=== PATIENT | female | born 1955 | race Hispanic/Latino ===

== ENCOUNTER 2017-01-17 16:58 | Inpatient (IN) | payer MEDICAID ==
[2017-01-17 16:58] VITALS: BMI 19.8
--- NOTE | 2017-01-17 17:52 | ED PDOC ---
Arrival/HPI - General Chief Complaint: Trauma Time Seen by Provider: 01/17/17 17:22 Historian: Patient - History of Present Illness Narrative History of Present Illness (Text): 01/17/17 17:49 61 yo female with h/o Afib (coumadin), CAD, HTN, Hypothyroidism, Leukemia, presents to the ED s/p fall in the bathtub of the [facility]. She says she slipped and fell and hit her left forehead. She only has mild pain. No LOC. Denies any neck pain. No numbness or weakness. Patient denies any other injury. No hip pain. PMD: Dr. Knight Past Medical History - Provider Review Nursing Documentation Reviewed: Yes - Infectious Disease Hx of Infectious Diseases: None - Tetanus Immunization Tetanus Immunization: Unknown - Cardiac Hx Cardiac Disorders: Yes Hx Hypertension: Yes - Pulmonary Hx Respiratory Disorders: No Hx Asthma: No - Neurological Hx Neurological Disorder: No - HEENT Hx HEENT Disorder: No - Renal Hx Renal Disorder: No - Endocrine/Metabolic Hx Endocrine Disorders: Yes Hx Hypothyroidism: Yes - Hematological/Oncological Hx Blood Disorders: Yes (leukemia) Hx Anemia: Yes Hx Leukemia: Yes - Integumentary Hx Dermatological Disorder: No - Musculoskeletal/Rheumatological Hx Musculoskeletal Disorders: Yes Hx Arthritis: Yes - Gastrointestinal Hx Gastrointestinal Disorders: Yes Hx Gastroesophageal Reflux: Yes - Genitourinary/Gynecological Hx Genitourinary Disorders: No - Psychiatric Hx Psychophysiologic Disorder: Yes Hx Depression: Yes Hx Emotional Abuse: No Hx Physical Abuse: No Hx Substance Use: No - Past Surgical History Past Surgical History: Unable to Obtain - Anesthesia Hx Anesthesia Reactions: No Hx Malignant Hyperthermia: No - Suicidal Assessment Feels Threatened In Home Enviroment: No Family/Social History - Physician Review Nursing Documentation Reviewed: Yes Family/Social History: No Known Family HX Smoking Status: Never Smoked Hx Alcohol Use: No Hx Substance Use: No Hx Substance Use Treatment: No Allergies/Home Meds Allergies/Adverse Reactions: Allergies No Known Allergies Allergy (Verified 01/17/17 17:22) Home Medications: Home Meds Medication Instructions Recorded Confirmed Carvedilol 6.25 mg PO BID 08/24/13 01/17/17 Pantoprazole Sodium [Protonix] 20 mg PO DAILY 08/24/13 01/17/17 Cholecalciferol (Vitamin D3) 1 tab PO DAILY 01/17/17 01/17/17 [Vitamin D3] Digoxin [Lanoxin] 0.125 mg PO DAILY 01/17/17 01/17/17 Enoxaparin [Lovenox] 60 mg SC DAILY 01/17/17 01/17/17 Fenofibrate [Triglide] 160 mg PO DAILY 01/17/17 01/17/17 Fluoxetine HCl [Prozac] 40 mg PO DAILY 01/17/17 01/17/17 Furosemide [Lasix] 20 mg PO DAILY 01/17/17 01/17/17 Gabapentin [Neurontin] 100 mg PO Q8 PRN 01/17/17 01/17/17 Methimazole [Methimazole] 10 mg PO TID 01/17/17 01/17/17 Mometasone Furoate [Nasonex] 2 spr IN DAILY 01/17/17 01/17/17 Montelukast [Singulair] 10 mg PO DAILY 01/17/17 01/17/17 Multivitamin [Multivitamins] 1 tab PO DAILY 01/17/17 01/17/17 Czleq-8-Iuli Ethyl Esters [OMEGA 3] 1,000 mg PO BID 01/17/17 01/17/17 Risperidone [Risperdal] 0.5 mg PO DAILY 01/17/17 01/17/17 Warfarin [Coumadin] 1 mg PO .EFREN 01/17/17 01/17/17 Warfarin [Coumadin] 2 mg PO DAILY 01/17/17 01/17/17 Review of Systems - Physician Review All systems were reviewed & negative as marked: Yes - Review of Systems Constitutional: Normal Eyes: Normal ENT: Normal Respiratory: Normal Cardiovascular: Normal Gastrointestinal: Normal Genitourinary Female: Normal Musculoskeletal: Normal Skin: Normal Neurological: Normal Endocrine: Normal Hemo/Lymphatic: Normal Psychiatric: Normal Physical Exam Vital Signs Reviewed: Yes Vital Signs Temp Pulse Resp BP Pulse Ox 01/17/17 17:15 98.8 F 110 H 24 116/64 98 Temperature: Afebrile Blood Pressure: Normal Pulse: Tachycardic Respiratory Rate: Normal Appearance: Positive for: Well-Appearing, Non-Toxic, Comfortable Pain Distress: None Mental Status: Positive for: Alert and Oriented X 3 - Systems Exam Head: Present: Atraumatic, Normocephalic, Tenderness (to left forehead; no ecchymosis; no step off). No: Contusion, Ecchymosis, Laceration Pupils: Present: PERRL Extroacular Muscles: Present: EOMI. No: Gaze Palsy Conjunctiva: Present: Normal Ears: Present: Normal Mouth: Present: Moist Mucous Membranes Pharnyx: Present: Normal. No: ERYTHEMA, EXUDATE Nose (External): Present: Atraumatic Nose (Internal): Present: Normal Inspection Neck: Present: Normal Range of Motion Respiratory/Chest: Present: Clear to Auscultation, Good Air Exchange. No: Respiratory Distress, Accessory Muscle Use Cardiovascular: Present: Regular Rate and Rhythm, Normal S1, S2. No: Murmurs Abdomen: Present: Normal Bowel Sounds. No: Tenderness, Distention, Peritoneal Signs Back: Present: Normal Inspection Upper Extremity: Present: Normal Inspection. No: Cyanosis, Edema Lower Extremity: Present: Normal Inspection. No: Edema Neurological: Present: GCS=15, CN II-XII Intact, Speech Normal, Motor Func Grossly Intact, Normal Sensory Function Skin: Present: Warm, Dry, Normal Color. No: Rashes Psychiatric: Present: Alert, Oriented x 3, Normal Insight, Normal Concentration Medical Decision Making ED Course and Treatment: 01/17/17 17:52 61 yo female s/p mechanical fall with head injury on coumadin -- Labs -- CT head/Max/facial -- Pain control -- Reevaluate and disposition 01/17/17 18:36 Patients labs show elevated WBC at 19. Added UA, CXR and Venous blood gamaliel shock panel. CT Head pending. Will sign out to Dr. Herzog to f/u labs, UA, CXR , CT, reevaluate and disposition 01/17/17 18:48 EKG: Sinus Tachy at 114 bpm with TWI in anteriolateral leads, no ST elevations. Change from 09/12/13. Cardiac enzymes, BNP ordered. Patient denies chest pain. She denies shortness of breathe. No urinary complaints. - Lab Interpretations Lab Results: 01/17/17 17:45 01/17/17 17:45 Lab Results 01/17/17 18:15: PT > 120.0 H*, INR > 11.00 H*, APTT > 180.0 H* 01/17/17 17:45: Digoxin 1.7 01/17/17 17:45: Sodium 140, Potassium 4.3, Chloride 104, Carbon Dioxide 23, Anion Gap 17, BUN 110 H, Creatinine 1.4, Est GFR ( Amer) 46, Est GFR (Non -Af Amer) 38, Random Glucose 168 H, Calcium 10.5 01/17/17 17:45: WBC 19.8 H D, RBC 4.13, Hgb 10.5 L, Hct 32.6 L, MCV 78.9 L, MCH 25.4, MCHC 32.2, RDW 13.6, Plt Count 232, MPV 10.9, Gran % 89.1 H, Lymph % (Auto ) 5.6 L, [place] % (Auto) 4.9, Eos % (Auto) 0.3 L, Baso % (Auto) 0.1, Gran # 17.66 H, Lymph # 1.1 L, [place] # 1.0 H, Eos # 0.1, Baso # 0.01 - RAD Interpretation Radiology Orders: 01/17/17 17:37 HEAD W/O CONTRAST [CT] Stat MAXILLOFACIAL W/O CONTRAST [CT] Stat 01/17/17 18:34 CXR [CHEST TWO VIEWS (PA/LAT)] [RAD] Stat - Medication Orders Current Medication Orders: Sodium Chloride (Sodium Chloride 0.9%) 1,000 mls @ 100 mls/hr IV .Q10H [facility] Discontinued Medications Acetaminophen (Tylenol 325mg Tab) 650 mg PO STAT STA Stop: 01/17/17 17:54 Last Admin: 01/17/17 18:59 Dose: 650 mg Disposition/Present on Arrival - Present on Arrival Any Indicators Present on Arrival: No History of DVT/PE: No History of Uncontrolled Diabetes: No Urinary Catheter: No History of Decub. Ulcer: No History Surgical Site Infection Following: None - Disposition Have Diagnosis and Disposition been Completed?: No Diagnosis: Head injury, Fall Disposition Time: 18:51 Patient Problems: Current Active Problems Problem Status Onset Head injury Acute Fall Acute Condition: CRITICAL Referrals: Sharonda Knight MD [Primary Care Provider] - Follow up with primary
[2017-01-17 17:56] LABS: BASO # 0.01 K/mm3 (0.0-2.0); BASO % 0.1 % (0.0-3.0); EOS # 0.1 (0.0-0.7); EOS % 0.3 % (1.5-5.0); GRAN # 17.66 (1.4-6.5); GRAN % 89.1 % (50.0-68.0); HEMOGLOBIN 10.5 gm/dL (12.0-16.0); LYMPH # 1.1 (1.2-3.4); LYMPH % 5.6 % (22.0-35.0); MEAN CELL VOLUME 78.9 fL (80.0-105.0); MEAN CORPUSCULAR HEMOGLOBIN 25.4 pg (25.0-35.0); MEAN CORPUSCULAR HGB CONC 32.2 g/dl (31.0-37.0); MEAN PLATELET VOLUME 10.9 fl (7.0-11.0); MONO % 4.9 % (1.0-6.0); PLATELET COUNT 232 10^3/uL (120.0-450.0); RBC 4.13 10^6/uL (3.5-6.1); RED CELL DISTRIBUTION WIDTH 13.6 % (11.5-14.5); WHITE BLOOD COUNT 19.8 10^3/ul (4.5-11.0)
[2017-01-17 18:10] LABS: CALCIUM 10.5 mg/dL (8.4-10.5)
--- NOTE | 2017-01-17 18:35 | CT ---
PROCEDURE: CT HEAD WITHOUT CONTRAST. HISTORY: head injury r/o ich COMPARISON: Noncontrast head CT performed 09/04/13 TECHNIQUE: Axial computed tomography images were obtained through the head/brain without intravenous contrast. Radiation dose: Total exam DLP = 1706.19 MGy-cm. This CT exam was performed using one or more of the following dose reduction techniques: Automated exposure control, adjustment of the mA and/or kV according to patient size, and/or use of iterative reconstruction technique. FINDINGS: Images degraded by motion artifact. HEMORRHAGE: No intracranial hemorrhage. BRAIN: Diffuse atrophy with prominence of the ventricles and sulci noted. No mass effect or edema. Intracranial atherosclerotic calcifications. Scattered periventricular and subcortical white matter hypodensities, which are nonspecific, but often seen with chronic microvascular ischemic disease. Bilateral chronic appearing lacunar infarcts including basal ganglia and bilateral thalami . Please note that MRI with diffusion imaging is more sensitive in the detection of acute ischemic event. VENTRICLES: No hydrocephalus. CALVARIUM: Unremarkable. PARANASAL SINUSES: Mucosal thickening of bilateral maxillary sinuses. Opacification of the ethmoid air cells and right frontal sinus.Suspect polyps within the posterior bilateral nasal fossa. MASTOID AIR CELLS: Unremarkable as visualized. No inflammatory changes. OTHER FINDINGS: Opacification bilateral external auditory canals, likely cerumen. IMPRESSION: Images degraded by motion artifact. Nonspecific white matter changes. Bilateral chronic appearing lacunar infarcts. Please note that MRI with diffusion imaging is more sensitive in the detection of acute ischemic event. Diffuse atrophy with prominence of the ventricles and sulci noted. Mucosal thickening of bilateral maxillary sinuses. Opacification of the ethmoid air cells and right frontal sinus. Correlate clinically for sinusitis. Suspect polyps within the posterior bilateral nasal fossa. Recommend further outpatient evaluation with direct visualization/endoscopy if indicated.
[2017-01-17 19:00] LABS: PROTHROMBIN TIME > 120.0 Seconds (9.9-11.8)
[2017-01-17 19:02] LABS: INR > 11.00 (0.93-1.08); PARTIAL THROMBOPLASTIN TIME > 180.0 Seconds (23.7-30.8)
--- NOTE | 2017-01-17 19:04 | CT ---
PROCEDURE: CT scan maxillofacial skeleton 01/17/2017 HISTORY: Facial injury r/o fracture COMPARISON: Correlation made with concurrent CT scan brain TECHNIQUE: Total exam DLP = 724.11 mGy-cm. Findings: The current study reveals no evidence of acute maxillofacial skeletal fractures. The bony orbits are and contents unremarkable. Globes intact and lenses appropriately optic nerves located. There are no retrobulbar hemorrhages or collections. The optic nerves and extraocular musculature unremarkable. The Procrit paranasal sinuses are intact however note made of mild mucosal thickening within maxillary antra. Moderate mucosal thickening ethmoid air complex extending superiorly into the right chamber of the frontal sinus. Mild mucosal thickening also seen in the sphenoid sinus. There is polypoid like appearance of the mucosa within the posterior nasal cavity extending into the posterior nasopharynx. Findings suggest nasal polyposis however clinical correlation recommended. ENT consultation and direct visualization recommended. GB and specifically Visualized mastoid air complexes are clear. Impression: No evidence of acute maxillofacial skeletal fracture seen. Mucoperiosteal inflammatory changes within the paranasal sinuses. Suspect nasal polyps. Recommend direct visualization for further evaluation. ENT consultation also suggested.
[2017-01-17 19:08] LABS: VENOUS BLOOD GAS BASE EXCESS 1.2 mmol/L (0.0-2.0); VENOUS BLOOD GAS PO2 55 mm/Hg (30-55); VENOUS BLOOD PH 7.35 (7.32-7.43)
[2017-01-17] MEDS ORDERED: Phytonadione 10 MG in Sodium Chloride 0.9% 50 ML IV ONE (19:14)
[2017-01-17] MEDS: Sodium Chloride 0.9% 1,000 ML IV SCH (19:15)
[2017-01-17 19:36] LABS: PROTHROMBIN TIME > 120.0 Seconds (9.9-11.8)
[2017-01-17 19:37] LABS: INR > 11.00 (0.93-1.08)
[2017-01-17 19:38] LABS: PARTIAL THROMBOPLASTIN TIME > 180.0 Seconds (23.7-30.8)
[2017-01-17 19:48] LABS: TROPONIN I 0.02 ng/mL
[2017-01-17] MEDS ORDERED: Piperacillin/Tazobact 3.375 gm 100 ML IVPB STA (20:39)
[2017-01-17 20:49] LABS: URINE BILIRUBIN NEGATIVE (NEGATIVE); URINE BLOOD NEGATIVE (NEGATIVE); URINE GLUCOSE (UA) NEGATIVE (NEGATIVE); URINE LEUKOCYTE ESTERASE NEGATIVE Leu/uL (NEGATIVE); URINE NITRATE NEGATIVE (NEGATIVE); URINE PROTEIN NEGATIVE mg/dL (<30 mg/dL); URINE UROBILINOGEN 0.2 E.U./dL (<1 E.U./dL)
[2017-01-17 20:51] LABS: URINE APPEARANCE CLEAR (CLEAR); URINE COLOR YELLOW (YELLOW)
--- NOTE | 2017-01-17 20:51 | ED PDOC ---
Physical Exam Vital Signs Reviewed: Yes Vital Signs Temp Pulse Resp BP Pulse Ox 01/17/17 20:45 97 H 18 101/55 L 94 L 01/17/17 17:15 98.8 F 110 H 24 116/64 98 Temperature: Afebrile Blood Pressure: Hypotensive Pulse: Regular Respiratory Rate: Normal Appearance: Positive for: Well-Appearing, Non-Toxic, Comfortable Pain Distress: None Mental Status: Positive for: Alert and Oriented X 3 Medical Decision Making ED Course and Treatment: 01/17/17 19:00 Case signed out to me from the day shift by Dr. Reed, pending labs, imaging, reevaluation and disposition. The patient is a 61 year old female who presented to the emergency department earlier today for evaluation after a mechanical fall. On reevaluation, the patient is resting comfortably awaiting results. 01/17/17 22:[address] Knight, who recommends that patient be admitted for hypercoagulated state secondary to coumadin. 01/17/17 22:41 CT HEAD WITHOUT CONTRAST: Dictator : Vianey Berrios MD FINDINGS: Images degraded by motion artifact. HEMORRHAGE:No intracranial hemorrhage. BRAIN: Diffuse atrophy with prominence of the ventricles and sulci noted. No mass effect or edema. Intracranial atherosclerotic calcifications. Scattered periventricular and subcortical white matter hypodensities, which are nonspecific, but often seen with chronic microvascular ischemic disease. Bilateral chronic appearing lacunar infarcts including basal ganglia and bilateral thalami . Please note that MRI with diffusion imaging is more sensitive in the detection of acute ischemic event. VENTRICLES:No hydrocephalus. CALVARIUM:Unremarkable. PARANASAL SINUSES: Mucosal thickening of bilateral maxillary sinuses. Opacification of the ethmoid air cells and right frontal sinus.Suspect polyps within the posterior bilateral nasal fossa. MASTOID AIR CELLS:Unremarkable as visualized. No inflammatory changes. OTHER FINDINGS:Opacification bilateral external auditory canals, likely cerumen. IMPRESSION: Images degraded by motion artifact. Nonspecific white matter changes. Bilateral chronic appearing lacunar infarcts. Please note that MRI with diffusion imaging is more sensitive in the detection of acute ischemic event. Diffuse atrophy with prominence of the ventricles and sulci noted. Mucosal thickening of bilateral maxillary sinuses. Opacification of the ethmoid air cells and right frontal sinus. Correlate clinically for sinusitis. Suspect polyps within the posterior bilateral nasal fossa. Recommend further outpatient evaluation with direct visualization/endoscopy if indicated. 01/17/17 22:[address]: Dictator : Kenny Bruce MD Findings: The current study reveals no evidence of acute maxillofacial skeletal fractures. The bony orbits are and contents unremarkable. Globes intact and lenses appropriately optic nerves located. There are no retrobulbar hemorrhages or collections. The optic nerves and extraocular musculature unremarkable. The Procrit paranasal sinuses are intact however note made of mild mucosal thickening within maxillary antra. Moderate mucosal thickening ethmoid air complex extending superiorly into the right chamber of the frontal sinus. Mild mucosal thickening also seen in the sphenoid sinus. There is polypoid like appearance of the mucosa within the posterior nasal cavity extending into the posterior nasopharynx. Findings suggest nasal polyposis however clinical correlation recommended. ENT consultation and direct visualization recommended. GB and specifically Visualized mastoid air complexes are clear. Impression: No evidence of acute maxillofacial skeletal fracture seen. Mucoperiosteal inflammatory changes within the paranasal sinuses. Suspect nasal polyps. Recommend direct visualization for further evaluation. ENT consultation also suggested. 01/18/17 06:18 - Lab Interpretations Lab Results: 01/17/17 17:45 01/17/17 17:45 Lab Results 01/17/17 20:35: Urine Color Yellow, Urine Appearance Clear, Urine pH 6.0, Ur Specific [place] 1.015, Urine Protein Negative, Urine Glucose (UA) Negative, Urine Ketones Negative, Urine Blood Negative, Urine Nitrate Negative, Urine Bilirubin Negative, Urine Urobilinogen 0.2, Ur Leukocyte Esterase Negative 01/17/17 19:55: Blood Type A POSITIVE, Antibody Screen Negative, BBK History Checked Patient has bt 01/17/17 18:45: pO2 55, VBG pH 7.35, VBG pCO2 50.0, VBG HCO3 27.6, VBG Total CO2 29.1 H, VBG O2 Sat (Calc) 92.8 H, VBG Base Excess 1.2, VBG Potassium 4.6, Glucose 180 H, Lactate 1.1, FiO2 21.0, Sodium 140.0, Chloride 106.0, Venous Blood Potassium 4.6 01/17/17 18:45: PT > 120.0 H*, INR > 11.00 H*, APTT > 180.0 H* 01/17/17 18:41: Lactate Dehydrogenase 430, Total Creatine Kinase 30 L, Troponin I 0.02, NT-Pro-B Natriuret Pep 522 H 01/17/17 18:15: PT > 120.0 H*, INR > 11.00 H*, APTT > 180.0 H* 01/17/17 17:45: Digoxin 1.7 01/17/17 17:45: Sodium 140, Potassium 4.3, Chloride 104, Carbon Dioxide 23, Anion Gap 17, BUN 110 H, Creatinine 1.4, Est GFR ( Amer) 46, Est GFR (Non -Af Amer) 38, Random Glucose 168 H, Calcium 10.5 01/17/17 17:45: WBC 19.8 H D, RBC 4.13, Hgb 10.5 L, Hct 32.6 L, MCV 78.9 L, MCH 25.4, MCHC 32.2, RDW 13.6, Plt Count 232, MPV 10.9, Gran % 89.1 H, Lymph % (Auto ) 5.6 L, [place] % (Auto) 4.9, Eos % (Auto) 0.3 L, Baso % (Auto) 0.1, Gran # 17.66 H, Lymph # 1.1 L, [place] # 1.0 H, Eos # 0.1, Baso # 0.01 I have reviewed the lab results: Yes - RAD Interpretation Radiology Orders: 01/17/17 17:37 HEAD W/O CONTRAST [CT] Stat MAXILLOFACIAL W/O CONTRAST [CT] Stat 01/17/17 20:31 CHEST PORTABLE [RAD] Stat - Medication Orders Current Medication Orders: Sodium Chloride (Sodium Chloride 0.9%) 1,000 mls @ 100 mls/hr IV .Q10H [facility] Last Admin: 01/17/17 19:15 Dose: 100 mls/hr Discontinued Medications Acetaminophen (Tylenol 325mg Tab) 650 mg PO STAT STA Stop: 01/17/17 17:54 Last Admin: 01/17/17 18:59 Dose: 650 mg Phytonadione 10 mg/ Sodium (Chloride) 51 mls @ 100 mls/hr IV ONCE ONE Stop: 01/17/17 19:44 Last Admin: 01/17/17 20:06 Dose: 100 mls/hr Piperacillin Sod/Tazobactam Sod (Zosyn 3.375 In Ns 100ml) 100 mls @ 200 mls/hr IVPB STAT STA PRN Reason: Protocol Stop: 01/17/17 21:08 Last Admin: 01/17/17 20:59 Dose: 200 mls/hr - Scribe Statement The provider has reviewed the documentation as recorded by the Scribe Rafa Villatoro Provider Scribe Attestation: All medical record entries made by the Scribe were at my direction and personally dictated by me. I have reviewed the chart and agree that the record accurately reflects my personal performance of the history, physical exam, medical decision making, and the department course for this patient. I have also personally directed, reviewed, and agree with the discharge instructions and disposition. Disposition/Present on Arrival - Present on Arrival Any Indicators Present on Arrival: No History of DVT/PE: No History of Uncontrolled Diabetes: No Urinary Catheter: No History of Decub. Ulcer: No History Surgical Site Infection Following: None - Disposition Have Diagnosis and Disposition been Completed?: Yes Diagnosis: Head injury, Fall Disposition: HOSPITALIZED Disposition Time: 22:00 Patient Problems: Current Active Problems Problem Status Onset Fall Acute Head injury Acute Condition: FAIR
[2017-01-17] MEDS: Sodium Chloride 0.9% 1,000 ML IV STA ×2 (23:39→23:59)
--- NOTE | 2017-01-18 07:57 | RAD ---
HISTORY: cp COMPARISON: 07/02/2014 FINDINGS: LUNGS: No active pulmonary disease. PLEURA: No significant pleural effusion identified, no pneumothorax apparent. CARDIOVASCULAR: Normal. OSSEOUS STRUCTURES: No significant abnormalities. VISUALIZED UPPER ABDOMEN: Normal. OTHER FINDINGS: None. IMPRESSION: No active disease.
--- NOTE | 2017-01-18 09:55 | CARD ---
APPROVED REPORT EKG Measurement Heart [id number] <Conclusion> Electronic ventricular pacemaker
[2017-01-19 08:48] LABS: EOS # 0.1 (0.0-0.7); EOS % 0.7 % (1.5-5.0); GRAN # 6.14 (1.4-6.5); GRAN % 72.4 % (50.0-68.0); LYMPH # 1.4 (1.2-3.4); LYMPH % 16.4 % (22.0-35.0); MEAN CELL VOLUME 80.5 fL (80.0-105.0); MEAN CORPUSCULAR HEMOGLOBIN 25.6 pg (25.0-35.0); MEAN CORPUSCULAR HGB CONC 31.8 g/dl (31.0-37.0); MEAN PLATELET VOLUME 9.8 fl (7.0-11.0); MONO # 0.9 (0.1-0.6); MONO % 10.5 % (1.0-6.0); PLATELET COUNT 167 10^3/uL (120.0-450.0); RBC 2.93 10^6/uL (3.5-6.1); RED CELL DISTRIBUTION WIDTH 13.5 % (11.5-14.5); WHITE BLOOD COUNT 8.5 10^3/ul (4.5-11.0)
[2017-01-19 08:56] LABS: INR 1.17 (0.93-1.08); PARTIAL THROMBOPLASTIN TIME 27.4 Seconds (23.7-30.8); PROTHROMBIN TIME 12.6 Seconds (9.9-11.8)
[2017-01-19 08:58] LABS: ALBUMIN 3.5 g/dL (3.0-4.8); ALT/SGPT 61 U/L (7-56); AST/SGOT 51 U/L (15-39); BLOOD UREA NITROGEN 55 mg/dL (7-21); CALCIUM 9.9 mg/dL (8.4-10.5); GFR AFRICAN-AMERICAN > 60; GFR NON-AFRICAN AMERICAN > 60
[2017-01-19 09:09] LABS: HEMOGLOBIN 7.5 gm/dL (12.0-16.0)
[2017-01-19] MEDS: Digoxin 125 mcg (0.125 mg) Tab PO SCH (09:33)
[2017-01-19] MEDS: Pantoprazole 20 mg EC Tab PO SCH (09:34)
[2017-01-19] MEDS: Multivitamin Therapeutic Tab PO SCH (09:34)
[2017-01-19] MEDS: cefTRIAXone 1 gm 1 GM/100 ML BAG IVPB SCH (09:43)
[2017-01-19 10:00] LABS: HDL CHOLESTEROL 24 mg/dL (29-60)
[2017-01-19 10:06] LABS: % IRON SATURATION 6 % (20-55); IRON 23 ug/dL (45-180); TOTAL IRON BINDING CAPACITY 366 ug/dL (265-497)
[2017-01-19 10:18] LABS: LDL CHOLESTEROL < 30 mg/dL (0-129)
[2017-01-19 10:39] LABS: HEMOGLOBIN 7.3 gm/dL (12.0-16.0)
--- NOTE | 2017-01-19 13:18 | RAD ---
PROCEDURE: HISTORY: pain COMPARISON: None TECHNIQUE: Four views FINDINGS: Bone mineralization normal. No fracture or dislocation. Unremarkable soft tissues IMPRESSION: Negative
[2017-01-19] MEDS: MOMETASONE FUROATE IN SCH (15:24)
[2017-01-19 19:00] LABS: FOLATE 14.6 ng/mL
--- NOTE | 2017-01-19 23:30 | CP.PCM.PN ---
Subjective - Date & Time of Evaluation Date of Evaluation: 01/19/17 Time of Evaluation: 23:30 - Subjective Subjective: S:Patient was seen because of elevated blood pressure. Has no complaints. Denies chest pain, sob, head ache, heaviness in the head. Medical record was reviewed. O:VSS. BP 160/90. LUNGS:Normal breathing pattern. A:Elevated blood pressure. P:Repeat blood pressure in a hour. Objective - Vital Signs/Intake and Output Vital Signs (last 24 hours): Temp Pulse Resp BP Pulse Ox 97.9 F 101 H 20 160/90 H 98 01/19/17 21:36 01/19/17 21:36 01/19/17 21:36 01/19/17 23:21 01/19/17 16:00 Intake and Output: 01/19/17 01/20/17 18:59 06:59 Intake Total 835 1000 Balance 835 1000 - Medications Medications: Current Medications Acetaminophen (Tylenol 325mg Tab) 650 mg PO Q4H PRN PRN Reason: Fever >100.5 F Carvedilol (Coreg) 6.25 mg PO BID [facility] Last Admin: 01/19/17 18:22 Dose: 6.25 mg Cholecalciferol (Vitamin D) 1,000 iu PO DAILY [facility] Last Admin: 01/19/17 09:33 Dose: 1,000 iu Digoxin (Lanoxin) 0.125 mg PO DAILY [facility] Last Admin: 01/19/17 09:33 Dose: 0.125 mg Fluoxetine HCl (Prozac) 40 mg PO DAILY [facility] Last Admin: 01/19/17 09:34 Dose: 40 mg Furosemide (Lasix) 20 mg PO DAILY [facility] Last Admin: 01/19/17 09:33 Dose: 20 mg Sodium Chloride (Sodium Chloride 0.9%) 1,000 mls @ 100 mls/hr IV .Q10H [facility] Last Admin: 01/17/17 19:15 Dose: 100 mls/hr Ceftriaxone Sodium (Rocephin 1 Gram Ivpb) 1 gm in 100 mls @ 100 mls/hr IVPB DAILY [facility] PRN Reason: Protocol Last Admin: 01/19/17 09:43 Dose: 100 mls/hr Methimazole (Tapazole) 10 mg PO TID [facility] Last Admin: 01/19/17 18:23 Dose: Not Given Montelukast Sodium (Singulair) 10 mg PO DAILY [facility] Last Admin: 01/19/17 09:35 Dose: 10 mg Multivitamins (Thera Tab) 1 tab PO DAILY [facility] Last Admin: 01/19/17 09:34 Dose: 1 tab Mometasone Furoate [ (Nasonex] (Home Med)) 2 spr IN DAILY [facility] Last Admin: 01/19/17 15:24 Dose: Not Given Pantoprazole Sodium (Protonix Ec Tab) 20 mg PO DAILY [facility] Last Admin: 01/19/17 09:34 Dose: 20 mg Risperidone (Risperdal Tab) 0.5 mg PO DAILY [facility] PRN Reason: Protocol Last Admin: 01/19/17 09:34 Dose: 0.5 mg - Labs Labs: PT 12.6 Seconds (9.9-11.8) H 01/19/17 08:30 INR 1.17 (0.93-1.08) H 01/19/17 08:30 APTT 27.4 Seconds (23.7-30.8) 01/19/17 08:30
[2017-01-20] MEDS ORDERED: Barium Sulfate Susp 2.1% w/v, 2.0% w/w 450 mL Bottle PO ONE (06:55)
[2017-01-20 07:11] LABS: MEAN CELL VOLUME 81.5 fL (80.0-105.0); MEAN CORPUSCULAR HEMOGLOBIN 27.1 pg (25.0-35.0); MEAN CORPUSCULAR HGB CONC 33.2 g/dl (31.0-37.0); MEAN PLATELET VOLUME 10.6 fl (7.0-11.0); RBC 4.06 10^6/uL (3.5-6.1); RED CELL DISTRIBUTION WIDTH 13.4 % (11.5-14.5); WHITE BLOOD COUNT 12.3 10^3/ul (4.5-11.0)
[2017-01-20 07:20] LABS: BLOOD UREA NITROGEN 47 mg/dL (7-21); CALCIUM 9.9 mg/dL (8.4-10.5); GFR AFRICAN-AMERICAN > 60; GFR NON-AFRICAN AMERICAN > 60
[2017-01-20] MEDS: Multivitamin Therapeutic Tab PO SCH (10:18)
[2017-01-20] MEDS: Digoxin 125 mcg (0.125 mg) Tab PO SCH (10:19)
--- NOTE | 2017-01-20 10:47 | CP.PCM.PN ---
Subjective - Date & Time of Evaluation Date of Evaluation: 01/20/17 Time of Evaluation: 08:00 - Subjective Subjective: No chest pain, no palpitation, No SOB, S/p Multiple P RBCs trnasfusion. Objective - Vital Signs/Intake and Output Vital Signs (last 24 hours): Temp Pulse Resp BP Pulse Ox 98.6 F 97 H 22 157/99 H 95 01/20/17 07:30 01/20/17 10:20 01/20/17 07:30 01/20/17 10:20 01/20/17 07:30 Intake and Output: 01/20/17 01/20/17 06:59 18:59 Intake Total 3630 Balance 3630 - Medications Medications: Current Medications Acetaminophen (Tylenol 325mg Tab) 650 mg PO Q4H PRN PRN Reason: Fever >100.5 F Carvedilol (Coreg) 6.25 mg PO BID [facility] Last Admin: 01/20/17 10:20 Dose: 6.25 mg Cholecalciferol (Vitamin D) 1,000 iu PO DAILY [facility] Last Admin: 01/20/17 10:20 Dose: 1,000 iu Digoxin (Lanoxin) 0.125 mg PO DAILY [facility] Last Admin: 01/20/17 10:19 Dose: 0.125 mg Fluoxetine HCl (Prozac) 40 mg PO DAILY [facility] Last Admin: 01/20/17 10:20 Dose: 40 mg Furosemide (Lasix) 20 mg PO DAILY [facility] Last Admin: 01/20/17 10:19 Dose: 20 mg Sodium Chloride (Sodium Chloride 0.9%) 1,000 mls @ 100 mls/hr IV .Q10H [facility] Last Admin: 01/17/17 19:15 Dose: 100 mls/hr Ceftriaxone Sodium (Rocephin 1 Gram Ivpb) 1 gm in 100 mls @ 100 mls/hr IVPB DAILY [facility] PRN Reason: Protocol Last Admin: 01/19/17 09:43 Dose: 100 mls/hr Methimazole (Tapazole) 10 mg PO TID [facility] Last Admin: 01/19/17 18:23 Dose: Not Given Montelukast Sodium (Singulair) 10 mg PO DAILY [facility] Last Admin: 01/20/17 10:18 Dose: 10 mg Multivitamins (Thera Tab) 1 tab PO DAILY [facility] Last Admin: 06/29/17 10:18 Dose: 1 tab Mometasone Furoate [ (Nasonex] (Home Med)) 2 spr IN DAILY [facility] Last Admin: 01/19/17 15:24 Dose: Not Given Pantoprazole Sodium (Protonix Ec Tab) 20 mg PO DAILY [facility] Last Admin: 01/19/17 09:34 Dose: 20 mg Risperidone (Risperdal Tab) 0.5 mg PO DAILY [facility] PRN Reason: Protocol Last Admin: 01/19/17 09:34 Dose: 0.5 mg - Labs Labs: 01/20/17 06:20 01/20/17 06:20 PT 12.6 Seconds (9.9-11.8) H 01/19/17 08:30 INR 1.17 (0.93-1.08) H 01/19/17 08:30 APTT 27.4 Seconds (23.7-30.8) 01/19/17 08:30 Assessment and Plan - Assessment and Plan (Free Text) Assessment: 61 darius old F with Hx of ch. A fib was on Coumadin admitted with Mech Fall, supra therapeutic INR, Anemia S/p Viot K S/p PRbcs transfusuion Hx of HTN Plan: Gi W/u before restarting anti coag Monitor H & H monitor Lytes PRN lasix, will start anti HTN Meds.
[2017-01-20] MEDS ORDERED: Potassium Chloride 20 mEq ER Tab PO ONE ×2 (10:50→14:00)
[2017-01-20] MEDS: MOMETASONE FUROATE IN SCH (11:10)
[2017-01-20] MEDS: cefTRIAXone 1 gm 1 GM/100 ML BAG IVPB SCH (11:37)
[2017-01-20] MEDS: Pantoprazole 20 mg EC Tab PO SCH (11:37)
--- NOTE | 2017-01-20 13:23 | CT ---
PROCEDURE: CT Abdomen and Pelvis without intravenous contrast HISTORY: blood coagulation disorder COMPARISON: 07/02/2014 TECHNIQUE: Without contrast.. Contrast Dose: Radiation dose: Total exam DLP = 209 mGy-cm. This CT exam was performed using one or more of the following dose reduction techniques: Automated exposure control, adjustment of the mA and/or kV according to patient size, and/or use of iterative reconstruction technique. FINDINGS: LOWER THORAX: Unremarkable. LIVER: Unremarkable. No gross lesion or ductal dilatation. GALLBLADDER AND BILE DUCTS: Unremarkable. PANCREAS: Unremarkable. No gross lesion or ductal dilatation. SPLEEN: Unremarkable. ADRENALS: Unremarkable. No mass. KIDNEYS AND URETERS: Unremarkable. No hydronephrosis. No solid mass. VASCULATURE: Unremarkable. No aortic aneurysm. BOWEL: Unremarkable. No obstruction. No gross mural thickening. APPENDIX: Unremarkable. Normal appendix. PERITONEUM: Unremarkable. No free fluid. No free air. LYMPH NODES: Unremarkable. No enlarged lymph nodes. BLADDER: Unremarkable. REPRODUCTIVE: Unremarkable. BONES: No acute fracture. OTHER FINDINGS: None. IMPRESSION: No acute findings
[2017-01-21 07:43] LABS: BASO # 0.01 K/mm3 (0.0-2.0); BASO % 0.1 % (0.0-3.0); EOS # 0.3 (0.0-0.7); EOS % 3.6 % (1.5-5.0); GRAN % 68.5 % (50.0-68.0); HEMOGLOBIN 9.7 gm/dL (12.0-16.0); LYMPH # 1.6 (1.2-3.4); LYMPH % 16.7 % (22.0-35.0); MEAN CELL VOLUME 83.2 fL (80.0-105.0); MEAN CORPUSCULAR HEMOGLOBIN 26.6 pg (25.0-35.0); MEAN PLATELET VOLUME 10.4 fl (7.0-11.0); MONO % 11.1 % (1.0-6.0); PLATELET COUNT 167 10^3/uL (120.0-450.0); RBC 3.64 10^6/uL (3.5-6.1); RED CELL DISTRIBUTION WIDTH 13.7 % (11.5-14.5); WHITE BLOOD COUNT 9.4 10^3/ul (4.5-11.0)
[2017-01-21 07:53] LABS: ALB/GLOB RATIO 0.9 (1.1-1.8); ALBUMIN 2.9 g/dL (3.0-4.8); ALT/SGPT 56 U/L (7-56); AST/SGOT 49 U/L (15-39); BLOOD UREA NITROGEN 35 mg/dL (7-21); CALCIUM 8.7 mg/dL (8.4-10.5); GFR AFRICAN-AMERICAN > 60; GFR NON-AFRICAN AMERICAN > 60; MAGNESIUM 1.4 mg/dL (1.7-2.2)
--- NOTE | 2017-01-21 09:50 | CP.PCM.PN ---
Subjective - Date & Time of Evaluation Date of Evaluation: 01/21/17 Time of Evaluation: 09:30 - Subjective Subjective: feels beter , no weakness Objective - Vital Signs/Intake and Output Vital Signs (last 24 hours): Temp Pulse Resp BP Pulse Ox 98.4 F 102 H 20 143/94 H 97 01/21/17 07:30 01/21/17 07:30 01/21/17 07:30 01/21/17 07:30 01/21/17 07:30 Intake and Output: 01/21/17 01/21/17 06:59 18:59 Intake Total 660 Balance 660 - Medications Medications: Current Medications Acetaminophen (Tylenol 325mg Tab) 650 mg PO Q4H PRN PRN Reason: Fever >100.5 F Carvedilol (Coreg) 12.5 mg PO BID [facility] Last Admin: 01/20/17 17:51 Dose: 12.5 mg Cholecalciferol (Vitamin D) 1,000 iu PO DAILY [facility] Last Admin: 01/20/17 10:20 Dose: 1,000 iu Digoxin (Lanoxin) 0.125 mg PO DAILY [facility] Last Admin: 01/20/17 10:19 Dose: 0.125 mg Fluoxetine HCl (Prozac) 40 mg PO DAILY [facility] Last Admin: 01/20/17 10:20 Dose: 40 mg Furosemide (Lasix) 20 mg PO DAILY [facility] Last Admin: 01/20/17 10:19 Dose: 20 mg Sodium Chloride (Sodium Chloride 0.9%) 1,000 mls @ 100 mls/hr IV .Q10H [facility] Last Admin: 01/17/17 19:15 Dose: 100 mls/hr Ceftriaxone Sodium (Rocephin 1 Gram Ivpb) 1 gm in 100 mls @ 100 mls/hr IVPB DAILY [facility] PRN Reason: Protocol Last Admin: 01/20/17 11:37 Dose: 100 mls/hr Methimazole (Tapazole) 10 mg PO TID [facility] Last Admin: 01/20/17 17:51 Dose: 10 mg Montelukast Sodium (Singulair) 10 mg PO DAILY [facility] Last Admin: 01/20/17 10:18 Dose: 10 mg Multivitamins (Thera Tab) 1 tab PO DAILY [facility] Last Admin: 01/20/17 10:18 Dose: 1 tab Mometasone Furoate [ (Nasonex] (Home Med)) 2 spr IN DAILY [facility] Last Admin: 01/20/17 11:10 Dose: Not Given Pantoprazole Sodium (Protonix Ec Tab) 20 mg PO DAILY [facility] Last Admin: 01/20/17 11:37 Dose: 20 mg Risperidone (Risperdal Tab) 0.5 mg PO DAILY [facility] PRN Reason: Protocol Last Admin: 01/20/17 11:36 Dose: 0.5 mg - Labs Labs: 01/21/17 06:55 01/21/17 06:55 PT 12.6 Seconds (9.9-11.8) H 01/19/17 08:30 INR 1.17 (0.93-1.08) H 01/19/17 08:30 APTT 27.4 Seconds (23.7-30.8) 01/19/17 08:30 - Head Exam Head Exam: ATRAUMATIC - Eye Exam Eye Exam: Conjunctival injection - ENT Exam ENT Exam: Mucous Membranes Dry Assessment and Plan - Assessment and Plan (Free Text) Assessment: 61 year olf female admitted with supra therapeutic INR, anemia s/p Multiple pRBC tranfusion, weakness Denies chest pain, Sob. A fib hyperthyroidism Plan: continue Dig, Beta esther F/U Echo Gi W/u before restartin coumadin will f/u thx
[2017-01-21] MEDS: cefTRIAXone 1 gm 1 GM/100 ML BAG IVPB SCH (11:05)
[2017-01-21] MEDS: Multivitamin Therapeutic Tab PO SCH (11:07)
[2017-01-21] MEDS: Pantoprazole 20 mg EC Tab PO SCH (11:08)
[2017-01-21] MEDS: Digoxin 125 mcg (0.125 mg) Tab PO SCH (11:09)
[2017-01-21] MEDS: MOMETASONE FUROATE IN SCH (11:10)
[2017-01-21] MEDS: Sodium Chloride 0.9% 1,000 ML IV SCH (16:33)
--- NOTE | 2017-01-21 19:26 | CARD ---
APPROVED REPORT EXAM: Two-dimensional and M-mode echocardiogram with Doppler and color Doppler. INDICATION Dyspnea 2D DIMENSIONS Left Atrium (2D)3.8 (1.6-4.0cm)IVSd0.9 (0.7-1.1cm) LVDd3.5 (3.9-5.9cm)PWd0.9 (0.7-1.1cm) LVDs2.8 (2.5-4.0cm)FS (%) 20.3 % LVEF (%)42.4 (>50%) M-Mode DIMENSIONS Aortic Root2.60 (2.2-3.7cm)Aortic Cusp Exc.1.70 (1.5-2.0cm) Aortic Valve AoV Peak Yxojzfyw789.0cm/Martínez Peak GR.14mmHg Mitral Valve E/A ratio0.0 TDI E/Lateral E'0.0E/Medial E'0.0 Tricuspid Valve TR Peak [id number]/sRAP [id number] Peak Gr.29mmHg [id number] LEFT VENTRICLE The left ventricle is normal size. There is normal left ventricular wall thickness. The systolic function is mildly impaired.EF-40-45% There is mild to moderate hypokinesis in the apical anterior wall. The left ventricular diastolic function is normal. No left ventricle thrombus noted on this study. There is no ventricular septal defect visualized. There is no left ventricular aneurysm. There is no mass noted in the left ventricle. RIGHT VENTRICLE The right ventricle is normal size. There is normal right ventricular wall thickness. The right ventricular systolic function is normal. ATRIA The left atrium size is normal. The right atrium size is normal. The interatrial septum is intact with no evidence for an atrial septal defect. AORTIC VALVE The aortic valve is thickened but opens well. There is mild aortic regurgitation. There is no aortic valvular stenosis. There is no aortic valvular vegetation. MITRAL VALVE The mitral valve is calcified but opens well. Mitral annular calcification is mild to moderate. Mitral regurgitation is mild to moderate. There is no mitral valve stenosis. There is no evidence of mitral valve prolapse. TRICUSPID VALVE The tricuspid valve leaflets are thickened , but open well. There is mild tricuspid regurgitation.RVSP-39 mmof hg. There is no tricuspid valve stenosis. There is no tricuspid valve prolapse or vegetation. PULMONIC VALVE The pulmonic valve is borderline thickened. There is mild pulmonic valvular regurgitation. There is no pulmonic valvular stenosis. GREAT VESSELS The aortic root is normal in size. The ascending aorta is normal in size. The pulmonary artery is normal. The IVC is normal in size and collapses >50% with inspiration. PERICARDIAL EFFUSION There is no pleural effusion. There is no pericardial effusion. <Conclusion> Normal Chamber Size. EF-45% Mild AR Mild TR, RVSP-39 Mild PI Moderate MR. No vegetation Noted.
[2017-01-22] MEDS ORDERED: Magnesium Oxide 400 mg Tab UD PO ONE (01:38)
[2017-01-22] MEDS: Digoxin 125 mcg (0.125 mg) Tab PO SCH (09:14)
[2017-01-22] MEDS: MOMETASONE FUROATE IN SCH (09:15)
[2017-01-22] MEDS: Magnesium Oxide 400 mg Tab UD PO SCH ×2 (09:15→14:02)
[2017-01-22] MEDS: Pantoprazole 20 mg EC Tab PO SCH (09:16)
[2017-01-22] MEDS: cefTRIAXone 1 gm 1 GM/100 ML BAG IVPB SCH (09:16)
[2017-01-22] MEDS: Multivitamin Therapeutic Tab PO SCH (09:17)
[2017-01-22] MEDS: Silver Sulfadiazine 1% Cream (20 gm) TOP SCH ×2 (09:19→18:43)
[2017-01-22] MEDS: Nystatin 100,000 Units/gm Topical Pow(15 gm) TOP SCH ×2 (14:02→18:44)
--- NOTE | 2017-01-22 22:48 | CP.PCM.PN ---
Subjective - Date & Time of Evaluation Date of Evaluation: 01/21/17 Time of Evaluation: 11:30 - Subjective Subjective: 61 years old lady with h/o htn , hyperthyradism . ch diarrhea , at fib had anemia , got vit k , fresh frofen plasma , getting better . cardiology is on the case , bp is detting heigh so dc i/v fluid Objective - Vital Signs/Intake and Output Vital Signs (last 24 hours): Temp Pulse Resp BP Pulse Ox 97 F L 113 H 20 142/79 97 01/21/17 16:32 01/21/17 17:26 01/21/17 16:32 01/21/17 17:26 01/21/17 16:32 Intake and Output: 01/21/17 01/21/17 06:59 18:59 Intake Total 660 480 Balance 660 480 - Medications Medications: Current Medications Acetaminophen (Tylenol 325mg Tab) 650 mg PO Q4H PRN PRN Reason: Fever >100.5 F Carvedilol (Coreg) 12.5 mg PO BID [facility] Last Admin: 01/21/17 17:26 Dose: 12.5 mg Cholecalciferol (Vitamin D) 1,000 iu PO DAILY [facility] Last Admin: 01/21/17 11:08 Dose: 1,000 iu Digoxin (Lanoxin) 0.125 mg PO DAILY [facility] Last Admin: 01/21/17 11:09 Dose: 0.125 mg Fluoxetine HCl (Prozac) 40 mg PO DAILY [facility] Last Admin: 01/21/17 11:07 Dose: 40 mg Furosemide (Lasix) 20 mg PO DAILY [facility] Last Admin: 01/21/17 11:10 Dose: 20 mg Sodium Chloride (Sodium Chloride 0.9%) 1,000 mls @ 100 mls/hr IV .Q10H [facility] Last Admin: 01/21/17 16:33 Dose: 100 mls/hr Ceftriaxone Sodium (Rocephin 1 Gram Ivpb) 1 gm in 100 mls @ 100 mls/hr IVPB DAILY [facility] PRN Reason: Protocol Last Admin: 01/21/17 11:05 Dose: 100 mls/hr Methimazole (Tapazole) 10 mg PO TID [facility] Last Admin: 01/21/17 17:26 Dose: 10 mg Montelukast Sodium (Singulair) 10 mg PO DAILY [facility] Last Admin: 01/21/17 11:08 Dose: 10 mg Multivitamins (Thera Tab) 1 tab PO DAILY [facility] Last Admin: 01/21/17 11:07 Dose: 1 tab Mometasone Furoate [ (Nasonex] (Home Med)) 2 spr IN DAILY [facility] Last Admin: 01/21/17 11:10 Dose: Not Given Pantoprazole Sodium (Protonix Ec Tab) 20 mg PO DAILY [facility] Last Admin: 01/21/17 11:08 Dose: 20 mg Risperidone (Risperdal Tab) 0.5 mg PO DAILY [facility] PRN Reason: Protocol Last Admin: 01/21/17 11:07 Dose: 0.5 mg Silver Sulfadiazine (Silvadene 1% 20 Gm) 1 ea TOP BID [facility] - Labs Labs: 01/21/17 06:55 01/21/17 06:55 PT 12.6 Seconds (9.9-11.8) H 01/19/17 08:30 INR 1.17 (0.93-1.08) H 01/19/17 08:30 APTT 27.4 Seconds (23.7-30.8) 01/19/17 08:30 - Constitutional Appears: Well, Non-toxic - Head Exam Head Exam: ATRAUMATIC, NORMAL INSPECTION, NORMOCEPHALIC - Eye Exam Eye Exam: EOMI, Normal appearance, PERRL Pupil Exam: NORMAL ACCOMODATION, PERRL - ENT Exam ENT Exam: Mucous Membranes Moist, Normal Exam - Neck Exam Neck Exam: Full ROM, Normal Inspection. absent: Lymphadenopathy - Respiratory Exam Respiratory Exam: Clear to Ausculation Bilateral, NORMAL BREATHING PATTERN - Cardiovascular Exam Cardiovascular Exam: REGULAR RHYTHM, +S1, +S2. absent: Murmur - GI/Abdominal Exam GI & Abdominal Exam: Soft, Normal Bowel Sounds. absent: Tenderness - Back Exam Back Exam: NORMAL INSPECTION - Neurological Exam Neurological Exam: Alert, Awake, CN II-XII Intact, Normal Gait, Oriented x3 - Psychiatric Exam Psychiatric exam: Normal Affect, Normal Mood - Skin Skin Exam: Dry, Intact, Normal Color, Warm Assessment and Plan - Assessment and Plan (Free Text) Assessment: 61 years old lady with multiple medical problems , had htn , so dc i/v fluids , hyperthyradism , at . fib . was on comedine , have coagulopathy , hold comedine vit k and prbc given . , gi is on the case , cont. present treatment
--- NOTE | 2017-01-22 22:51 | CP.PCM.PN ---
Subjective - Date & Time of Evaluation Date of Evaluation: 01/20/17 Time of Evaluation: 10:20 - Subjective Subjective: pt is seen and examined on the bed side , c/o leg pain . awake allert but getting confuse , not good hystorian , no change in the status . got multiple blood trans fusion . cardiology notes noted . no n.v.d Objective - Vital Signs/Intake and Output Vital Signs (last 24 hours): Temp Pulse Resp BP Pulse Ox 98.6 F 97 H 22 152/90 H 95 01/20/17 07:30 01/20/17 17:51 01/20/17 07:30 01/20/17 17:51 01/20/17 07:30 Intake and Output: 01/20/17 01/21/17 18:59 06:59 Intake Total 480 Balance 480 - Medications Medications: Current Medications Acetaminophen (Tylenol 325mg Tab) 650 mg PO Q4H PRN PRN Reason: Fever >100.5 F Carvedilol (Coreg) 12.5 mg PO BID [facility] Last Admin: 01/20/17 17:51 Dose: 12.5 mg Cholecalciferol (Vitamin D) 1,000 iu PO DAILY [facility] Last Admin: 01/20/17 10:20 Dose: 1,000 iu Digoxin (Lanoxin) 0.125 mg PO DAILY [facility] Last Admin: 01/20/17 10:19 Dose: 0.125 mg Fluoxetine HCl (Prozac) 40 mg PO DAILY [facility] Last Admin: 01/20/17 10:20 Dose: 40 mg Furosemide (Lasix) 20 mg PO DAILY [facility] Last Admin: 01/20/17 10:19 Dose: 20 mg Sodium Chloride (Sodium Chloride 0.9%) 1,000 mls @ 100 mls/hr IV .Q10H [facility] Last Admin: 01/17/17 19:15 Dose: 100 mls/hr Ceftriaxone Sodium (Rocephin 1 Gram Ivpb) 1 gm in 100 mls @ 100 mls/hr IVPB DAILY [facility] PRN Reason: Protocol Last Admin: 01/20/17 11:37 Dose: 100 mls/hr Methimazole (Tapazole) 10 mg PO TID [facility] Last Admin: 01/20/17 17:51 Dose: 10 mg Montelukast Sodium (Singulair) 10 mg PO DAILY [facility] Last Admin: 01/20/17 10:18 Dose: 10 mg Multivitamins (Thera Tab) 1 tab PO DAILY [facility] Last Admin: 01/20/17 10:18 Dose: 1 tab Mometasone Furoate [ (Nasonex] (Home Med)) 2 spr IN DAILY [facility] Last Admin: 01/20/17 11:10 Dose: Not Given Pantoprazole Sodium (Protonix Ec Tab) 20 mg PO DAILY [facility] Last Admin: 01/20/17 11:37 Dose: 20 mg Risperidone (Risperdal Tab) 0.5 mg PO DAILY [facility] PRN Reason: Protocol Last Admin: 01/20/17 11:36 Dose: 0.5 mg - Labs Labs: 01/20/17 06:20 01/20/17 06:20 PT 12.6 Seconds (9.9-11.8) H 01/19/17 08:30 INR 1.17 (0.93-1.08) H 01/19/17 08:30 APTT 27.4 Seconds (23.7-30.8) 01/19/17 08:30 - Constitutional Appears: Well - Head Exam Head Exam: ATRAUMATIC, NORMAL INSPECTION, NORMOCEPHALIC - Eye Exam Eye Exam: EOMI, Normal appearance, PERRL Pupil Exam: NORMAL ACCOMODATION, PERRL - ENT Exam ENT Exam: Mucous Membranes Moist, Normal Exam - Neck Exam Neck Exam: Full ROM, Normal Inspection. absent: Lymphadenopathy - Respiratory Exam Respiratory Exam: Clear to Ausculation Bilateral, NORMAL BREATHING PATTERN - Cardiovascular Exam Cardiovascular Exam: REGULAR RHYTHM, +S1, +S2. absent: Murmur - GI/Abdominal Exam GI & Abdominal Exam: Soft, Normal Bowel Sounds. absent: Tenderness - Rectal Exam Rectal Exam: Deferred - Extremities Exam Extremities Exam: Full ROM, Normal Capillary Refill, Normal Inspection, Tenderness. absent: Joint Swelling, Pedal Edema - Back Exam Back Exam: NORMAL INSPECTION - Neurological Exam Neurological Exam: Alert, Awake, CN II-XII Intact, Normal Gait, Oriented x3 - Psychiatric Exam Psychiatric exam: Normal Affect, Normal Mood - Skin Skin Exam: Dry, Intact, Normal Color, Warm Assessment and Plan - Assessment and Plan (Free Text) Assessment: 61 years old lady with h/o hyperthyradism , htn , anemia , ch diarrhea , had mechanicle fall , coagulopathy , got vit k , frshfrozen plasma ,and prbc , getting eval. by gi . , fall prection . monitering h/h . at . fib , need cardiology openion for usage of comrdine ,
--- NOTE | 2017-01-22 22:53 | CP.PCM.PN ---
Subjective - Date & Time of Evaluation Date of Evaluation: 01/19/17 Time of Evaluation: 10:20 - Subjective Subjective: pt is seen and examined in her room . looking comfortable . somewhat anxious , non.v. d . pt is very poor hystorian . no obvious distress Objective - Vital Signs/Intake and Output Vital Signs (last 24 hours): Temp Pulse Resp BP Pulse Ox 97.9 F 101 H 20 160/90 H 98 01/19/17 21:36 01/19/17 21:36 01/19/17 21:36 01/19/17 23:21 01/19/17 16:00 Intake and Output: 01/19/17 01/20/17 18:59 06:59 Intake Total 835 1000 Balance 835 1000 - Medications Medications: Current Medications Acetaminophen (Tylenol 325mg Tab) 650 mg PO Q4H PRN PRN Reason: Fever >100.5 F Carvedilol (Coreg) 6.25 mg PO BID [facility] Last Admin: 01/19/17 18:22 Dose: 6.25 mg Cholecalciferol (Vitamin D) 1,000 iu PO DAILY [facility] Last Admin: 01/19/17 09:33 Dose: 1,000 iu Digoxin (Lanoxin) 0.125 mg PO DAILY [facility] Last Admin: 01/19/17 09:33 Dose: 0.125 mg Fluoxetine HCl (Prozac) 40 mg PO DAILY [facility] Last Admin: 01/19/17 09:34 Dose: 40 mg Furosemide (Lasix) 20 mg PO DAILY [facility] Last Admin: 01/19/17 09:33 Dose: 20 mg Sodium Chloride (Sodium Chloride 0.9%) 1,000 mls @ 100 mls/hr IV .Q10H [facility] Last Admin: 01/17/17 19:15 Dose: 100 mls/hr Ceftriaxone Sodium (Rocephin 1 Gram Ivpb) 1 gm in 100 mls @ 100 mls/hr IVPB DAILY [facility] PRN Reason: Protocol Last Admin: 01/19/17 09:43 Dose: 100 mls/hr Methimazole (Tapazole) 10 mg PO TID [facility] Last Admin: 01/19/17 18:23 Dose: Not Given Montelukast Sodium (Singulair) 10 mg PO DAILY [facility] Last Admin: 01/19/17 09:35 Dose: 10 mg Multivitamins (Thera Tab) 1 tab PO DAILY [facility] Last Admin: 01/19/17 09:34 Dose: 1 tab Mometasone Furoate [ (Nasonex] (Home Med)) 2 spr IN DAILY [facility] Last Admin: 01/19/17 15:24 Dose: Not Given Pantoprazole Sodium (Protonix Ec Tab) 20 mg PO DAILY [facility] Last Admin: 01/19/17 09:34 Dose: 20 mg Risperidone (Risperdal Tab) 0.5 mg PO DAILY [facility] PRN Reason: Protocol Last Admin: 01/19/17 09:34 Dose: 0.5 mg - Labs Labs: PT 12.6 Seconds (9.9-11.8) H 01/19/17 08:30 INR 1.17 (0.93-1.08) H 01/19/17 08:30 APTT 27.4 Seconds (23.7-30.8) 01/19/17 08:30 - Constitutional Appears: Well - Head Exam Head Exam: ATRAUMATIC, NORMAL INSPECTION, NORMOCEPHALIC - Eye Exam Eye Exam: EOMI, Normal appearance, PERRL Pupil Exam: NORMAL ACCOMODATION, PERRL - ENT Exam ENT Exam: Mucous Membranes Moist, Normal Exam - Neck Exam Neck Exam: Full ROM, Normal Inspection. absent: Lymphadenopathy - Respiratory Exam Respiratory Exam: Clear to Ausculation Bilateral, NORMAL BREATHING PATTERN - Cardiovascular Exam Cardiovascular Exam: REGULAR RHYTHM, +S1, +S2. absent: Murmur - GI/Abdominal Exam GI & Abdominal Exam: Soft, Normal Bowel Sounds. absent: Tenderness - Back Exam Back Exam: NORMAL INSPECTION - Neurological Exam Neurological Exam: Alert, Awake, CN II-XII Intact, Normal Gait, Oriented x3 - Psychiatric Exam Psychiatric exam: Normal Affect, Normal Mood - Skin Skin Exam: Dry, Intact, Normal Color, Warm Assessment and Plan - Assessment and Plan (Free Text) Assessment: coagulopathy . dementia . anemia . s/p blood transfusion , hyperthyroidism. djd . , ch diarrhea . cad , at, fib . . will rpeat pt ,inr . oob . fall precaution
--- NOTE | 2017-01-22 23:12 | CP.PCM.PN ---
Subjective - Date & Time of Evaluation Date of Evaluation: 01/22/17 Time of Evaluation: 11:30 - Subjective Subjective: pt is seen and examined at the bed side , having diarrhea , not big complainer , hard to get ros . no n.v.d , s/p fall in the bath room . h/o htn non complaint , Objective - Vital Signs/Intake and Output Vital Signs (last 24 hours): Temp Pulse Resp BP Pulse Ox 98.9 F 95 H 20 129/85 96 01/22/17 07:40 01/22/17 09:13 01/22/17 07:40 01/22/17 09:15 01/22/17 07:40 - Medications Medications: Current Medications Acetaminophen (Tylenol 325mg Tab) 650 mg PO Q4H PRN PRN Reason: Fever >100.5 F Carvedilol (Coreg) 12.5 mg PO BID [facility] Last Admin: 01/22/17 09:13 Dose: 12.5 mg Cholecalciferol (Vitamin D) 1,000 iu PO DAILY [facility] Last Admin: 01/22/17 09:17 Dose: 1,000 iu Digoxin (Lanoxin) 0.125 mg PO DAILY [facility] Last Admin: 01/22/17 09:14 Dose: 0.125 mg Fluoxetine HCl (Prozac) 40 mg PO DAILY [facility] Last Admin: 01/22/17 09:16 Dose: 40 mg Furosemide (Lasix) 20 mg PO DAILY [facility] Last Admin: 01/22/17 09:15 Dose: 20 mg Ceftriaxone Sodium (Rocephin 1 Gram Ivpb) 1 gm in 100 mls @ 100 mls/hr IVPB DAILY [facility] PRN Reason: Protocol Last Admin: 01/22/17 09:16 Dose: 100 mls/hr Magnesium Oxide (Mag-Ox) 400 mg PO TID [facility] Last Admin: 01/22/17 14:02 Dose: 400 mg Methimazole (Tapazole) 10 mg PO TID [facility] Last Admin: 01/22/17 14:02 Dose: 10 mg Montelukast Sodium (Singulair) 10 mg PO DAILY [facility] Last Admin: 01/22/17 09:17 Dose: 10 mg Multivitamins (Thera Tab) 1 tab PO DAILY [facility] Last Admin: 01/22/17 09:17 Dose: 1 tab Mometasone Furoate [ (Nasonex] (Home Med)) 2 spr IN DAILY [facility] Last Admin: 01/22/17 09:15 Dose: Not Given Nystatin (Nystop Topical Powder) 0 gm TOP TID [facility] Last Admin: 01/22/17 14:02 Dose: 1 appl Pantoprazole Sodium (Protonix Ec Tab) 20 mg PO DAILY [facility] Last Admin: 01/22/17 09:16 Dose: 20 mg Risperidone (Risperdal Tab) 0.5 mg PO DAILY [facility] PRN Reason: Protocol Last Admin: 01/22/17 09:16 Dose: 0.5 mg Silver Sulfadiazine (Silvadene 1% 20 Gm) 1 ea TOP BID [facility] Last Admin: 01/22/17 09:19 Dose: 1 applic - Labs Labs: 01/21/17 06:55 01/21/17 06:55 PT 12.6 Seconds (9.9-11.8) H 01/19/17 08:30 INR 1.17 (0.93-1.08) H 01/19/17 08:30 APTT 27.4 Seconds (23.7-30.8) 01/19/17 08:30 - Constitutional Appears: Well, Non-toxic, No Acute Distress - Head Exam Head Exam: ATRAUMATIC, NORMAL INSPECTION, NORMOCEPHALIC - Eye Exam Eye Exam: EOMI, Normal appearance, PERRL Pupil Exam: NORMAL ACCOMODATION, PERRL - ENT Exam ENT Exam: Mucous Membranes Moist, Normal Exam - Neck Exam Neck Exam: Full ROM, Normal Inspection. absent: Lymphadenopathy - Respiratory Exam Respiratory Exam: Clear to Ausculation Bilateral, NORMAL BREATHING PATTERN - Cardiovascular Exam Cardiovascular Exam: Tachycardia. absent: Murmur - GI/Abdominal Exam GI & Abdominal Exam: Soft, Normal Bowel Sounds - Back Exam Back Exam: NORMAL INSPECTION - Neurological Exam Neurological Exam: Alert, Awake, CN II-XII Intact, Normal Gait, Oriented x3 - Psychiatric Exam Psychiatric exam: Normal Affect, Normal Mood - Skin Skin Exam: Dry, Intact, Normal Color, Warm Assessment and Plan - Assessment and Plan (Free Text) Assessment: 61 years old lady with h/o at. fib. hyperthyroidism ch diarrhea , cad, leukemia , s/p fall at NH . non compliant . dementia . had coagulopthy . anemia . s/p prbc infusion , gi consult called to work for anemia and ch. diarrhea . stool send for exame
[2017-01-23 07:50] LABS: ALB/GLOB RATIO 0.9 (1.1-1.8); ALBUMIN 2.8 g/dL (3.0-4.8); ALT/SGPT 59 U/L (7-56); AST/SGOT 41 U/L (15-39); BLOOD UREA NITROGEN 28 mg/dL (7-21); CALCIUM 9.2 mg/dL (8.4-10.5); GFR AFRICAN-AMERICAN > 60; GFR NON-AFRICAN AMERICAN > 60
[2017-01-23] MEDS: Magnesium Oxide 400 mg Tab UD PO SCH ×3 (10:41→18:31)
[2017-01-23] MEDS: Digoxin 125 mcg (0.125 mg) Tab PO SCH (10:42)
[2017-01-23] MEDS: Multivitamin Therapeutic Tab PO SCH (10:42)
[2017-01-23] MEDS: Pantoprazole 20 mg EC Tab PO SCH (10:42)
[2017-01-23] MEDS: Silver Sulfadiazine 1% Cream (20 gm) TOP SCH ×3 (10:43→18:32)
[2017-01-23] MEDS: Nystatin 100,000 Units/gm Topical Pow(15 gm) TOP SCH ×3 (10:44→18:40)
[2017-01-23] MEDS: cefTRIAXone 1 gm 1 GM/100 ML BAG IVPB SCH (10:45)
[2017-01-23] MEDS ORDERED: Potassium Chloride 20 mEq ER Tab PO ONE (14:05)
[2017-01-23 15:27] LABS: T4 18.1 ug/dL (5.5-11.0)
[2017-01-23] MEDS: MOMETASONE FUROATE IN SCH (18:32)
--- NOTE | 2017-01-23 20:50 | CP.PCM.PN ---
Subjective - Date & Time of Evaluation Date of Evaluation: 01/23/17 Time of Evaluation: 09:30 - Subjective Subjective: pt is seen and examined at the bed side , looking comfortable . no jang , dizzyness , sob , chest pain . pt is poor hystorian Objective - Vital Signs/Intake and Output Vital Signs (last 24 hours): Temp Pulse Resp BP Pulse Ox 98.6 F 70 20 140/80 98 01/23/17 16:17 01/23/17 18:31 01/23/17 16:17 01/23/17 18:31 01/23/17 16:17 Intake and Output: 01/23/17 01/24/17 18:59 06:59 Intake Total 760 Balance 760 - Medications Medications: Current Medications Acetaminophen (Tylenol 325mg Tab) 650 mg PO Q4H PRN PRN Reason: Fever >100.5 F Carvedilol (Coreg) 12.5 mg PO BID [facility] Last Admin: 01/23/17 18:31 Dose: 12.5 mg Cholecalciferol (Vitamin D) 1,000 iu PO DAILY [facility] Last Admin: 01/23/17 10:42 Dose: 1,000 iu Digoxin (Lanoxin) 0.125 mg PO DAILY [facility] Last Admin: 01/23/17 10:42 Dose: 0.125 mg Fluoxetine HCl (Prozac) 40 mg PO DAILY [facility] Last Admin: 01/23/17 10:41 Dose: 40 mg Furosemide (Lasix) 20 mg PO DAILY [facility] Last Admin: 01/23/17 10:41 Dose: 20 mg Ceftriaxone Sodium (Rocephin 1 Gram Ivpb) 1 gm in 100 mls @ 100 mls/hr IVPB DAILY [facility] PRN Reason: Protocol Last Admin: 01/23/17 10:45 Dose: 100 mls/hr Magnesium Oxide (Mag-Ox) 400 mg PO TID [facility] Last Admin: 01/23/17 18:31 Dose: 400 mg Methimazole (Tapazole) 10 mg PO TID [facility] Last Admin: 01/23/17 18:31 Dose: 10 mg Metronidazole (Flagyl) 250 mg PO Q8H [facility] PRN Reason: Protocol Last Admin: 01/23/17 14:45 Dose: 250 mg Montelukast Sodium (Singulair) 10 mg PO DAILY [facility] Last Admin: 01/23/17 10:43 Dose: 10 mg Multivitamins (Thera Tab) 1 tab PO DAILY [facility] Last Admin: 01/23/17 10:42 Dose: 1 tab Mometasone Furoate [ (Nasonex] (Home Med)) 2 spr IN DAILY [facility] Last Admin: 01/23/17 18:32 Dose: Not Given Nystatin (Nystop Topical Powder) 0 gm TOP TID [facility] Last Admin: 01/23/17 18:40 Dose: 1 appl Pantoprazole Sodium (Protonix Ec Tab) 20 mg PO DAILY [facility] Last Admin: 01/23/17 10:42 Dose: 20 mg Risperidone (Risperdal Tab) 0.5 mg PO DAILY [facility] PRN Reason: Protocol Last Admin: 01/23/17 10:42 Dose: 0.5 mg Silver Sulfadiazine (Silvadene 1% 20 Gm) 1 ea TOP BID [facility] Last Admin: 01/23/17 18:32 Dose: 1 applic - Labs Labs: 01/21/17 06:55 01/23/17 07:00 PT 12.6 Seconds (9.9-11.8) H 01/19/17 08:30 INR 1.17 (0.93-1.08) H 01/19/17 08:30 APTT 27.4 Seconds (23.7-30.8) 01/19/17 08:30 - Constitutional Appears: Well - Head Exam Head Exam: ATRAUMATIC, NORMAL INSPECTION, NORMOCEPHALIC - Eye Exam Eye Exam: EOMI, Normal appearance, PERRL Pupil Exam: NORMAL ACCOMODATION, PERRL - ENT Exam ENT Exam: Mucous Membranes Moist, Normal Exam - Neck Exam Neck Exam: Full ROM, Normal Inspection. absent: Lymphadenopathy - Respiratory Exam Respiratory Exam: Clear to Ausculation Bilateral, NORMAL BREATHING PATTERN - Cardiovascular Exam Cardiovascular Exam: REGULAR RHYTHM, +S1, +S2. absent: Murmur - GI/Abdominal Exam GI & Abdominal Exam: Soft, Normal Bowel Sounds. absent: Tenderness - Back Exam Back Exam: NORMAL INSPECTION - Neurological Exam Neurological Exam: Alert, Awake, CN II-XII Intact, Normal Gait, Oriented x3 - Skin Skin Exam: Dry, Intact, Normal Color, Warm Assessment and Plan (1) Fall Status: Acute (2) Head injury Status: Acute (3) Anemia Status: Active (4) Atrial fibrillation Status: Active (5) Cardiomyopathy Status: Active (6) Clostridium difficile infection Status: Active (7) Hyperthyroidism Status: Active (8) Urinary incontinence Status: Active - Assessment and Plan (Free Text) Assessment: got vit. k and packed rbc , end , gi is on the case , gi prophylaxes
[2017-01-24] MEDS: Magnesium Oxide 400 mg Tab UD PO SCH ×3 (10:56→17:46)
--- NOTE | 2017-01-24 10:56 | CP.PCM.PN ---
Subjective - Date & Time of Evaluation Date of Evaluation: 01/24/17 Time of Evaluation: 08:00 - Subjective Subjective: Feels ok no Chest pain, weakness , nor SOB. Objective - Vital Signs/Intake and Output Vital Signs (last 24 hours): Temp Pulse Resp BP Pulse Ox 98.5 F 82 18 144/76 96 01/24/17 07:30 01/24/17 07:30 01/24/17 07:30 01/24/17 07:30 01/24/17 07:30 Intake and Output: 01/24/17 01/24/17 06:59 18:59 Intake Total 1080 Balance 1080 - Medications Medications: Current Medications Acetaminophen (Tylenol 325mg Tab) 650 mg PO Q4H PRN PRN Reason: Fever >100.5 F Last Admin: 01/24/17 09:04 Dose: 650 mg Carvedilol (Coreg) 12.5 mg PO BID [facility] Last Admin: 01/23/17 18:31 Dose: 12.5 mg Cholecalciferol (Vitamin D) 1,000 iu PO DAILY [facility] Last Admin: 01/23/17 10:42 Dose: 1,000 iu Digoxin (Lanoxin) 0.125 mg PO DAILY [facility] Last Admin: 01/23/17 10:42 Dose: 0.125 mg Fluoxetine HCl (Prozac) 40 mg PO DAILY [facility] Last Admin: 01/23/17 10:41 Dose: 40 mg Furosemide (Lasix) 20 mg PO DAILY [facility] Last Admin: 01/23/17 10:41 Dose: 20 mg Ceftriaxone Sodium (Rocephin 1 Gram Ivpb) 1 gm in 100 mls @ 100 mls/hr IVPB DAILY [facility] PRN Reason: Protocol Last Admin: 01/23/17 10:45 Dose: 100 mls/hr Magnesium Oxide (Mag-Ox) 400 mg PO TID [facility] Last Admin: 01/23/17 18:31 Dose: 400 mg Methimazole (Tapazole) 20 mg PO TID [facility] Metronidazole (Flagyl) 250 mg PO Q8H [facility] PRN Reason: Protocol Last Admin: 01/24/17 06:33 Dose: 250 mg Montelukast Sodium (Singulair) 10 mg PO DAILY [facility] Last Admin: 01/23/17 10:43 Dose: 10 mg Multivitamins (Thera Tab) 1 tab PO DAILY [facility] Last Admin: 01/23/17 10:42 Dose: 1 tab Mometasone Furoate [ (Nasonex] (Home Med)) 2 spr IN DAILY [facility] Last Admin: 01/23/17 18:32 Dose: Not Given Nystatin (Nystop Topical Powder) 0 gm TOP TID [facility] Last Admin: 01/23/17 18:40 Dose: 1 appl Pantoprazole Sodium (Protonix Ec Tab) 20 mg PO DAILY [facility] Last Admin: 01/23/17 10:42 Dose: 20 mg Risperidone (Risperdal Tab) 0.5 mg PO DAILY [facility] PRN Reason: Protocol Last Admin: 01/23/17 10:42 Dose: 0.5 mg Silver Sulfadiazine (Silvadene 1% 20 Gm) 1 ea TOP BID [facility] Last Admin: 01/23/17 18:32 Dose: 1 applic - Labs Labs: 01/21/17 06:55 01/23/17 07:00 PT 12.6 Seconds (9.9-11.8) H 01/19/17 08:30 INR 1.17 (0.93-1.08) H 01/19/17 08:30 APTT 27.4 Seconds (23.7-30.8) 01/19/17 08:30 Assessment and Plan - Assessment and Plan (Free Text) Assessment: 61 year old Female with pMhx of Ch,. A Fib was on anti coag admitted with svere anemia and Supratheputic INR S/p Multiple PRBCs S/p Vit K H & H stable now. Off anticoag Plan: Continue Dig, gentle diuretics Monitor Lytes and H & H Needs GI W/u before restarting Anti coag will follow THx
[2017-01-24] MEDS: Pantoprazole 20 mg EC Tab PO SCH (10:57)
[2017-01-24] MEDS: Digoxin 125 mcg (0.125 mg) Tab PO SCH (10:58)
[2017-01-24] MEDS: Nystatin 100,000 Units/gm Topical Pow(15 gm) TOP SCH ×3 (11:00→21:09)
[2017-01-24] MEDS: cefTRIAXone 1 gm 1 GM/100 ML BAG IVPB SCH (11:08)
[2017-01-24] MEDS: Silver Sulfadiazine 1% Cream (20 gm) TOP SCH ×2 (11:30→21:09)
--- NOTE | 2017-01-24 11:42 | CP.PCM.PN ---
<Rajendra,Raymondvil V - Last Filed: 01/24/17 23:44> Objective - Vital Signs/Intake and Output Vital Signs (last 24 hours): Temp Pulse Resp BP Pulse Ox 99 F 94 H 20 149/89 97 01/24/17 16:00 01/24/17 17:46 01/24/17 16:00 01/24/17 17:46 01/24/17 16:00 Intake and Output: 01/24/17 01/25/17 18:59 06:59 Intake Total 960 360 Balance 960 360 - Medications Medications: Current Medications Acetaminophen (Tylenol 325mg Tab) 650 mg PO Q4H PRN PRN Reason: Fever >100.5 F Last Admin: 01/24/17 09:04 Dose: 650 mg Carvedilol (Coreg) 12.5 mg PO BID [facility] Last Admin: 01/24/17 17:46 Dose: 12.5 mg Cholecalciferol (Vitamin D) 1,000 iu PO DAILY [facility] Last Admin: 01/24/17 11:01 Dose: 1,000 iu Digoxin (Lanoxin) 0.125 mg PO DAILY [facility] Last Admin: 01/24/17 10:58 Dose: 0.125 mg Fluoxetine HCl (Prozac) 40 mg PO DAILY [facility] Last Admin: 01/24/17 10:56 Dose: 40 mg Furosemide (Lasix) 20 mg PO DAILY [facility] Last Admin: 01/24/17 11:01 Dose: 20 mg Ceftriaxone Sodium (Rocephin 1 Gram Ivpb) 1 gm in 100 mls @ 100 mls/hr IVPB DAILY [facility] PRN Reason: Protocol Last Admin: 01/24/17 11:08 Dose: 100 mls/hr Magnesium Oxide (Mag-Ox) 400 mg PO TID [facility] Last Admin: 01/24/17 17:46 Dose: 400 mg Methimazole (Tapazole) 20 mg PO TID [facility] Last Admin: 01/24/17 17:45 Dose: 20 mg Metronidazole (Flagyl) 250 mg PO Q8H [facility] PRN Reason: Protocol Last Admin: 01/24/17 21:22 Dose: 250 mg Montelukast Sodium (Singulair) 10 mg PO DAILY [facility] Last Admin: 01/24/17 10:56 Dose: 10 mg Multivitamins (Thera Tab) 1 tab PO DAILY [facility] Last Admin: 01/24/17 14:04 Dose: 1 tab Mometasone Furoate [ (Nasonex] (Home Med)) 2 spr IN DAILY [facility] Last Admin: 01/24/17 12:53 Dose: Not Given Nystatin (Nystop Topical Powder) 0 gm TOP TID [facility] Last Admin: 01/24/17 21:09 Dose: Not Given Pantoprazole Sodium (Protonix Ec Tab) 20 mg PO DAILY [facility] Last Admin: 01/24/17 10:57 Dose: 20 mg Risperidone (Risperdal Tab) 0.5 mg PO DAILY [facility] PRN Reason: Protocol Last Admin: 01/24/17 11:02 Dose: 0.5 mg Silver Sulfadiazine (Silvadene 1% 20 Gm) 1 ea TOP BID [facility] Last Admin: 01/24/17 21:09 Dose: Not Given - Labs Labs: 01/24/17 19:20 01/24/17 19:20 PT 12.6 Seconds (9.9-11.8) H 01/19/17 08:30 INR 1.17 (0.93-1.08) H 01/19/17 08:30 APTT 27.4 Seconds (23.7-30.8) 01/19/17 08:30 Attending/Attestation - Attestation I have personally seen and examined this patient.: Yes I have fully participated in the care of the patient.: Yes I have reviewed all pertinent clinical information, including history, physical exam and plan: Yes Notes (Text): this <Antonette Roberts - Last Filed: 01/26/17 10:48> Subjective - Date & Time of Evaluation Date of Evaluation: 01/24/17 Time of Evaluation: 09:35 - Subjective Subjective: Seen and examined at the bedside earlier today. The chart was reviewed. Patient still reported to have loose bowel movement but improving,, less frequent. No reports of any nausea or vomiting tolerating the clear liquid. No reports of acute overnight events for GI bleed. Objective - Vital Signs/Intake and Output Vital Signs (last 24 hours): Temp Pulse Resp BP Pulse Ox 98.5 F 92 H 18 142/72 96 01/24/17 07:30 01/24/17 11:01 01/24/17 07:30 01/24/17 11:01 01/24/17 07:30 Intake and Output: 01/24/17 01/24/17 06:59 18:59 Intake Total 1080 Balance 1080 - Medications Medications: Current Medications Acetaminophen (Tylenol 325mg Tab) 650 mg PO Q4H PRN PRN Reason: Fever >100.5 F Last Admin: 01/24/17 09:04 Dose: 650 mg Carvedilol (Coreg) 12.5 mg PO BID [facility] Last Admin: 01/24/17 11:01 Dose: 12.5 mg Cholecalciferol (Vitamin D) 1,000 iu PO DAILY [facility] Last Admin: 01/24/17 11:01 Dose: 1,000 iu Digoxin (Lanoxin) 0.125 mg PO DAILY [facility] Last Admin: 01/24/17 10:58 Dose: 0.125 mg Fluoxetine HCl (Prozac) 40 mg PO DAILY [facility] Last Admin: 01/24/17 10:56 Dose: 40 mg Furosemide (Lasix) 20 mg PO DAILY [facility] Last Admin: 01/24/17 11:01 Dose: 20 mg Ceftriaxone Sodium (Rocephin 1 Gram Ivpb) 1 gm in 100 mls @ 100 mls/hr IVPB DAILY [facility] PRN Reason: Protocol Last Admin: 01/24/17 11:08 Dose: 100 mls/hr Magnesium Oxide (Mag-Ox) 400 mg PO TID [facility] Last Admin: 01/24/17 10:56 Dose: 400 mg Methimazole (Tapazole) 20 mg PO TID [facility] Last Admin: 01/24/17 10:57 Dose: 20 mg Metronidazole (Flagyl) 250 mg PO Q8H [facility] PRN Reason: Protocol Last Admin: 01/24/17 06:33 Dose: 250 mg Montelukast Sodium (Singulair) 10 mg PO DAILY [facility] Last Admin: 01/24/17 10:56 Dose: 10 mg Multivitamins (Thera Tab) 1 tab PO DAILY [facility] Last Admin: 01/23/17 10:42 Dose: 1 tab Mometasone Furoate [ (Nasonex] (Home Med)) 2 spr IN DAILY [facility] Last Admin: 01/23/17 18:32 Dose: Not Given Nystatin (Nystop Topical Powder) 0 gm TOP TID [facility] Last Admin: 01/23/17 18:40 Dose: 1 appl Pantoprazole Sodium (Protonix Ec Tab) 20 mg PO DAILY [facility] Last Admin: 07/03/17 10:57 Dose: 20 mg Risperidone (Risperdal Tab) 0.5 mg PO DAILY [facility] PRN Reason: Protocol Last Admin: 01/24/17 11:02 Dose: 0.5 mg Silver Sulfadiazine (Silvadene 1% 20 Gm) 1 ea TOP BID [facility] Last Admin: 01/23/17 18:32 Dose: 1 applic - Labs Labs: 01/21/17 06:55 01/23/17 07:00 PT 12.6 Seconds (9.9-11.8) H 01/19/17 08:30 INR 1.17 (0.93-1.08) H 01/19/17 08:30 APTT 27.4 Seconds (23.7-30.8) 01/19/17 08:30 - Constitutional Appears: No Acute Distress - Head Exam Head Exam: NORMOCEPHALIC - Eye Exam Eye Exam: Normal appearance. absent: Scleral icterus - ENT Exam ENT Exam: Mucous Membranes Moist - Neck Exam Neck Exam: Normal Inspection - Respiratory Exam Respiratory Exam: NORMAL BREATHING PATTERN. absent: Respiratory Distress - Cardiovascular Exam Cardiovascular Exam: +S1, +S2 - GI/Abdominal Exam GI & Abdominal Exam: Soft, Normal Bowel Sounds. absent: Guarding, Tenderness, Rebound - Extremities Exam Extremities Exam: absent: Calf Tenderness, Pedal Edema - Neurological Exam Neurological Exam: Alert, Awake, Oriented x3 - Skin Skin Exam: Dry, Warm Assessment and Plan - Assessment and Plan (Free Text) Assessment: assessment: Chronic diarrhea Anemia History of C. difficile Atrial fibrillation Hyperthyroidism Plan: Advance diet Continue empiric Flagyl Continue PPI On Tapazole On digoxin Seen and discussed with Dr. Drew.
[2017-01-24] MEDS: MOMETASONE FUROATE IN SCH (12:53)
[2017-01-24] MEDS: Multivitamin Therapeutic Tab PO SCH (14:04)
[2017-01-24 19:34] LABS: HEMOGLOBIN 9.8 gm/dL (12.0-16.0); MEAN CELL VOLUME 82.7 fL (80.0-105.0); MEAN CORPUSCULAR HEMOGLOBIN 26.5 pg (25.0-35.0); MEAN PLATELET VOLUME 10.3 fl (7.0-11.0); RBC 3.7 10^6/uL (3.5-6.1); RED CELL DISTRIBUTION WIDTH 13.5 % (11.5-14.5); WHITE BLOOD COUNT 8.2 10^3/ul (4.5-11.0)
[2017-01-24 19:48] LABS: ALB/GLOB RATIO 0.8 (1.1-1.8); ALBUMIN 2.8 g/dL (3.0-4.8); ALT/SGPT 89 U/L (7-56); AST/SGOT 58 U/L (15-39); BLOOD UREA NITROGEN 28 mg/dL (7-21); CALCIUM 9.1 mg/dL (8.4-10.5); GFR AFRICAN-AMERICAN > 60; GFR NON-AFRICAN AMERICAN > 60; MAGNESIUM 1.4 mg/dL (1.7-2.2)
--- NOTE | 2017-01-24 21:49 | CP.PCM.PN ---
Subjective - Date & Time of Evaluation Date of Evaluation: 01/24/17 Time of Evaluation: 05:00 - Subjective Subjective: pt is seen and examined at bed side . no change in the status . still had same diarrhea , no improving . no n.v. no abdominal pain . no acute event noted over night . gi notes noted . pt is poor hystorian Objective - Vital Signs/Intake and Output Vital Signs (last 24 hours): Temp Pulse Resp BP Pulse Ox 99 F 94 H 20 149/89 97 01/24/17 16:00 01/24/17 17:46 01/24/17 16:00 01/24/17 17:46 01/24/17 16:00 Intake and Output: 01/24/17 01/25/17 18:59 06:59 Intake Total 960 Balance 960 - Medications Medications: Current Medications Acetaminophen (Tylenol 325mg Tab) 650 mg PO Q4H PRN PRN Reason: Fever >100.5 F Last Admin: 01/24/17 09:04 Dose: 650 mg Carvedilol (Coreg) 12.5 mg PO BID [facility] Last Admin: 01/24/17 17:46 Dose: 12.5 mg Cholecalciferol (Vitamin D) 1,000 iu PO DAILY [facility] Last Admin: 01/24/17 11:01 Dose: 1,000 iu Digoxin (Lanoxin) 0.125 mg PO DAILY [facility] Last Admin: 01/24/17 10:58 Dose: 0.125 mg Fluoxetine HCl (Prozac) 40 mg PO DAILY [facility] Last Admin: 01/24/17 10:56 Dose: 40 mg Furosemide (Lasix) 20 mg PO DAILY [facility] Last Admin: 01/24/17 11:01 Dose: 20 mg Ceftriaxone Sodium (Rocephin 1 Gram Ivpb) 1 gm in 100 mls @ 100 mls/hr IVPB DAILY [facility] PRN Reason: Protocol Last Admin: 01/24/17 11:08 Dose: 100 mls/hr Magnesium Oxide (Mag-Ox) 400 mg PO TID [facility] Last Admin: 01/24/17 17:46 Dose: 400 mg Methimazole (Tapazole) 20 mg PO TID [facility] Last Admin: 01/24/17 17:45 Dose: 20 mg Metronidazole (Flagyl) 250 mg PO Q8H [facility] PRN Reason: Protocol Last Admin: 01/24/17 21:22 Dose: 250 mg Montelukast Sodium (Singulair) 10 mg PO DAILY [facility] Last Admin: 01/24/17 10:56 Dose: 10 mg Multivitamins (Thera Tab) 1 tab PO DAILY [facility] Last Admin: 01/24/17 14:04 Dose: 1 tab Mometasone Furoate [ (Nasonex] (Home Med)) 2 spr IN DAILY [facility] Last Admin: 01/24/17 12:53 Dose: Not Given Nystatin (Nystop Topical Powder) 0 gm TOP TID [facility] Last Admin: 01/24/17 21:09 Dose: Not Given Pantoprazole Sodium (Protonix Ec Tab) 20 mg PO DAILY [facility] Last Admin: 01/24/17 10:57 Dose: 20 mg Risperidone (Risperdal Tab) 0.5 mg PO DAILY [facility] PRN Reason: Protocol Last Admin: 01/24/17 11:02 Dose: 0.5 mg Silver Sulfadiazine (Silvadene 1% 20 Gm) 1 ea TOP BID [facility] Last Admin: 01/24/17 21:09 Dose: Not Given - Labs Labs: 01/24/17 19:20 01/24/17 19:20 PT 12.6 Seconds (9.9-11.8) H 01/19/17 08:30 INR 1.17 (0.93-1.08) H 01/19/17 08:30 APTT 27.4 Seconds (23.7-30.8) 01/19/17 08:30 - Constitutional Appears: Well - Head Exam Head Exam: ATRAUMATIC, NORMAL INSPECTION, NORMOCEPHALIC - Eye Exam Eye Exam: EOMI, Normal appearance, PERRL Pupil Exam: NORMAL ACCOMODATION, PERRL - ENT Exam ENT Exam: Mucous Membranes Moist, Normal Exam - Neck Exam Neck Exam: Full ROM, Normal Inspection. absent: Lymphadenopathy - Respiratory Exam Respiratory Exam: Clear to Ausculation Bilateral, NORMAL BREATHING PATTERN - Cardiovascular Exam Cardiovascular Exam: REGULAR RHYTHM, +S1, +S2. absent: Murmur - GI/Abdominal Exam GI & Abdominal Exam: Soft, Normal Bowel Sounds. absent: Tenderness - Rectal Exam Rectal Exam: NORMAL INSPECTION - Extremities Exam Extremities Exam: Full ROM, Normal Capillary Refill, Normal Inspection. absent : Joint Swelling, Pedal Edema - Back Exam Back Exam: NORMAL INSPECTION - Neurological Exam Neurological Exam: Alert, Awake, CN II-XII Intact, Normal Gait, Oriented x3 - Psychiatric Exam Psychiatric exam: Normal Affect, Normal Mood - Skin Skin Exam: Dry, Intact, Normal Color, Warm Assessment and Plan (1) Fall Status: Acute (2) Head injury Status: Acute (3) Anemia Status: Active (4) Atrial fibrillation Status: Active (5) Cardiomyopathy Status: Active (6) Clostridium difficile infection Status: Active (7) Hyperthyroidism Status: Active (8) Urinary incontinence Status: Active - Assessment and Plan (Free Text) Assessment: 61 years old lady with acute on ch. diarrhea had still dierrhea . gi is on the case , hyperthyradism , endo is on the case . at. fif . h/o coagulopathy .gi prophylaxis . waiting from cardiology about blood thinner decesion .
[2017-01-25 08:11] LABS: BASO # 0.02 K/mm3 (0.0-2.0); BASO % 0.3 % (0.0-3.0); EOS # 0.4 (0.0-0.7); EOS % 5.1 % (1.5-5.0); GRAN # 4.88 (1.4-6.5); GRAN % 62.3 % (50.0-68.0); HEMOGLOBIN 10.5 gm/dL (12.0-16.0); LYMPH # 1.6 (1.2-3.4); LYMPH % 20.8 % (22.0-35.0); MEAN CELL VOLUME 82.4 fL (80.0-105.0); MEAN CORPUSCULAR HEMOGLOBIN 26.9 pg (25.0-35.0); MEAN CORPUSCULAR HGB CONC 32.6 g/dl (31.0-37.0); MEAN PLATELET VOLUME 10.7 fl (7.0-11.0); MONO # 0.9 (0.1-0.6); MONO % 11.5 % (1.0-6.0); PLATELET COUNT 175 10^3/uL (120.0-450.0); RBC 3.91 10^6/uL (3.5-6.1); RED CELL DISTRIBUTION WIDTH 13.6 % (11.5-14.5); WHITE BLOOD COUNT 7.8 10^3/ul (4.5-11.0)
[2017-01-25 08:29] LABS: ALB/GLOB RATIO 0.9 (1.1-1.8); ALBUMIN 2.9 g/dL (3.0-4.8); ALT/SGPT 113 U/L (7-56); AST/SGOT 80 U/L (15-39); BLOOD UREA NITROGEN 26 mg/dL (7-21); CALCIUM 9.4 mg/dL (8.4-10.5); GFR AFRICAN-AMERICAN > 60; GFR NON-AFRICAN AMERICAN > 60
[2017-01-25 08:43] LABS: FREE T4 6.27 ng/dL (0.78-2.19); T4 20.3 ug/dL (5.5-11.0)
[2017-01-25] MEDS: Magnesium Oxide 400 mg Tab UD PO SCH ×3 (10:05→21:43)
[2017-01-25] MEDS: Digoxin 125 mcg (0.125 mg) Tab PO SCH (10:06)
[2017-01-25] MEDS: Multivitamin Therapeutic Tab PO SCH (10:07)
[2017-01-25] MEDS: Nystatin 100,000 Units/gm Topical Pow(15 gm) TOP SCH ×3 (10:08→17:01)
[2017-01-25] MEDS: cefTRIAXone 1 gm 1 GM/100 ML BAG IVPB SCH (10:08)
[2017-01-25] MEDS: MOMETASONE FUROATE IN SCH (10:08)
[2017-01-25] MEDS: Pantoprazole 20 mg EC Tab PO SCH (12:07)
[2017-01-25] MEDS: Silver Sulfadiazine 1% Cream (20 gm) TOP SCH ×2 (12:12→17:01)
--- NOTE | 2017-01-25 13:07 | CP.PCM.PN ---
Subjective - Date & Time of Evaluation Date of Evaluation: 01/25/17 Time of Evaluation: 10:15 - Subjective Subjective: feels ok, No chest pain, no palpitaion Objective - Vital Signs/Intake and Output Vital Signs (last 24 hours): Temp Pulse Resp BP Pulse Ox 98.9 F 97 H 22 150/90 97 01/25/17 08:11 01/25/17 08:11 01/25/17 08:11 01/25/17 10:07 01/25/17 08:11 Intake and Output: 01/25/17 01/25/17 06:59 18:59 Intake Total 540 Output Total 1 Balance 539 - Medications Medications: Current Medications Acetaminophen (Tylenol 325mg Tab) 650 mg PO Q4H PRN PRN Reason: Fever >100.5 F Last Admin: 01/24/17 09:04 Dose: 650 mg Carvedilol (Coreg) 12.5 mg PO BID [facility] Last Admin: 01/25/17 10:07 Dose: 12.5 mg Cholecalciferol (Vitamin D) 1,000 iu PO DAILY [facility] Last Admin: 01/25/17 10:05 Dose: 1,000 iu Digoxin (Lanoxin) 0.125 mg PO DAILY [facility] Last Admin: 01/25/17 10:06 Dose: 0.125 mg Fluoxetine HCl (Prozac) 40 mg PO DAILY [facility] Last Admin: 01/25/17 10:07 Dose: 40 mg Furosemide (Lasix) 20 mg PO DAILY [facility] Last Admin: 01/25/17 10:07 Dose: 20 mg Ceftriaxone Sodium (Rocephin 1 Gram Ivpb) 1 gm in 100 mls @ 100 mls/hr IVPB DAILY [facility] PRN Reason: Protocol Last Admin: 01/25/17 10:08 Dose: 100 mls/hr Magnesium Oxide (Mag-Ox) 400 mg PO TID [facility] Last Admin: 01/25/17 10:05 Dose: 400 mg Methimazole (Tapazole) 20 mg PO TID [facility] Last Admin: 01/25/17 11:00 Dose: 20 mg Metronidazole (Flagyl) 250 mg PO Q8H [facility] PRN Reason: Protocol Last Admin: 01/25/17 06:17 Dose: 250 mg Montelukast Sodium (Singulair) 10 mg PO DAILY [facility] Last Admin: 01/25/17 10:05 Dose: 10 mg Multivitamins (Thera Tab) 1 tab PO DAILY [facility] Last Admin: 01/25/17 10:07 Dose: 1 tab Mometasone Furoate [ (Nasonex] (Home Med)) 2 spr IN DAILY [facility] Last Admin: 01/25/17 10:08 Dose: Not Given Nystatin (Nystop Topical Powder) 0 gm TOP TID [facility] Last Admin: 01/25/17 10:08 Dose: 1 appl Pantoprazole Sodium (Protonix Ec Tab) 20 mg PO DAILY [facility] Last Admin: 01/25/17 12:07 Dose: 20 mg Risperidone (Risperdal Tab) 0.5 mg PO DAILY [facility] PRN Reason: Protocol Last Admin: 01/25/17 10:05 Dose: 0.5 mg Silver Sulfadiazine (Silvadene 1% 20 Gm) 1 ea TOP BID [facility] Last Admin: 01/25/17 12:12 Dose: 1 applic - Labs Labs: 01/25/17 08:05 01/25/17 08:05 PT 12.6 Seconds (9.9-11.8) H 01/19/17 08:30 INR 1.17 (0.93-1.08) H 01/19/17 08:30 APTT 27.4 Seconds (23.7-30.8) 01/19/17 08:30 Assessment and Plan - Assessment and Plan (Free Text) Assessment: 61 year olf F with Ch . A Fib Admitte with severe anemia. Supra therapeutic INR Off anti coag ...on Hold S/p vit k to revers anti coag s/p Multiple Prbcs still c/po diarrhea Plan: cotinue to hold coumadin till cleared by Gi continue Dig Monitor Lyes. Monitor H &H will foloow. Thx.
--- NOTE | 2017-01-25 14:40 | CP.PCM.PN ---
Subjective - Date & Time of Evaluation Date of Evaluation: 01/25/17 Time of Evaluation: 10:00 - Subjective Subjective: pt is seen and examined on the bed side , nurse Clau is on the bed side , as per nurse pt had atleast 7 bm . pt is poor hystorian . non,v . no change in the status .no abdominal pain . as per pt sleep was ok Objective - Vital Signs/Intake and Output Vital Signs (last 24 hours): Temp Pulse Resp BP Pulse Ox 98.9 F 97 H 22 150/90 97 01/25/17 08:11 01/25/17 08:11 01/25/17 08:11 01/25/17 10:07 01/25/17 08:11 Intake and Output: 01/25/17 01/25/17 06:59 18:59 Intake Total 540 Output Total 1 Balance 539 - Medications Medications: Current Medications Acetaminophen (Tylenol 325mg Tab) 650 mg PO Q4H PRN PRN Reason: Fever >100.5 F Last Admin: 01/24/17 09:04 Dose: 650 mg Carvedilol (Coreg) 12.5 mg PO BID [facility] Last Admin: 01/25/17 10:07 Dose: 12.5 mg Cholecalciferol (Vitamin D) 1,000 iu PO DAILY [facility] Last Admin: 01/25/17 10:05 Dose: 1,000 iu Digoxin (Lanoxin) 0.125 mg PO DAILY [facility] Last Admin: 01/25/17 10:06 Dose: 0.125 mg Fluoxetine HCl (Prozac) 40 mg PO DAILY [facility] Last Admin: 01/25/17 10:07 Dose: 40 mg Furosemide (Lasix) 20 mg PO DAILY [facility] Last Admin: 01/25/17 10:07 Dose: 20 mg Ceftriaxone Sodium (Rocephin 1 Gram Ivpb) 1 gm in 100 mls @ 100 mls/hr IVPB DAILY [facility] PRN Reason: Protocol Last Admin: 01/25/17 10:08 Dose: 100 mls/hr Magnesium Oxide (Mag-Ox) 400 mg PO TID [facility] Last Admin: 01/25/17 14:08 Dose: 400 mg Methimazole (Tapazole) 20 mg PO TID [facility] Last Admin: 01/25/17 14:08 Dose: 20 mg Metronidazole (Flagyl) 250 mg PO Q8H [facility] PRN Reason: Protocol Last Admin: 01/25/17 14:07 Dose: 250 mg Montelukast Sodium (Singulair) 10 mg PO DAILY [facility] Last Admin: 01/25/17 10:05 Dose: 10 mg Multivitamins (Thera Tab) 1 tab PO DAILY [facility] Last Admin: 01/25/17 10:07 Dose: 1 tab Mometasone Furoate [ (Nasonex] (Home Med)) 2 spr IN DAILY [facility] Last Admin: 01/25/17 10:08 Dose: Not Given Nystatin (Nystop Topical Powder) 0 gm TOP TID [facility] Last Admin: 01/25/17 10:08 Dose: 1 appl Pantoprazole Sodium (Protonix Ec Tab) 20 mg PO DAILY [facility] Last Admin: 01/25/17 12:07 Dose: 20 mg Risperidone (Risperdal Tab) 0.5 mg PO DAILY [facility] PRN Reason: Protocol Last Admin: 01/25/17 10:05 Dose: 0.5 mg Silver Sulfadiazine (Silvadene 1% 20 Gm) 1 ea TOP BID [facility] Last Admin: 01/25/17 12:12 Dose: 1 applic - Labs Labs: 01/25/17 08:05 01/25/17 08:05 PT 12.6 Seconds (9.9-11.8) H 01/19/17 08:30 INR 1.17 (0.93-1.08) H 01/19/17 08:30 APTT 27.4 Seconds (23.7-30.8) 01/19/17 08:30 - Constitutional Appears: Well - Head Exam Head Exam: ATRAUMATIC, NORMAL INSPECTION, NORMOCEPHALIC - Eye Exam Eye Exam: EOMI, Normal appearance, PERRL Pupil Exam: NORMAL ACCOMODATION, PERRL - ENT Exam ENT Exam: Mucous Membranes Moist, Normal Exam - Neck Exam Neck Exam: Full ROM, Normal Inspection. absent: Lymphadenopathy - Respiratory Exam Respiratory Exam: Clear to Ausculation Bilateral, NORMAL BREATHING PATTERN - Cardiovascular Exam Cardiovascular Exam: REGULAR RHYTHM, +S1, +S2. absent: Murmur - GI/Abdominal Exam GI & Abdominal Exam: Soft, Normal Bowel Sounds. absent: Tenderness - Back Exam Back Exam: NORMAL INSPECTION - Neurological Exam Neurological Exam: Alert, Awake, CN II-XII Intact, Normal Gait, Oriented x3 - Psychiatric Exam Psychiatric exam: Normal Affect, Normal Mood - Skin Skin Exam: Dry, Intact, Normal Color, Warm Assessment and Plan (1) Fall Status: Acute (2) Head injury Status: Acute (3) Anemia Status: Active (4) Atrial fibrillation Status: Active (5) Cardiomyopathy Status: Active (6) Clostridium difficile infection Status: Active (7) Hyperthyroidism Status: Active (8) Urinary incontinence Status: Active - Assessment and Plan (Free Text) Assessment: 61 years old lady resident of [facility] . had many problems as above . still had dierrhea . gi cardiology and endo is on the case . waiting for GI openion for starting blood thener , cont. same treatment , will f/un
[2017-01-26] MEDS: Digoxin 125 mcg (0.125 mg) Tab PO SCH (10:48)
[2017-01-26] MEDS: Magnesium Oxide 400 mg Tab UD PO SCH ×4 (10:49→18:23)
[2017-01-26] MEDS: MOMETASONE FUROATE IN SCH (10:49)
[2017-01-26] MEDS: Pantoprazole 20 mg EC Tab PO SCH (10:50)
[2017-01-26] MEDS: Multivitamin Therapeutic Tab PO SCH (10:50)
[2017-01-26] MEDS: cefTRIAXone 1 gm 1 GM/100 ML BAG IVPB SCH (10:51)
[2017-01-26] MEDS: Silver Sulfadiazine 1% Cream (20 gm) TOP SCH ×2 (10:51→17:48)
[2017-01-26] MEDS: Nystatin 100,000 Units/gm Topical Pow(15 gm) TOP SCH ×3 (10:52→17:48)
--- NOTE | 2017-01-26 10:53 | CP.PCM.PN ---
Subjective - Date & Time of Evaluation Date of Evaluation: 01/26/17 Time of Evaluation: 08:50 - Subjective Subjective: S&E at bedside, chart reviewed. Had 4 BM last night , non this am per patients. Reports that it is still a bit loose. No bleeding, N/V, or abdominal pain. Tolerating oral intake. Objective - Vital Signs/Intake and Output Vital Signs (last 24 hours): Temp Pulse Resp BP Pulse Ox 98.4 F 91 H 20 137/79 98 01/26/17 07:30 01/26/17 07:30 01/26/17 07:30 01/26/17 07:30 01/26/17 07:30 Intake and Output: 01/26/17 01/26/17 06:59 18:59 Intake Total 660 Balance 660 - Medications Medications: Current Medications Acetaminophen (Tylenol 325mg Tab) 650 mg PO Q4H PRN PRN Reason: Fever >100.5 F Last Admin: 01/24/17 09:04 Dose: 650 mg Carvedilol (Coreg) 12.5 mg PO BID [facility] Last Admin: 01/25/17 18:12 Dose: 12.5 mg Cholecalciferol (Vitamin D) 1,000 iu PO DAILY [facility] Last Admin: 01/25/17 10:05 Dose: 1,000 iu Digoxin (Lanoxin) 0.125 mg PO DAILY [facility] Last Admin: 01/25/17 10:06 Dose: 0.125 mg Fluoxetine HCl (Prozac) 40 mg PO DAILY [facility] Last Admin: 01/25/17 10:07 Dose: 40 mg Furosemide (Lasix) 20 mg PO DAILY [facility] Last Admin: 01/25/17 10:07 Dose: 20 mg Ceftriaxone Sodium (Rocephin 1 Gram Ivpb) 1 gm in 100 mls @ 100 mls/hr IVPB DAILY [facility] PRN Reason: Protocol Last Admin: 01/25/17 10:08 Dose: 100 mls/hr Magnesium Oxide (Mag-Ox) 400 mg PO TID [facility] Last Admin: 01/25/17 21:43 Dose: 400 mg Methimazole (Tapazole) 20 mg PO TID [facility] Last Admin: 01/25/17 18:12 Dose: 20 mg Metronidazole (Flagyl) 250 mg PO Q8H [facility] PRN Reason: Protocol Last Admin: 01/26/17 05:33 Dose: 250 mg Montelukast Sodium (Singulair) 10 mg PO DAILY [facility] Last Admin: 01/25/17 10:05 Dose: 10 mg Multivitamins (Thera Tab) 1 tab PO DAILY [facility] Last Admin: 01/25/17 10:07 Dose: 1 tab Mometasone Furoate [ (Nasonex] (Home Med)) 2 spr IN DAILY [facility] Last Admin: 01/25/17 10:08 Dose: Not Given Nystatin (Nystop Topical Powder) 0 gm TOP TID [facility] Last Admin: 01/25/17 17:01 Dose: 1 appl Pantoprazole Sodium (Protonix Ec Tab) 20 mg PO DAILY [facility] Last Admin: 01/25/17 12:07 Dose: 20 mg Risperidone (Risperdal Tab) 0.5 mg PO DAILY [facility] PRN Reason: Protocol Last Admin: 01/25/17 10:05 Dose: 0.5 mg Silver Sulfadiazine (Silvadene 1% 20 Gm) 1 ea TOP BID [facility] Last Admin: 01/25/17 17:01 Dose: Not Given - Labs Labs: 01/25/17 08:05 01/25/17 08:05 PT 12.6 Seconds (9.9-11.8) H 01/19/17 08:30 INR 1.17 (0.93-1.08) H 01/19/17 08:30 APTT 27.4 Seconds (23.7-30.8) 01/19/17 08:30 - Constitutional Appears: No Acute Distress - Head Exam Head Exam: NORMAL INSPECTION - Eye Exam Eye Exam: Normal appearance. absent: Scleral icterus - ENT Exam ENT Exam: Mucous Membranes Moist - Neck Exam Neck Exam: Normal Inspection - Respiratory Exam Respiratory Exam: NORMAL BREATHING PATTERN. absent: Respiratory Distress - GI/Abdominal Exam GI & Abdominal Exam: Soft, Normal Bowel Sounds. absent: Guarding, Tenderness, Organomegaly, Rebound - Extremities Exam Extremities Exam: absent: Calf Tenderness, Pedal Edema - Neurological Exam Neurological Exam: Alert, Awake, Oriented x3 - Skin Skin Exam: Dry, Warm Assessment and Plan - Assessment and Plan (Free Text) Assessment: Assessment: Elevated LFT, may be secondary to medications, other differential gallstones, infectious, last abdominal US 2013 and hepatitis panel 2013, both negative, will repeat. Chronic diarrhea Anemia History of C. difficile Atrial fibrillation Hyperthyroidism Plan: continue diet as tolerated Continue empiric Flagyl Continue PPI On Tapazole On digoxin abdominal us check hepatitis panel trend LFT Seen and discussed with Dr. Drew. ADDENDUM: Patient for EGD/colon 01/27/17, see orders
--- NOTE | 2017-01-26 12:53 | CP.PCM.PN ---
Subjective - Date & Time of Evaluation Date of Evaluation: 01/26/17 Time of Evaluation: 09:30 - Subjective Subjective: Lying Comfortably in Bed . Denies Chest Pain, SOB, Palpitations. Objective - Vital Signs/Intake and Output Vital Signs (last 24 hours): Temp Pulse Resp BP Pulse Ox 98.4 F 91 H 20 135/80 98 01/26/17 07:30 01/26/17 10:55 01/26/17 07:30 01/26/17 10:55 01/26/17 07:30 Intake and Output: 01/26/17 01/26/17 06:59 18:59 Intake Total 660 Balance 660 - Medications Medications: Current Medications Acetaminophen (Tylenol 325mg Tab) 650 mg PO Q4H PRN PRN Reason: Fever >100.5 F Last Admin: 01/24/17 09:04 Dose: 650 mg Carvedilol (Coreg) 12.5 mg PO BID [facility] Last Admin: 01/26/17 10:55 Dose: 12.5 mg Cholecalciferol (Vitamin D) 1,000 iu PO DAILY [facility] Last Admin: 01/26/17 10:55 Dose: 1,000 iu Digoxin (Lanoxin) 0.125 mg PO DAILY [facility] Last Admin: 01/26/17 10:48 Dose: 0.125 mg Fluoxetine HCl (Prozac) 40 mg PO DAILY [facility] Last Admin: 01/26/17 10:52 Dose: 40 mg Furosemide (Lasix) 20 mg PO DAILY [facility] Last Admin: 01/26/17 10:49 Dose: 20 mg Ceftriaxone Sodium (Rocephin 1 Gram Ivpb) 1 gm in 100 mls @ 100 mls/hr IVPB DAILY [facility] PRN Reason: Protocol Last Admin: 01/26/17 10:51 Dose: 100 mls/hr Magnesium Oxide (Mag-Ox) 400 mg PO TID [facility] Last Admin: 01/26/17 10:49 Dose: 400 mg Methimazole (Tapazole) 20 mg PO TID [facility] Last Admin: 01/26/17 10:50 Dose: 20 mg Metronidazole (Flagyl) 250 mg PO Q8H [facility] PRN Reason: Protocol Last Admin: 01/26/17 05:33 Dose: 250 mg Montelukast Sodium (Singulair) 10 mg PO DAILY [facility] Last Admin: 01/26/17 10:52 Dose: 10 mg Multivitamins (Thera Tab) 1 tab PO DAILY [facility] Last Admin: 01/26/17 10:50 Dose: 1 tab Mometasone Furoate [ (Nasonex] (Home Med)) 2 spr IN DAILY [facility] Last Admin: 01/26/17 10:49 Dose: Not Given Nystatin (Nystop Topical Powder) 0 gm TOP TID [facility] Last Admin: 01/26/17 10:52 Dose: 1 appl Pantoprazole Sodium (Protonix Ec Tab) 20 mg PO DAILY [facility] Last Admin: 01/26/17 10:50 Dose: 20 mg Risperidone (Risperdal Tab) 0.5 mg PO DAILY [facility] PRN Reason: Protocol Last Admin: 01/26/17 10:50 Dose: 0.5 mg Silver Sulfadiazine (Silvadene 1% 20 Gm) 1 ea TOP BID [facility] Last Admin: 01/26/17 10:51 Dose: 1 applic - Labs Labs: 01/25/17 08:05 01/25/17 08:05 PT 12.6 Seconds (9.9-11.8) H 01/19/17 08:30 INR 1.17 (0.93-1.08) H 01/19/17 08:30 APTT 27.4 Seconds (23.7-30.8) 01/19/17 08:30 - Constitutional Appears: Well - Head Exam Head Exam: NORMAL INSPECTION - Eye Exam Additional comments: Conjunctiva slightly Pale. - ENT Exam ENT Exam: Mucous Membranes Moist, Normal Exam - Neck Exam Neck Exam: Full ROM, Normal Inspection. absent: Lymphadenopathy - Respiratory Exam Respiratory Exam: Clear to Ausculation Bilateral, NORMAL BREATHING PATTERN - Cardiovascular Exam Cardiovascular Exam: Irregular Rhythm, +S1, +S2 - GI/Abdominal Exam GI & Abdominal Exam: Soft, Normal Bowel Sounds. absent: Tenderness - Exam Exam: Circumcision, NORMAL INSPECTION External exam: NORMAL EXTERNAL EXAM Speculum exam: NORMAL SPECULUM EXAM Bimanual exam: NORMAL BIMANUAL EXAM - Back Exam Back Exam: NORMAL INSPECTION Assessment and Plan (1) Fall Status: Acute (2) Head injury Status: Acute (3) Anemia Status: Active (4) Atrial fibrillation Status: Active (5) Cardiomyopathy Status: Active (6) Clostridium difficile infection Status: Active (7) Hyperthyroidism Status: Active (8) Urinary incontinence Status: Active - Assessment and Plan (Free Text) Assessment: Supra Therapeutic INR improved now. Severe Anaemia. Status Multiple Blood Transfusions. Atrial Fibrillation. Diarrhea. Plan: Continue Coreig, Tapazole, Antibiotics, Digoxine. Coumadine continue to be on hold till cleared by G>I>
--- NOTE | 2017-01-26 13:51 | CP.PCM.PN ---
Subjective - Date & Time of Evaluation Date of Evaluation: 01/26/17 Time of Evaluation: 11:00 - Subjective Subjective: S&E at bedside, chart reviewed. Had still BM last night , non this am per patients. Reports that it is still a bit loose. No bleeding, N/V, or abdominal pain. Tolerating oral intake.but pt is not good hystorian , d/d with ns . Objective - Vital Signs/Intake and Output Vital Signs (last 24 hours): Temp Pulse Resp BP Pulse Ox 98.4 F 91 H 20 135/80 98 01/26/17 07:30 01/26/17 10:55 01/26/17 07:30 01/26/17 10:55 01/26/17 07:30 Intake and Output: 01/26/17 01/26/17 06:59 18:59 Intake Total 660 Balance 660 - Medications Medications: Current Medications Acetaminophen (Tylenol 325mg Tab) 650 mg PO Q4H PRN PRN Reason: Fever >100.5 F Last Admin: 01/24/17 09:04 Dose: 650 mg Carvedilol (Coreg) 12.5 mg PO BID [facility] Last Admin: 01/26/17 10:55 Dose: 12.5 mg Cholecalciferol (Vitamin D) 1,000 iu PO DAILY [facility] Last Admin: 01/26/17 10:55 Dose: 1,000 iu Digoxin (Lanoxin) 0.125 mg PO DAILY [facility] Last Admin: 01/26/17 10:48 Dose: 0.125 mg Fluoxetine HCl (Prozac) 40 mg PO DAILY [facility] Last Admin: 01/26/17 10:52 Dose: 40 mg Furosemide (Lasix) 20 mg PO DAILY [facility] Last Admin: 01/26/17 10:49 Dose: 20 mg Ceftriaxone Sodium (Rocephin 1 Gram Ivpb) 1 gm in 100 mls @ 100 mls/hr IVPB DAILY [facility] PRN Reason: Protocol Last Admin: 01/26/17 10:51 Dose: 100 mls/hr Magnesium Oxide (Mag-Ox) 400 mg PO TID [facility] Last Admin: 01/26/17 10:49 Dose: 400 mg Methimazole (Tapazole) 20 mg PO TID [facility] Last Admin: 01/26/17 10:50 Dose: 20 mg Metronidazole (Flagyl) 250 mg PO Q8H [facility] PRN Reason: Protocol Last Admin: 01/26/17 05:33 Dose: 250 mg Montelukast Sodium (Singulair) 10 mg PO DAILY [facility] Last Admin: 01/26/17 10:52 Dose: 10 mg Multivitamins (Thera Tab) 1 tab PO DAILY [facility] Last Admin: 01/26/17 10:50 Dose: 1 tab Mometasone Furoate [ (Nasonex] (Home Med)) 2 spr IN DAILY [facility] Last Admin: 01/26/17 10:49 Dose: Not Given Nystatin (Nystop Topical Powder) 0 gm TOP TID [facility] Last Admin: 01/26/17 10:52 Dose: 1 appl Pantoprazole Sodium (Protonix Ec Tab) 20 mg PO DAILY [facility] Last Admin: 01/26/17 10:50 Dose: 20 mg Risperidone (Risperdal Tab) 0.5 mg PO DAILY [facility] PRN Reason: Protocol Last Admin: 01/26/17 10:50 Dose: 0.5 mg Silver Sulfadiazine (Silvadene 1% 20 Gm) 1 ea TOP BID [facility] Last Admin: 01/26/17 10:51 Dose: 1 applic - Labs Labs: 01/25/17 08:05 01/25/17 08:05 PT 12.6 Seconds (9.9-11.8) H 01/19/17 08:30 INR 1.17 (0.93-1.08) H 01/19/17 08:30 APTT 27.4 Seconds (23.7-30.8) 01/19/17 08:30 - Constitutional Appears: Well - Head Exam Head Exam: ATRAUMATIC, NORMAL INSPECTION, NORMOCEPHALIC - Eye Exam Eye Exam: EOMI, Normal appearance, PERRL Pupil Exam: NORMAL ACCOMODATION, PERRL - ENT Exam ENT Exam: Mucous Membranes Moist, Normal Exam - Neck Exam Neck Exam: Full ROM, Normal Inspection. absent: Lymphadenopathy - Respiratory Exam Respiratory Exam: Clear to Ausculation Bilateral, NORMAL BREATHING PATTERN - Cardiovascular Exam Cardiovascular Exam: Tachycardia, REGULAR RHYTHM, +S1, +S2. absent: Murmur - GI/Abdominal Exam GI & Abdominal Exam: Soft, Normal Bowel Sounds. absent: Tenderness - Back Exam Back Exam: NORMAL INSPECTION - Neurological Exam Neurological Exam: Alert, Awake, CN II-XII Intact, Normal Gait, Oriented x3 - Psychiatric Exam Psychiatric exam: Normal Affect, Normal Mood - Skin Skin Exam: Dry, Intact, Normal Color, Warm Assessment and Plan (1) Fall Status: Acute (2) Head injury Status: Acute (3) Anemia Status: Active (4) Atrial fibrillation Status: Active (5) Cardiomyopathy Status: Active (6) Clostridium difficile infection Status: Active (7) Hyperthyroidism Status: Active (8) Urinary incontinence Status: Active (9) Diarrhea Status: Acute
[2017-01-26] MEDS ORDERED: Magnesium Oxide 400 mg Tab UD PO STA (13:58)
[2017-01-26] MEDS ORDERED: Peg-Electrolyte Oral Soln 4L (Golytely) PO ONE (14:36)
[2017-01-26] MEDS ORDERED: Bisacodyl 5mg EC Tab PO ONE ×2 (14:36→19:59)
--- NOTE | 2017-01-26 14:56 | US ---
HISTORY: Elevated LFT COMPARISON: CT abdomen and pelvis 01/20/2017 TECHNIQUE: Sonographic evaluation of the abdomen. FINDINGS: LIVER: Measures 14.3 x 10.5 x 9.7 cm. Normal echogenicity of the liver parenchyma. No mass. No intrahepatic bile duct dilatation. GALLBLADDER: The gallbladder is only minimally distended. There is gallbladder wall thickening with are apparent gallbladder wall edema suggested measuring up to 5.3 mm. No shadowing gallstones noted. No pericholecystic fluid is seen. No sonographic Doyle sign was elicited from the patient according to the technologist's notes. There is a non shadowing tiny 2 mm echogenic focus within the gallbladder which may represent a small sludge ball or a non shadowing stone or tiny gallbladder polyp. No shadowing gallstones suggested COMMON BILE DUCT: Measures 5 mm. No stones. No dilatation. PANCREAS: Unremarkable as visualized. No mass. No ductal dilatation. RIGHT KIDNEY: Measures 9.9 x 5.3 x 5.1cm. Normal echogenicity. No calculus, solid suspicious-appearing mass, or hydronephrosis. There are numerous at least 5 benign-appearing renal cysts present most are small and less than 1 cm size- the largest upper are 1 cm in size. . The conspicuity on this exam is greater than that on the CT LEFT KIDNEY: Measures 10.4 x 5.4 x 4.9cm. Normal echogenicity. No calculus, solid suspicious mass, or hydronephrosis. Two left renal cysts are seen the largest measures 1.5 x 1.3 x 1.4 cm at the upper pole. Another cyst measures 8 x 8 x 10 mm SPLEEN: 12.0. Spleen is nearing the upper limits of normal AORTA: No aneurysmal dilatation. IVC: Unremarkable. OTHER FINDINGS: None. IMPRESSION: No liver pathology appreciated in this patient with elevated liver function tests. Bilateral benign-appearing renal cysts as above. Limited gallbladder distension with gallbladder wall thickening and gallbladder edema. No shadowing gallstones. No positive ultrasound Doyle's sign elicited . The chronicity of this appearance is unknown. Tiny 2 mm gallbladder sludge ball mode versus tiny gallbladder polyp versus non shadowing gallstone. Correlate clinically and follow-up recommended.
[2017-01-26 16:05] LABS: TSI 197 % baseline (<140)
[2017-01-26 16:47] LABS: HEPATITIS B SURFACE AG NEGATIVE (NEGATIVE)
[2017-01-26 16:52] LABS: HEPATITIS A IGM NEGATIVE (NEGATIVE)
[2017-01-26 16:53] LABS: HEPATITIS B CORE AB NEGATIVE (NEGATIVE)
[2017-01-26 17:05] LABS: HEPATITIS C ANTIBODY NEGATIVE (NEGATIVE)
[2017-01-26] MEDS ORDERED: Magnesium Citrate Oral SOL (300 ml) PO ONE (19:57)
[2017-01-27 08:05] LABS: ALB/GLOB RATIO 0.8 (1.1-1.8); ALBUMIN 3.1 g/dL (3.0-4.8); BILIRUBIN,DIRECT 0.6 mg/dL (0.0-0.4)
--- NOTE | 2017-01-27 10:15 | CP.PCM.PN ---
Subjective - Date & Time of Evaluation Date of Evaluation: 01/27/17 Time of Evaluation: 09:00 - Subjective Subjective: No acute distress, for endocopy this am Objective - Vital Signs/Intake and Output Vital Signs (last 24 hours): Temp Pulse Resp BP Pulse Ox 97.9 F 95 H 20 100/64 99 01/27/17 07:46 01/27/17 07:46 01/27/17 07:46 01/27/17 07:46 01/27/17 07:46 Intake and Output: 01/27/17 01/27/17 06:59 18:59 Intake Total 600 Balance 600 - Medications Medications: Current Medications Acetaminophen (Tylenol 325mg Tab) 650 mg PO Q4H PRN PRN Reason: Fever >100.5 F Last Admin: 01/24/17 09:04 Dose: 650 mg Carvedilol (Coreg) 12.5 mg PO BID [facility] Last Admin: 01/26/17 17:47 Dose: 12.5 mg Cholecalciferol (Vitamin D) 1,000 iu PO DAILY [facility] Last Admin: 01/26/17 10:55 Dose: 1,000 iu Digoxin (Lanoxin) 0.125 mg PO DAILY [facility] Last Admin: 01/26/17 10:48 Dose: 0.125 mg Fluoxetine HCl (Prozac) 40 mg PO DAILY [facility] Last Admin: 01/26/17 10:52 Dose: 40 mg Furosemide (Lasix) 20 mg PO DAILY [facility] Last Admin: 01/26/17 10:49 Dose: 20 mg Magnesium Oxide (Mag-Ox) 400 mg PO TID [facility] Last Admin: 01/26/17 18:23 Dose: 400 mg Methimazole (Tapazole) 20 mg PO TID [facility] Last Admin: 01/26/17 17:48 Dose: 20 mg Metronidazole (Flagyl) 250 mg PO Q8H [facility] PRN Reason: Protocol Last Admin: 01/27/17 06:02 Dose: 250 mg Montelukast Sodium (Singulair) 10 mg PO DAILY [facility] Last Admin: 01/26/17 10:52 Dose: 10 mg Multivitamins (Thera Tab) 1 tab PO DAILY [facility] Last Admin: 01/26/17 10:50 Dose: 1 tab Mometasone Furoate [ (Nasonex] (Home Med)) 2 spr IN DAILY [facility] Last Admin: 01/26/17 10:49 Dose: Not Given Nystatin (Nystop Topical Powder) 0 gm TOP TID [facility] Last Admin: 01/26/17 17:48 Dose: 1 appl Pantoprazole Sodium (Protonix Ec Tab) 20 mg PO DAILY [facility] Last Admin: 01/26/17 10:50 Dose: 20 mg Risperidone (Risperdal Tab) 0.5 mg PO DAILY [facility] PRN Reason: Protocol Last Admin: 01/26/17 10:50 Dose: 0.5 mg Silver Sulfadiazine (Silvadene 1% 20 Gm) 1 ea TOP BID [facility] Last Admin: 01/26/17 17:48 Dose: 1 applic - Labs Labs: 01/25/17 08:05 01/25/17 08:05 PT 12.6 Seconds (9.9-11.8) H 01/19/17 08:30 INR 1.17 (0.93-1.08) H 01/19/17 08:30 APTT 27.4 Seconds (23.7-30.8) 01/19/17 08:30 Assessment and Plan - Assessment and Plan (Free Text) Assessment: Coagulopathy/coumadin toxicity GI Bleed Afib Plan: monitor PT/INR, for endoscopy today, cardiology follow up dr goins/noris
--- NOTE | 2017-01-27 10:18 | CP.PCM.PN ---
Subjective - Date & Time of Evaluation Date of Evaluation: 01/27/17 Time of Evaluation: 09:00 - Subjective Subjective: feels ok lying flat on Bed Objective - Vital Signs/Intake and Output Vital Signs (last 24 hours): Temp Pulse Resp BP Pulse Ox 97.9 F 95 H 20 100/64 99 01/27/17 07:46 01/27/17 07:46 01/27/17 07:46 01/27/17 07:46 01/27/17 07:46 Intake and Output: 01/27/17 01/27/17 06:59 18:59 Intake Total 600 Balance 600 - Medications Medications: Current Medications Acetaminophen (Tylenol 325mg Tab) 650 mg PO Q4H PRN PRN Reason: Fever >100.5 F Last Admin: 01/24/17 09:04 Dose: 650 mg Carvedilol (Coreg) 12.5 mg PO BID [facility] Last Admin: 01/26/17 17:47 Dose: 12.5 mg Cholecalciferol (Vitamin D) 1,000 iu PO DAILY [facility] Last Admin: 01/26/17 10:55 Dose: 1,000 iu Digoxin (Lanoxin) 0.125 mg PO DAILY [facility] Last Admin: 01/26/17 10:48 Dose: 0.125 mg Fluoxetine HCl (Prozac) 40 mg PO DAILY [facility] Last Admin: 01/26/17 10:52 Dose: 40 mg Furosemide (Lasix) 20 mg PO DAILY [facility] Last Admin: 01/26/17 10:49 Dose: 20 mg Magnesium Oxide (Mag-Ox) 400 mg PO TID [facility] Last Admin: 01/26/17 18:23 Dose: 400 mg Methimazole (Tapazole) 20 mg PO TID [facility] Last Admin: 01/26/17 17:48 Dose: 20 mg Metronidazole (Flagyl) 250 mg PO Q8H [facility] PRN Reason: Protocol Last Admin: 01/27/17 06:02 Dose: 250 mg Montelukast Sodium (Singulair) 10 mg PO DAILY [facility] Last Admin: 01/26/17 10:52 Dose: 10 mg Multivitamins (Thera Tab) 1 tab PO DAILY [facility] Last Admin: 01/26/17 10:50 Dose: 1 tab Mometasone Furoate [ (Nasonex] (Home Med)) 2 spr IN DAILY [facility] Last Admin: 01/26/17 10:49 Dose: Not Given Nystatin (Nystop Topical Powder) 0 gm TOP TID [facility] Last Admin: 01/26/17 17:48 Dose: 1 appl Pantoprazole Sodium (Protonix Ec Tab) 20 mg PO DAILY [facility] Last Admin: 01/26/17 10:50 Dose: 20 mg Risperidone (Risperdal Tab) 0.5 mg PO DAILY [facility] PRN Reason: Protocol Last Admin: 01/26/17 10:50 Dose: 0.5 mg Silver Sulfadiazine (Silvadene 1% 20 Gm) 1 ea TOP BID [facility] Last Admin: 01/26/17 17:48 Dose: 1 applic - Labs Labs: 01/25/17 08:05 01/25/17 08:05 PT 12.6 Seconds (9.9-11.8) H 01/19/17 08:30 INR 1.17 (0.93-1.08) H 01/19/17 08:30 APTT 27.4 Seconds (23.7-30.8) 01/19/17 08:30 - Constitutional Appears: Non-toxic - Head Exam Head Exam: ATRAUMATIC - Eye Exam Eye Exam: Conjunctival injection - ENT Exam ENT Exam: Mucous Membranes Dry - Respiratory Exam Respiratory Exam: Clear to Ausculation Bilateral - Cardiovascular Exam Cardiovascular Exam: REGULAR RHYTHM - GI/Abdominal Exam GI & Abdominal Exam: Soft Assessment and Plan - Assessment and Plan (Free Text) Assessment: Ch afib on anti cag admitted with supra therapeutic INR severe Anemia, S/p Mul;tiple transfusion CMP ..EF-45% Mod MR Mild TR/AR/PI RVSP-39 mmof hg. ch diarrhea off anti coag now ... but needs [employer] anti coag Plan: consider restarting anti coag once cleardd by GI increase nutritional support. will follow. Thx.
[2017-01-27] MEDS ORDERED: Propofol 10 mg/ml Inj (20 ML) ONE (10:21)
[2017-01-27] MEDS ORDERED: Sodium Chloride 0.9% 1,000 ML IV SCH (11:00)
--- NOTE | 2017-01-27 12:18 | CP.PCM.PCO ---
Physician Communication Note - Physician Communication Note Physician Communication Note: In endoscopy- will see patient alesia., f/u stool studies, continue Flagyl
[2017-01-27] MEDS: Digoxin 125 mcg (0.125 mg) Tab PO SCH (12:19)
[2017-01-27] MEDS: MOMETASONE FUROATE IN SCH (12:21)
[2017-01-27] MEDS: Magnesium Oxide 400 mg Tab UD PO SCH ×3 (12:21→17:14)
[2017-01-27] MEDS: Nystatin 100,000 Units/gm Topical Pow(15 gm) TOP SCH ×3 (12:21→17:13)
[2017-01-27] MEDS: Pantoprazole 20 mg EC Tab PO SCH (12:27)
[2017-01-27] MEDS: Multivitamin Therapeutic Tab PO SCH (12:28)
[2017-01-27] MEDS: Silver Sulfadiazine 1% Cream (20 gm) TOP SCH ×2 (12:28→17:15)
[2017-01-27 17:53] VITALS: RESP 20
[2017-01-28 07:06] LABS: ALB/GLOB RATIO 0.8 (1.1-1.8); ALBUMIN 2.8 g/dL (3.0-4.8); BILIRUBIN,DIRECT 0.4 mg/dL (0.0-0.4)
[2017-01-28] MEDS: Silver Sulfadiazine 1% Cream (20 gm) TOP SCH (09:32)
[2017-01-28] MEDS: Digoxin 125 mcg (0.125 mg) Tab PO SCH (09:35)
[2017-01-28] MEDS: Magnesium Oxide 400 mg Tab UD PO SCH ×2 (09:36→14:58)
[2017-01-28] MEDS: MOMETASONE FUROATE IN SCH (09:36)
[2017-01-28] MEDS: Pantoprazole 20 mg EC Tab PO SCH (09:36)
[2017-01-28] MEDS: Multivitamin Therapeutic Tab PO SCH (09:37)
[2017-01-28] MEDS: Nystatin 100,000 Units/gm Topical Pow(15 gm) TOP SCH ×2 (09:40→15:00)
[2017-01-28 09:45] VITALS: PULSE 98
--- NOTE | 2017-01-28 09:47 | CP.PCM.PN ---
Subjective - Date & Time of Evaluation Date of Evaluation: 01/28/17 Time of Evaluation: 09:00 - Subjective Subjective: No chest opain, No SOB, No palpitation Objective - Vital Signs/Intake and Output Vital Signs (last 24 hours): Temp Pulse Resp BP Pulse Ox 98.4 F 98 H 20 126/67 99 01/28/17 07:56 01/28/17 07:56 01/28/17 07:56 01/28/17 07:56 01/28/17 07:56 Intake and Output: 01/28/17 01/28/17 06:59 18:59 Intake Total 1080 Balance 1080 - Medications Medications: Current Medications Acetaminophen (Tylenol 325mg Tab) 650 mg PO Q4H PRN PRN Reason: Fever >100.5 F Last Admin: 01/24/17 09:04 Dose: 650 mg Carvedilol (Coreg) 12.5 mg PO BID [facility] Last Admin: 01/27/17 17:14 Dose: 12.5 mg Cholecalciferol (Vitamin D) 1,000 iu PO DAILY [facility] Last Admin: 01/27/17 13:50 Dose: Not Given Cholestyramine Resin (Questran) 2 gm PO BID [facility] Cholestyramine Resin (Questran) 2 gm PO ONCE ONE Stop: 01/28/17 14:01 Digoxin (Lanoxin) 0.125 mg PO DAILY [facility] Last Admin: 01/27/17 12:19 Dose: 0.125 mg Fluoxetine HCl (Prozac) 40 mg PO DAILY [facility] Last Admin: 01/27/17 12:27 Dose: 40 mg Furosemide (Lasix) 20 mg PO DAILY [facility] Last Admin: 01/27/17 12:20 Dose: Not Given Magnesium Oxide (Mag-Ox) 400 mg PO TID [facility] Last Admin: 01/27/17 17:14 Dose: 400 mg Methimazole (Tapazole) 20 mg PO TID [facility] Last Admin: 01/27/17 17:15 Dose: 20 mg Metronidazole (Flagyl) 250 mg PO Q8H [facility] PRN Reason: Protocol Last Admin: 01/28/17 06:02 Dose: 250 mg Montelukast Sodium (Singulair) 10 mg PO DAILY [facility] Last Admin: 01/27/17 12:28 Dose: 10 mg Multivitamins (Thera Tab) 1 tab PO DAILY [facility] Last Admin: 01/27/17 12:28 Dose: 1 tab Mometasone Furoate [ (Nasonex] (Home Med)) 2 spr IN DAILY [facility] Last Admin: 01/27/17 12:21 Dose: Not Given Nystatin (Nystop Topical Powder) 0 gm TOP TID [facility] Last Admin: 01/27/17 17:13 Dose: 1 appl Pantoprazole Sodium (Protonix Ec Tab) 20 mg PO DAILY [facility] Last Admin: 01/27/17 12:27 Dose: 20 mg Risperidone (Risperdal Tab) 0.5 mg PO DAILY [facility] PRN Reason: Protocol Last Admin: 01/27/17 12:27 Dose: 0.5 mg Silver Sulfadiazine (Silvadene 1% 20 Gm) 1 ea TOP BID [facility] Last Admin: 01/27/17 17:15 Dose: 1 applic - Labs Labs: 01/25/17 08:05 01/25/17 08:05 PT 12.6 Seconds (9.9-11.8) H 01/19/17 08:30 INR 1.17 (0.93-1.08) H 01/19/17 08:30 APTT 27.4 Seconds (23.7-30.8) 01/19/17 08:30 - Constitutional Appears: Non-toxic - Head Exam Head Exam: NORMAL INSPECTION - Eye Exam Eye Exam: Normal appearance - ENT Exam ENT Exam: Mucous Membranes Dry - Neck Exam Neck Exam: Full ROM - Respiratory Exam Respiratory Exam: Clear to Ausculation Bilateral - Cardiovascular Exam Cardiovascular Exam: Irregular Rhythm, REGULAR RHYTHM Assessment and Plan - Assessment and Plan (Free Text) Assessment: [place]ana [place] was on Coumadin on admission.. supr therapeutic INR severe Anemia S/p Vit k on admission S/p P RBCs transfusion Mild C<P.. EF-45% Mod MR Mild TR S/p EDGch . diarrhea Plan: Continue to hold Coumadin till cleared by Gi Continue coreg will add low dose Dig/henry as Bp is tolerated restart coumadin once cleared by GI/and before goes home will discuss with you.
--- NOTE | 2017-01-28 10:23 | CP.PCM.PN ---
<Antonette Roberts - Last Filed: 01/28/17 10:52> Subjective - Date & Time of Evaluation Date of Evaluation: 01/28/17 Time of Evaluation: 09:00 - Subjective Subjective: S&E at bedside and chart reviewed. Per nsg patient upon return from [facility] [place] had semi-loose BM , total 7 , no bleeding. Patient denies N/V or abdominal pain, she tolerated her breakfast, plate is clean. No SOB or cehst pain. Objective - Vital Signs/Intake and Output Vital Signs (last 24 hours): Temp Pulse Resp BP Pulse Ox 98.4 F 98 H 20 126/67 99 01/28/17 07:56 01/28/17 09:34 01/28/17 07:56 01/28/17 09:35 01/28/17 07:56 Intake and Output: 01/28/17 01/28/17 06:59 18:59 Intake Total 1080 Balance 1080 - Medications Medications: Current Medications Acetaminophen (Tylenol 325mg Tab) 650 mg PO Q4H PRN PRN Reason: Fever >100.5 F Last Admin: 01/28/17 09:39 Dose: 650 mg Carvedilol (Coreg) 12.5 mg PO BID [facility] Last Admin: 01/28/17 09:34 Dose: 12.5 mg Cholecalciferol (Vitamin D) 1,000 iu PO DAILY [facility] Last Admin: 01/28/17 09:37 Dose: 1,000 iu Cholestyramine Resin (Questran) 2 gm PO BID [facility] Cholestyramine Resin (Questran) 2 gm PO ONCE ONE Stop: 01/28/17 14:01 Digoxin (Lanoxin) 0.125 mg PO DAILY [facility] Last Admin: 01/28/17 09:35 Dose: 0.125 mg Fluoxetine HCl (Prozac) 40 mg PO DAILY [facility] Last Admin: 01/28/17 09:36 Dose: 40 mg Furosemide (Lasix) 20 mg PO DAILY [facility] Last Admin: 01/28/17 09:35 Dose: 20 mg Lisinopril (Zestril) 2.5 mg PO DAILY [facility] Magnesium Oxide (Mag-Ox) 400 mg PO TID [facility] Last Admin: 01/28/17 09:36 Dose: 400 mg Methimazole (Tapazole) 20 mg PO TID [facility] Last Admin: 01/28/17 09:37 Dose: 20 mg Metronidazole (Flagyl) 250 mg PO Q8H [facility] PRN Reason: Protocol Last Admin: 01/28/17 06:02 Dose: 250 mg Montelukast Sodium (Singulair) 10 mg PO DAILY [facility] Last Admin: 01/28/17 09:37 Dose: 10 mg Multivitamins (Thera Tab) 1 tab PO DAILY [facility] Last Admin: 01/28/17 09:37 Dose: 1 tab Mometasone Furoate [ (Nasonex] (Home Med)) 2 spr IN DAILY [facility] Last Admin: 01/28/17 09:36 Dose: Not Given Nystatin (Nystop Topical Powder) 0 gm TOP TID [facility] Last Admin: 01/28/17 09:40 Dose: 1 appl Pantoprazole Sodium (Protonix Ec Tab) 20 mg PO DAILY [facility] Last Admin: 01/28/17 09:36 Dose: 20 mg Risperidone (Risperdal Tab) 0.5 mg PO DAILY [facility] PRN Reason: Protocol Last Admin: 01/28/17 09:37 Dose: 0.5 mg Silver Sulfadiazine (Silvadene 1% 20 Gm) 1 ea TOP BID [facility] Last Admin: 01/28/17 09:32 Dose: 1 applic - Labs Labs: 01/25/17 08:05 01/25/17 08:05 PT 12.6 Seconds (9.9-11.8) H 01/19/17 08:30 INR 1.17 (0.93-1.08) H 01/19/17 08:30 APTT 27.4 Seconds (23.7-30.8) 01/19/17 08:30 - Constitutional Appears: No Acute Distress - Head Exam Head Exam: NORMOCEPHALIC - Eye Exam Eye Exam: Normal appearance. absent: Scleral icterus - ENT Exam ENT Exam: Mucous Membranes Moist - Neck Exam Neck Exam: Normal Inspection - Respiratory Exam Respiratory Exam: Clear to Ausculation Bilateral, NORMAL BREATHING PATTERN - Cardiovascular Exam Cardiovascular Exam: +S1, +S2 - GI/Abdominal Exam GI & Abdominal Exam: Soft, Normal Bowel Sounds. absent: Distended, Guarding, Tenderness, Organomegaly, Rebound - Extremities Exam Extremities Exam: absent: Calf Tenderness, Pedal Edema - Neurological Exam Neurological Exam: Alert, Awake, Oriented x3 - Skin Skin Exam: Dry, Warm Assessment and Plan - Assessment and Plan (Free Text) Assessment: ssessment: Improving Elevated LFT, may be secondary to medications, off ceftriaxone, abdominal US and hepatitis panel, negative Chronic diarrhea, ct scan A&P w/oral contrast, no acute findings s/p EGD & colon: chronic gastritis, BX taken to R/O microscopic colitis Anemia History of C. difficile Atrial fibrillation Hyperthyroidism Plan: continue diet as tolerated Continue empiric Flagyl Continue PPI On Tapazole On digoxin trend LFT FU Biospy start Questran 2 gm BID, monitor stools, should be given 1 hour before or 4-6 hours giving Digoxin, Lasix, Vit D, can cause decrease absorption, will give dose at 2 pm today and then start 9 am tomorrow, see orders Imodium 2mg Q8H prn severe diarrhea Seen and discussed with Dr. Drew. <Brando Drew V - Last Filed: 01/29/17 00:00> Objective - Vital Signs/Intake and Output Vital Signs (last 24 hours): Temp Pulse Resp BP Pulse Ox 98.7 F 68 20 128/69 98 01/28/17 16:15 01/28/17 16:15 01/28/17 16:15 01/28/17 16:15 01/28/17 16:15 - Labs Labs: 01/25/17 08:05 01/25/17 08:05 PT 12.6 Seconds (9.9-11.8) H 01/19/17 08:30 INR 1.17 (0.93-1.08) H 01/19/17 08:30 APTT 27.4 Seconds (23.7-30.8) 01/19/17 08:30 Attending/Attestation - Attestation I have personally seen and examined this patient.: Yes I have fully participated in the care of the patient.: Yes I have reviewed all pertinent clinical information, including history, physical exam and plan: Yes Notes (Text): this
--- NOTE | 2017-01-28 11:01 | CP.PCM.CON ---
History of Present Illness - History of Present Illness History of Present Illness: 61 year old female with PMH of CAD, hypothyroidism, HTN, history of leukemia was brought in to [facility] because of a fall in the bathtub at the longterm. She was also found to have loose bowel movements for several months now with occasional abdominal discomfort. The patient denies vomiting or nausea, no travel outside of the longterm for several months now, no animal contacts. She also denies fever or chills, currently no headache or dizziness, no chest pain, no SOB, no cough or colds, no dysuria. The patient underwent EGD and colonoscopy yesterday. Infectious Diseases consult is requested to further evaluate and manage. Review of Systems - Review of Systems All systems: reviewed and no additional remarkable complaints except (as per HPI ) Past Patient History - Infectious Disease Hx of Infectious Diseases: None - Tetanus Immunizations Tetanus Immunization: Unknown - Past Social History Smoking Status: Never Smoked - CARDIAC Hx Pacemaker: No - PULMONARY Hx Respiratory Disorders: No Hx Asthma: No - NEUROLOGICAL Hx Neurological Disorder: No - HEENT Hx HEENT Problems: No - RENAL Hx Chronic Kidney Disease: No - ENDOCRINE/METABOLIC Hx Hypothyroidism: Yes - HEMATOLOGICAL/ONCOLOGICAL Hx Blood Transfusions: (UNSURE) - INTEGUMENTARY Hx Dermatological Problems: No - MUSCULOSKELETAL/RHEUMATOLOGICAL Hx Musculoskeletal Disorders: Yes - GASTROINTESTINAL Hx Gastroesophageal Reflux: Yes - GENITOURINARY/GYNECOLOGICAL Hx Incontinence: Yes - PSYCHIATRIC Hx Emotional Abuse: No Hx Physical Abuse: No Hx Substance Use: No - SURGICAL HISTORY Hx Surgeries: No (pt denies) - ANESTHESIA Hx Anesthesia Reactions: No Meds Allergies/Adverse Reactions: Allergies Allergy/AdvReac Type Severity Reaction Status Date / Time No Known Allergies Allergy Verified 01/17/17 17:22 - Medications Medications: Current Medications Acetaminophen (Tylenol 325mg Tab) 650 mg PO Q4H PRN PRN Reason: Fever >100.5 F Last Admin: 01/28/17 09:39 Dose: 650 mg Carvedilol (Coreg) 12.5 mg PO BID [facility] Last Admin: 01/28/17 09:34 Dose: 12.5 mg Cholecalciferol (Vitamin D) 1,000 iu PO DAILY [facility] Last Admin: 01/28/17 09:37 Dose: 1,000 iu Cholestyramine Resin (Questran) 2 gm PO BID [facility] Cholestyramine Resin (Questran) 2 gm PO ONCE ONE Stop: 01/28/17 14:01 Digoxin (Lanoxin) 0.125 mg PO DAILY [facility] Last Admin: 01/28/17 09:35 Dose: 0.125 mg Fluoxetine HCl (Prozac) 40 mg PO DAILY [facility] Last Admin: 01/28/17 09:36 Dose: 40 mg Furosemide (Lasix) 20 mg PO DAILY [facility] Last Admin: 01/28/17 09:35 Dose: 20 mg Lisinopril (Zestril) 2.5 mg PO DAILY [facility] Loperamide HCl (Imodium) 2 mg PO Q8H PRN PRN Reason: Diarrhea Magnesium Oxide (Mag-Ox) 400 mg PO TID [facility] Last Admin: 01/28/17 09:36 Dose: 400 mg Methimazole (Tapazole) 20 mg PO TID [facility] Last Admin: 01/28/17 09:37 Dose: 20 mg Metronidazole (Flagyl) 250 mg PO Q8H [facility] PRN Reason: Protocol Last Admin: 01/28/17 06:02 Dose: 250 mg Montelukast Sodium (Singulair) 10 mg PO DAILY [facility] Last Admin: 01/28/17 09:37 Dose: 10 mg Multivitamins (Thera Tab) 1 tab PO DAILY [facility] Last Admin: 01/28/17 09:37 Dose: 1 tab Mometasone Furoate [ (Nasonex] (Home Med)) 2 spr IN DAILY [facility] Last Admin: 01/28/17 09:36 Dose: Not Given Nystatin (Nystop Topical Powder) 0 gm TOP TID [facility] Last Admin: 01/28/17 09:40 Dose: 1 appl Pantoprazole Sodium (Protonix Ec Tab) 20 mg PO DAILY [facility] Last Admin: 01/28/17 09:36 Dose: 20 mg Risperidone (Risperdal Tab) 0.5 mg PO DAILY [facility] PRN Reason: Protocol Last Admin: 01/28/17 09:37 Dose: 0.5 mg Silver Sulfadiazine (Silvadene 1% 20 Gm) 1 ea TOP BID [facility] Last Admin: 01/28/17 09:32 Dose: 1 applic Physical Exam - Constitutional Appears: Non-toxic, Cachectic, Chronically Ill - Head Exam Head Exam: NORMAL INSPECTION - ENT Exam ENT Exam: Mucous Membranes Moist - Neck Exam Neck exam: Negative for: Meningismus - Respiratory Exam Respiratory Exam: Decreased Breath Sounds - Cardiovascular Exam Cardiovascular Exam: +S1, +S2 - GI/Abdominal Exam GI & Abdominal Exam: Soft. absent: Tenderness Results - Vital Signs Recent Vital Signs: Last Vital Signs Temp 98.4 F 01/28/17 07:56 Pulse 98 H 01/28/17 09:34 Resp 20 01/28/17 07:56 BP 126/67 01/28/17 09:35 Pulse Ox 99 01/28/17 07:56 - Labs Result Diagrams: 01/25/17 08:05 01/25/17 08:05 Labs: Laboratory Results - last 24 hr 01/28/17 06:10 Total Bilirubin 0.4 Direct Bilirubin 0.4 AST 98 H ALT 209 H Alkaline Phosphatase 70 Total Protein 6.4 Albumin 2.8 L Globulin 3.6 Albumin/Globulin Ratio 0.8 L Assessment & Plan - Assessment and Plan (Free Text) Plan: Assessment Chronic diarrhea, etiology to be determined S/P EGD and colonoscopy with duodenal and colonic biopsy CAD hypothyroidism HTN history of leukemia Plan Continue Flagyl; follow up stool studies, biopsy results of the duodenum and colon reviewed GI evaluation and recommendations will follow clinically
[2017-01-28] MEDS ORDERED: Cholestyramine 4 gm/Pkt UD PO ONE (14:00)
--- NOTE | 2017-01-28 16:01 | CP.PCM.DIS ---
Provider - Provider Date of Admission: 01/19/17 10:38 Attending physician: Silvestre Drake JD, MD Primary care physician: Sharonda Knight MD Time Spent in preparation of Discharge (in minutes): 30 Diagnosis - Discharge Diagnosis (1) Coumadin toxicity Status: Acute Priority: High Comment: Needs follow-up PT/INR at [facility] Hospital Course - Lab Results Lab Results: Micro Results 01/22/17 15:15 Stool C. difficile Antigen & Toxin A,B (M - Final Most Recent Lab Values WBC 7.8 10^3/ul (4.5-11.0) 01/25/17 08:05 RBC 3.91 10^6/uL (3.5-6.1) 01/25/17 08:05 Hgb 10.5 gm/dL (12.0-16.0) L 01/25/17 08:05 Hct 32.2 % (36.0-48.0) L 01/25/17 08:05 MCV 82.4 fL (80.0-105.0) 01/25/17 08:05 MCH 26.9 pg (25.0-35.0) 01/25/17 08:05 MCHC 32.6 g/dl (31.0-37.0) 01/25/17 08:05 RDW 13.6 % (11.5-14.5) 01/25/17 08:05 Plt Count 175 10^3/uL (120.0-450.0) 01/25/17 08:05 MPV 10.7 fl (7.0-11.0) 01/25/17 08:05 Gran % 62.3 % (50.0-68.0) 01/25/17 08:05 Lymph % (Auto) 20.8 % (22.0-35.0) L 01/25/17 08:05 [place] % (Auto) 11.5 % (1.0-6.0) H 01/25/17 08:05 Eos % (Auto) 5.1 % (1.5-5.0) H 01/25/17 08:05 Baso % (Auto) 0.3 % (0.0-3.0) 01/25/17 08:05 Gran # 4.88 (1.4-6.5) 01/25/17 08:05 Lymph # 1.6 (1.2-3.4) 01/25/17 08:05 [place] # 0.9 (0.1-0.6) H 01/25/17 08:05 Eos # 0.4 (0.0-0.7) 01/25/17 08:05 Baso # 0.02 K/mm3 (0.0-2.0) 01/25/17 08:05 PT 12.6 Seconds (9.9-11.8) H 01/19/17 08:30 INR 1.17 (0.93-1.08) H 01/19/17 08:30 APTT 27.4 Seconds (23.7-30.8) 01/19/17 08:30 pO2 55 mm/Hg (30-55) 01/17/17 18:45 VBG pH 7.35 (7.32-7.43) 01/17/17 18:45 VBG pCO2 50.0 (40-60) 01/17/17 18:45 VBG HCO3 27.6 mmol/l (21-28) 01/17/17 18:45 VBG Total CO2 29.1 mmol.L (22-28) H 01/17/17 18:45 VBG O2 Sat (Calc) 92.8 % (40-65) H 01/17/17 18:45 VBG Base Excess 1.2 mmol/L (0.0-2.0) 01/17/17 18:45 VBG Potassium 4.6 mmol/L (3.6-5.2) 01/17/17 18:45 Sodium 140.0 mmol/L (132-148) 01/17/17 18:45 Chloride 106.0 mmol/L (98-107) 01/17/17 18:45 Glucose 180 mg/dl (65-105) H 01/17/17 18:45 Lactate 1.1 mmol/L (0.7-2.1) 01/17/17 18:45 FiO2 21.0 % 01/17/17 18:45 Sodium 140 mmol/L (132-148) 01/25/17 08:05 Potassium 4.0 mmol/L (3.6-5.0) 01/25/17 08:05 Chloride 106 mmol/L (98-107) 01/25/17 08:05 Carbon Dioxide 26 mmol/L (21-33) 01/25/17 08:05 Anion Gap 12 (10-20) 01/25/17 08:05 BUN 26 mg/dL (7-21) H 01/25/17 08:05 Creatinine 0.7 mg/dL (0.5-1.4) 01/25/17 08:05 Est GFR ( Amer) > 60 01/25/17 08:05 Est GFR (Non-Af Amer) > 60 01/25/17 08:05 Random Glucose 83 mg/dL (70-110) 01/25/17 08:05 Hemoglobin A1c 6.3 % (4.2-6.5) 01/19/17 08:30 Calcium 9.4 mg/dL (8.4-10.5) 01/25/17 08:05 Phosphorus 4.3 mg/dL (2.5-4.5) 01/21/17 06:55 Magnesium 1.6 mg/dL (1.7-2.2) L 01/25/17 08:05 Iron 23 ug/dL (45-180) L 01/19/17 08:30 TIBC 366 ug/dL (265-497) 01/19/17 08:30 % Saturation 6 % (20-55) L 01/19/17 08:30 Total Bilirubin 0.4 mg/dL (0.2-1.3) 01/28/17 06:10 Direct Bilirubin 0.4 mg/dL (0.0-0.4) 01/28/17 06:10 AST 98 U/L (15-39) H 01/28/17 06:10 ALT 209 U/L (7-56) H 01/28/17 06:10 Alkaline Phosphatase 70 U/L (38-133) 01/28/17 06:10 Lactate Dehydrogenase 430 U/L (333-699) 01/17/17 18:41 Total Creatine Kinase 30 U/L (35-230) L 01/17/17 18:41 Troponin I 0.02 ng/mL 01/17/17 18:41 NT-Pro-B Natriuret Pep 522 pg/mL (0-450) H 01/17/17 18:41 Total Protein 6.4 g/dL (5.8-8.3) 01/28/17 06:10 Albumin 2.8 g/dL (3.0-4.8) L 01/28/17 06:10 Globulin 3.6 gm/dL 01/28/17 06:10 Albumin/Globulin Ratio 0.8 (1.1-1.8) L 01/28/17 06:10 Triglycerides 238 mg/dL (35-160) H 01/19/17 08:30 Cholesterol 103 mg/dL (130-200) L 01/19/17 08:30 LDL Cholesterol Direct < 30 mg/dL (0-129) 01/19/17 08:30 HDL Cholesterol 24 mg/dL (29-60) L 01/19/17 08:30 Vitamin B12 900 pg/mL (239-931) 01/19/17 08:30 Folate 14.6 ng/mL 01/19/17 08:30 Free T4 6.27 ng/dL (0.78-2.19) H 01/25/17 08:05 Thyroxine (T4) 20.3 ug/dL (5.5-11.0) H 01/25/17 08:05 TSH 3rd Generation < 0.02 mIU/mL (0.46-4.68) L 01/25/17 08:05 Thyroid Stim Immunoglob 197 % baseline (<140) H 01/23/17 07:00 Venous Blood Potassium 4.6 mmol/L (3.6-5.2) 01/17/17 18:45 Urine Color Yellow (YELLOW) 01/17/17 20:35 Urine Appearance Clear (CLEAR) 01/17/17 20:35 Urine pH 6.0 (4.7-8.0) 01/17/17 20:35 Ur Specific [place] 1.015 (1.005-1.035) 01/17/17 20:35 Urine Protein Negative mg/dL (<30 mg/dL) 01/17/17 20:35 Urine Glucose (UA) Negative mg/dL (NEGATIVE) 01/17/17 20:35 Urine Ketones Negative mg/dL (NEGATIVE) 01/17/17 20:35 Urine Blood Negative (NEGATIVE) 01/17/17 20:35 Urine Nitrate Negative (NEGATIVE) 01/17/17 20:35 Urine Bilirubin Negative (NEGATIVE) 01/17/17 20:35 Urine Urobilinogen 0.2 E.U./dL (<1 E.U./dL) 01/17/17 20:35 Ur Leukocyte Esterase Negative Marie/uL (NEGATIVE) 01/17/17 20:35 Digoxin 0.9 ng/mL (0.8-2.0) 01/24/17 19:20 Hepatitis A IgM Ab Negative (NEGATIVE) 01/26/17 07:00 Hep Bs Antigen Negative (NEGATIVE) 01/26/17 07:00 Hep B Core IgM Ab Negative (NEGATIVE) 01/26/17 07:00 Hepatitis C Antibody Negative (NEGATIVE) 01/26/17 07:00 Blood Type A POSITIVE 01/17/17 19:55 Antibody Screen Negative 01/17/17 19:55 Crossmatch See Detail 01/17/17 19:55 BBK History Checked Patient has bt 01/17/17 19:55 Discharge Exam - Head Exam Head Exam: NORMAL INSPECTION Discharge Plan - Follow Up Plan Condition: FAIR Disposition: HOME/ ROUTINE Instructions: Warfarin (By mouth), Heart Failure (DC), Head Injury (DC), Chronic Hypertension (DC), Fall Prevention (DC) Additional Instructions: Discharge patient back to [facility] today.
[2017-01-28 16:15] VITALS: BP 128/69; PULSE 68; TEMP 98.7; O2SAT 98
[2017-01-29] MEDS ORDERED: Cholestyramine 4 gm/Pkt UD PO SCH (09:00)
== END 2017-01-28 18:04 | DRG 174 ==
LOC: ED 16:58 → ERH 22:39 → 5RSO 01-18 00:25 → OBSVTOIN 01-19 10:38 → 5RSO 01-23 22:22
PROVIDERS: ADMIT Internal Medicine; ATTEND Internal Medicine
PROC: 30233K1 Transfusion of Nonautologous Frozen Plasma into Peripheral Vein, Percutaneous Approach (ICD-10-PCS; 2017-01-17)
PROC: 30233N1 Transfusion of Nonautologous Red Blood Cells into Peripheral Vein, Percutaneous Approach (ICD-10-PCS; 2017-01-19)
PROC: 0DB68ZX Excision of Stomach, Via Natural or Artificial Opening Endoscopic, Diagnostic (ICD-10-PCS; 2017-01-27)
PROC: 0DBB8ZX Excision of Ileum, Via Natural or Artificial Opening Endoscopic, Diagnostic (ICD-10-PCS; 2017-01-27)
PROC: 0DBE8ZX Excision of Large Intestine, Via Natural or Artificial Opening Endoscopic, Diagnostic (ICD-10-PCS; 2017-01-27)
PROC: 0DB98ZX Excision of Duodenum, Via Natural or Artificial Opening Endoscopic, Diagnostic (ICD-10-PCS; principal; 2017-01-27 09:30)
DX: K92.2 Gastrointestinal hemorrhage, unspecified (principal); I42.9 Cardiomyopathy, unspecified; F03.90 Unspecified dementia, unspecified severity, without behavioral disturbance, psychotic disturbance, mood disturbance, and anxiety; E05.90 Thyrotoxicosis, unspecified without thyrotoxic crisis or storm; R32 Unspecified urinary incontinence; T45.515A Adverse effect of anticoagulants, initial encounter; S09.90XA Unspecified injury of head, initial encounter; I48.2 Chronic atrial fibrillation; I10 Essential (primary) hypertension; K29.50 Unspecified chronic gastritis without bleeding; I25.10 Atherosclerotic heart disease of native coronary artery without angina pectoris; K64.8 Other hemorrhoids; K44.9 Diaphragmatic hernia without obstruction or gangrene; K57.30 Diverticulosis of large intestine without perforation or abscess without bleeding; R19.7 Diarrhea, unspecified; M19.90 Unspecified osteoarthritis, unspecified site; D64.9 Anemia, unspecified; R79.89 Other specified abnormal findings of blood chemistry; W18.2XXA Fall in (into) shower or empty bathtub, initial encounter; Z79.01 Long term (current) use of anticoagulants; Z85.6 Personal history of leukemia; Z86.19 Personal history of other infectious and parasitic diseases; Y92.121 Bathroom in nursing home as the place of occurrence of the external cause; Y93.E1 Activity, personal bathing and showering

== ENCOUNTER 2017-10-21 18:08 | Inpatient (IN) | payer MEDICAID ==
[2017-10-21 18:09] VITALS: PULSE 98
[2017-10-21 18:10] VITALS: BMI 21.4
[2017-10-21] MEDS ORDERED: TDAP Vaccine 0.5 mL Syr IM ONE (18:23)
--- NOTE | 2017-10-21 18:35 | ED PDOC ---
Arrival/HPI - General Chief Complaint: Trauma Time Seen by Provider: 10/21/17 18:22 Historian: Patient - History of Present Illness Narrative History of Present Illness (Text): 10/21/17 18:25 62 y/o female, pmh including chf/hyperthyroidism/a.fibb/c.diff/hyperthyroidism, nkda, last tetanus doesn't remember, on coumadin, biba for head injury s/p fall in the bathroom today about 2 hours ago. Pt. stated that she was at the bathroom urinating, got up and turn around, slipped and hit the rt. posterior head against the floor, been feeling fatigue and low energey for the past 2 days , no cough or URI symptoms, no LOC, [facility] staff call the ambulance, no numbness or tingling, no change in vision, no rash, no palpitation, no night sweat, no other medical or psychological complaints. Past Medical History - Provider Review Nursing Documentation Reviewed: Yes - Infectious Disease Hx of Infectious Diseases: None - Tetanus Immunization Tetanus Immunization: Unknown - Cardiac Hx Hypertension: Yes Hx Pacemaker: No - Pulmonary Hx Respiratory Disorders: No Hx Asthma: No - Neurological Hx Neurological Disorder: No - HEENT Hx HEENT Disorder: No - Renal Hx Renal Disorder: No - Endocrine/Metabolic Hx Hypothyroidism: Yes - Hematological/Oncological Hx Blood Transfusions: (UNSURE) Hx Leukemia: Yes - Integumentary Hx Dermatological Disorder: No - Musculoskeletal/Rheumatological Hx Musculoskeletal Disorders: Yes - Gastrointestinal Hx Gastroesophageal Reflux: Yes - Genitourinary/Gynecological Hx Incontinence: Yes - Psychiatric Hx Depression: Yes Hx Emotional Abuse: No Hx Physical Abuse: No Hx Substance Use: No - Past Surgical History Past Surgical History: Unable to Obtain - Anesthesia Hx Anesthesia Reactions: No - Suicidal Assessment Feels Threatened In Home Enviroment: No Family/Social History - Physician Review Nursing Documentation Reviewed: Yes Family/Social History: Unknown Family HX Smoking Status: Never Smoked Hx Alcohol Use: No Hx Substance Use: No Hx Substance Use Treatment: No Allergies/Home Meds Allergies/Adverse Reactions: Allergies No Known Allergies Allergy (Verified 01/17/17 17:22) Home Medications: Home Meds Medication Instructions Recorded Confirmed Pantoprazole Sodium [Protonix] 20 mg PO DAILY 08/24/13 10/21/17 Cholecalciferol (Vitamin D3) 1 tab PO DAILY 01/17/17 10/21/17 [Vitamin D3] Fluoxetine HCl [Prozac] 40 mg PO DAILY 01/17/17 10/21/17 Furosemide [Lasix] 20 mg PO DAILY 01/17/17 10/21/17 Montelukast [Singulair] 10 mg PO DAILY 01/17/17 10/21/17 Multivitamin [Multivitamins] 1 tab PO DAILY 01/17/17 10/21/17 Risperidone [Risperdal] 0.5 mg PO DAILY 01/17/17 10/21/17 L.acidoph,Paracasei, B.lactis 1 cap PO DAILY 10/21/17 10/21/17 [Probiotic] Lactobacillus Acidophilus 1 tab PO DAILY 10/21/17 10/21/17 [Acidophilus] Mometasone Furoate [Nasonex] 2 spray IH BID 10/21/17 10/21/17 Warfarin [Coumadin] 2 mg PO DAILY 10/21/17 10/21/17 methIMAzole [Tapazole] 40 mg PO BID 10/21/17 10/21/17 Review of Systems - Review of Systems Constitutional: Fatigue. absent: Fevers Eyes: absent: Vision Changes ENT: absent: Hearing Changes Respiratory: absent: SOB, Cough Cardiovascular: absent: Chest Pain Gastrointestinal: absent: Abdominal Pain, Nausea, Vomiting Skin: Other (+abrasion). absent: Rash, Pruritis Neurological: Headache. absent: Dizziness, Focal Weakness, Gait Changes, Speech Changes Psychiatric: absent: Anxiety, Depression Physical Exam Vital Signs Reviewed: Yes Vital Signs Temp Pulse Resp BP Pulse Ox 10/21/17 21:22 67 18 124/63 99 10/21/17 20:14 70 17 112/68 99 10/21/17 18:33 99.1 F 71 17 110/60 95 Temperature: Afebrile Blood Pressure: Normal Pulse: Regular Respiratory Rate: Normal Appearance: Positive for: Well-Appearing, Non-Toxic, Comfortable Pain Distress: Mild Mental Status: Positive for: Alert and Oriented X 3 - Systems Exam Head: Present: Other (+rt. posterior lateral occipital approx. 3cm diameter scalp hematoma with approx. 2cm diameter abrasion) Pupils: Present: PERRL Extroacular Muscles: Present: EOMI Conjunctiva: Present: Normal Mouth: Present: Dry Nose (External): Present: Atraumatic. No: Abrasion, Contusion, Laceration, Lesions Nose (Internal): Present: Normal Inspection, No Active Bleeding. No: Rhinorrhea , Septal Hematoma, Epistaxis Neck: Present: Normal Range of Motion. No: MIDLINE TENDERNESS, Paraspinal Tenderness Respiratory/Chest: Present: Clear to Auscultation, Good Air Exchange. No: Respiratory Distress, Accessory Muscle Use Cardiovascular: Present: Regular Rate and Rhythm, Normal S1, S2. No: Murmurs Abdomen: Present: Normal Bowel Sounds. No: Tenderness, Distention, Peritoneal Signs Back: Present: Normal Inspection. No: CVA Tenderness, Midline Tenderness, Paraspinal Tenderness Upper Extremity: Present: Normal Inspection, Normal ROM, Neurovascularly Intact , Capillary Refill < 2s. No: Cyanosis, Edema, Tenderness, Swelling, Deformity Lower Extremity: Present: Normal Inspection, Normal ROM, Neurovascularly Intact , Capillary Refill < 2 s. No: Edema, Deformity Neurological: Present: GCS=15, Speech Normal, Motor Func Grossly Intact, Gait Normal, Memory Normal Skin: Present: Warm, Dry, Normal Color. No: Rashes Psychiatric: Present: Alert, Oriented x 3, Normal Insight, Normal Concentration Medical Decision Making ED Course and Treatment: 10/21/17 18:36 -Labs/ua -CT head -Tdap/IVF -wound irrigate with saline, clean with betadine, ice compression -observe and reassess 10/21/17 19:40 -EKG: NSR @ 66 BPM, no ST elevation or depression, no T wave inversion. -CT head: Senescent changes noted. No acute intracranial abnormality. -CT cervical: No acute posttraumatic abnormality. -Labs are non-significant compared with previously except BUN 77 and creatine 1.6, BNP within normal limit. -UA show +leukocyte esterase, IV rocephine and urine culture ordered -Will admit the patient for dehydration and observation with UTI. 10/21/17 20:09 -I spoke to the medical record coder and Dr. Sousa, discussed about the labs/ radiology results, agreed to admit the patient for observation. -I discussed with Dr. Fernández, discussed about the labs/radiology result, agreed on the admission which he will put in. - Lab Interpretations Microbiology Results: Microbiology Results 10/21/17 19:30 Urine,Clean Catch Urine Culture - Final Lab Results: 10/21/17 19:00 10/21/17 19:00 Lab Results 10/21/17 19:41: Urine Color Light yellow, Urine Appearance Clear, Urine pH 6.0, Ur Specific [place] 1.010, Urine Protein 30 H, Urine Glucose (UA) Negative, Urine Ketones Negative, Urine Blood Negative, Urine Nitrate Negative, Urine Bilirubin Negative, Urine Urobilinogen 0.2, Ur Leukocyte Esterase Trace H, Urine RBC 0 - 2, Urine WBC 0 - 2, Ur Epithelial Cells 1 - 3, Urine Bacteria Few 10/21/17 19:00: Troponin I < 0.01 D 10/21/17 19:00: TSH 3rd Generation 22.10 H 10/21/17 19:00: NT-Pro-B Natriuret Pep 196 10/21/17 19:00: Sodium 139, Potassium 4.9, Chloride 103, Carbon Dioxide 25, Anion Gap 16, BUN 77 H, Creatinine 1.6 H, Est GFR ( Amer) 40, Est GFR ( Non-Af Amer) 33, Random Glucose 120 H, Calcium 9.4, Magnesium 2.2, Total Bilirubin 0.3, AST 26, ALT 32, Alkaline Phosphatase 62, Total Protein 7.2, Albumin 3.9, Globulin 3.3, Albumin/Globulin Ratio 1.2 10/21/17 19:00: PT 20.7 H, INR 1.79 H, APTT 31.2 10/21/17 19:00: WBC 9.7 D, RBC 3.34 L, Hgb 9.6 L, Hct 29.3 L, MCV 87.7, MCH 28.7, MCHC 32.8, RDW 14.6 H, Plt Count 221, MPV 9.6, Gran % 73.7 H, Lymph % ( Auto) 17.1 L, [place] % (Auto) 7.2 H, Eos % (Auto) 1.7, Baso % (Auto) 0.3, Gran # 7.12 H, Lymph # (Auto) 1.7, [place] # (Auto) 0.7 H, Eos # (Auto) 0.2, Baso # (Auto ) 0.03 - RAD Interpretation Radiology Orders: 10/21/17 18:23 HEAD W/O CONTRAST [CT] Stat 10/21/17 18:36 CERVICAL SPINE W/O CONTRAST [CT] Stat 10/21/17 19:49 CHEST PORTABLE [RAD] Stat CT HEAD: FINDINGS: Brain: Cerebral volume loss noted. Scattered areas of decreased attenuation in the deep periventricular white matter consistent with small vessel ischemic change. Lacunar change both basal ganglia and thalami, nonacute. No hemorrhage. Ventricles: Unremarkable. No ventriculomegaly. Bones/joints: Unremarkable. No acute fracture. Soft tissues: Right parietal scalp hematoma. Sinuses: There is mild mucoperiosteal thickening in the maxillary and ethmoid sinuses with more moderate right ethmoid and frontal sinus anterior opacification. Mastoid air cells: Unremarkable as visualized. No mastoid effusion. IMPRESSION: Senescent changes noted. No acute intracranial abnormality. Thank you for allowing us to participate in the care of your patient. Dictated and Authenticated by: Neeta Zamora MD 10/21/2017 7:25 PM Eastern Time ([email or web address]) CT Cervical: Limitations: Motion slightly limits the exam. Vertebrae: Unremarkable. No acute fracture. Discs/spinal canal/neural foramina: No acute findings. No spinal canal stenosis. Soft tissues: Unremarkable. Thyroid: There is marked bilateral thyroid lobe enlargement right worse than left. The right lobe measures up to 5 cm AP by 3.3 cm transverse. Lung apices: Unremarkable as visualized. IMPRESSION: No acute posttraumatic abnormality. Thank you for allowing us to participate in the care of your patient. Dictated and Authenticated by: Neeta Zamora MD 10/21/2017 7:28 PM Eastern Time ([email or web address]) Chest xray: no active disease [employer]: Radiologist - Medication Orders Current Medication Orders: Acetaminophen (Tylenol 325mg Tab) 650 mg PO Q4H PRN PRN Reason: Fever >100.5 F Carvedilol (Coreg) 12.5 mg PO BID [facility] Last Admin: 10/23/17 10:11 Dose: 12.5 mg MAR Pulse and Blood Pressure Document 10/23/17 10:11 Y (Rec: 10/23/17 10:12 [id number] Pulse Pulse Rate (60-90) 63 Blood Pressure Blood Pressure (100/60-150/90) 120/71 Cholecalciferol (Vitamin D) 1,000 intlu PO DAILY [facility] Last Admin: 10/23/17 10:11 Dose: 1,000 intlu Fluoxetine HCl (Prozac) 40 mg PO DAILY [facility] Last Admin: 10/23/17 10:11 Dose: 40 mg Furosemide (Lasix) 20 mg PO DAILY [facility] Last Admin: 10/23/17 10:11 Dose: 20 mg MAR Blood Pressure Document 10/23/17 10:11 Y (Rec: 10/23/17 10:11 [id number]) Blood Pressure Blood Pressure (100/60-150/90) 120/71 Sodium Chloride (Sodium Chloride 0.9%) 1,000 mls @ 100 mls/hr IV .Q10H [facility] Last Admin: 10/23/17 08:22 Dose: 100 mls/hr eMAR Start Stop Document 10/23/17 08:22 (Rec: 10/23/17 08:22 [id number]) Intravenous Solution Start Date 10/23/17 Start Time 08:22 Lactobacillus Acidophilus (Bacid Acidophilus) 1 cap PO DAILY [facility] Last Admin: 10/23/17 10:11 Dose: 1 cap Loperamide HCl (Imodium) 2 mg PO Q8H PRN PRN Reason: Diarrhea Magnesium Oxide (Mag-Ox) 400 mg PO TID [facility] Last Admin: 10/23/17 15:00 Dose: 400 mg Montelukast Sodium (Singulair) 10 mg PO DAILY [facility] Last Admin: 10/23/17 10:11 Dose: 10 mg Multivitamins (Thera Tab) 1 tab PO DAILY [facility] Last Admin: 10/23/17 10:11 Dose: 1 tab Mometasone Furoate [ Nasonex] 2 [place] ( Home Med) 2 spray IH BID [facility] Last Admin: 10/23/17 10:12 Dose: Pantoprazole Sodium (Protonix Ec Tab) 20 mg PO 0600 [facility] Last Admin: 10/23/17 05:49 Dose: Not Given Non-Admin Reason: Patient Asleep Risperidone (Risperdal Tab) 0.5 mg PO DAILY [facility] PRN Reason: Protocol Last Admin: 10/23/17 10:11 Dose: 0.5 mg Behavioural Document 10/23/17 10:11 YJ (Rec: 10/23/17 10:11 Y [id number]) Maintenance Maintenance Dose Yes Warfarin Sodium (Coumadin) 2 mg PO 1800 [facility] PRN Reason: Protocol Last Admin: 10/22/17 17:03 Dose: 2 mg Discontinued Medications Acetaminophen (Tylenol 325mg Tab) 650 mg PO STAT STA Stop: 10/21/17 19:52 Last Admin: 10/21/17 19:59 Dose: 650 mg Re-Assess: MAR Pain/Vitals Document 10/21/17 22:00 KP (Rec: 10/22/17 06:17 [id number] Pain Reassessment Is This A Pain ReAssessment? Yes Sleep Is patient sleeping during reassessment? No Presence of Pain Presence of Pain No Sodium Chloride (Sodium Chloride 0.9%) 1,000 mls @ 100 mls/hr IV .Q10H [facility] Last Admin: 10/21/17 19:36 Dose: 100 mls/hr eMAR Start Stop Document 10/21/17 19:36 CNR (Rec: 10/21/17 19:36 CNR [id number]) Intravenous Solution Start Date 10/21/17 Start Time 19:36 Sodium Chloride (Sodium Chloride 0.9%) 1,000 mls @ 77 mls/hr IV .Q13H [facility] Ceftriaxone Sodium (Rocephin 1 Gram Ivpb) 1 gm in 100 mls @ 200 mls/hr IVPB STAT STA PRN Reason: Protocol Stop: 10/21/17 20:19 Last Admin: 10/21/17 19:59 Dose: 200 mls/hr eMAR Start Stop Document 10/21/17 19:59 CNR (Rec: 10/21/17 19:59 CNR [id number]) Intravenous Solution Start Date 10/21/17 Start Time 19:59 End Date 10/21/17 End time 20:29 Total Infusion Time 30 Sodium Chloride (Sodium Chloride 0.9%) 1,000 mls @ 200 mls/hr IV .Q5H [facility] Last Admin: 10/21/17 20:14 Dose: 200 mls/hr eMAR Start Stop Document 10/21/17 20:14 CNR (Rec: 10/21/17 20:14 CNR [id number]) Intravenous Solution Start Date 10/21/17 Start Time 20:14 Tetanus/Reduced Diphtheria/Acell Pertussis (Boostrix Vaccine Inj) 0.5 ml IM .ONCE ONE Stop: 10/21/17 18:24 Last Admin: 10/21/17 19:34 Dose: 0.5 ml Immunization Registry Document 10/21/17 19:34 CNR (Rec: 10/21/17 19:34 CNR [id number]) Immunization Registry Consent Date 10/21/17 - PA / OUTCOMES MANAGER / Resident Statement MD/DO has reviewed & agrees with the documentation as recorded. Disposition/Present on Arrival - Present on Arrival Any Indicators Present on Arrival: No History of DVT/PE: No History of Uncontrolled Diabetes: No Urinary Catheter: No History of Decub. Ulcer: No History Surgical Site Infection Following: None - Disposition Have Diagnosis and Disposition been Completed?: Yes Diagnosis: Scalp hematoma, Accidental fall, Dehydration, UTI (urinary tract infection), Fatigue Disposition: HOSPITALIZED Disposition Time: 19:34 Patient Plan: Admission, Observation Patient Problems: Current Active Problems Problem Status Onset Accidental fall Acute Dehydration Acute Fatigue Acute Scalp hematoma Acute UTI (urinary tract infection) Acute Condition: STABLE
[2017-10-21] MEDS ORDERED: Sodium Chloride 0.9% 500 ML IV STA (18:38)
[2017-10-21] MEDS ORDERED: Sodium Chloride 0.9% 1,000 ML IV SCH ×3 (18:45→20:08)
[2017-10-21 19:17] LABS: BASO # 0.03 K/mm3 (0.0-2.0); BASO % 0.3 % (0.0-3.0); EOS # 0.2 (0.0-0.7); EOS % 1.7 % (1.5-5.0); GRAN # 7.12 (1.4-6.5); GRAN % 73.7 % (50.0-68.0); HEMOGLOBIN 9.6 g/dL (12.0-16.0); LYMPH # 1.7 (1.2-3.4); LYMPH % 17.1 % (22.0-35.0); MEAN CELL VOLUME 87.7 fl (80.0-105.0); MEAN CORPUSCULAR HEMOGLOBIN 28.7 pg (25.0-35.0); MEAN CORPUSCULAR HGB CONC 32.8 g/dl (31.0-37.0); MEAN PLATELET VOLUME 9.6 fl (7.0-11.0); MONO # 0.7 (0.1-0.6); MONO % 7.2 % (1.0-6.0); RBC 3.34 10^6/uL (3.5-6.1); RED CELL DISTRIBUTION WIDTH 14.6 % (11.5-14.5); WHITE BLOOD COUNT 9.7 10^3/ul (4.5-11.0)
[2017-10-21 19:24] LABS: INR 1.79 (0.93-1.08); PARTIAL THROMBOPLASTIN TIME 31.2 Seconds (25.1-36.5); PROTHROMBIN TIME 20.7 SECONDS (9.4-12.5)
[2017-10-21 19:28] LABS: ALB/GLOB RATIO 1.2 (1.1-1.8); ALBUMIN 3.9 g/dL (3.0-4.8); CALCIUM 9.4 mg/dL (8.4-10.5)
[2017-10-21 19:48] LABS: URINE BILIRUBIN NEGATIVE (NEGATIVE); URINE BLOOD NEGATIVE (NEGATIVE); URINE GLUCOSE (UA) NEGATIVE (NEGATIVE); URINE LEUKOCYTE ESTERASE TRACE Leu/uL (NEGATIVE); URINE PROTEIN 30 mg/dL (<30 mg/dL); URINE UROBILINOGEN 0.2 E.U./dL (<1 E.U./dL)
[2017-10-21 19:49] LABS: URINE APPEARANCE CLEAR (CLEAR); URINE COLOR LIGHT YELLOW (YELLOW)
[2017-10-21] MEDS ORDERED: cefTRIAXone 1 gm 1 GM/100 ML BAG IVPB STA (19:50)
[2017-10-21 19:59] LABS: URINE BACTERIA FEW (NEG); URINE RBC 0 - 2 /hpf (0-2); URINE WBC 0 - 2 /hpf (0-6)
[2017-10-21] MEDS: Sodium Chloride 0.9% 1,000 ML IV SCH (22:00)
--- NOTE | 2017-10-21 23:41 | CP.PCM.HP ---
<Jung Marroquin - Last Filed: 10/21/17 23:23> History of Present Illness - History of Present Illness History of Present Illness: CC: Near syncope Pt is a 62 yo F with PMH of CHF, CAD, atrial fibrillation on coumadin, HTN, depression, GERD, iron-deficiency anemia, and hyperthyroidism [place] [facility] [facility] due to unwitnessed fall. According to long-term documentation, patient was in the bathroom urinating and slipped while getting up and hit the right side of her head against the floor. It is unclear at this time whether the fall was purely mechanical as the patient appears to have dementia and cannot provide an accurate history. ROS limited due to patient's current mental status. PMD: [place] PMH: CHF, CAD, atrial fibrillation, HTN, depression, GERD, iron-deficiency anemia, and hyperthyroidism Surg: Denied All: NKDA SH: Denied tobacco, EtOH, and illicit drug use FHx: Non-contributory Medications as per MAR Present on Admission - Present on Admission Any Indicators Present on Admission: No Review of Systems - Review of Systems Review of Systems: Unable to obtain ROS due to patient's current mental status. Past Patient History - Infectious Disease Hx of Infectious Diseases: None - Tetanus Immunizations Tetanus Immunization: Unknown - Past Social History Smoking Status: Never Smoked - CARDIAC Hx Hypertension: Yes Hx Pacemaker: No - PULMONARY Hx Respiratory Disorders: No Hx Asthma: No - NEUROLOGICAL Hx Neurological Disorder: No - HEENT Hx HEENT Problems: No - RENAL Hx Chronic Kidney Disease: No - ENDOCRINE/METABOLIC Hx Hypothyroidism: Yes - HEMATOLOGICAL/ONCOLOGICAL Hx Blood Transfusions: (UNSURE) Hx Leukemia: Yes - INTEGUMENTARY Hx Dermatological Problems: No - MUSCULOSKELETAL/RHEUMATOLOGICAL Hx Musculoskeletal Disorders: Yes - GASTROINTESTINAL Hx Gastroesophageal Reflux: Yes - GENITOURINARY/GYNECOLOGICAL Hx Incontinence: Yes - PSYCHIATRIC Hx Depression: Yes Hx Emotional Abuse: No Hx Physical Abuse: No Hx Substance Use: No - SURGICAL HISTORY Hx Surgeries: No (pt denies) - ANESTHESIA Hx Anesthesia Reactions: No Meds Allergies/Adverse Reactions: Allergies Allergy/AdvReac Type Severity Reaction Status Date / Time No Known Allergies Allergy Verified 01/17/17 17:22 Physical Exam - Constitutional Appears: No Acute Distress - Head Exam Additional comments: Right posterior lateral occipital approx. 3cm diameter scalp hematoma with approx. 2cm diameter abrasion - Eye Exam Eye Exam: Normal appearance - ENT Exam ENT Exam: Mucous Membranes Moist - Neck Exam Neck exam: Positive for: Normal Inspection - Respiratory Exam Respiratory Exam: Clear to Auscultation Bilateral. absent: Rales, Rhonchi, Wheezes - Cardiovascular Exam Cardiovascular Exam: RRR, +S1, +S2. absent: Diastolic murmur, Gallop, Rubs, Systolic Murmur - GI/Abdominal Exam GI & Abdominal Exam: Soft. absent: Distended, Guarding, Rebound, Tenderness - Extremities Exam Extremities exam: Positive for: normal inspection - Back Exam Back exam: NORMAL INSPECTION - Neurological Exam Neurological exam: Alert, CN II-XII Intact, Reflexes Normal - Psychiatric Exam Psychiatric exam: Flat Affect - Skin Skin Exam: Dry, Intact, Normal Color, Warm Results - Vital Signs Recent Vital Signs: Last Vital Signs Temp 99.1 F 10/21/17 18:33 Pulse 67 10/21/17 21:22 Resp 18 10/21/17 21:22 BP 124/63 10/21/17 21:22 Pulse Ox 99 10/21/17 21:22 - Labs Result Diagrams: 10/21/17 19:00 10/21/17 19:00 Assessment & Plan - Assessment and Plan (Free Text) Assessment: 62 yo F with PMH of CHF, CAD, atrial fibrillation, HTN, depression, GERD, iron- deficiency anemia, and hyperthyroidism admitted for near syncope. Plan: 1. Near syncope - Head CT negative - Cervical CT negative - EKG showed NSR, LVH, cannot r/o septal infarct (age undetermined) - Echo (01/20/17) showed EF 45%, mild AR/TR/PI, mod MR - Echo ordered - Carotid US ordered - Orthostatics ordered - IVF - Fall precautions - Neuro consulted - Cardio consulted 2. Possible UTI - UA showed trace leukocyte esterase - Rocephin 1gm IVPB x1 given in ED - Repeat UA in AM 3. ADILSON - Cr 1.6 - IVF - Monitor renal function - Hold nephrotoxic medications 4. CHF - Coreg - Lasix - Holding lisinopril due to ADILSON - Echo (01/20/17) showed EF 45%, mild AR/TR/PI, mod MR - Echo ordered 5. H/o Atrial fibrillation - Cont coumadin 2 mg - INR 1.79 - Recheck INR in AM - Titrate coumadin until INR 2-3 6. HTN - Hold lisinopril due to ADILSON - Cont to monitor 7. Hyperthyroidism - Large goiter present on exam; no clinical signs of thyrotoxicosis - EKG showed NSR - TSH ordered - Methimazole - Endo consult 8. Iron deficiency anemia - Cont to monitor h/h 9. Depression - Prozac - Risperidone 10. GERD - Protonix GI/DVT PPx - Protonix - Heparin Pt seen and discussed in detail with Dr. Sousa. Luis Felipe Marroquin, PGY1 <Jess Sousa - Last Filed: 10/22/17 05:49> Results - Vital Signs Recent Vital Signs: Last Vital Signs Temp 99.1 F 10/21/17 18:33 Pulse 67 10/21/17 21:22 Resp 18 10/21/17 22:43 BP 124/63 10/21/17 21:22 Pulse Ox 99 10/21/17 21:22 - Labs Result Diagrams: 10/22/17 04:10 10/22/17 04:10 Labs: Laboratory Results - last 24 hr 10/22/17 10/22/17 10/22/17 04:10 04:10 04:10 WBC 7.7 D RBC 3.29 L Hgb 9.3 L Hct 28.8 L MCV 87.5 MCH 28.3 MCHC 32.3 RDW 14.4 Plt Count 187 MPV 9.7 PT 19.2 H INR 1.67 H Sodium 143 Potassium 4.7 Chloride 106 Carbon Dioxide 27 Anion Gap 14 BUN 65 H Creatinine 1.3 H Est GFR ( Amer) 50 Est GFR (Non-Af Amer) 42 Random Glucose 92 Calcium 9.7 Phosphorus 3.8 Magnesium 2.1 Total Bilirubin 0.3 AST 29 ALT 28 Alkaline Phosphatase 68 Troponin I < 0.01 Total Protein 6.8 Albumin 3.5 Globulin 3.2 Albumin/Globulin Ratio 1.1 Attending/Attestation - Attestation I have personally seen and examined this patient.: Yes I have fully participated in the care of the patient.: Yes I have reviewed all pertinent clinical information: Yes Notes (Text): 10/22/17 05:49 Patient was seen when she was in bed # 14 in the ER . Agree with history , physical examination, assessment and plan.
[2017-10-22 04:42] LABS: BLOOD UREA NITROGEN 65 mg/dL (7-21); GFR AFRICAN-AMERICAN 50; GFR NON-AFRICAN AMERICAN 42
[2017-10-22 04:43] LABS: ALB/GLOB RATIO 1.1 (1.1-1.8); ALBUMIN 3.5 g/dL (3.0-4.8); ALT/SGPT 28 U/L (7-56); AST/SGOT 29 U/L (14-36); CALCIUM 9.7 mg/dL (8.4-10.5)
[2017-10-22 04:47] LABS: HEMOGLOBIN 9.3 g/dL (12.0-16.0); MEAN CELL VOLUME 87.5 fl (80.0-105.0); MEAN CORPUSCULAR HEMOGLOBIN 28.3 pg (25.0-35.0); MEAN CORPUSCULAR HGB CONC 32.3 g/dl (31.0-37.0); MEAN PLATELET VOLUME 9.7 fl (7.0-11.0); RBC 3.29 10^6/uL (3.5-6.1); RED CELL DISTRIBUTION WIDTH 14.4 % (11.5-14.5); WHITE BLOOD COUNT 7.7 10^3/ul (4.5-11.0)
[2017-10-22 04:50] LABS: TROPONIN I < 0.01 ng/mL
[2017-10-22 04:51] LABS: INR 1.67 (0.93-1.08); PROTHROMBIN TIME 19.2 SECONDS (9.4-12.5)
[2017-10-22] MEDS: Pantoprazole 20 mg EC Tab PO SCH (05:54)
[2017-10-22] MEDS ORDERED: Insulin Lispro (humaLOG) LOW Coverage SC SCH (07:30)
--- NOTE | 2017-10-22 09:22 | CT ---
PROCEDURE: CT HEAD WITHOUT CONTRAST. HISTORY: rt. sided head injury COMPARISON: 01/17/2017 TECHNIQUE: Axial computed tomography images were obtained through the head/brain without intravenous contrast. Coronal and sagittal reconstructed images. Radiation dose: Total exam DLP = 875.88 mGy-cm. This CT exam was performed using one or more of the following dose reduction techniques: Automated exposure control, adjustment of the mA and/or kV according to patient size, and/or use of iterative reconstruction technique. FINDINGS: HEMORRHAGE: No intracranial hemorrhage. BRAIN: No mass effect or edema. Cortical and cerebellar atrophy, periventricular small vessel disease. Evidence of old left basal ganglia, the limit infarcts. VENTRICLES: Unremarkable. No hydrocephalus. CALVARIUM: Unremarkable. PARANASAL SINUSES: Unremarkable as visualized. No significant inflammatory changes. MASTOID AIR CELLS: Unremarkable as visualized. No inflammatory changes. OTHER FINDINGS: None. IMPRESSION: No acute intracranial abnormalities. No significant findings to account for the clinical presentation. No significant interval change compared to the prior examination(s). Concordant results (preliminary interpretation) provided by [employer]. Procedure Completed: 18:48 Preliminary ([facility]) Report: Dictated and Authenticated: 19:25 Final Interpretation: 09:20 October 22, 2017.
[2017-10-22] MEDS: Lactobacillus Acidophilus 500 MU Cap PO SCH (09:39)
[2017-10-22] MEDS: Multivitamin Therapeutic Tab PO SCH (09:39)
[2017-10-22] MEDS: Cholecalciferol 1,000 INTLU TAB PO SCH (09:39)
[2017-10-22] MEDS: Magnesium Oxide 400 mg Tab UD PO SCH ×3 (09:39→17:03)
[2017-10-22] MEDS: Sodium Chloride 0.9% 1,000 ML IV SCH ×2 (09:41→18:07)
[2017-10-22] MEDS: MOMETASONE FUROATE IH SCH ×2 (09:41→17:04)
--- NOTE | 2017-10-22 09:42 | CT ---
PROCEDURE: CT Cervical Spine without contrast HISTORY: Trauma COMPARISON: None available. TECHNIQUE: Axial computed tomography images were obtained of the cervical spine without the use of intravenous contrast. Coronal and sagittal reformatted images were created and reviewed. Radiation dose: Total exam DLP = 297.80 mGy-cm. This CT exam was performed using one or more of the following dose reduction techniques: Automated exposure control, adjustment of the mA and/or kV according to patient size, and/or use of iterative reconstruction technique. FINDINGS: VERTEBRAE: No fracture. Normal alignment. No destructive bony lesion. DISCS/SPINAL CANAL/NEURAL FORAMINA: No significant central canal or neural foraminal stenosis. Discs heights are grossly preserved. PARASPINAL SOFT TISSUES: Unremarkable. OTHER FINDINGS: Markedly enlarged thyroid gland. Similar findings identified on the prior thyroid ultrasound 04/24/2013. Follow-up elective thyroid ultrasound recommended. IMPRESSION: No acute findings related to/accounting for the clinical presentation. Incidental observation, incompletely visualized thyroid enlargement. Elective thyroid ultrasound comparison with the prior study April 24, 2013 advised. Concordant results (preliminary interpretation) provided by [employer]. Procedure Completed: 18:51 Preliminary ([facility]) Report: Dictated and Authenticated: 07:28 Final Interpretation: 09:41 October 22, 2017.
--- NOTE | 2017-10-22 10:13 | RAD ---
HISTORY: medical clearance COMPARISON: 07/02/2014 FINDINGS: LUNGS: No active pulmonary disease. PLEURA: No significant pleural effusion identified, no pneumothorax apparent. CARDIOVASCULAR: No radiographic findings to suggest acute or significant cardiovascular disease. OSSEOUS STRUCTURES: No significant abnormalities. VISUALIZED UPPER ABDOMEN: Normal. OTHER FINDINGS: None. IMPRESSION: No active disease. No significant interval change compared to the prior examination(s).
--- NOTE | 2017-10-22 14:11 | US ---
HISTORY: Large Multinodular Goiter/Hypothyroidism TECHNIQUE: Sonographic evaluation of the thyroid gland. COMPARISON: 04/24/2013 thyroid ultrasound. FINDINGS: RIGHT LOBE: Measures 3.8 x 3.4 x 7.2 cm. Heterogenous echotexture, increased vascularity Nodules: None LEFT LOBE: Measures 3.4 x 3.7 x 7.6 cm. Heterogeneous echo characteristics, increased vascularity left lobe Nodules: Cystic nodule midpole region 1.4 x 1.9 x 2.1 cm this represents a new finding compared to the prior study. ISTHMUS: Measures 1.44 cm. Increase flow to a at a thickened isthmus. Nodules: Solitary nodule midline 1 x 1.6 x 2 cm. This is increased modestly since the prior study at which time this measured 0.5 x 1.2 x 1.7 cm OTHER FINDINGS: None IMPRESSION: Markedly enlarged heterogeneous hypervascular thyroid gland. Slight increase in size of the nodule in the isthmus although this may be technical. New, suspicious cystic nodule left thyroid lobe which requires further evaluation. Recommendations for follow-up: 1. Radionuclide Scan to assess Thyroid function and to evaluate the thyroid for the presence of hot or cold nodules. 2. Fine needle aspiration (FNA) should also be considered as an invasive diagnostic tool in the assessment of findings described above.
--- NOTE | 2017-10-22 15:06 | CARD ---
APPROVED REPORT EXAM: Two-dimensional and M-mode echocardiogram with Doppler and color Doppler. INDICATION 2D DIMENSIONS IVSd0.6 (0.7-1.1cm)LVDd4.3 (3.9-5.9cm) PWd0.7 (0.7-1.1cm)LVDs3.0 (2.5-4.0cm) FS (%) 30.1 %LVEF (%)57.8 (>50%) M-Mode DIMENSIONS Left Atrium (MM)3.30 (2.5-4.0cm)Aortic Root2.80 (2.2-3.7cm) Aortic Cusp Exc.1.80 (1.5-2.0cm) Aortic Valve AoV Peak Qvmblano268.0cm/Martínez Peak GR.6mmHgAI P 1/2 [id number] Mitral Valve MV E Hlqyrcpb74.2cm/sMV A Orejpcgs22.2cm/sE/A ratio1.0 TDI Lateral E' Peak V9.94cm/sMedial E' Peak V5.56cm/sE/Lateral E'6.4 E/Medial E'11.4 Tricuspid Valve TR Peak [id number]/sRAP [id number] Peak Gr.23mmHg [id number] LEFT VENTRICLE The left ventricle is normal size. There is normal left ventricular wall thickness. The left ventricular ejection fraction is within the normal range. Mild inferior hypokinesis Transmitral Doppler flow pattern is Grade I-abnormal relaxation pattern. RIGHT VENTRICLE The right ventricle is normal size. There is normal right ventricular wall thickness. The right ventricular systolic function is normal. ATRIA The left atrium size is normal. The right atrium size is normal. AORTIC VALVE The aortic valve is normal in structure. There is mild aortic regurgitation. There is no aortic valvular stenosis. MITRAL VALVE The mitral valve is normal in structure. Mitral regurgitation is mild. There is no mitral valve stenosis. TRICUSPID VALVE The tricuspid valve is normal in structure. There is trace tricuspid regurgitation. PULMONIC VALVE There is trace pulmonic valvular regurgitation. GREAT VESSELS The aortic root is normal in size. The IVC is normal in size and collapses >50% with inspiration. PERICARDIAL EFFUSION There is a trace loculated anterior pericardial effusion. <Conclusion> The left ventricle is normal size. There is normal left ventricular wall thickness. The left ventricular ejection fraction is within the normal range. Mild inferior hypokinesis Transmitral Doppler flow pattern is Grade I-abnormal relaxation pattern. There is mild aortic regurgitation. Mitral regurgitation is mild.
--- NOTE | 2017-10-22 15:36 | CP.PCM.CON ---
History of Present Illness - History of Present Illness History of Present Illness: Mrs. Sabillon is a 62-year-old woman, who lives in a [facility] detention, and has a past medical history of CHF, CAD, atrial fibrillation on coumadin, HTN, depression, GERD, iron-deficiency anemia, and hyperthyroidism, who was transferred from her detention due to an unwitnessed fall without loss of consciousness. The patient has dementia and is a poor historian, so information is obtained from the chart. Based no the report, the patient was in the bathroom urinating and slipped while getting up and hit the right side of her head against the floor. CT scan of the head was done and did not show any acute findings. Echocardiogram was normal. The patient complained of a mild headache on the right side where she said she hit her head, but did not have any other complaints. There were no acute events overnight. She said that she would like to go home. Review of Systems - Review of Systems All systems: reviewed and no additional remarkable complaints except Past Patient History - Infectious Disease Hx of Infectious Diseases: None - Tetanus Immunizations Tetanus Immunization: Unknown - Past Social History Smoking Status: Never Smoked - CARDIAC Hx Hypertension: Yes Hx Pacemaker: No - PULMONARY Hx Respiratory Disorders: No Hx Asthma: No - NEUROLOGICAL Hx Neurological Disorder: No - HEENT Hx HEENT Problems: No - RENAL Hx Chronic Kidney Disease: No - ENDOCRINE/METABOLIC Hx Hypothyroidism: Yes - HEMATOLOGICAL/ONCOLOGICAL Hx Blood Transfusions: (UNSURE) Hx Leukemia: Yes - INTEGUMENTARY Hx Dermatological Problems: No - MUSCULOSKELETAL/RHEUMATOLOGICAL Hx Musculoskeletal Disorders: Yes - GASTROINTESTINAL Hx Gastroesophageal Reflux: Yes - GENITOURINARY/GYNECOLOGICAL Hx Incontinence: Yes - PSYCHIATRIC Hx Depression: Yes Hx Emotional Abuse: No Hx Physical Abuse: No Hx Substance Use: No - SURGICAL HISTORY Hx Surgeries: No (pt denies) - ANESTHESIA Hx Anesthesia Reactions: No Meds Allergies/Adverse Reactions: Allergies Allergy/AdvReac Type Severity Reaction Status Date / Time No Known Allergies Allergy Verified 01/17/17 17:22 - Medications Medications: Current Medications Acetaminophen (Tylenol 325mg Tab) 650 mg PO Q4H PRN PRN Reason: Fever >100.5 F Carvedilol (Coreg) 12.5 mg PO BID [facility] Last Admin: 10/22/17 09:40 Dose: 12.5 mg Cholecalciferol (Vitamin D) 1,000 intlu PO DAILY [facility] Last Admin: 10/22/17 09:39 Dose: 1,000 intlu Fluoxetine HCl (Prozac) 40 mg PO DAILY [facility] Last Admin: 10/22/17 09:39 Dose: 40 mg Furosemide (Lasix) 20 mg PO DAILY [facility] Last Admin: 10/22/17 09:39 Dose: 20 mg Sodium Chloride (Sodium Chloride 0.9%) 1,000 mls @ 100 mls/hr IV .Q10H [facility] Last Admin: 10/22/17 09:41 Dose: 100 mls/hr Lactobacillus Acidophilus (Bacid Acidophilus) 1 cap PO DAILY [facility] Last Admin: 10/22/17 09:39 Dose: 1 cap Loperamide HCl (Imodium) 2 mg PO Q8H PRN PRN Reason: Diarrhea Magnesium Oxide (Mag-Ox) 400 mg PO TID [facility] Last Admin: 10/22/17 14:19 Dose: 400 mg Montelukast Sodium (Singulair) 10 mg PO DAILY [facility] Last Admin: 10/22/17 09:39 Dose: 10 mg Multivitamins (Thera Tab) 1 tab PO DAILY [facility] Last Admin: 10/22/17 09:39 Dose: 1 tab Mometasone Furoate [ Nasonex] 2 [place] ( Home Med) 2 spray IH BID [facility] Last Admin: 10/22/17 09:41 Dose: Not Given Pantoprazole Sodium (Protonix Ec Tab) 20 mg PO 0600 [facility] Last Admin: 10/22/17 05:54 Dose: 20 mg Risperidone (Risperdal Tab) 0.5 mg PO DAILY [facility] PRN Reason: Protocol Last Admin: 10/22/17 09:39 Dose: 0.5 mg Warfarin Sodium (Coumadin) 2 mg PO 1800 [facility] PRN Reason: Protocol Physical Exam - Constitutional Appears: Well - Head Exam Head Exam: NORMOCEPHALIC - Eye Exam Eye Exam: EOMI, Normal appearance, PERRL - ENT Exam ENT Exam: Mucous Membranes Moist, Normal Exam - Neck Exam Neck exam: Positive for: Normal Inspection - Respiratory Exam Respiratory Exam: Clear to Auscultation Bilateral, NORMAL BREATHING PATTERN - Cardiovascular Exam Cardiovascular Exam: REGULAR RHYTHM - GI/Abdominal Exam GI & Abdominal Exam: Normal Bowel Sounds, Soft. absent: Tenderness - Neurological Exam Neurological exam: Alert, CN II-XII Intact, Oriented x3, Reflexes Normal Additional comments: No focal neurological deficits were noted. The patient did not want to comply with gait testing. Results - Vital Signs Recent Vital Signs: Last Vital Signs Temp 98.7 F 10/22/17 07:30 Pulse 74 10/22/17 09:40 Resp 18 10/22/17 07:30 BP 110/60 10/22/17 09:40 Pulse Ox 95 10/22/17 07:30 - Labs Result Diagrams: 10/22/17 04:10 10/22/17 04:10 Labs: Laboratory Results - last 24 hr 10/22/17 10/22/17 10/22/17 04:10 04:10 04:10 WBC 7.7 D RBC 3.29 L Hgb 9.3 L Hct 28.8 L MCV 87.5 MCH 28.3 MCHC 32.3 RDW 14.4 Plt Count 187 MPV 9.7 PT 19.2 H INR 1.67 H Sodium 143 Potassium 4.7 Chloride 106 Carbon Dioxide 27 Anion Gap 14 BUN 65 H Creatinine 1.3 H Est GFR ( Amer) 50 Est GFR (Non-Af Amer) 42 Random Glucose 92 Calcium 9.7 Phosphorus 3.8 Magnesium 2.1 Total Bilirubin 0.3 AST 29 ALT 28 Alkaline Phosphatase 68 Troponin I < 0.01 Total Protein 6.8 Albumin 3.5 Globulin 3.2 Albumin/Globulin Ratio 1.1 10/22/17 09:50 WBC RBC Hgb Hct MCV MCH MCHC RDW Plt Count MPV PT INR Sodium Potassium Chloride Carbon Dioxide Anion Gap BUN Creatinine Est GFR ( Amer) Est GFR (Non-Af Amer) Random Glucose Calcium Phosphorus Magnesium Total Bilirubin AST ALT Alkaline Phosphatase Troponin I < 0.01 Total Protein Albumin Globulin Albumin/Globulin Ratio Assessment & Plan (1) Accidental fall Assessment and Plan: Continue medical management per the primary team. No new recommendations from a neurological perspective. Thank you for this consultation. Status: Acute Priority: High
--- NOTE | 2017-10-22 15:48 | CARD ---
APPROVED REPORT EKG Measurement Heart [id number] <Conclusion> Normal sinus rhythm Left ventricular hypertrophy with repolarization abnormality Cannot rule out Septal infarct, age undetermined Abnormal ECG
--- NOTE | 2017-10-22 22:26 | CON ---
DATE: ENDOCRINOLOGY CONSULTATION LOCATION: Room 561. HISTORY OF PRESENT ILLNESS: This is a 62-year-old female who was transferred in from the [facility] because of an apparent syncopal episode and head injury to the right temporal aspect and currently being referred for evaluation of abnormal thyroid function studies. PAST MEDICAL HISTORY: History of hyperthyroidism with an underlying multinodular goiter and has been on Tapazole at the high dose of 20 mg b.i.d. and the recent thyroid study showed indications of hypothyroidism, which is most likely medication-induced. History of coronary artery disease with underlying chronic atrial fibrillation, on Coumadin anticoagulation therapy, history of hypertension and dyslipidemia, prior admissions for congestive heart failure as noted. There is also history of major depression and early dementia, history of iron-deficiency anemia. There is also history of GERD with chronic gastritis. FAMILY HISTORY: Positive for diabetes and hypertension. SOCIAL HISTORY: The patient has a supportive family. She is a current halfway resident at this time. No known substance use. REVIEW OF SYSTEMS: Not possible at this time as the patient shows clinical evidence of confusion and disorientation and is quite unable to give a full actually historical facts. PHYSICAL EXAMINATION: GENERAL: Average built female, in no apparent distress. VITAL SIGNS: Blood pressure of 140/80, pulse of 70 beats per minute and regular, temperature 99, respirations 20, height is 5 feet, weight is 110 pounds. HEENT: Head normocephalic. Eyes anicteric with pink conjunctivae. Funduscopy is not possible at this time. Ears, nose, and throat otherwise normal. NECK: Supple. Thyroid gland shows nodular thyromegaly, moderately enlarged bilaterally with no overt bruits nor any cervical adenopathy noted. HEART: Hyperdynamic precordium. S1, S2 is rapid and regular. LUNGS: Clear to auscultation. ABDOMEN: Flat, soft with positive bowel sounds. EXTREMITIES: No peripheral edema. Pulses are +2 bilaterally. LABORATORY DATA: Hematology: Hemoglobin is 9.3, hematocrit of 28, WBC 7.7, MCV 87, platelets 187. Her chemistry showed a BUN of 65, sodium 143, potassium 4.7, chloride 106, CO2 of 27, glucose 92, and creatinine 1.3. The initial TSH was 22.1. ASSESSMENT: This is a 62-year-old female who seems clinically euthyroid, but biochemically has evidence of overt hypothyroidism, which is most likely medication induced as the patient is on a high dose of Tapazole given as 40 mg b.i.d. as noted. She also has underlying multinodular goiter with no overt compressive or obstructive manifestations at this time. She most likely has underlying autoimmune thyroiditis as noted. PLAN OF MANAGEMENT: We will obtain a comprehensive thyroid hormonal profile tomorrow with a total and free T4 and also a TSH level. We will also do thyroid antibodies with a thyroid stimulating immunoglobulin and a thyroid peroxidase antibody and a thyroglobulin panel to confirm and/or indicate the presence of underlying thyroid autoimmunity. We will obtain a thyroid ultrasound also today to fully ascertain the exact and accurate thyroid lobe dimensions thereof. We will discontinue the Tapazole medications for now to allow for full therapeutic washout as it takes 2 to 3 days for the thyroid levels to improve accordingly. If indeed she is truly hyperthyroid, then we will restart her back on a very low dose of methimazole medications as indicated. If indeed she continues to be hypothyroid, then we will start her on a very low dose of levothyroxine replacement therapy accordingly. We will follow. Lidia Ya MD
--- NOTE | 2017-10-22 23:14 | US ---
PROCEDURE: Bilateral carotid artery duplex US HISTORY: Carotid stenosis PHYSICIAN(S): Puneet Morales MD. TECHNIQUE: Duplex sonography and color-flow Doppler were used to evaluate the carotid bifurcations and limited segments of the vertebral arteries bilaterally. FINDINGS: There is mild heterogeneous plaque noted at the carotid bifurcations bilaterally. The peak systolic velocity in the proximal right internal carotid artery is 118 cm/sec. This corresponds to a 20 to 39% proximal right ICA stenosis. Normal systolic velocities are noted in the proximal right external carotid artery. There is antegrade flow in the right vertebral artery. The peak systolic velocity in the proximal left internal carotid artery is 76 cm/sec. This corresponds to a 20 to 39% proximal left ICA stenosis. Normal systolic velocities are noted in the proximal left external carotid artery. There is antegrade flow in the left vertebral artery. IMPRESSION: 1. Bilateral 20-39% proximal ICA stenoses. 2. Antegrade flow in both vertebral arteries.
[2017-10-23] MEDS: Pantoprazole 20 mg EC Tab PO SCH (05:49)
[2017-10-23] MEDS: Sodium Chloride 0.9% 1,000 ML IV SCH ×2 (08:22→17:42)
[2017-10-23 08:27] LABS: ALBUMIN 3.3 g/dL (3.0-4.8); ALT/SGPT 32 U/L (7-56); AST/SGOT 32 U/L (14-36); BLOOD UREA NITROGEN 41 mg/dL (7-21); CALCIUM 9.2 mg/dL (8.4-10.5); GFR AFRICAN-AMERICAN > 60; GFR NON-AFRICAN AMERICAN 56
[2017-10-23 08:33] LABS: HEMOGLOBIN 9.2 g/dL (12.0-16.0); MEAN CELL VOLUME 88.9 fl (80.0-105.0); MEAN CORPUSCULAR HEMOGLOBIN 28.4 pg (25.0-35.0); MEAN CORPUSCULAR HGB CONC 31.9 g/dl (31.0-37.0); MEAN PLATELET VOLUME 10.1 fl (7.0-11.0); RBC 3.24 10^6/uL (3.5-6.1); RED CELL DISTRIBUTION WIDTH 14.4 % (11.5-14.5); WHITE BLOOD COUNT 6.1 10^3/ul (4.5-11.0)
[2017-10-23 08:45] LABS: FREE T4 0.42 ng/dL (0.78-2.19)
[2017-10-23] MEDS: Multivitamin Therapeutic Tab PO SCH (10:11)
[2017-10-23] MEDS: Magnesium Oxide 400 mg Tab UD PO SCH ×3 (10:11→17:43)
[2017-10-23] MEDS: Lactobacillus Acidophilus 500 MU Cap PO SCH (10:11)
[2017-10-23] MEDS: Cholecalciferol 1,000 INTLU TAB PO SCH (10:11)
[2017-10-23] MEDS: MOMETASONE FUROATE IH SCH ×2 (10:12→17:44)
--- NOTE | 2017-10-23 19:13 | PN ---
DATE: ENDOCRINOLOGY FOLLOWUP NOTE LOCATION: In room 561. SUBJECTIVE: This is a 62-year-old female with known history of hyperthyroidism on a high-dose medical therapy, taking Tapazole at 40 mg twice daily and was admitted with generalized body weakness and supervening urinary tract infection and dehydration, and is also being followed now for metabolic management. She actually initially had overt hypothyroidism, most likely medication-induced with ongoing Tapazole medication as given just about prior to the admitting date as noted. So we actually held giving the Tapazole medication because of overt hypothyroidism and she has been without thyroid medications over for almost 3 days now since admission as noted. Her repeat chemistry showed a BUN of 41. Sodium 143, potassium 4.4, chloride 109, CO2 of 27. Glucose 86. Creatinine 1. The repeat thyroid studies are improving now with a total T4 of 3 with a free T4 of 0.42 and a TSH of 5.81. Her thyroid ultrasound showed moderately enlarged multinodular goiter with the right lobe measuring 7.2 x 3.8 and 3.4 cm and the left lobe measuring 7.6 x 3.4 and 3.7 cm with small nodules bilaterally as noted. So at this time, we will hold off the resumption of her Tapazole medication for now and obtain serial chemistries and serial thyroid studies and adjust the need for resumption of the oral medical therapy with thiourea as ordered. We will titrate incrementally as indicated to optimize metabolic control. We will hold off the resumption of Tapazole for now and observe her glycemic profile over the next day or so and restart the upper mentioned as indicated. I would highly recommend a surgical evaluation for a more definitive management of her thyroid condition especially with the progressively enlarging multinodular goiter as noted. We will follow and advise accordingly. Lidia Ya MD
--- NOTE | 2017-10-24 06:09 | PN ---
DATE: SUBJECTIVE: Patient is seen and examined on the bedside, looking comfortable. No nausea, vomiting, diarrhea. No hematuria or hematochezia. No swelling of the legs. No chest pain. No palpitation. No headache or dizziness. Patient is a very poor historian. PHYSICAL EXAMINATION: VITAL SIGNS: Temperature 98.5, pulse 70, blood pressure 122/76, respiratory rate 18. HEENT: Head normocephalic, atraumatic. Eyes, PERRLA. Extraocular muscles intact. Conjunctivae clear. Nose patent. Mucous membranes moist. NECK: Supple. No carotid bruit. No JVD or thyromegaly. CHEST: Bilaterally symmetrical. HEART: S1 and S2 positive. LUNGS: Clear to auscultation. ABDOMEN: Soft. Bowel sounds present. No organomegaly. EXTREMITIES: No edema. No cyanosis. NEUROLOGIC: Patient is awake and alert. Moving all 4 extremities. No focal deficit. MEDICATIONS: Coumadin, Imodium, Lasix, magnesium oxide, Protonix, Prozac, Risperdal, Singulair, NS, Thera-Tabs, Tylenol, vitamin D. LABORATORY DATA: White blood cells 7.7, hemoglobin 9.3, hematocrit 28.8, platelets 187. Sodium 143, potassium 4.7, BUN 65, creatinine 1.3. TSH 22.12. ASSESSMENT AND PLAN: Ms. Rylie Sabillon is a 62-year-old female with anemia, renal insufficiency, hypothyroidism, proteinuria, urinary tract infection. Seen by Dr. João Hills, neurologist. Patient has a history of congestive heart failure, atrial fibrillation, is on Coumadin. Had mechanical falls. According to neurologist, no recommendation from a neurological perspective. Patient underwent thyroid ultrasound. As per Dr. Sami Peralta, mildly enlarged heterogenous hypervascular thyroid gland, in the size of the nodule in the isthmus, although this may be technical. No suspicious history of nodule of the left thyroid lobe which requires further evaluation. Radionucleotide scan to assess thyroid function and to evaluate the thyroid for the presence of cold nodules. Fine needle aspiration should also be considered if the invasive diagnostics proved in the assessment of the finding described above. Cervical spine CT and head CT noted. Patient has a history of hyperthyroidism, hypertension. No signs of thyrotoxicosis right now. Patient was on methimazole. Patient is very noncompliant. She is missing her Endocrinology consult. History of depression, gastroesophageal reflux disease, dyspepsia. Getting Protonix and heparin for deep venous thrombosis and gastrointestinal prophylaxis. Possibly urinary tract infection, getting antibiotics. Acute kidney injury, repeat labs. We will follow. Sharonda Knight MD MTDKristi
[2017-10-24 06:26] LABS: HEMOGLOBIN 8.7 g/dL (12.0-16.0); MEAN CELL VOLUME 89.1 fl (80.0-105.0); MEAN CORPUSCULAR HEMOGLOBIN 28.7 pg (25.0-35.0); MEAN CORPUSCULAR HGB CONC 32.2 g/dl (31.0-37.0); RBC 3.03 10^6/uL (3.5-6.1); RED CELL DISTRIBUTION WIDTH 14.1 % (11.5-14.5); WHITE BLOOD COUNT 7.4 10^3/ul (4.5-11.0)
[2017-10-24 07:08] LABS: ALBUMIN 3.1 g/dL (3.0-4.8); ALT/SGPT 37 U/L (7-56); AST/SGOT 30 U/L (14-36); BLOOD UREA NITROGEN 26 mg/dL (7-21); CALCIUM 8.8 mg/dL (8.4-10.5); GFR AFRICAN-AMERICAN > 60; GFR NON-AFRICAN AMERICAN > 60
--- NOTE | 2017-10-24 07:33 | PN ---
DATE: SUBJECTIVE: Patient is a 62-year-old female. Patient was seen and examined on the bedside. Looking comfortable. No nausea, vomiting, or diarrhea. No hematuria or hematochezia. No swelling of the legs. No chest pain. No palpitation. Neck on the front area is big due to thyroid enlargement. No fever. No chills. PHYSICAL EXAMINATION: VITAL SIGNS: Temperature 99.4, pulse 72, blood pressure 151/80, respiratory rate is 18. HEENT: Head normocephalic, atraumatic. Eyes, PERRLA. Extraocular muscles intact. Conjunctivae clear. Nose patent. Mucous membranes moist. NECK: Supple. No carotid bruit, JVD or thyromegaly. CHEST: Bilaterally symmetrical. HEART: S1 and S2 positive. LUNGS: Clear to auscultation. ABDOMEN: Soft. Bowel sounds present. No organomegaly. EXTREMITIES: No edema. No cyanosis. NEUROLOGIC: Patient awake and alert. Follows simple commands. MEDICATIONS: Bacid, acidophilus; Coreg; Coumadin; Imodium; Lasix; magnesium oxide; Nasonex; Protonix; Prozac; Risperdal; Singulair; NS; Thera-Tabs; Tylenol; vitamin D; Xanax. LABORATORY DATA: White blood cells 6.1, hemoglobin 9.2, hematocrit 28.8, platelets 185. Sodium 143, potassium 4.4, BUN 41, creatinine 1.0. TSH 5.81. ASSESSMENT AND PLAN: Ms. Rylie Sabillon is a 62-year-old female with anemia; hyperchloremia; history of hyperthyroidism; proteinuria; urinary tract infection; history of diarrhea; atrial fibrillation; history of congestive heart failure; coronary artery disease; depression; gastroesophageal reflux disease; iron deficiency anemia; noncompliant. Neurologist saw the patient, but no recommendation. Reviewed the cervical spine CT, CAT scan of the head. We will repeat labs. We will call surgical consult for thyroid goiter and Cardiology consult. Repeat labs. We will follow up. Sharonda Knight MD
[2017-10-24] MEDS: Pantoprazole 20 mg EC Tab PO SCH (07:51)
--- NOTE | 2017-10-24 09:45 | CP.PCM.CON ---
Addendum entered and electronically signed by Edu Villatoro DO 10/24/17 09:50: thyroid panel does not indicate hyperthyroid state, discontinue Mg PO supplement as this may cause diarrhea Family hx: could not review but based on EMR, no hx of colon ca, pancreas or liver Abd exam: no organomegaly Original Note: <Edu Villatoro - Last Filed: 10/24/17 09:46> History of Present Illness - History of Present Illness History of Present Illness: Initial GI Consult Rylie Magdaleno is a 62F w/ hx of CHF, CAD, atrial fibrillation on coumadin, HTN , depression, GERD, iron-deficiency anemia, and hyperthyroidism presents to [facility] as a transfer from [facility] due to unwitnessed fall. Pt is a poor historian and has minimal communication. All information was obtained from EMR and RN. According to care home documentation, patient was in the bathroom urinating and slipped while getting up and hit the right side of her head against the floor. GI was consulted for chronic diarrhea. As per chart, pt has had a hx of chronic diarrhea and had a colonoscopy and EGD in 01/2017 which did not reveal and sig finding. As per staff, pt has one losse BM yesterday and nothing overnight. she denies any abd pain, nausea, vomiting or diarrhea. No fever, chills or diaphoresis. PMH: CHF, CAD, atrial fibrillation, HTN, depression, GERD, iron-deficiency anemia, and hyperthyroidism Surg: Denied All: NKDA SH: Denied tobacco, EtOH, and illicit drug use FHx: Non-contributory ENdo Hx: colonoscopy and EGD 01/2017 ROS: limited due to limited pt communication Past Patient History - Infectious Disease Hx of Infectious Diseases: None - Tetanus Immunizations Tetanus Immunization: Unknown - Past Social History Smoking Status: Never Smoked - CARDIAC Hx Hypertension: Yes Hx Pacemaker: No - PULMONARY Hx Respiratory Disorders: No Hx Asthma: No - NEUROLOGICAL Hx Neurological Disorder: No - HEENT Hx HEENT Problems: No - RENAL Hx Chronic Kidney Disease: No - ENDOCRINE/METABOLIC Hx Hypothyroidism: Yes - HEMATOLOGICAL/ONCOLOGICAL Hx Blood Transfusions: (UNSURE) Hx Leukemia: Yes - INTEGUMENTARY Hx Dermatological Problems: No - MUSCULOSKELETAL/RHEUMATOLOGICAL Hx Musculoskeletal Disorders: Yes - GASTROINTESTINAL Hx Gastroesophageal Reflux: Yes - GENITOURINARY/GYNECOLOGICAL Hx Incontinence: Yes - PSYCHIATRIC Hx Depression: Yes Hx Emotional Abuse: No Hx Physical Abuse: No Hx Substance Use: No - SURGICAL HISTORY Hx Surgeries: No (pt denies) - ANESTHESIA Hx Anesthesia Reactions: No Meds Allergies/Adverse Reactions: Allergies Allergy/AdvReac Type Severity Reaction Status Date / Time No Known Allergies Allergy Verified 01/17/17 17:22 - Medications Medications: Current Medications Acetaminophen (Tylenol 325mg Tab) 650 mg PO Q4H PRN PRN Reason: Fever >100.5 F Last Admin: 10/24/17 01:48 Dose: 650 mg Alprazolam (Xanax) 0.25 mg PO BID PRN; Protocol PRN Reason: Anxiety Stop: 10/31/17 10:01 Last Admin: 10/24/17 01:48 Dose: 0.25 mg Carvedilol (Coreg) 12.5 mg PO BID [facility] Last Admin: 10/23/17 17:42 Dose: 12.5 mg Cholecalciferol (Vitamin D) 1,000 intlu PO DAILY [facility] Last Admin: 10/23/17 10:11 Dose: 1,000 intlu Fluoxetine HCl (Prozac) 40 mg PO DAILY [facility] Last Admin: 10/23/17 10:11 Dose: 40 mg Furosemide (Lasix) 20 mg PO DAILY [facility] Last Admin: 10/23/17 10:11 Dose: 20 mg Sodium Chloride (Sodium Chloride 0.9%) 1,000 mls @ 100 mls/hr IV .Q10H [facility] Last Admin: 10/23/17 17:42 Dose: 100 mls/hr Lactobacillus Acidophilus (Bacid Acidophilus) 1 cap PO DAILY [facility] Last Admin: 10/23/17 10:11 Dose: 1 cap Loperamide HCl (Imodium) 2 mg PO Q8H PRN PRN Reason: Diarrhea Montelukast Sodium (Singulair) 10 mg PO DAILY [facility] Last Admin: 10/23/17 10:11 Dose: 10 mg Multivitamins (Thera Tab) 1 tab PO DAILY [facility] Last Admin: 10/23/17 10:11 Dose: 1 tab Mometasone Furoate [ Nasonex] 2 [place] ( Home Med) 2 spray IH BID [facility] Last Admin: 10/23/17 17:44 Dose: Not Given Pantoprazole Sodium (Protonix Ec Tab) 20 mg PO 0600 [facility] Last Admin: 10/24/17 07:51 Dose: Not Given Risperidone (Risperdal Tab) 0.5 mg PO DAILY [facility] PRN Reason: Protocol Last Admin: 10/23/17 10:11 Dose: 0.5 mg Warfarin Sodium (Coumadin) 2 mg PO 1800 [facility] PRN Reason: Protocol Last Admin: 10/23/17 17:42 Dose: 2 mg Physical Exam - Constitutional Appears: Well, No Acute Distress - Head Exam Head Exam: ATRAUMATIC, NORMOCEPHALIC - Eye Exam Eye Exam: Normal appearance - ENT Exam ENT Exam: Mucous Membranes Moist, Normal Exam - Neck Exam Neck exam: Positive for: Normal Inspection - Respiratory Exam Respiratory Exam: Clear to Auscultation Bilateral, NORMAL BREATHING PATTERN. absent: Rhonchi, Wheezes, Respiratory Distress, Stridor - Cardiovascular Exam Cardiovascular Exam: REGULAR RHYTHM, +S1, +S2 - GI/Abdominal Exam GI & Abdominal Exam: Normal Bowel Sounds, Soft. absent: Distended, Firm, Guarding, Hernia, Rebound, Rigid - Extremities Exam Extremities exam: Negative for: joint swelling, pedal edema - Neurological Exam Neurological exam: Alert, Altered - Psychiatric Exam Psychiatric exam: Normal Affect, Normal Mood - Skin Skin Exam: Dry, Intact, Normal Color, Warm Results - Vital Signs Recent Vital Signs: Last Vital Signs Temp 97.4 F L 10/24/17 08:08 Pulse 64 10/24/17 08:08 Resp 18 10/24/17 08:08 BP 127/78 10/24/17 08:08 Pulse Ox 97 10/24/17 08:08 - Labs Result Diagrams: 10/24/17 06:00 10/24/17 06:00 Labs: Laboratory Results - last 24 hr 10/24/17 10/24/17 06:00 06:00 WBC 7.4 D RBC 3.03 L Hgb 8.7 L Hct 27.0 L MCV 89.1 MCH 28.7 MCHC 32.2 RDW 14.1 Plt Count 166 MPV 10.0 Sodium 144 Potassium 4.0 Chloride 111 H Carbon Dioxide 26 Anion Gap 11 BUN 26 H Creatinine 0.9 Est GFR ( Amer) > 60 Est GFR (Non-Af Amer) > 60 Random Glucose 89 Calcium 8.8 Phosphorus 2.9 Magnesium 1.8 Total Bilirubin 0.3 AST 30 ALT 37 Alkaline Phosphatase 62 Total Protein 6.2 Albumin 3.1 Globulin 3.1 Albumin/Globulin Ratio 1.0 L Assessment & Plan - Assessment and Plan (Free Text) Assessment: Rylie Magdaleno is a 62F w/ hx of CHF, CAD, atrial fibrillation on coumadin, HTN , depression, GERD, iron-deficiency anemia, and hyperthyroidism presents to [facility] as a transfer from [facility] due to unwitnessed fall. GI was consulted for diarrhea Chronic Diarrhea hx of VANIA hx of hyperthyroid Plan: -will get thyroid panel -stool electrolytes -stool O&P and culture -r/o c.diff -seems to be no different than baseline -advance diet as tolerated -follow-up as oupt D/W Dr. Lombardi <Paresh Lombardi - Last Filed: 10/24/17 10:01> Meds - Medications Medications: Current Medications Acetaminophen (Tylenol 325mg Tab) 650 mg PO Q4H PRN PRN Reason: Fever >100.5 F Last Admin: 10/24/17 01:48 Dose: 650 mg Alprazolam (Xanax) 0.25 mg PO BID PRN; Protocol PRN Reason: Anxiety Stop: 10/31/17 10:01 Last Admin: 10/24/17 01:48 Dose: 0.25 mg Carvedilol (Coreg) 12.5 mg PO BID [facility] Last Admin: 10/23/17 17:42 Dose: 12.5 mg Cholecalciferol (Vitamin D) 1,000 intlu PO DAILY [facility] Last Admin: 10/23/17 10:11 Dose: 1,000 intlu Fluoxetine HCl (Prozac) 40 mg PO DAILY [facility] Last Admin: 10/23/17 10:11 Dose: 40 mg Furosemide (Lasix) 20 mg PO DAILY [facility] Last Admin: 10/23/17 10:11 Dose: 20 mg Sodium Chloride (Sodium Chloride 0.9%) 1,000 mls @ 100 mls/hr IV .Q10H [facility] Last Admin: 10/23/17 17:42 Dose: 100 mls/hr Lactobacillus Acidophilus (Bacid Acidophilus) 1 cap PO DAILY [facility] Last Admin: 10/23/17 10:11 Dose: 1 cap Loperamide HCl (Imodium) 2 mg PO Q8H PRN PRN Reason: Diarrhea Montelukast Sodium (Singulair) 10 mg PO DAILY [facility] Last Admin: 10/23/17 10:11 Dose: 10 mg Multivitamins (Thera Tab) 1 tab PO DAILY [facility] Last Admin: 10/23/17 10:11 Dose: 1 tab Mometasone Furoate [ Nasonex] 2 [place] ( Home Med) 2 spray IH BID [facility] Last Admin: 10/23/17 17:44 Dose: Not Given Pantoprazole Sodium (Protonix Ec Tab) 20 mg PO 0600 [facility] Last Admin: 10/24/17 07:51 Dose: Not Given Risperidone (Risperdal Tab) 0.5 mg PO DAILY [facility] PRN Reason: Protocol Last Admin: 10/23/17 10:11 Dose: 0.5 mg Warfarin Sodium (Coumadin) 2 mg PO 1800 [facility] PRN Reason: Protocol Last Admin: 10/23/17 17:42 Dose: 2 mg Results - Vital Signs Recent Vital Signs: Last Vital Signs Temp 97.4 F L 10/24/17 08:08 Pulse 64 10/24/17 08:08 Resp 18 10/24/17 08:08 BP 127/78 10/24/17 08:08 Pulse Ox 97 10/24/17 08:08 - Labs Result Diagrams: 10/24/17 06:00 10/24/17 06:00 Labs: Laboratory Results - last 24 hr 10/24/17 10/24/17 06:00 06:00 WBC 7.4 D RBC 3.03 L Hgb 8.7 L Hct 27.0 L MCV 89.1 MCH 28.7 MCHC 32.2 RDW 14.1 Plt Count 166 MPV 10.0 Sodium 144 Potassium 4.0 Chloride 111 H Carbon Dioxide 26 Anion Gap 11 BUN 26 H Creatinine 0.9 Est GFR ( Amer) > 60 Est GFR (Non-Af Amer) > 60 Random Glucose 89 Calcium 8.8 Phosphorus 2.9 Magnesium 1.8 Total Bilirubin 0.3 AST 30 ALT 37 Alkaline Phosphatase 62 Total Protein 6.2 Albumin 3.1 Globulin 3.1 Albumin/Globulin Ratio 1.0 L Attending/Attestation - Attestation I have personally seen and examined this patient.: Yes I have fully participated in the care of the patient.: Yes I have reviewed all pertinent clinical information: Yes Notes (Text): 10/24/17 09:55 I have seen and examined patient with GI fellow. Agree with above documentation with the following additions. In brief, this is a 62 year old female with history of CHF, atrial fibrillation on coumadin, depression, hyperthyroidism, who was sent to hospital from nursing facility for evaluation of presumed mechanical fall. GI called for evaluation of chronic diarrhea. She is not able to fully participate in meaningful conversation, additional history obtained via chart review, discussion with nursing staff and patient family members. As per nursing staff, she had one loose bowel movement yesterday, though none overnight. She does not report any abdominal pain, nausea, vomiting, fever/chills. Tolerating PO diet without difficulty. She had an EGD/colonoscopy in January [address] Drew which did not reveal any significant findings including colon biopsies which were negative for microscopic colitis. Review of vitals from today are normal. Family history: reviewed, patient denies history of GI malignancies Additional physical examination: Abdomen: no palpable hepato/splenomegaly CHF Atrial fibrillation on coumadin Depression Thyroid disease Diarrhea - chronic - Diet as tolerated - Would discontinue oral magnesium supplement as this may contribute to ongoing diarrhea - Check stool studies - Infectious cause of chronic diarrhea is unlikely, may therefore use immodium PRN for symptomatic relief - No further planned GI interventions, will sign off case. Suggest additional outpatient follow up. Please reconsult as necessary, thank you.
[2017-10-24] MEDS: Cholecalciferol 1,000 INTLU TAB PO SCH (10:41)
[2017-10-24] MEDS: Lactobacillus Acidophilus 500 MU Cap PO SCH (10:41)
[2017-10-24] MEDS: Multivitamin Therapeutic Tab PO SCH (10:41)
[2017-10-24] MEDS: MOMETASONE FUROATE IH SCH ×2 (10:42→18:59)
[2017-10-24] MEDS: Sodium Chloride 0.9% 1,000 ML IV SCH (14:18)
--- NOTE | 2017-10-24 14:41 | PN ---
DATE: 10/24/2017 TIME: 10:45 a.m. SUBJECTIVE: I had a chance to review the patient's thyroid ultrasound, compared to a prior study in 2013. The thyroid is diffusely enlarged and heterogenous in appearance with hypervascularity. No obvious suspicious or dominant nodule was seen. 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 I do not think a thyroid biopsy is necessary at this point. Please have Dr. Ya contact me if she needs a thyroid biopsy and we can consider it on an outpatient basis. Puneet Morales MD MTDKristi
[2017-10-24 16:41] LABS: URINE BILIRUBIN NEGATIVE (NEGATIVE); URINE BLOOD TRACE-LYSED (NEGATIVE); URINE GLUCOSE (UA) NEGATIVE (NEGATIVE); URINE LEUKOCYTE ESTERASE NEGATIVE Leu/uL (NEGATIVE); URINE PROTEIN 100 mg/dL (<30 mg/dL); URINE UROBILINOGEN 0.2 E.U./dL (<1 E.U./dL)
[2017-10-24] MEDS: cefTRIAXone 1 gm 1 GM/100 ML BAG IVPB SCH (16:47)
[2017-10-24 16:52] LABS: URINE APPEARANCE CLEAR (CLEAR); URINE COLOR LIGHT YELLOW (YELLOW)
[2017-10-24 16:57] LABS: URINE BACTERIA TRACE (NEG); URINE EPITHELIAL CELLS 0 - 2 /hpf (0-5); URINE RBC 0 - 2 /hpf (0-2); URINE WBC 0 - 2 /hpf (0-6)
--- NOTE | 2017-10-24 17:10 | CP.PCM.PN ---
<Ebony Walters - Last Filed: 10/24/17 17:07> Subjective - Date & Time of Evaluation Date of Evaluation: 10/24/17 Time of Evaluation: 11:30 - Subjective Subjective: Chief Complaint: excoriation related to diarrhea 62 yr female assisted resident of [facility] w/ history of CHF, hyperthyroidism, Afib, C. diff, Leukemia, Depression, chronic diarrhea, GERD, and Advanced Dementia. Pt admitted to [facility] s/p fall with injury to R posterior head, scalp hematoma, dehydration, UTI and fatigue. Denies any headache, fever, nausea, chills, constipation, or urinary changes. Objective - Vital Signs/Intake and Output Vital Signs (last 24 hours): Temp Pulse Resp BP Pulse Ox 101.2 F H 70 18 153/90 H 95 10/24/17 15:45 10/24/17 14:00 10/24/17 14:00 10/24/17 14:00 10/24/17 14:00 Intake and Output: 10/24/17 10/24/17 06:59 18:59 Intake Total 600 480 Balance 600 480 - Medications Medications: Current Medications Acetaminophen (Tylenol 325mg Tab) 650 mg PO Q4H PRN PRN Reason: Fever >100.5 F Last Admin: 10/24/17 15:45 Dose: 650 mg Alprazolam (Xanax) 0.25 mg PO BID PRN; Protocol PRN Reason: Anxiety Stop: 10/31/17 10:01 Last Admin: 10/24/17 01:48 Dose: 0.25 mg Carvedilol (Coreg) 12.5 mg PO BID [facility] Last Admin: 10/24/17 10:42 Dose: 12.5 mg Cholecalciferol (Vitamin D) 1,000 intlu PO DAILY [facility] Last Admin: 10/24/17 10:41 Dose: 1,000 intlu Fluoxetine HCl (Prozac) 40 mg PO DAILY [facility] Last Admin: 10/24/17 10:41 Dose: 40 mg Furosemide (Lasix) 20 mg PO DAILY [facility] Last Admin: 10/24/17 10:42 Dose: 20 mg Sodium Chloride (Sodium Chloride 0.9%) 1,000 mls @ 100 mls/hr IV .Q10H [facility] Last Admin: 10/24/17 14:18 Dose: 100 mls/hr Ceftriaxone Sodium (Rocephin 1 Gram Ivpb) 1 gm in 100 mls @ 100 mls/hr IVPB DAILY [facility] PRN Reason: Protocol Last Admin: 10/24/17 16:47 Dose: 100 mls/hr Lactobacillus Acidophilus (Bacid Acidophilus) 1 cap PO DAILY [facility] Last Admin: 10/24/17 10:41 Dose: 1 cap Loperamide HCl (Imodium) 2 mg PO Q8H PRN PRN Reason: Diarrhea Montelukast Sodium (Singulair) 10 mg PO DAILY [facility] Last Admin: 10/24/17 10:41 Dose: 10 mg Multivitamins (Thera Tab) 1 tab PO DAILY [facility] Last Admin: 10/24/17 10:41 Dose: 1 tab Mometasone Furoate [ Nasonex] 2 [place] ( Home Med) 2 spray IH BID [facility] Last Admin: 10/24/17 10:42 Dose: Not Given Nystatin/Triamcinolone Acetonide (Nystatin/Triamcinolone Ointment) 0 gm TOP BID [facility] Pantoprazole Sodium (Protonix Ec Tab) 20 mg PO 0600 [facility] Last Admin: 10/24/17 07:51 Dose: Not Given Risperidone (Risperdal Tab) 0.5 mg PO DAILY [facility] PRN Reason: Protocol Last Admin: 10/24/17 10:41 Dose: 0.5 mg Warfarin Sodium (Coumadin) 2 mg PO 1800 [facility] PRN Reason: Protocol Last Admin: 10/23/17 17:42 Dose: 2 mg - Labs Labs: 10/24/17 06:00 10/24/17 06:00 PT 19.2 SECONDS (9.4-12.5) H 10/22/17 04:10 INR 1.67 (0.93-1.08) H 10/22/17 04:10 APTT 31.2 Seconds (25.1-36.5) 10/21/17 19:00 - Constitutional Appears: Older Than Stated Age, Chronically Ill - Head Exam Additional comments: rt. posterior occipital scalp hematoma - Eye Exam Eye Exam: EOMI, Normal appearance, PERRL Pupil Exam: NORMAL ACCOMODATION, PERRL - ENT Exam ENT Exam: Mucous Membranes Moist, Normal Exam - Neck Exam Neck Exam: Full ROM, Normal Inspection. absent: Lymphadenopathy - Respiratory Exam Respiratory Exam: Clear to Ausculation Bilateral, NORMAL BREATHING PATTERN - Cardiovascular Exam Cardiovascular Exam: REGULAR RHYTHM, +S1, +S2. absent: Murmur - GI/Abdominal Exam GI & Abdominal Exam: Soft, Normal Bowel Sounds. absent: Tenderness - Extremities Exam Extremities Exam: Full ROM, Normal Capillary Refill, Normal Inspection. absent : Joint Swelling, Pedal Edema - Back Exam Back Exam: NORMAL INSPECTION - Neurological Exam Neurological Exam: Alert, Awake, Normal Gait - Psychiatric Exam Psychiatric exam: Flat Affect, Normal Mood - Skin Skin Exam: Dry, Pallor, Warm Additional comments: excoriation Assessment and Plan (1) Proteinuria Status: Acute (2) Renal insufficiency Status: Acute (3) Thyroid nodule Status: Acute (4) Accidental fall Status: Acute (5) Dehydration Status: Acute (6) Fatigue Status: Acute (7) Scalp hematoma Status: Acute (8) UTI (urinary tract infection) Status: Acute (9) Anemia Status: Active (10) Hyperthyroidism Status: Active (11) Head injury Status: Acute - Assessment and Plan (Free Text) Plan: IVP rochepin. PO coumadin. IVF hydration. Labs ordered. Stool culture: NEGATIVE. Urine culture: pending. VTE/GI prophlyaxis. Pain management: tylenol Consults: Cardio - Dr. Velázquez Endo - Dr. Murillo Cam Neuro - Dr. Vaughn Surgery - Dr. Jairo Morales Reviewed: CT head = Senescent changes noted. No acute intracranial abnormality, Lacunar change both basal ganglia and thalami, Cerebral volume loss noted. Scattered areas of decreased attenuation in the deep periventricular white matter consistent with small vessel ischemic change, Right parietal scalp hematoma. There is mild mucoperiosteal thickening in the maxillary and ethmoid sinuses with more moderate right ethmoid and frontal sinus anterior opacification. CT cervical = marked bilateral thyroid lobe enlargement right worse than left. The right lobe measures up to 5 cm AP by 3.3 cm transverse. CXR = WNL Bilateral carotid US = 20-39% proximal ICA stenoses Thyroid US = Cystic nodule midpole region 1.4x1.9x2.1 cm new finding, measures 1.44 cm increased flow to a thickened isthmus, solitary nodule midline 1x1.6x2cm , increased modestly, markeldy enlarged heterogenous hypervascular thyroid land , new suspicious cystic nodule L thyroid lobe. ECHO = LVEF 50% ECG = ABNORMAL, NSR, L ventricular hypertryophy w. repolarization abnormality, cannot rule out septal infarct <Sharonda Knight - Last Filed: 10/24/17 17:50> Objective - Vital Signs/Intake and Output Vital Signs (last 24 hours): Temp Pulse Resp BP Pulse Ox 101.2 F H 70 18 153/90 H 95 10/24/17 15:45 10/24/17 14:00 10/24/17 14:00 10/24/17 14:00 10/24/17 14:00 Intake and Output: 10/24/17 10/24/17 06:59 18:59 Intake Total 600 480 Balance 600 480 - Medications Medications: Current Medications Acetaminophen (Tylenol 325mg Tab) 650 mg PO Q4H PRN PRN Reason: Fever >100.5 F Last Admin: 10/24/17 15:45 Dose: 650 mg Alprazolam (Xanax) 0.25 mg PO BID PRN; Protocol PRN Reason: Anxiety Stop: 10/31/17 10:01 Last Admin: 10/24/17 01:48 Dose: 0.25 mg Carvedilol (Coreg) 12.5 mg PO BID [facility] Last Admin: 10/24/17 10:42 Dose: 12.5 mg Cholecalciferol (Vitamin D) 1,000 intlu PO DAILY [facility] Last Admin: 10/24/17 10:41 Dose: 1,000 intlu Fluoxetine HCl (Prozac) 40 mg PO DAILY [facility] Last Admin: 10/24/17 10:41 Dose: 40 mg Furosemide (Lasix) 20 mg PO DAILY [facility] Last Admin: 10/24/17 10:42 Dose: 20 mg Sodium Chloride (Sodium Chloride 0.9%) 1,000 mls @ 100 mls/hr IV .Q10H [facility] Last Admin: 10/24/17 14:18 Dose: 100 mls/hr Ceftriaxone Sodium (Rocephin 1 Gram Ivpb) 1 gm in 100 mls @ 100 mls/hr IVPB DAILY [facility] PRN Reason: Protocol Last Admin: 10/24/17 16:47 Dose: 100 mls/hr Lactobacillus Acidophilus (Bacid Acidophilus) 1 cap PO DAILY [facility] Last Admin: 10/24/17 10:41 Dose: 1 cap Loperamide HCl (Imodium) 2 mg PO Q8H PRN PRN Reason: Diarrhea Montelukast Sodium (Singulair) 10 mg PO DAILY [facility] Last Admin: 10/24/17 10:41 Dose: 10 mg Multivitamins (Thera Tab) 1 tab PO DAILY [facility] Last Admin: 10/24/17 10:41 Dose: 1 tab Mometasone Furoate [ Nasonex] 2 [place] ( Home Med) 2 spray IH BID [facility] Last Admin: 10/24/17 10:42 Dose: Not Given Nystatin/Triamcinolone Acetonide (Nystatin/Triamcinolone Ointment) 0 gm TOP BID [facility] Pantoprazole Sodium (Protonix Ec Tab) 20 mg PO 0600 [facility] Last Admin: 10/24/17 07:51 Dose: Not Given Risperidone (Risperdal Tab) 0.5 mg PO DAILY [facility] PRN Reason: Protocol Last Admin: 10/24/17 10:41 Dose: 0.5 mg Warfarin Sodium (Coumadin) 2 mg PO 1800 [facility] PRN Reason: Protocol Last Admin: 10/23/17 17:42 Dose: 2 mg - Labs Labs: 10/24/17 06:00 10/24/17 06:00 PT 19.2 SECONDS (9.4-12.5) H 10/22/17 04:10 INR 1.67 (0.93-1.08) H 10/22/17 04:10 APTT 31.2 Seconds (25.1-36.5) 10/21/17 19:00 Assessment and Plan - Assessment and Plan (Free Text) Plan: 62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 diff, Leukemia, Depression, chronic diarrhea, GERD, and Advanced Dementia. Pt admitted to [facility] s/p fall with injury to R posterior head, scalp hematoma, dehydration, UTI and fatigue. Denies any headache, fever, nausea, chills, constipation, or urinary changes.pt is seen and examined at bed side , looking comfortable . agreed all above , will f/u
--- NOTE | 2017-10-24 18:00 | PN ---
DATE: ENDOCRINOLOGY FOLLOWUP NOTE LOCATION: Room 563. SUBJECTIVE: This is a 62-year-old female with significant history of hyperthyroidism, on a very high dose of medical therapy with Tapazole given as 40 mg b.i.d. 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 She has been taken off the methimazole medications with improved thyroid levels as noted thereof. The latest T4 now is 3.0 with a TSH of 5.81 and a free T4 of 0.42. Her latest chemistry showed a BUN of 26, sodium 144, potassium 4.0, chloride 111, CO2 of 26, glucose 89 and creatinine 0.9. So at this time, we will continue holding off the methimazole medications as indicated and we will obtain serial thyroid studies and as her thyroid studies improved and/or if hyperthyroid levels supervene, then we will start her back on a much lower dose of Tapazole given as 5 mg b.i.d. as indicated. We will obtain serial thyroid studies and adjust her dose regimen accordingly. We are waiting the thyroid antibodies, which will confirm and/or indicate the presence of underlying thyroid autoimmunity. We will follow. Lidia Ya MD
[2017-10-24] MEDS: Nystatin-Triamcinolone Ointment(30 gm) TOP SCH (18:59)
[2017-10-24 20:51] LABS: THYROGLOBULIN 2072.7 ng/mL (2.8-40.9)
[2017-10-25] MEDS: Sodium Chloride 0.9% 1,000 ML IV SCH ×2 (01:41→11:08)
[2017-10-25 07:08] LABS: HEMOGLOBIN 8.9 g/dL (12.0-16.0); MEAN CELL VOLUME 87.4 fl (80.0-105.0); MEAN CORPUSCULAR HEMOGLOBIN 28.7 pg (25.0-35.0); MEAN CORPUSCULAR HGB CONC 32.8 g/dl (31.0-37.0); MEAN PLATELET VOLUME 9.7 fl (7.0-11.0); RBC 3.1 10^6/uL (3.5-6.1); WHITE BLOOD COUNT 8.6 10^3/ul (4.5-11.0)
[2017-10-25 07:12] LABS: ALBUMIN 3.2 g/dL (3.0-4.8); ALT/SGPT 45 U/L (7-56); AST/SGOT 40 U/L (14-36); BLOOD UREA NITROGEN 22 mg/dL (7-21); CALCIUM 8.4 mg/dL (8.4-10.5); GFR AFRICAN-AMERICAN > 60; GFR NON-AFRICAN AMERICAN 56
[2017-10-25] MEDS: cefTRIAXone 1 gm 1 GM/100 ML BAG IVPB SCH (11:00)
[2017-10-25] MEDS: Pantoprazole 20 mg EC Tab PO SCH (11:04)
[2017-10-25] MEDS: Multivitamin Therapeutic Tab PO SCH (11:04)
[2017-10-25] MEDS: Lactobacillus Acidophilus 500 MU Cap PO SCH (11:04)
[2017-10-25] MEDS: Cholecalciferol 1,000 INTLU TAB PO SCH (11:04)
[2017-10-25] MEDS: Nystatin-Triamcinolone Ointment(30 gm) TOP SCH ×2 (11:05→18:41)
[2017-10-25] MEDS: MOMETASONE FUROATE IH SCH ×2 (11:05→18:41)
--- NOTE | 2017-10-25 18:03 | CP.PCM.CON ---
History of Present Illness - History of Present Illness History of Present Illness: Infectious Disease Consultation: October 25, 2017 62 yo female with presentation of near syncope. 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 She was found on the floor in the lobby with a bump on the head in the right parietal area. The patient had this occurrence on 10/21/2017. Currently presenting with loose stool and fevers up to 102.7 F over the past 24 hours. No leukocytosis. 10/21/2017 urine culture was negative. She appears comfortable at bedside. PMHx: CHF, hyperthyroidism, Afib, C. diff, Leukemia, Depression, chronic diarrhea, GERD, and Advanced Dementia PSHx: None given Allergies: NKDA Social Hx: Denied tobacco, EtOH, or illicit drug. Active Medications Acetaminophen (Tylenol 325mg Tab) 650 mg PO Q4H PRN PRN Reason: Fever >100.5 F Last Admin: 10/25/17 14:48 Dose: 650 mg Alprazolam (Xanax) 0.25 mg PO BID PRN; Protocol PRN Reason: Anxiety Stop: 10/31/17 10:01 Last Admin: 10/24/17 01:48 Dose: 0.25 mg Carvedilol (Coreg) 12.5 mg PO BID [facility] Last Admin: 10/25/17 11:03 Dose: 12.5 mg Cholecalciferol (Vitamin D) 1,000 intlu PO DAILY [facility] Last Admin: 10/25/17 11:04 Dose: 1,000 intlu Fluoxetine HCl (Prozac) 40 mg PO DAILY [facility] Last Admin: 10/25/17 11:03 Dose: 40 mg Furosemide (Lasix) 20 mg PO DAILY [facility] Last Admin: 10/25/17 11:04 Dose: 20 mg Sodium Chloride (Sodium Chloride 0.9%) 1,000 mls @ 100 mls/hr IV .Q10H [facility] Last Admin: 10/25/17 11:08 Dose: 100 mls/hr Ceftriaxone Sodium (Rocephin 1 Gram Ivpb) 1 gm in 100 mls @ 100 mls/hr IVPB DAILY [facility] PRN Reason: Protocol Last Admin: 10/25/17 11:00 Dose: 100 mls/hr Lactobacillus Acidophilus (Bacid Acidophilus) 1 cap PO DAILY [facility] Last Admin: 10/25/17 11:04 Dose: 1 cap Loperamide HCl (Imodium) 2 mg PO Q8H PRN PRN Reason: Diarrhea Montelukast Sodium (Singulair) 10 mg PO DAILY [facility] Last Admin: 10/25/17 11:05 Dose: 10 mg Multivitamins (Thera Tab) 1 tab PO DAILY [facility] Last Admin: 10/25/17 11:04 Dose: 1 tab Mometasone Furoate [ Nasonex] 2 [place] ( Home Med) 2 spray IH BID [facility] Last Admin: 10/25/17 11:05 Dose: Not Given Nystatin/Triamcinolone Acetonide (Nystatin/Triamcinolone Ointment) 0 gm TOP BID [facility] Last Admin: 10/25/17 11:05 Dose: 1 applic Pantoprazole Sodium (Protonix Ec Tab) 20 mg PO 0600 [facility] Last Admin: 10/25/17 11:04 Dose: 20 mg Risperidone (Risperdal Tab) 0.5 mg PO DAILY [facility] PRN Reason: Protocol Last Admin: 10/25/17 11:04 Dose: 0.5 mg Warfarin Sodium (Coumadin) 2 mg PO 1800 [facility] PRN Reason: Protocol Last Admin: 10/24/17 18:48 Dose: 2 mg Family Hx: none given ROS: fevers No chest pain, abdominal pain, melena, hematuria, hematemesis, hematochezia, vision loss, hearing loss, loss of consciousness, SOB, cough, nausea, vomiting, diarrhea. Past Patient History - Infectious Disease Hx of Infectious Diseases: None - Tetanus Immunizations Tetanus Immunization: Unknown - Past Social History Smoking Status: Never Smoked - CARDIAC Hx Hypertension: Yes Hx Pacemaker: No - PULMONARY Hx Respiratory Disorders: No Hx Asthma: No - NEUROLOGICAL Hx Neurological Disorder: No - HEENT Hx HEENT Problems: No - RENAL Hx Chronic Kidney Disease: No - ENDOCRINE/METABOLIC Hx Hypothyroidism: Yes - HEMATOLOGICAL/ONCOLOGICAL Hx Blood Transfusions: (UNSURE) Hx Leukemia: Yes - INTEGUMENTARY Hx Dermatological Problems: No - MUSCULOSKELETAL/RHEUMATOLOGICAL Hx Musculoskeletal Disorders: Yes - GASTROINTESTINAL Hx Gastroesophageal Reflux: Yes - GENITOURINARY/GYNECOLOGICAL Hx Incontinence: Yes - PSYCHIATRIC Hx Depression: Yes Hx Emotional Abuse: No Hx Physical Abuse: No Hx Substance Use: No - SURGICAL HISTORY Hx Surgeries: No (pt denies) - ANESTHESIA Hx Anesthesia Reactions: No Meds Allergies/Adverse Reactions: Allergies Allergy/AdvReac Type Severity Reaction Status Date / Time No Known Allergies Allergy Verified 01/17/17 17:22 - Medications Medications: Current Medications Acetaminophen (Tylenol 325mg Tab) 650 mg PO Q4H PRN PRN Reason: Fever >100.5 F Last Admin: 10/25/17 14:48 Dose: 650 mg Alprazolam (Xanax) 0.25 mg PO BID PRN; Protocol PRN Reason: Anxiety Stop: 10/31/17 10:01 Last Admin: 10/24/17 01:48 Dose: 0.25 mg Carvedilol (Coreg) 12.5 mg PO BID [facility] Last Admin: 10/25/17 11:03 Dose: 12.5 mg Cholecalciferol (Vitamin D) 1,000 intlu PO DAILY [facility] Last Admin: 10/25/17 11:04 Dose: 1,000 intlu Fluoxetine HCl (Prozac) 40 mg PO DAILY [facility] Last Admin: 10/25/17 11:03 Dose: 40 mg Furosemide (Lasix) 20 mg PO DAILY [facility] Last Admin: 10/25/17 11:04 Dose: 20 mg Sodium Chloride (Sodium Chloride 0.9%) 1,000 mls @ 100 mls/hr IV .Q10H [facility] Last Admin: 10/25/17 11:08 Dose: 100 mls/hr Ceftriaxone Sodium (Rocephin 1 Gram Ivpb) 1 gm in 100 mls @ 100 mls/hr IVPB DAILY [facility] PRN Reason: Protocol Last Admin: 10/25/17 11:00 Dose: 100 mls/hr Lactobacillus Acidophilus (Bacid Acidophilus) 1 cap PO DAILY [facility] Last Admin: 10/25/17 11:04 Dose: 1 cap Loperamide HCl (Imodium) 2 mg PO Q8H PRN PRN Reason: Diarrhea Montelukast Sodium (Singulair) 10 mg PO DAILY [facility] Last Admin: 10/25/17 11:05 Dose: 10 mg Multivitamins (Thera Tab) 1 tab PO DAILY [facility] Last Admin: 10/25/17 11:04 Dose: 1 tab Mometasone Furoate [ Nasonex] 2 [place] ( Home Med) 2 spray IH BID [facility] Last Admin: 10/25/17 11:05 Dose: Not Given Nystatin/Triamcinolone Acetonide (Nystatin/Triamcinolone Ointment) 0 gm TOP BID [facility] Last Admin: 10/25/17 11:05 Dose: 1 applic Pantoprazole Sodium (Protonix Ec Tab) 20 mg PO 0600 [facility] Last Admin: 10/25/17 11:04 Dose: 20 mg Risperidone (Risperdal Tab) 0.5 mg PO DAILY [facility] PRN Reason: Protocol Last Admin: 10/25/17 11:04 Dose: 0.5 mg Warfarin Sodium (Coumadin) 2 mg PO 1800 [facility] PRN Reason: Protocol Last Admin: 10/24/17 18:48 Dose: 2 mg Physical Exam - Constitutional Appears: Non-toxic, No Acute Distress, Chronically Ill - Head Exam Head Exam: ATRAUMATIC, NORMOCEPHALIC - Eye Exam Eye Exam: EOMI, PERRL Pupil Exam: NORMAL ACCOMODATION, PERRL - ENT Exam ENT Exam: Mucous Membranes Moist, Normal External Ear Exam, TM's Normal Bilaterally - Neck Exam Neck exam: Positive for: Full Rom, Normal Inspection - Respiratory Exam Respiratory Exam: Clear to Auscultation Bilateral, NORMAL BREATHING PATTERN. absent: Rales, Rhonchi, Wheezes - Cardiovascular Exam Cardiovascular Exam: REGULAR RHYTHM, RRR, +S1, +S2 - GI/Abdominal Exam GI & Abdominal Exam: Normal Bowel Sounds, Soft. absent: Distended, Tenderness - Extremities Exam Extremities exam: Positive for: full ROM, normal inspection - Neurological Exam Neurological exam: Alert, CN II-XII Intact - Psychiatric Exam Psychiatric exam: Flat Affect, Normal Mood - Skin Skin Exam: Dry, Warm Additional comments: excoriated skin on buttocks. Results - Vital Signs Recent Vital Signs: Last Vital Signs Temp 100.3 F H 10/25/17 15:50 Pulse 71 10/25/17 11:03 Resp 16 10/25/17 08:08 BP 136/77 10/25/17 11:04 Pulse Ox 97 10/25/17 08:08 - Labs Result Diagrams: 10/25/17 06:44 10/25/17 06:44 Labs: Laboratory Results - last 24 hr 10/25/17 10/25/17 06:44 06:44 WBC 8.6 RBC 3.10 L Hgb 8.9 L Hct 27.1 L MCV 87.4 MCH 28.7 MCHC 32.8 RDW 14.0 Plt Count 141 MPV 9.7 Sodium 142 Potassium 3.7 Chloride 110 H Carbon Dioxide 23 Anion Gap 13 BUN 22 H Creatinine 1.0 Est GFR ( Amer) > 60 Est GFR (Non-Af Amer) 56 Random Glucose 100 Calcium 8.4 Phosphorus 3.4 Magnesium 1.5 L Total Bilirubin 0.3 AST 40 H D ALT 45 Alkaline Phosphatase 59 Total Protein 6.3 Albumin 3.2 Globulin 3.2 Albumin/Globulin Ratio 1.0 L Assessment & Plan - Assessment and Plan (Free Text) Assessment: 62 yo female with near syncopal episode at Nursing facility and brought to [facility] [place] for evaluation. The patient had fevers up to 102.7 F in the past 24 hours. The patient will need repeat urine and blood cultures. Start on Rocephin for antibiotic coverage at the very least. Noted radiology studies. Supportive care. No leukocytosis. If there is no improvement in the temperatures within the next 24 hours, will have to consider escalating antibiotic therapy. No leukocytosis. Patient giving very few symptoms. Check ESR. Thank you for allowing me to participate in the care of the patient, we will follow with you.
--- NOTE | 2017-10-25 18:47 | PN ---
DATE: ENDOCRINOLOGY FOLLOWUP NOTE LOCATION: Room 563. SUBJECTIVE: This is a 62-year-old female with a large multinodular goiter and significant history of hyperthyroidism and has been taken off thyroid medications because of supervening hypothyroidism as noted thereof. Her latest chemistry shows a BUN of 22, sodium 142, potassium 3.7, chloride 110, CO2 of 23, glucose 56, and creatinine 1. The latest thyroid studies showed a T4 of 3 with a TSH of 5.81 and a free T4 of 0.42. The quantitative thyroglobulin level is quite elevated at indicative of marked hyperplasia of the thyroid gland as expected with significant history of hyperthyroidism. However, we have to exclude also any underlying dysplasia or atypical cells as noted and she has underlying small bilateral nodules in both thyroid glands as noted. So, at this time, we will repeat the thyroid studies and/or resume her Tapazole medication as indicated. We will follow. She may also need a fine needle aspiration biopsy of the small nodules as indicated. Lidia Ya MD
[2017-10-26] MEDS: Pantoprazole 20 mg EC Tab PO SCH (06:21)
[2017-10-26 06:22] LABS: HEMOGLOBIN 8.2 g/dL (12.0-16.0); MEAN CELL VOLUME 85.6 fl (80.0-105.0); MEAN CORPUSCULAR HEMOGLOBIN 28.8 pg (25.0-35.0); MEAN CORPUSCULAR HGB CONC 33.6 g/dl (31.0-37.0); MEAN PLATELET VOLUME 10.1 fl (7.0-11.0); RBC 2.85 10^6/uL (3.5-6.1); WHITE BLOOD COUNT 8.5 10^3/ul (4.5-11.0)
[2017-10-26 06:39] LABS: INR 1.79 (0.93-1.08); PROTHROMBIN TIME 20.8 SECONDS (9.4-12.5)
[2017-10-26 06:50] LABS: ALB/GLOB RATIO 0.9 (1.1-1.8); ALBUMIN 2.9 g/dL (3.0-4.8); ALT/SGPT 59 U/L (7-56); AST/SGOT 48 U/L (14-36); BLOOD UREA NITROGEN 20 mg/dL (7-21); CALCIUM 8.4 mg/dL (8.4-10.5); GFR AFRICAN-AMERICAN > 60; GFR NON-AFRICAN AMERICAN 56
[2017-10-26 06:51] LABS: FREE T4 0.86 ng/dL (0.78-2.19); T4 4.6 ug/dL (5.5-11.0)
--- NOTE | 2017-10-26 08:49 | PN ---
DATE: 10/25/2017 SUBJECTIVE: Patient is seen and examined at the bedside, looking comfortable. No nausea or vomiting. No hematuria or hematochezia. No swelling of the leg. No chest pain. No palpitation. No headache. No dizziness. PHYSICAL EXAMINATION: VITAL SIGNS: Temperature 100.3, pulse 71, respiratory rate 16, blood pressure 136/77, pulse oximetry 97%. HEENT: Head normocephalic and atraumatic. Eyes, PERRLA. Extraocular muscles intact. Conjunctivae clear. Nose patent. Mucous membrane moist. NECK: Supple. No carotid bruit. No JVD or thyromegaly. CHEST: Bilaterally symmetrical. HEART: S1 and S2 positive. LUNGS: Clear to auscultation. ABDOMEN: Soft. Bowel sounds present. No organomegaly. EXTREMITIES: No edema. No cyanosis. NEUROLOGIC: Patient is awake and alert. Moving all four extremities. No focal deficit. LABORATORY DATA: White blood cell is 8.6, hemoglobin 8.9, hematocrit 27.1, platelets 141. Sodium 142, potassium 3.7, BUN 52, creatinine 1, glucose 100. ASSESSMENT AND PLAN: The patient is a 62-year-old male with anemia, hyperchloremia, renal insufficiency, came with near syncopal episode at senior living and brought to [facility] [place] [facility] [place]. He has fever up to 102.7 in the past 24 hours. The patient will need to repeat urine and blood cultures. Start Rocephin for antibiotic coverage , Supportive care. No leukocytosis. If there is no improvement in temperature within the next 24 hours, then we will have to consider escalating antibiotic therapy. No leukocytosis. Patient is giving her few symptoms. Patient is noncompliant. Patient is not very good historian. Patient has a history of hyperthyroidism, now is hypothyroidism. Reviewed Dr. Lidia Ya's notes. Seen by Dr. Puneet Morales. According to Dr. Puneet Morales, no obvious suspicious dominant nodules was seen. Of note, Dr. Puneet Morales, patient do not need thyroid biopsy, and according to Dr. Puneet Morales, Dr. Lidia Ya can contact Dr. Puneet Morales about thyroid biopsies. Seen GI for chronic diarrhea. Patient had history of hyperthyroidism but now is in hypothyroidism stage, history of congestive heart failure, coronary artery disease, atrial fibrillation on Coumadin, hypertension, depression, gastroesophageal reflux disease, dyspepsia, iron deficiency anemia. According to Gastroenterology, they will do stool, electrolytes, stool ova and parasites and culture, rule out Clostridium difficile. We will repeat labs. Sharonda Knight MD [facility]
[2017-10-26] MEDS: MOMETASONE FUROATE IH SCH ×2 (10:00→17:17)
[2017-10-26] MEDS: cefTRIAXone 1 gm 1 GM/100 ML BAG IVPB SCH (10:14)
[2017-10-26] MEDS: Cholecalciferol 1,000 INTLU TAB PO SCH (10:15)
[2017-10-26] MEDS: Multivitamin Therapeutic Tab PO SCH (10:15)
[2017-10-26] MEDS: Lactobacillus Acidophilus 500 MU Cap PO SCH (10:15)
[2017-10-26] MEDS: Nystatin-Triamcinolone Ointment(30 gm) TOP SCH ×2 (10:16→17:18)
--- NOTE | 2017-10-26 13:41 | CP.PCM.PN ---
Subjective - Date & Time of Evaluation Date of Evaluation: 10/26/17 Time of Evaluation: 12:00 - Subjective Subjective: Infectious Disease Follow Up: October 26, 2017 62 yo female with presentation of near syncope. 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 She was found on the floor in the lobby with a bump on the head in the right parietal area. The patient had this occurrence on 10/21/2017. Currently presenting with loose stool and fevers up to 102.7 F over the past 24 hours. No leukocytosis. 10/21/2017 urine culture was negative. She appears comfortable at bedside. Afebrile so far today. She is very anxious and restless. No specific new findings on physical exam. Objective - Vital Signs/Intake and Output Vital Signs (last 24 hours): Temp Pulse Resp BP Pulse Ox 99.2 F 82 22 145/89 92 L 10/26/17 08:13 10/26/17 08:13 10/26/17 08:13 10/26/17 10:15 10/26/17 08:13 Intake and Output: 10/26/17 10/26/17 06:59 18:59 Intake Total 360 Balance 360 - Medications Medications: Current Medications Acetaminophen (Tylenol 325mg Tab) 650 mg PO Q4H PRN PRN Reason: Fever >100.5 F Last Admin: 10/25/17 21:11 Dose: 650 mg Alprazolam (Xanax) 0.25 mg PO BID PRN; Protocol PRN Reason: Anxiety Stop: 10/31/17 10:01 Last Admin: 10/24/17 01:48 Dose: 0.25 mg Carvedilol (Coreg) 12.5 mg PO BID [facility] Last Admin: 10/26/17 10:00 Dose: Not Given Cholecalciferol (Vitamin D) 1,000 intlu PO DAILY [facility] Last Admin: 10/26/17 10:15 Dose: 1,000 intlu Fluoxetine HCl (Prozac) 40 mg PO DAILY [facility] Last Admin: 10/26/17 10:15 Dose: 40 mg Furosemide (Lasix) 20 mg PO DAILY [facility] Last Admin: 10/26/17 10:15 Dose: 20 mg Sodium Chloride (Sodium Chloride 0.9%) 1,000 mls @ 100 mls/hr IV .Q10H [facility] Last Admin: 10/25/17 11:08 Dose: 100 mls/hr Ceftriaxone Sodium (Rocephin 1 Gram Ivpb) 1 gm in 100 mls @ 100 mls/hr IVPB DAILY [facility] PRN Reason: Protocol Last Admin: 10/26/17 10:14 Dose: 100 mls/hr Lactobacillus Acidophilus (Bacid Acidophilus) 1 cap PO DAILY [facility] Last Admin: 10/26/17 10:15 Dose: 1 cap Loperamide HCl (Imodium) 2 mg PO Q8H PRN PRN Reason: Diarrhea Montelukast Sodium (Singulair) 10 mg PO DAILY [facility] Last Admin: 10/26/17 10:15 Dose: 10 mg Multivitamins (Thera Tab) 1 tab PO DAILY [facility] Last Admin: 10/26/17 10:15 Dose: 1 tab Mometasone Furoate [ Nasonex] 2 [place] ( Home Med) 2 spray IH BID [facility] Last Admin: 10/26/17 10:00 Dose: Not Given Nystatin/Triamcinolone Acetonide (Nystatin/Triamcinolone Ointment) 0 gm TOP BID [facility] Last Admin: 10/26/17 10:16 Dose: 1 applic Pantoprazole Sodium (Protonix Ec Tab) 20 mg PO 0600 [facility] Last Admin: 10/26/17 06:21 Dose: 20 mg Risperidone (Risperdal Tab) 0.5 mg PO DAILY [facility] PRN Reason: Protocol Last Admin: 10/26/17 10:15 Dose: 0.5 mg Warfarin Sodium (Coumadin) 2 mg PO 1800 [facility] PRN Reason: Protocol Last Admin: 10/25/17 17:49 Dose: 2 mg - Labs Labs: 10/26/17 06:00 10/26/17 06:00 PT 20.8 SECONDS (9.4-12.5) H 10/26/17 06:00 INR 1.79 (0.93-1.08) H 10/26/17 06:00 APTT 31.2 Seconds (25.1-36.5) 10/21/17 19:00 - Constitutional Appears: Non-toxic, No Acute Distress, Chronically Ill - Head Exam Head Exam: ATRAUMATIC, NORMOCEPHALIC - Eye Exam Eye Exam: EOMI, PERRL Pupil Exam: NORMAL ACCOMODATION, PERRL - ENT Exam ENT Exam: Mucous Membranes Moist, Normal External Ear Exam, TM's Normal Bilaterally - Neck Exam Neck Exam: Full ROM, Normal Inspection - Respiratory Exam Respiratory Exam: Clear to Ausculation Bilateral, NORMAL BREATHING PATTERN. absent: Rales, Rhonchi, Wheezes - Cardiovascular Exam Cardiovascular Exam: REGULAR RHYTHM, RRR, +S1, +S2 - GI/Abdominal Exam GI & Abdominal Exam: Soft, Normal Bowel Sounds. absent: Distended, Tenderness - Extremities Exam Extremities Exam: Full ROM, Normal Inspection - Neurological Exam Neurological Exam: Alert, Awake, CN II-XII Intact - Psychiatric Exam Psychiatric exam: Agitated, Anxious - Skin Skin Exam: Dry, Warm Assessment and Plan - Assessment and Plan (Free Text) Assessment: 62 yo female with near syncopal episode at Nursing facility and [place] [facility] [place]. The patient had fevers up to 102.7 F in the past 24 hours. The patient will need repeat urine and blood cultures. Start on Rocephin for antibiotic coverage at the very least. Noted radiology studies. Supportive care. No leukocytosis. If there is no improvement in the temperatures within the next 24 hours, will have to consider escalating antibiotic therapy. No leukocytosis. Patient giving very few symptoms. Check ESR in AM. Afebrile today so far. Cultures to date negative. Thank you for allowing me to participate in the care of the patient, we will follow with you.
--- NOTE | 2017-10-26 14:32 | CP.PCM.PN ---
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 diff, Leukemia, Depression, chronic diarrhea, GERD, and Advanced Dementia. Pt admitted to [facility] [place]/p fall with injury to R posterior head, scalp hematoma, dehydration, UTI and fatigue. Today, pt seen at bedside reporting loose diarrhea stools x3. Denies any headache, fever, nausea, chills, constipation, or urinary changes. Objective - Vital Signs/Intake and Output Vital Signs (last 24 hours): Temp Pulse Resp BP Pulse Ox 99.2 F 82 22 145/89 92 L 10/26/17 08:13 10/26/17 08:13 10/26/17 08:13 10/26/17 10:15 10/26/17 08:13 Intake and Output: 10/26/17 10/26/17 06:59 18:59 Intake Total 360 Balance 360 - Medications Medications: Current Medications Acetaminophen (Tylenol 325mg Tab) 650 mg PO Q4H PRN PRN Reason: Fever >100.5 F Last Admin: 10/25/17 21:11 Dose: 650 mg Alprazolam (Xanax) 0.25 mg PO BID PRN; Protocol PRN Reason: Anxiety Stop: 10/31/17 10:01 Last Admin: 10/24/17 01:48 Dose: 0.25 mg Carvedilol (Coreg) 12.5 mg PO BID [facility] Last Admin: 10/26/17 10:00 Dose: Not Given Cholecalciferol (Vitamin D) 1,000 intlu PO DAILY [facility] Last Admin: 10/26/17 10:15 Dose: 1,000 intlu Fluoxetine HCl (Prozac) 40 mg PO DAILY [facility] Last Admin: 10/26/17 10:15 Dose: 40 mg Furosemide (Lasix) 20 mg PO DAILY [facility] Last Admin: 10/26/17 10:15 Dose: 20 mg Sodium Chloride (Sodium Chloride 0.9%) 1,000 mls @ 100 mls/hr IV .Q10H [facility] Last Admin: 10/25/17 11:08 Dose: 100 mls/hr Ceftriaxone Sodium (Rocephin 1 Gram Ivpb) 1 gm in 100 mls @ 100 mls/hr IVPB DAILY [facility] PRN Reason: Protocol Last Admin: 10/26/17 10:14 Dose: 100 mls/hr Lactobacillus Acidophilus (Bacid Acidophilus) 1 cap PO DAILY [facility] Last Admin: 10/26/17 10:15 Dose: 1 cap Loperamide HCl (Imodium) 2 mg PO Q8H PRN PRN Reason: Diarrhea Montelukast Sodium (Singulair) 10 mg PO DAILY [facility] Last Admin: 10/26/17 10:15 Dose: 10 mg Multivitamins (Thera Tab) 1 tab PO DAILY [facility] Last Admin: 10/26/17 10:15 Dose: 1 tab Mometasone Furoate [ Nasonex] 2 [place] ( Home Med) 2 spray IH BID [facility] Last Admin: 10/26/17 10:00 Dose: Not Given Nystatin/Triamcinolone Acetonide (Nystatin/Triamcinolone Ointment) 0 gm TOP BID [facility] Last Admin: 10/26/17 10:16 Dose: 1 applic Pantoprazole Sodium (Protonix Ec Tab) 20 mg PO 0600 [facility] Last Admin: 10/26/17 06:21 Dose: 20 mg Risperidone (Risperdal Tab) 0.5 mg PO DAILY [facility] PRN Reason: Protocol Last Admin: 10/26/17 10:15 Dose: 0.5 mg Warfarin Sodium (Coumadin) 2 mg PO 1800 [facility] PRN Reason: Protocol Last Admin: 10/25/17 17:49 Dose: 2 mg - Labs Labs: 10/26/17 06:00 10/26/17 06:00 PT 20.8 SECONDS (9.4-12.5) H 10/26/17 06:00 INR 1.79 (0.93-1.08) H 10/26/17 06:00 APTT 31.2 Seconds (25.1-36.5) 10/21/17 19:00 - Constitutional Appears: No Acute Distress, Chronically Ill - Head Exam Head Exam: ATRAUMATIC, NORMAL INSPECTION, NORMOCEPHALIC Additional comments: rt. posterior occipital scalp hematoma - Eye Exam Eye Exam: EOMI, Normal appearance, PERRL Pupil Exam: NORMAL ACCOMODATION, PERRL - ENT Exam ENT Exam: Mucous Membranes Moist, Normal Exam - Neck Exam Additional comments: large goiter. - Respiratory Exam Respiratory Exam: Clear to Ausculation Bilateral, NORMAL BREATHING PATTERN - Cardiovascular Exam Cardiovascular Exam: +S1, +S2, Murmur - GI/Abdominal Exam GI & Abdominal Exam: Soft, Normal Bowel Sounds - Extremities Exam Extremities Exam: Full ROM, Normal Capillary Refill, Normal Inspection - Back Exam Back Exam: NORMAL INSPECTION - Neurological Exam Neurological Exam: Alert, Awake, Normal Gait - Psychiatric Exam Psychiatric exam: Flat Affect, Normal Mood - Skin Skin Exam: Dry, Intact, Normal Color, Warm Assessment and Plan (1) Proteinuria Status: Acute (2) Renal insufficiency Status: Acute (3) Thyroid nodule Status: Acute (4) Accidental fall Status: Acute (5) Dehydration Status: Acute (6) Fatigue Status: Acute (7) Scalp hematoma Status: Acute (8) UTI (urinary tract infection) Status: Acute (9) Anemia Status: Active (10) Hyperthyroidism Status: Active (11) Head injury Status: Acute (12) Fever and chills Status: Acute - Assessment and Plan (Free Text) Plan: IVP rochepin. PO coumadin. IVF hydration. Labs ordered. Endocrine & IR providers will determine if thyroid nodules require biopsy. Stool culture: NEGATIVE. Urine culture: pending. VTE/GI prophlyaxis. Pain management: tylenol Consults: IR - Dr. Puneet Morales ID - Dr. Wilburn Cardio - Dr. Eber Merida - Dr. Lidia Ya Neuro - Dr. Hills Surgery - Dr. Jairo Morales Reviewed: CT head = Senescent changes noted. No acute intracranial abnormality, Lacunar change both basal ganglia and thalami, Cerebral volume loss noted. Scattered areas of decreased attenuation in the deep periventricular white matter consistent with small vessel ischemic change, Right parietal scalp hematoma. There is mild mucoperiosteal thickening in the maxillary and ethmoid sinuses with more moderate right ethmoid and frontal sinus anterior opacification. CT cervical = marked bilateral thyroid lobe enlargement right worse than left. The right lobe measures up to 5 cm AP by 3.3 cm transverse. CXR = WNL Bilateral carotid US = 20-39% proximal ICA stenoses Thyroid US = Cystic nodule midpole region 1.4x1.9x2.1 cm new finding, measures 1.44 cm increased flow to a thickened isthmus, solitary nodule midline 1x1.6x2cm , increased modestly, markeldy enlarged heterogenous hypervascular thyroid land , new suspicious cystic nodule L thyroid lobe. ECHO = LVEF 50% ECG = ABNORMAL, NSR, L ventricular hypertryophy w. repolarization abnormality, cannot rule out septal infarct <Sharonda Knight - Last Filed: 10/26/17 22:51> Objective - Vital Signs/Intake and Output Vital Signs (last 24 hours): Temp Pulse Resp BP Pulse Ox 100.5 F H 89 20 145/90 96 10/26/17 17:15 10/26/17 17:16 10/26/17 15:23 10/26/17 21:14 10/26/17 15:23 Intake and Output: 10/26/17 10/27/17 18:59 06:59 Intake Total 480 Balance 480 - Medications Medications: Current Medications Acetaminophen (Tylenol 325mg Tab) 650 mg PO Q4H PRN PRN Reason: Fever >100.5 F Last Admin: 10/26/17 17:15 Dose: 650 mg Albuterol/Ipratropium (Duoneb 3 Mg/0.5 Mg (3 Ml) Ud) 3 ml IH [id number] [facility] Last Admin: 10/26/17 20:10 Dose: 3 ml Alprazolam (Xanax) 0.25 mg PO BID PRN; Protocol PRN Reason: Anxiety Stop: 10/31/17 10:01 Last Admin: 10/24/17 01:48 Dose: 0.25 mg Carvedilol (Coreg) 12.5 mg PO BID [facility] Last Admin: 10/26/17 17:16 Dose: 12.5 mg Cholecalciferol (Vitamin D) 1,000 intlu PO DAILY [facility] Last Admin: 10/26/17 10:15 Dose: 1,000 intlu Fluoxetine HCl (Prozac) 40 mg PO DAILY [facility] Last Admin: 10/26/17 10:15 Dose: 40 mg Furosemide (Lasix) 20 mg PO DAILY [facility] Last Admin: 10/26/17 10:15 Dose: 20 mg Ceftriaxone Sodium (Rocephin 1 Gram Ivpb) 1 gm in 100 mls @ 100 mls/hr IVPB DAILY [facility] PRN Reason: Protocol Last Admin: 10/26/17 10:14 Dose: 100 mls/hr Lactobacillus Acidophilus (Bacid Acidophilus) 1 cap PO DAILY [facility] Last Admin: 10/26/17 10:15 Dose: 1 cap Loperamide HCl (Imodium) 2 mg PO Q8H PRN PRN Reason: Diarrhea Montelukast Sodium (Singulair) 10 mg PO DAILY [facility] Last Admin: 10/26/17 10:15 Dose: 10 mg Multivitamins (Thera Tab) 1 tab PO DAILY [facility] Last Admin: 10/26/17 10:15 Dose: 1 tab Mometasone Furoate [ Nasonex] 2 [place] ( Home Med) 2 spray IH BID [facility] Last Admin: 10/26/17 17:17 Dose: Not Given Nystatin/Triamcinolone Acetonide (Nystatin/Triamcinolone Ointment) 0 gm TOP BID [facility] Last Admin: 10/26/17 17:18 Dose: 1 applic Pantoprazole Sodium (Protonix Ec Tab) 20 mg PO 0600 [facility] Last Admin: 10/26/17 06:21 Dose: 20 mg Risperidone (Risperdal Tab) 0.5 mg PO DAILY [facility] PRN Reason: Protocol Last Admin: 10/26/17 10:15 Dose: 0.5 mg Warfarin Sodium (Coumadin) 2 mg PO 1800 [facility] PRN Reason: Protocol Last Admin: 10/26/17 17:16 Dose: 2 mg - Labs Labs: 10/26/17 06:00 10/26/17 06:00 PT 20.8 SECONDS (9.4-12.5) H 10/26/17 06:00 INR 1.79 (0.93-1.08) H 10/26/17 06:00 APTT 31.2 Seconds (25.1-36.5) 10/21/17 19:00 Assessment and Plan - Assessment and Plan (Free Text) Plan: 62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 diff, Leukemia, Depression, chronic diarrhea, GERD, and Advanced Dementia. Pt admitted to [facility] [place]/p fall with injury to R posterior head, scalp hematoma, dehydration, UTI and fatigue. Today, pt seen at bedside reporting loose diarrhea stools x3. Denies any headache, fever, nausea, chills, constipation, or urinary changes. pt is seen and examined at bed side , looking comfortable . agreed all above . chart , meds and labs noted , will f/u
[2017-10-26] MEDS ORDERED: Albuterol-Ipratrop 3 mg / 0.5 (3 ml) UD IH PRN (17:33)
[2017-10-26] MEDS: Albuterol-Ipratrop 3 mg / 0.5 (3 ml) UD IH SCH (20:10)
[2017-10-27] MEDS: Pantoprazole 20 mg EC Tab PO SCH ×2 (06:37→06:45)
[2017-10-27 07:11] LABS: HEMOGLOBIN 8.3 g/dL (12.0-16.0); MEAN CELL VOLUME 85.7 fl (80.0-105.0); MEAN CORPUSCULAR HEMOGLOBIN 28.3 pg (25.0-35.0); MEAN CORPUSCULAR HGB CONC 33.1 g/dl (31.0-37.0); MEAN PLATELET VOLUME 9.8 fl (7.0-11.0); RBC 2.93 10^6/uL (3.5-6.1); RED CELL DISTRIBUTION WIDTH 14.1 % (11.5-14.5); WHITE BLOOD COUNT 7.6 10^3/ul (4.5-11.0)
[2017-10-27 07:16] LABS: INR 1.88 (0.93-1.08); PROTHROMBIN TIME 21.9 SECONDS (9.4-12.5)
[2017-10-27] MEDS: Albuterol-Ipratrop 3 mg / 0.5 (3 ml) UD IH SCH ×3 (07:19→19:34)
[2017-10-27 07:20] LABS: ALB/GLOB RATIO 0.9 (1.1-1.8); ALBUMIN 3.1 g/dL (3.0-4.8); ALT/SGPT 58 U/L (7-56); AST/SGOT 47 U/L (14-36); BLOOD UREA NITROGEN 25 mg/dL (7-21); CALCIUM 8.7 mg/dL (8.4-10.5); GFR AFRICAN-AMERICAN > 60; GFR NON-AFRICAN AMERICAN 50
--- NOTE | 2017-10-27 08:32 | PN ---
DATE: 10/26/2017 LOCATION: In room 563. SUBJECTIVE: This is a 62-year-old female with significant history of hyperthyroidism, currently taken off thyroid medications because of supervening hypothyroxinemia and is now being followed closely for metabolic management. She also has an underlying large multinodular goiter as noted and the latest thyroid studies done today, so the T4 is 4.6 with a TSH of 1.69 and a free T4 of 0.86. The latest chemistry showed a BUN of 20. Sodium 144, potassium 3.6, chloride 111, CO2 of 22. Glucose 97. Creatinine 1. So at this time, we will hold off the resumption of the Tapazole medication for now as she has remained clinically and biochemically euthyroid at this time. She needs outpatient ongoing thyroid levels to be undertaken and if hyperthyroidism supervened, then we can start her back on a much lower dose of the Tapazole medication as ordered. For now, we will hold off the resumption of her medical therapy as noted. If compressive obstructive neck manifestations supervened, then she may need surgical resection of the large multinodular goiter for decompression accordingly. Lidia Ya MD
[2017-10-27] MEDS: Lactobacillus Acidophilus 500 MU Cap PO SCH (10:38)
[2017-10-27] MEDS: cefTRIAXone 1 gm 1 GM/100 ML BAG IVPB SCH (10:39)
[2017-10-27] MEDS: Multivitamin Therapeutic Tab PO SCH (10:39)
[2017-10-27] MEDS: Cholecalciferol 1,000 INTLU TAB PO SCH (10:39)
[2017-10-27] MEDS: Nystatin-Triamcinolone Ointment(30 gm) TOP SCH ×2 (10:50→17:58)
[2017-10-27] MEDS: MOMETASONE FUROATE IH SCH ×2 (10:50→17:58)
--- NOTE | 2017-10-27 16:38 | PN ---
DATE: ENDOCRINOLOGY FOLLOWUP NOTE LOCATION: Room 563. SUBJECTIVE: This is a 62-year-old female with known history of hyperthyroidism, currently taken off Tapazole because of supervening hypothyroxinemia and has remained clinically and biochemically euthyroid at this time. Her latest thyroid study showed a T4 of 4.6, free T4 of 0.86 and a TSH of 1.69. Latest chemistry showed a BUN of 25, sodium 144, potassium 3.1, chloride 108, CO2 of 27, glucose 98 and creatinine 1.1. So at this time, we will continue the serial thyroid studies and hold off the resumption of the Tapazole medications at this time. We will obtain serial thyroid studies and restart her medical therapy as indicated. We will follow. Lidia Ya MD
--- NOTE | 2017-10-27 19:19 | CP.PCM.PN ---
Subjective - Date & Time of Evaluation Date of Evaluation: 10/27/17 Time of Evaluation: 16:00 - Subjective Subjective: Infectious Disease Follow Up: October 27, 2017 62 yo female with presentation of near syncope. The patient normally ambulates with the aid of a walker and currently is a care home resident at [facility] (formerly [facility] She was found on the floor in the lobby with a bump on the head in the right parietal area. The patient had this occurrence on 10/21/2017. Afebrile currently. No leukocytosis. 10/21/2017 urine culture was negative. She appears comfortable at bedside. Afebrile so far today. She is very anxious and restless. No specific new findings on physical exam. Cultures and C. Diff negative so far. Objective - Vital Signs/Intake and Output Vital Signs (last 24 hours): Temp Pulse Resp BP Pulse Ox 99.5 F 80 20 148/89 94 L 10/27/17 14:00 10/27/17 17:21 10/27/17 14:00 10/27/17 17:21 10/27/17 14:00 Intake and Output: 10/27/17 10/28/17 18:59 06:59 Intake Total 480 Balance 480 - Medications Medications: Current Medications Acetaminophen (Tylenol 325mg Tab) 650 mg PO Q4H PRN PRN Reason: Fever >100.5 F Last Admin: 10/26/17 17:15 Dose: 650 mg Albuterol/Ipratropium (Duoneb 3 Mg/0.5 Mg (3 Ml) Ud) 3 ml IH [id number] [facility] Last Admin: 10/27/17 13:18 Dose: 3 ml Alprazolam (Xanax) 0.25 mg PO BID PRN; Protocol PRN Reason: Anxiety Stop: 10/31/17 10:01 Last Admin: 10/27/17 14:23 Dose: 0.25 mg Carvedilol (Coreg) 12.5 mg PO BID [facility] Last Admin: 10/27/17 17:21 Dose: 12.5 mg Cholecalciferol (Vitamin D) 1,000 intlu PO DAILY [facility] Last Admin: 10/27/17 10:39 Dose: 1,000 intlu Fluoxetine HCl (Prozac) 40 mg PO DAILY [facility] Last Admin: 04/05/18 10:39 Dose: 40 mg Furosemide (Lasix) 20 mg PO DAILY [facility] Last Admin: 10/27/17 10:39 Dose: 20 mg Ceftriaxone Sodium (Rocephin 1 Gram Ivpb) 1 gm in 100 mls @ 100 mls/hr IVPB DAILY [facility] PRN Reason: Protocol Last Admin: 10/27/17 10:39 Dose: 100 mls/hr Lactobacillus Acidophilus (Bacid Acidophilus) 1 cap PO DAILY [facility] Last Admin: 10/27/17 10:38 Dose: 1 cap Loperamide HCl (Imodium) 2 mg PO Q8H PRN PRN Reason: Diarrhea Montelukast Sodium (Singulair) 10 mg PO DAILY [facility] Last Admin: 10/27/17 10:39 Dose: 10 mg Multivitamins (Thera Tab) 1 tab PO DAILY [facility] Last Admin: 10/27/17 10:39 Dose: 1 tab Mometasone Furoate [ Nasonex] 2 [place] ( Home Med) 2 spray IH BID [facility] Last Admin: 10/27/17 17:58 Dose: Not Given Nystatin/Triamcinolone Acetonide (Nystatin/Triamcinolone Ointment) 0 gm TOP BID [facility] Last Admin: 10/27/17 17:58 Dose: 1 applic Pantoprazole Sodium (Protonix Ec Tab) 20 mg PO 0600 [facility] Last Admin: 10/27/17 06:45 Dose: Not Given Risperidone (Risperdal Tab) 0.5 mg PO DAILY [facility] PRN Reason: Protocol Last Admin: 10/27/17 10:39 Dose: 0.5 mg Warfarin Sodium (Coumadin) 2 mg PO 1800 [facility] PRN Reason: Protocol Last Admin: 10/27/17 17:21 Dose: 2 mg - Labs Labs: 10/27/17 06:30 10/27/17 06:30 PT 21.9 SECONDS (9.4-12.5) H 10/27/17 06:30 INR 1.88 (0.93-1.08) H 10/27/17 06:30 APTT 31.2 Seconds (25.1-36.5) 10/21/17 19:00 - Constitutional Appears: Non-toxic, No Acute Distress, Chronically Ill - Head Exam Head Exam: ATRAUMATIC, NORMOCEPHALIC - Eye Exam Eye Exam: EOMI, PERRL Pupil Exam: NORMAL ACCOMODATION, PERRL - ENT Exam ENT Exam: Mucous Membranes Moist, Normal External Ear Exam, TM's Normal Bilaterally - Neck Exam Neck Exam: Full ROM, Normal Inspection - Respiratory Exam Respiratory Exam: Clear to Ausculation Bilateral, NORMAL BREATHING PATTERN. absent: Rales, Rhonchi, Wheezes - Cardiovascular Exam Cardiovascular Exam: REGULAR RHYTHM, RRR, +S1, +S2 - GI/Abdominal Exam GI & Abdominal Exam: Soft, Normal Bowel Sounds. absent: Distended, Tenderness - Extremities Exam Extremities Exam: Full ROM, Normal Inspection - Neurological Exam Neurological Exam: Alert, Awake, CN II-XII Intact, Oriented x3 - Psychiatric Exam Psychiatric exam: Agitated, Anxious - Skin Skin Exam: Dry, Warm Assessment and Plan - Assessment and Plan (Free Text) Assessment: 62 yo female with near syncopal episode at Nursing facility and brought to [facility] for evaluation. The patient had fevers up to 102.7 F in the past 24 hours. The patient will need repeat urine and blood cultures. Start on Rocephin for antibiotic coverage at the very least. Noted radiology studies. Supportive care. No leukocytosis. If there is no improvement in the temperatures within the next 24 hours, will have to consider escalating antibiotic therapy. No leukocytosis. Patient giving very few symptoms. Check ESR in AM. Afebrile today so far. Fever up to 100.5 F yesterday evening. Cultures to date negative. Cultures negative and C. Diff negative. Thank you for allowing me to participate in the care of the patient, we will follow with you.
[2017-10-27] MEDS ORDERED: Potassium Chloride 40 mEq/30 ml LIQ UD PO ONE (19:40)
[2017-10-28] MEDS: Albuterol-Ipratrop 3 mg / 0.5 (3 ml) UD IH SCH ×4 (01:13→21:10)
--- NOTE | 2017-10-28 02:02 | PN ---
DATE: This is a 62-year-old female. SUBJECTIVE: The patient was seen and examined at the bedside, looking comfortable. No nausea, vomiting, or diarrhea. No hematuria or hematochezia. No swelling of the legs. No chest pain. No palpitation. No fever. Appears comfortable at the bedside, but very anxious and restless. Cultures and C. difficile negative so far. PHYSICAL EXAMINATION: VITAL SIGNS: Temperature 99.5, pulse 80, respiratory rate 20, blood pressure 148/89, pulse oximetry 94. HEENT: Head is normocephalic and atraumatic. Eyes, PERRLA. Extraocular movements are intact . Conjunctivae are clear. Nose is patent. Mucous membranes are moist. NECK: Supple. No carotid bruit. No JVD or thyromegaly. CHEST: Bilaterally symmetrical. HEART: S1 and S2 positive. LUNGS: Clear to auscultation. ABDOMEN: Soft. Bowel sounds are positive. No organomegaly. EXTREMITIES: No edema. No cyanosis. NEUROLOGIC: The patient is awake and alert. Follows simple commands. MEDICATIONS: Acetaminophen, albuterol, Xanax, Coreg, vitamin D, fluoxetine, Lasix, Rocephin, lactobacillus, Imodium, Singulair, Thera tablets, Nasonex, nystatin/triamcinolone, Protonix, risperidone, Coumadin. LABORATORY DATA: White blood cells 7.6, hemoglobin 8.3, hematocrit 25.1, and platelets 145. Sodium 144, potassium 3.1, BUN 25, creatinine 1.1, glucose 98. ASSESSMENT AND PLAN: Ms. Rylie Sabillon is a 62-year-old lady with anemia; hypokalemia, replaced with K-Dur 40, increased BUN, hyperchloremia, came with near-syncopal episode at intermediate facility and brought to [facility] for evaluation. The patient had one time fever of 102.7 in the past 24 hours. The patient was started on Rocephin antibiotics. Now, the patient is afebrile. Yesterday, fever went to 100.5. Cultures up-to-date negative. The patient has history of hyperthyroidism, now has hypothyroidism and dementia. The patient was taking Tapazole, now off the Tapazole because of supervening hypothyroxinemia. Degenerative joint disease, history of congestive heart failure, atrial fibrillation, depression, chronic diarrhea, gastroesophageal reflux disease, dyspepsia, history of fall, urinary tract infection, fatigue, history of proteinuria, renal insufficiency, thyroid nodules. Waiting for Dr. Lidia Ya and Dr. Puneet Morales, they will decide about thyroid biopsy. History of fever and chills. The patient is getting Coumadin, intravenous hydration. Gastrointestinal and deep venous thrombosis prophylaxis. Repeat labs. We will follow up. Sharonda Knight MD
[2017-10-28] MEDS: Pantoprazole 20 mg EC Tab PO SCH (06:29)
[2017-10-28] MEDS: cefTRIAXone 1 gm 1 GM/100 ML BAG IVPB SCH (11:11)
[2017-10-28] MEDS: Lactobacillus Acidophilus 500 MU Cap PO SCH (11:12)
[2017-10-28] MEDS: Cholecalciferol 1,000 INTLU TAB PO SCH (11:12)
[2017-10-28] MEDS: Multivitamin Therapeutic Tab PO SCH (11:13)
[2017-10-28] MEDS: MOMETASONE FUROATE IH SCH ×2 (11:13→18:02)
[2017-10-28] MEDS: Nystatin-Triamcinolone Ointment(30 gm) TOP SCH ×2 (11:13→18:02)
--- NOTE | 2017-10-28 12:22 | CP.PCM.PN ---
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 diff, Leukemia, Depression, chronic diarrhea, GERD, and Advanced Dementia. Pt admitted to [facility] s/p fall with injury to R posterior head, scalp hematoma, dehydration, UTI and fatigue. Today, pt seen at bedside appears anxious. Denies any headache, nausea, chills, constipation, or urinary changes. Objective - Vital Signs/Intake and Output Vital Signs (last 24 hours): Temp Pulse Resp BP Pulse Ox 99 F 79 18 146/88 100 10/28/17 06:00 10/28/17 11:12 10/28/17 06:00 10/28/17 11:12 10/28/17 06:00 Intake and Output: 10/28/17 10/28/17 06:59 18:59 Intake Total 600 Balance 600 - Medications Medications: Current Medications Acetaminophen (Tylenol 325mg Tab) 650 mg PO Q4H PRN PRN Reason: Fever >100.5 F Last Admin: 10/26/17 17:15 Dose: 650 mg Albuterol/Ipratropium (Duoneb 3 Mg/0.5 Mg (3 Ml) Ud) 3 ml IH [id number] [facility] Last Admin: 10/28/17 08:02 Dose: 3 ml Alprazolam (Xanax) 0.25 mg PO BID PRN; Protocol PRN Reason: Anxiety Stop: 10/31/17 10:01 Last Admin: 10/27/17 14:23 Dose: 0.25 mg Carvedilol (Coreg) 12.5 mg PO BID [facility] Last Admin: 10/28/17 11:12 Dose: 12.5 mg Cholecalciferol (Vitamin D) 1,000 intlu PO DAILY [facility] Last Admin: 10/28/17 11:12 Dose: 1,000 intlu Fluoxetine HCl (Prozac) 40 mg PO DAILY [facility] Last Admin: 10/28/17 11:12 Dose: 40 mg Furosemide (Lasix) 20 mg PO DAILY [facility] Last Admin: 10/28/17 11:12 Dose: 20 mg Ceftriaxone Sodium (Rocephin 1 Gram Ivpb) 1 gm in 100 mls @ 100 mls/hr IVPB DAILY [facility] PRN Reason: Protocol Last Admin: 10/28/17 11:11 Dose: 100 mls/hr Lactobacillus Acidophilus (Bacid Acidophilus) 1 cap PO DAILY [facility] Last Admin: 10/28/17 11:12 Dose: 1 cap Loperamide HCl (Imodium) 2 mg PO Q8H PRN PRN Reason: Diarrhea Montelukast Sodium (Singulair) 10 mg PO DAILY [facility] Last Admin: 10/28/17 11:13 Dose: 10 mg Multivitamins (Thera Tab) 1 tab PO DAILY [facility] Last Admin: 10/28/17 11:13 Dose: 1 tab Mometasone Furoate [ Nasonex] 2 [place] ( Home Med) 2 spray IH BID [facility] Last Admin: 10/28/17 11:13 Dose: Not Given Nystatin/Triamcinolone Acetonide (Nystatin/Triamcinolone Ointment) 0 gm TOP BID [facility] Last Admin: 10/28/17 11:13 Dose: 1 applic Pantoprazole Sodium (Protonix Ec Tab) 20 mg PO 0600 [facility] Last Admin: 10/28/17 06:29 Dose: 20 mg Risperidone (Risperdal Tab) 0.5 mg PO DAILY [facility] PRN Reason: Protocol Last Admin: 10/28/17 11:12 Dose: 0.5 mg Warfarin Sodium (Coumadin) 2 mg PO 1800 [facility] PRN Reason: Protocol Last Admin: 10/27/17 17:21 Dose: 2 mg - Labs Labs: 10/27/17 06:30 10/27/17 06:30 PT 21.9 SECONDS (9.4-12.5) H 10/27/17 06:30 INR 1.88 (0.93-1.08) H 10/27/17 06:30 APTT 31.2 Seconds (25.1-36.5) 10/21/17 19:00 - Constitutional Appears: Confused, Chronically Ill - Head Exam Additional comments: rt. posterior occipital scalp hematoma - Eye Exam Eye Exam: EOMI, Normal appearance, PERRL Pupil Exam: NORMAL ACCOMODATION, PERRL - ENT Exam ENT Exam: Mucous Membranes Dry - Neck Exam Additional comments: large goiter - Respiratory Exam Respiratory Exam: Clear to Ausculation Bilateral, NORMAL BREATHING PATTERN - Cardiovascular Exam Cardiovascular Exam: JVD, +S1, +S2, Murmur - GI/Abdominal Exam GI & Abdominal Exam: Soft, Normal Bowel Sounds. absent: Tenderness - Extremities Exam Extremities Exam: Full ROM, Normal Capillary Refill, Normal Inspection. absent : Joint Swelling, Pedal Edema - Back Exam Back Exam: NORMAL INSPECTION - Neurological Exam Neurological Exam: Alert, Awake, Normal Gait - Psychiatric Exam Psychiatric exam: Anxious, Flat Affect - Skin Skin Exam: Dry, Pallor Assessment and Plan (1) Proteinuria Status: Acute (2) Renal insufficiency Status: Acute (3) Thyroid nodule Status: Acute (4) Accidental fall Status: Acute (5) Dehydration Status: Acute (6) Fatigue Status: Acute (7) Scalp hematoma Status: Acute (8) UTI (urinary tract infection) Status: Acute (9) Anemia Status: Active (10) Hyperthyroidism Status: Active (11) Head injury Status: Acute (12) Fever and chills Status: Acute - Assessment and Plan (Free Text) Plan: Re-consulted Cardio for evaluation. Fevers tmax 102.7 and 100.5 on 10/27. Labs ordered. IVP rochepin. PO coumadin. IVF hydration. Labs ordered. Endocrine & IR providers will determine if thyroid nodules require biopsy. Nasal culture: Ordered. Blood culture: PENDING. Stool culture: NEGATIVE. Urine culture: NEGATIVE. VTE/GI prophlyaxis. Pain management: tylenol Consults: IR - Dr. Puneet Morales ID - Dr. Wilburn Cardio - Dr. Eber Merida - Dr. Lidia Ya Neuro - [facility] Surgery - Dr. Jairo Morales Reviewed: CT head = Senescent changes noted. No acute intracranial abnormality, Lacunar change both basal ganglia and thalami, Cerebral volume loss noted. Scattered areas of decreased attenuation in the deep periventricular white matter consistent with small vessel ischemic change, Right parietal scalp hematoma. There is mild mucoperiosteal thickening in the maxillary and ethmoid sinuses with more moderate right ethmoid and frontal sinus anterior opacification. CT cervical = marked bilateral thyroid lobe enlargement right worse than left. The right lobe measures up to 5 cm AP by 3.3 cm transverse. CXR = WNL Bilateral carotid US = 20-39% proximal ICA stenoses Thyroid US = Cystic nodule midpole region 1.4x1.9x2.1 cm new finding, measures 1.44 cm increased flow to a thickened isthmus, solitary nodule midline 1x1.6x2cm , increased modestly, markeldy enlarged heterogenous hypervascular thyroid land , new suspicious cystic nodule L thyroid lobe. ECHO = LVEF 50% ECG = ABNORMAL, NSR, L ventricular hypertryophy w. repolarization abnormality, cannot rule out septal infarct <Sharonda Knight - Last Filed: 10/28/17 20:56> Objective - Vital Signs/Intake and Output Vital Signs (last 24 hours): Temp Pulse Resp BP Pulse Ox 98.4 F 81 18 130/97 H 98 10/28/17 14:00 10/28/17 18:01 10/28/17 14:00 10/28/17 18:01 10/28/17 14:00 - Medications Medications: Current Medications Acetaminophen (Tylenol 325mg Tab) 650 mg PO Q4H PRN PRN Reason: Fever >100.5 F Last Admin: 10/26/17 17:15 Dose: 650 mg Albuterol/Ipratropium (Duoneb 3 Mg/0.5 Mg (3 Ml) Ud) 3 ml IH [id number] [facility] Last Admin: 10/28/17 13:54 Dose: 3 ml Alprazolam (Xanax) 0.25 mg PO BID PRN; Protocol PRN Reason: Anxiety Stop: 10/31/17 10:01 Last Admin: 10/28/17 15:52 Dose: 0.25 mg Carvedilol (Coreg) 12.5 mg PO BID [facility] Last Admin: 10/28/17 18:01 Dose: 12.5 mg Cholecalciferol (Vitamin D) 1,000 intlu PO DAILY [facility] Last Admin: 10/28/17 11:12 Dose: 1,000 intlu Fluoxetine HCl (Prozac) 40 mg PO DAILY [facility] Last Admin: 10/28/17 11:12 Dose: 40 mg Furosemide (Lasix) 20 mg PO DAILY [facility] Last Admin: 10/28/17 11:12 Dose: 20 mg Ceftriaxone Sodium (Rocephin 1 Gram Ivpb) 1 gm in 100 mls @ 100 mls/hr IVPB DAILY [facility] PRN Reason: Protocol Last Admin: 10/28/17 11:11 Dose: 100 mls/hr Lactobacillus Acidophilus (Bacid Acidophilus) 1 cap PO DAILY [facility] Last Admin: 10/28/17 11:12 Dose: 1 cap Loperamide HCl (Imodium) 2 mg PO Q8H PRN PRN Reason: Diarrhea Montelukast Sodium (Singulair) 10 mg PO DAILY [facility] Last Admin: 10/28/17 11:13 Dose: 10 mg Multivitamins (Thera Tab) 1 tab PO DAILY [facility] Last Admin: 10/28/17 11:13 Dose: 1 tab Mometasone Furoate [ Nasonex] 2 [place] ( Home Med) 2 spray IH BID [facility] Last Admin: 10/28/17 18:02 Dose: Not Given Nystatin/Triamcinolone Acetonide (Nystatin/Triamcinolone Ointment) 0 gm TOP BID [facility] Last Admin: 10/28/17 18:02 Dose: 1 applic Pantoprazole Sodium (Protonix Ec Tab) 20 mg PO 0600 [facility] Last Admin: 10/28/17 06:29 Dose: 20 mg Risperidone (Risperdal Tab) 0.5 mg PO DAILY [facility] PRN Reason: Protocol Last Admin: 10/28/17 11:12 Dose: 0.5 mg Warfarin Sodium (Coumadin) 2 mg PO 1800 [facility] PRN Reason: Protocol Last Admin: 10/28/17 18:01 Dose: 2 mg - Labs Labs: 10/27/17 06:30 10/27/17 06:30 PT 21.9 SECONDS (9.4-12.5) H 10/27/17 06:30 INR 1.88 (0.93-1.08) H 10/27/17 06:30 APTT 31.2 Seconds (25.1-36.5) 10/21/17 19:00 Assessment and Plan - Assessment and Plan (Free Text) Plan: 62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 diff, Leukemia, Depression, chronic diarrhea, GERD, and Advanced Dementia. Pt admitted to [facility] s/p fall with injury to R posterior head, scalp hematoma, dehydration, UTI and fatigue. Today, pt seen at bedside appears anxious. Denies any headache, nausea, chills, constipation, or urinary changes.pt is seen and examined at bed side , agreed all above , chart . meds amd labs noted , will f/u , d/d with godwin morales for thyroid biopsy , he will talk to chain sales representative .
--- NOTE | 2017-10-28 13:32 | CP.PCM.PN ---
Subjective - Date & Time of Evaluation Date of Evaluation: 10/28/17 Time of Evaluation: 12:30 - Subjective Subjective: Infectious Disease Follow Up: October 28, 2017 62 yo female with presentation of near syncope. The patient normally ambulates with the aid of a walker and currently is a retirement resident at [facility] (formerly [facility]). She was found on the floor in the lobby with a bump on the head in the right parietal area. The patient had this occurrence on 10/21/2017. Afebrile currently. No leukocytosis. 10/21/2017 urine culture was negative. She appears comfortable at bedside. Afebrile so far today. She is very anxious and restless. No specific new findings on physical exam. Cultures and C. Diff negative so far except for urine culture now showing gram positive cocci. Objective - Vital Signs/Intake and Output Vital Signs (last 24 hours): Temp Pulse Resp BP Pulse Ox 99 F 79 18 146/88 100 10/28/17 06:00 10/28/17 11:12 10/28/17 06:00 10/28/17 11:12 10/28/17 06:00 Intake and Output: 10/28/17 10/28/17 06:59 18:59 Intake Total 600 Balance 600 - Medications Medications: Current Medications Acetaminophen (Tylenol 325mg Tab) 650 mg PO Q4H PRN PRN Reason: Fever >100.5 F Last Admin: 10/26/17 17:15 Dose: 650 mg Albuterol/Ipratropium (Duoneb 3 Mg/0.5 Mg (3 Ml) Ud) 3 ml IH [id number] [facility] Last Admin: 10/28/17 08:02 Dose: 3 ml Alprazolam (Xanax) 0.25 mg PO BID PRN; Protocol PRN Reason: Anxiety Stop: 10/31/17 10:01 Last Admin: 10/27/17 14:23 Dose: 0.25 mg Carvedilol (Coreg) 12.5 mg PO BID [facility] Last Admin: 10/28/17 11:12 Dose: 12.5 mg Cholecalciferol (Vitamin D) 1,000 intlu PO DAILY [facility] Last Admin: 10/28/17 11:12 Dose: 1,000 intlu Fluoxetine HCl (Prozac) 40 mg PO DAILY [facility] Last Admin: 10/28/17 11:12 Dose: 40 mg Furosemide (Lasix) 20 mg PO DAILY [facility] Last Admin: 10/28/17 11:12 Dose: 20 mg Ceftriaxone Sodium (Rocephin 1 Gram Ivpb) 1 gm in 100 mls @ 100 mls/hr IVPB DAILY [facility] PRN Reason: Protocol Last Admin: 10/28/17 11:11 Dose: 100 mls/hr Lactobacillus Acidophilus (Bacid Acidophilus) 1 cap PO DAILY [facility] Last Admin: 10/28/17 11:12 Dose: 1 cap Loperamide HCl (Imodium) 2 mg PO Q8H PRN PRN Reason: Diarrhea Montelukast Sodium (Singulair) 10 mg PO DAILY [facility] Last Admin: 10/28/17 11:13 Dose: 10 mg Multivitamins (Thera Tab) 1 tab PO DAILY [facility] Last Admin: 10/28/17 11:13 Dose: 1 tab Mometasone Furoate [ Nasonex] 2 [place] ( Home Med) 2 spray IH BID [facility] Last Admin: 10/28/17 11:13 Dose: Not Given Nystatin/Triamcinolone Acetonide (Nystatin/Triamcinolone Ointment) 0 gm TOP BID [facility] Last Admin: 10/28/17 11:13 Dose: 1 applic Pantoprazole Sodium (Protonix Ec Tab) 20 mg PO 0600 [facility] Last Admin: 10/28/17 06:29 Dose: 20 mg Risperidone (Risperdal Tab) 0.5 mg PO DAILY [facility] PRN Reason: Protocol Last Admin: 10/28/17 11:12 Dose: 0.5 mg Warfarin Sodium (Coumadin) 2 mg PO 1800 [facility] PRN Reason: Protocol Last Admin: 10/27/17 17:21 Dose: 2 mg - Labs Labs: 10/27/17 06:30 10/27/17 06:30 PT 21.9 SECONDS (9.4-12.5) H 10/27/17 06:30 INR 1.88 (0.93-1.08) H 10/27/17 06:30 APTT 31.2 Seconds (25.1-36.5) 10/21/17 19:00 - Constitutional Appears: Non-toxic, No Acute Distress, Chronically Ill - Head Exam Head Exam: ATRAUMATIC, NORMOCEPHALIC - Eye Exam Eye Exam: EOMI, PERRL Pupil Exam: NORMAL ACCOMODATION, PERRL - ENT Exam ENT Exam: Mucous Membranes Moist, Normal External Ear Exam, TM's Normal Bilaterally - Neck Exam Neck Exam: Full ROM, Normal Inspection - Respiratory Exam Respiratory Exam: Clear to Ausculation Bilateral, NORMAL BREATHING PATTERN. absent: Rales, Rhonchi, Wheezes - Cardiovascular Exam Cardiovascular Exam: REGULAR RHYTHM, RRR, +S1, +S2 - GI/Abdominal Exam GI & Abdominal Exam: Soft, Normal Bowel Sounds. absent: Distended, Tenderness - Extremities Exam Extremities Exam: Full ROM, Normal Inspection - Neurological Exam Neurological Exam: Alert, Awake, CN II-XII Intact, Oriented x3 - Psychiatric Exam Psychiatric exam: Agitated, Anxious - Skin Skin Exam: Dry, Warm Assessment and Plan - Assessment and Plan (Free Text) Assessment: 62 yo female with near syncopal episode at Nursing facility and brought to [facility] for evaluation. The patient had fevers up to 102.7 F in the past 24 hours. The patient will need repeat urine and blood cultures. Start on Rocephin for antibiotic coverage at the very least. Noted radiology studies. Supportive care. No leukocytosis. If there is no improvement in the temperatures within the next 24 hours, will have to consider escalating antibiotic therapy. No leukocytosis. Patient giving very few symptoms. She wants to go back to [facility]. Hypokalemia. Check ESR in AM. Afebrile today so far. Blood Cultures to date negative. Cultures negative and C. Diff negative. Urine cultures now showing gram positive cocci. Awaiting culture result... Thank you for allowing me to participate in the care of the patient, we will follow with you.
--- NOTE | 2017-10-28 22:57 | PN ---
DATE: ENDOCRINOLOGY FOLLOWUP NOTE LOCATION: Room 563. SUBJECTIVE: This is a 62-year-old female with an underlying large multinodular goiter with known history of hyperthyroidism, currently off medical therapy at this time, is being followed closely for metabolic management. Her latest chemistry showed a BUN of 25, sodium 144, potassium 3.1, chloride 108, CO2 27, glucose 98 and creatinine 1.1. Her latest thyroid study showed a T4 of 4.6 with a TSH of 1.69. So at this time, we will hold off the resumption of Tapazole medications as noted and we will obtain serial thyroid studies and resume her Tapazole medications as indicated. We will follow. Lidia Ya MD
[2017-10-29] MEDS: Albuterol-Ipratrop 3 mg / 0.5 (3 ml) UD IH SCH ×4 (03:30→19:45)
[2017-10-29] MEDS: Pantoprazole 20 mg EC Tab PO SCH (06:47)
[2017-10-29] MEDS: Multivitamin Therapeutic Tab PO SCH (10:59)
[2017-10-29] MEDS: Lactobacillus Acidophilus 500 MU Cap PO SCH (11:00)
[2017-10-29] MEDS: cefTRIAXone 1 gm 1 GM/100 ML BAG IVPB SCH (11:00)
[2017-10-29] MEDS: Cholecalciferol 1,000 INTLU TAB PO SCH (11:00)
[2017-10-29] MEDS: MOMETASONE FUROATE IH SCH ×2 (11:00→17:30)
[2017-10-29] MEDS: Nystatin-Triamcinolone Ointment(30 gm) TOP SCH ×2 (11:01→17:30)
--- NOTE | 2017-10-29 12:20 | PN ---
DATE: ENDOCRINOLOGY FOLLOWUP NOTE LOCATION: In room 563. SUBJECTIVE: This is a 62-year-old female with known history of hyperthyroidism with an underlying multinodular goiter and is now being followed closely for metabolic management. Her latest chemistry showed a BUN of 25, sodium 144, potassium 3.1, chloride 108, CO2 of 27, glucose 98 and creatinine 1.1. Her latest thyroid study showed a T4 of 4.6 with a TSH of 1.69. So at this time, we will hold off the resumption of the medical therapy for hyperthyroidism thereof. We will follow. Lidia Ya MD
[2017-10-29 16:44] LABS: URINE BILIRUBIN NEGATIVE (NEGATIVE); URINE BLOOD TRACE-INTACT (NEGATIVE); URINE GLUCOSE (UA) NEGATIVE (NEGATIVE); URINE LEUKOCYTE ESTERASE NEGATIVE Leu/uL (NEGATIVE); URINE PROTEIN 100 mg/dL (<30 mg/dL); URINE UROBILINOGEN 0.2 E.U./dL (<1 E.U./dL)
[2017-10-29 16:46] LABS: URINE APPEARANCE CLEAR (CLEAR); URINE COLOR YELLOW (YELLOW)
[2017-10-29 16:58] LABS: URINE WBC 0 - 2 /hpf (0-6)
[2017-10-29 16:59] LABS: URINE BACTERIA MOD (NEG)
--- NOTE | 2017-10-29 18:48 | CP.PCM.PN ---
Subjective - Date & Time of Evaluation Date of Evaluation: 10/29/17 Time of Evaluation: 17:30 - Subjective Subjective: Infectious Disease Follow Up: October 29, 2017 62 yo female with presentation of near syncope. The patient normally ambulates with the aid of a walker and currently is a [facility] resident at [facility] (formerly [facility]). She was found on the floor in the lobby with a bump on the head in the right parietal area. The patient had this occurrence on 10/21/2017. Afebrile currently. No leukocytosis. 10/21/2017 urine culture was negative. She appears comfortable at bedside. Afebrile so far today. She is very anxious and restless. No specific new findings on physical exam. Cultures and C. Diff negative so far except for urine culture now showing gram positive cocci. Was hypokalemic. Given oral potassium. Encouraged patient to eat. Objective - Vital Signs/Intake and Output Vital Signs (last 24 hours): Temp Pulse Resp BP Pulse Ox 99.1 F 90 20 145/89 96 10/29/17 15:55 10/29/17 17:29 10/29/17 15:55 10/29/17 17:29 10/29/17 15:55 Intake and Output: 10/29/17 10/29/17 06:59 18:59 Intake Total 480 Output Total 200 Balance -200 480 - Medications Medications: Current Medications Acetaminophen (Tylenol 325mg Tab) 650 mg PO Q4H PRN PRN Reason: Fever >100.5 F Last Admin: 10/26/17 17:15 Dose: 650 mg Albuterol/Ipratropium (Duoneb 3 Mg/0.5 Mg (3 Ml) Ud) 3 ml IH [id number] [facility] Last Admin: 10/29/17 13:49 Dose: 3 ml Alprazolam (Xanax) 0.25 mg PO BID PRN; Protocol PRN Reason: Anxiety Stop: 10/31/17 10:01 Last Admin: 10/28/17 15:52 Dose: 0.25 mg Carvedilol (Coreg) 12.5 mg PO BID [facility] Last Admin: 10/29/17 17:29 Dose: 12.5 mg Cholecalciferol (Vitamin D) 1,000 intlu PO DAILY [facility] Last Admin: 10/29/17 11:00 Dose: 1,000 intlu Fluoxetine HCl (Prozac) 40 mg PO DAILY [facility] Last Admin: 10/29/17 10:59 Dose: 40 mg Furosemide (Lasix) 20 mg PO DAILY [facility] Last Admin: 10/29/17 10:59 Dose: 20 mg Ceftriaxone Sodium (Rocephin 1 Gram Ivpb) 1 gm in 100 mls @ 100 mls/hr IVPB DAILY [facility] PRN Reason: Protocol Last Admin: 10/29/17 11:00 Dose: 100 mls/hr Lactobacillus Acidophilus (Bacid Acidophilus) 1 cap PO DAILY [facility] Last Admin: 10/29/17 11:00 Dose: 1 cap Loperamide HCl (Imodium) 2 mg PO Q8H PRN PRN Reason: Diarrhea Montelukast Sodium (Singulair) 10 mg PO DAILY [facility] Last Admin: 10/29/17 11:00 Dose: 10 mg Multivitamins (Thera Tab) 1 tab PO DAILY [facility] Last Admin: 10/29/17 10:59 Dose: 1 tab Mometasone Furoate [ Nasonex] 2 [place] ( Home Med) 2 spray IH BID [facility] Last Admin: 10/29/17 17:30 Dose: Not Given Nystatin/Triamcinolone Acetonide (Nystatin/Triamcinolone Ointment) 0 gm TOP BID [facility] Last Admin: 10/29/17 17:30 Dose: 1 applic Pantoprazole Sodium (Protonix Ec Tab) 20 mg PO 0600 [facility] Last Admin: 10/29/17 06:47 Dose: 20 mg Risperidone (Risperdal Tab) 0.5 mg PO DAILY [facility] PRN Reason: Protocol Last Admin: 10/29/17 11:00 Dose: 0.5 mg Warfarin Sodium (Coumadin) 2 mg PO 1800 [facility] PRN Reason: Protocol Last Admin: 10/29/17 17:30 Dose: 2 mg - Labs Labs: 10/27/17 06:30 10/27/17 06:30 PT 21.9 SECONDS (9.4-12.5) H 10/27/17 06:30 INR 1.88 (0.93-1.08) H 10/27/17 06:30 APTT 31.2 Seconds (25.1-36.5) 10/21/17 19:00 - Constitutional Appears: Non-toxic, No Acute Distress, Chronically Ill - Head Exam Head Exam: ATRAUMATIC, NORMOCEPHALIC - Eye Exam Eye Exam: EOMI, PERRL Pupil Exam: NORMAL ACCOMODATION, PERRL - ENT Exam ENT Exam: Mucous Membranes Moist, Normal External Ear Exam, TM's Normal Bilaterally - Neck Exam Neck Exam: Full ROM, Normal Inspection - Respiratory Exam Respiratory Exam: Clear to Ausculation Bilateral, NORMAL BREATHING PATTERN. absent: Rales, Rhonchi, Wheezes - Cardiovascular Exam Cardiovascular Exam: REGULAR RHYTHM, RRR, +S1, +S2 - GI/Abdominal Exam GI & Abdominal Exam: Soft, Normal Bowel Sounds. absent: Distended, Tenderness - Extremities Exam Extremities Exam: Full ROM, Normal Inspection - Neurological Exam Neurological Exam: Alert, Awake, CN II-XII Intact, Oriented x3 - Psychiatric Exam Psychiatric exam: Agitated, Anxious - Skin Skin Exam: Intact, Normal Color Assessment and Plan - Assessment and Plan (Free Text) Assessment: 62 yo female with near syncopal episode at Nursing facility and brought to [facility] for evaluation. The patient had fevers up to 102.7 F earlier in hospitalization. The patient will need repeat urine and blood cultures. Start on Rocephin for antibiotic coverage at the very least. Noted radiology studies. Supportive care. No leukocytosis. If there is no improvement in the temperatures within the next 24 hours, will have to consider escalating antibiotic therapy. No leukocytosis. Patient giving very few symptoms. She wants to go back to [facility]. Hypokalemia. Check ESR in AM. Afebrile today so far. Blood Cultures to date negative. Cultures negative and C. Diff negative. Urine cultures now showing gram positive cocci. Awaiting culture result... Enterococcus sensitive to ampicillin. Start oral amoxicillin. Thank you for allowing me to participate in the care of the patient, we will follow with you.
[2017-10-29] MEDS: AMPicillin/Sulbactam 1.5gm 1 GM/100 ML BAG IVPB SCH (21:27)
--- NOTE | 2017-10-30 00:50 | PN ---
DATE: SUBJECTIVE: Patient is seen and examined at the bedside, looking comfortable. No nausea, vomiting, or diarrhea. No hematuria or hematochezia. Afebrile currently. No swelling of the legs. No chest pain. No palpitation. No leukocytosis. PHYSICAL EXAMINATION: VITAL SIGNS: Temperature 99.1, pulse 90, respiratory rate 20, blood pressure 145/89, pulse oximetry 96. HEENT: Head is normocephalic and atraumatic. Eyes, PERRLA. Extraocular movements are intact. Conjunctivae are clear. Nose is patent. Mucous membranes are moist. NECK: Supple. No carotid bruit. No JVD or thyromegaly. CHEST: Bilaterally symmetrical. HEART: S1 and S2 positive. LUNGS: Clear to auscultation. ABDOMEN: Soft. Bowel sounds are positive. No organomegaly. EXTREMITIES: No edema. No cyanosis. NEUROLOGIC: The patient is awake and alert. Moving all 4 extremities. No focal deficits. MEDICATIONS: Tylenol, DuoNeb, Xanax, Coreg, vitamin D, Prozac, Lasix, Rocephin, acidophilus, Imodium, Singulair, naproxen, Protonix, Risperdal, Coumadin. LABORATORY DATA: White blood cells 7.6, hemoglobin 8.3, hematocrit 25.1, and platelets 145. Sodium 144, potassium 3.1, BUN 25, creatinine 1.1, glucose 98. ASSESSMENT AND PLAN: Ms. Rylie Sabillon is a 62-year-old lady with leukopenia, anemia, hypokalemia, hyperchloremia; came with near-syncopal episode from the nursing facility, has history of fever of 102.7 earlier in the hospitalization, but now is afebrile. Got Rocephin. Blood pressure is negative, up-to-date. Clostridium difficile negative. Urine cultures show now gram-positive cocci. Awaiting for the culture results. Enterococcus sensitivity to ampicillin. Start oral amoxicillin. History of hyperthyroidism, now transiently with hypothyroidism, diffuse goiter. Latest thyroid study shows T4 of 4.6, while TSH is 1.69. We will hold off the resumption of the medical therapy for hyperthyroidism. Discussion done with Dr. Puneet Morales, length of time about biopsy, history of atrial fibrillation,coronary artery disease, dementia, degenerative joint disease, history of congestive heart failure, depression, history of chronic diarrhea, GI is on the case, gastroesophageal reflux disease, fatigue, proteinuria, renal insufficiency, thyroid nodules. Gastrointestinal and deep venous thrombosis prophylaxis. Repeat labs. We will follow. Sharonda Knight MD
[2017-10-30] MEDS: Albuterol-Ipratrop 3 mg / 0.5 (3 ml) UD IH SCH ×4 (01:26→19:52)
[2017-10-30] MEDS: AMPicillin/Sulbactam 1.5gm 1 GM/100 ML BAG IVPB SCH ×3 (05:57→21:17)
[2017-10-30] MEDS: Pantoprazole 20 mg EC Tab PO SCH (06:00)
[2017-10-30 07:14] LABS: INR 1.99 (0.93-1.08); PROTHROMBIN TIME 23.2 SECONDS (9.4-12.5)
[2017-10-30 07:49] LABS: FREE T4 1.74 ng/dL (0.78-2.19); T4 9.4 ug/dL (5.5-11.0)
[2017-10-30 08:00] LABS: ALB/GLOB RATIO 0.9 (1.1-1.8); ALT/SGPT 49 U/L (7-56); AST/SGOT 25 U/L (14-36); BLOOD UREA NITROGEN 30 mg/dL (7-21); CALCIUM 8.7 mg/dL (8.4-10.5); GFR AFRICAN-AMERICAN > 60; GFR NON-AFRICAN AMERICAN 56
[2017-10-30] MEDS: Nystatin-Triamcinolone Ointment(30 gm) TOP SCH ×2 (10:00→17:41)
[2017-10-30] MEDS: Multivitamin Therapeutic Tab PO SCH (10:37)
[2017-10-30] MEDS: Lactobacillus Acidophilus 500 MU Cap PO SCH (10:38)
[2017-10-30] MEDS: Cholecalciferol 1,000 INTLU TAB PO SCH (10:38)
[2017-10-30] MEDS: MOMETASONE FUROATE IH SCH ×2 (10:38→17:41)
--- NOTE | 2017-10-30 16:02 | PN ---
DATE: ENDOCRINOLOGY FOLLOWUP NOTE LOCATION: Room 563. SUBJECTIVE: This is a 62-year-old female with known history of hyperthyroidism with underlying multinodular goiter and is now being followed closely for metabolic management. She remains clinically and biochemically euthyroid at this time, but because of the previous intake of hyperthyroid medications, with supervening hypothyroidism, we actually temporarily discontinued her Tapazole medications as noted. The repeat thyroid studies today showed a T4 of 9.4 with a TSH of 0.1 and a free T4 of 1.74 indicative of early hyperthyroidism. So, we will resume now the Tapazole at a much lower dose of 5 mg b.i.d. after meals as ordered. We will titrate incrementally as indicated to optimize metabolic control. We will follow. Lidia Ya MD
[2017-10-30] MEDS: methIMAzole 5 MG TAB PO SCH (17:41)
--- NOTE | 2017-10-30 18:11 | CP.PCM.PN ---
Subjective - Date & Time of Evaluation Date of Evaluation: 10/30/17 Time of Evaluation: 16:30 - Subjective Subjective: Infectious Disease Follow Up: October 30, 2017 62 yo female with presentation of near syncope. The patient normally ambulates with the aid of a walker and currently is a alf resident at [facility] (formerly [facility]). She was found on the floor in the lobby with a bump on the head in the right parietal area. The patient had this occurrence on 10/21/2017. Afebrile currently. No leukocytosis. 10/21/2017 urine culture was negative. She appears comfortable at bedside. Afebrile so far today. She is very anxious and restless. No specific new findings on physical exam. Cultures and C. Diff negative so far except for urine culture now showing gram positive cocci. Identified as enterococcus. Was hypokalemic. Given oral potassium. Encouraged patient to eat. Issue of transient hypothyroidism. Has diffuse goiter. Objective - Vital Signs/Intake and Output Vital Signs (last 24 hours): Temp Pulse Resp BP Pulse Ox 98.1 F 85 18 145/89 98 10/30/17 14:00 10/30/17 17:41 10/30/17 14:00 10/30/17 17:41 10/30/17 14:00 Intake and Output: 10/30/17 10/30/17 06:59 18:59 Intake Total 660 Balance 660 - Medications Medications: Current Medications Acetaminophen (Tylenol 325mg Tab) 650 mg PO Q4H PRN PRN Reason: Fever >100.5 F Last Admin: 10/26/17 17:15 Dose: 650 mg Albuterol/Ipratropium (Duoneb 3 Mg/0.5 Mg (3 Ml) Ud) 3 ml IH [id number] [facility] Last Admin: 10/30/17 13:22 Dose: 3 ml Alprazolam (Xanax) 0.25 mg PO BID PRN; Protocol PRN Reason: Anxiety Stop: 10/31/17 10:01 Last Admin: 10/30/17 17:42 Dose: 0.25 mg Carvedilol (Coreg) 12.5 mg PO BID [facility] Last Admin: 10/30/17 17:41 Dose: 12.5 mg Cholecalciferol (Vitamin D) 1,000 intlu PO DAILY [facility] Last Admin: 10/30/17 10:38 Dose: 1,000 intlu Fluoxetine HCl (Prozac) 40 mg PO DAILY [facility] Last Admin: 10/30/17 10:37 Dose: 40 mg Furosemide (Lasix) 20 mg PO DAILY [facility] Last Admin: 10/30/17 10:37 Dose: 20 mg Ampicillin Sodium/Sulbactam Sodium (Unasyn) 1 gm in 100 mls @ 100 mls/hr IVPB Q8 [facility] PRN Reason: Protocol Last Admin: 10/30/17 13:50 Dose: 100 mls/hr Lactobacillus Acidophilus (Bacid Acidophilus) 1 cap PO DAILY [facility] Last Admin: 10/30/17 10:38 Dose: 1 cap Methimazole (Tapazole) 5 mg PO BID [facility] Last Admin: 10/30/17 17:41 Dose: 5 mg Montelukast Sodium (Singulair) 10 mg PO DAILY [facility] Last Admin: 10/30/17 10:37 Dose: 10 mg Multivitamins (Thera Tab) 1 tab PO DAILY [facility] Last Admin: 10/30/17 10:37 Dose: 1 tab Mometasone Furoate [ Nasonex] 2 Tidioute ( Home Med) 2 spray IH BID [facility] Last Admin: 10/30/17 17:41 Dose: Not Given Nystatin/Triamcinolone Acetonide (Nystatin/Triamcinolone Ointment) 0 gm TOP BID [facility] Last Admin: 10/30/17 17:41 Dose: 1 applic Pantoprazole Sodium (Protonix Ec Tab) 20 mg PO 0600 [facility] Last Admin: 10/30/17 06:00 Dose: 20 mg Risperidone (Risperdal Tab) 0.5 mg PO DAILY [facility] PRN Reason: Protocol Last Admin: 10/30/17 10:37 Dose: 0.5 mg Warfarin Sodium (Coumadin) 2 mg PO 1800 [facility] PRN Reason: Protocol Last Admin: 10/30/17 17:41 Dose: 2 mg - Labs Labs: 10/27/17 06:30 10/30/17 06:30 PT 23.2 SECONDS (9.4-12.5) H 10/30/17 06:30 INR 1.99 (0.93-1.08) H 10/30/17 06:30 APTT 31.2 Seconds (25.1-36.5) 03/30/18 19:00 - Constitutional Appears: Non-toxic, No Acute Distress, Chronically Ill - Head Exam Head Exam: ATRAUMATIC, NORMOCEPHALIC - Eye Exam Eye Exam: EOMI, PERRL Pupil Exam: NORMAL ACCOMODATION, PERRL - ENT Exam ENT Exam: Mucous Membranes Moist, Normal External Ear Exam, TM's Normal Bilaterally - Neck Exam Neck Exam: Full ROM, Normal Inspection - Respiratory Exam Respiratory Exam: Clear to Ausculation Bilateral, NORMAL BREATHING PATTERN. absent: Rales, Rhonchi, Wheezes - Cardiovascular Exam Cardiovascular Exam: REGULAR RHYTHM, RRR, +S1, +S2 - GI/Abdominal Exam GI & Abdominal Exam: Soft, Normal Bowel Sounds. absent: Distended, Tenderness - Extremities Exam Extremities Exam: Full ROM, Normal Inspection - Neurological Exam Neurological Exam: Alert, Awake, CN II-XII Intact, Oriented x3 - Psychiatric Exam Psychiatric exam: Agitated, Anxious - Skin Skin Exam: Intact, Normal Color Assessment and Plan - Assessment and Plan (Free Text) Assessment: 62 yo female with near syncopal episode at Nursing facility and brought to [facility] for evaluation. The patient had fevers up to 102.7 F earlier in hospitalization. The patient will need repeat urine and blood cultures. Start on Rocephin for antibiotic coverage at the very least. Noted radiology studies. Supportive care. No leukocytosis. If there is no improvement in the temperatures within the next 24 hours, will have to consider escalating antibiotic therapy. No leukocytosis. Patient giving very few symptoms. She wants to go back to [facility]. Hypokalemia. Check ESR in AM. Afebrile today so far. Blood Cultures to date negative. Cultures negative and C. Diff negative. Urine cultures now showing gram positive cocci. Culture result showing Enterococcus sensitive to ampicillin. Start oral amoxicillin on discharge. Will maintain the patient on Unasyn while in hospital. Thank you for allowing me to participate in the care of the patient, we will follow with you.
[2017-10-31] MEDS: Albuterol-Ipratrop 3 mg / 0.5 (3 ml) UD IH SCH ×3 (01:49→13:37)
--- NOTE | 2017-10-31 03:36 | PN ---
DATE: SUBJECTIVE: Patient is seen and examined on the bedside, looking comfortable. No nausea or vomiting. No headache or dizziness. No chest pain. No palpitation. No fever. No chills. PHYSICAL EXAMINATION: VITAL SIGNS: Temperature 98.1, pulse 85, blood pressure 145/80 , respiratory rate 18, oxygenation 98. HEENT: Head normocephalic, atraumatic. Eyes, PERRLA. Extraocular muscles intact. Conjunctivae clear. Nose patent. Mucous membranes moist. NECK: Supple. No carotid bruit. No JVD or thyromegaly. CHEST: Bilaterally symmetrical. HEART: S1 and S2 positive. LUNGS: Clear to auscultation. ABDOMEN: Soft. Bowel sounds positive. No organomegaly. EXTREMITIES: No edema. No cyanosis. NEUROLOGIC: Patient is awake and alert. Moving all four extremities. No focal deficit. MEDICATIONS: Acidophilus, Coreg, Coumadin, DuoNeb, Lasix, Nasonex, nystatin, Protonix, Prozac, Risperdal, Singulair, Tapazole, Tylenol, Unasyn, Xanax. LABORATORY DATA: White blood cell is 7.6, hemoglobin 8.3, hematocrit 25.1, platelets 145. INR is 1.99. Sodium 143, potassium 4.1, BUN 30, creatinine 1. TSH 0.12. ASSESSMENT AND PLAN: Ms. Rylie Sabillon is a 62-year-old female with anemia; history of hypokalemia, now is improved; hyperthyroidism, proteinuria, hematuria. Seen by Dr. Lidia Ya. Patient has a history of hyperthyroidism; with Tapazole, it converted into hypothyroidism, now TSH is coming back. Dr. Lidia Ya restarted Tapazole 5 mg twice a day. Seen by Dr. Wilburn, Infectious Disease, for antibiotics. Urine culture is now showing positive cocci, awaiting for culture results. Enterococcus sensitive to ampicillin. Started on oral ampicillin by Dr. Wilburn. History of coronary artery disease, atrial fibrillation, dementia, degenerative joint disease. Patient is a poor historian, noncompliant. Still biopsy of thyroid gland pending. It is a mutual discussion between Dr. Puneet Morales and Dr. Lidia Ya. Meanwhile, continue present treatment. Repeat labs. We will follow up. Sharonda Knight MD [facility] # [phone] LETY
[2017-10-31] MEDS: AMPicillin/Sulbactam 1.5gm 1 GM/100 ML BAG IVPB SCH (05:55)
[2017-10-31] MEDS: Pantoprazole 20 mg EC Tab PO SCH (05:59)
[2017-10-31 07:58] VITALS: PULSE 78; RESP 16; TEMP 98.6; O2SAT 97
[2017-10-31] MEDS: Lactobacillus Acidophilus 500 MU Cap PO SCH (11:07)
[2017-10-31] MEDS: methIMAzole 5 MG TAB PO SCH (11:07)
[2017-10-31] MEDS: Multivitamin Therapeutic Tab PO SCH (11:07)
[2017-10-31] MEDS: MOMETASONE FUROATE IH SCH (11:08)
[2017-10-31] MEDS: Cholecalciferol 1,000 INTLU TAB PO SCH (11:08)
[2017-10-31] MEDS: Nystatin-Triamcinolone Ointment(30 gm) TOP SCH (11:09)
[2017-10-31 11:24] VITALS: BP 149/71
--- NOTE | 2017-10-31 13:37 | CP.PCM.DIS ---
<WaltersEbonyz - Last Filed: 10/31/17 13:32> Provider - Provider Date of Admission: 10/23/17 11:55 Attending physician: Sharonda Knight MD Primary care physician: Sharonda Knight MD Consults: IR - Dr. Puneet Morales ID - Dr. Wilburn Cardio - Dr. Eber Merida - Dr. Lidia Ya Neuro - Dr. Hills Surgery - Dr. Jairo Morales Time Spent in preparation of Discharge (in minutes): 55 Diagnosis - Discharge Diagnosis (1) Proteinuria Status: Acute (2) Renal insufficiency Status: Acute (3) Thyroid nodule Status: Acute (4) Accidental fall Status: Acute Priority: High (5) Dehydration Status: Acute (6) Fatigue Status: Acute (7) Scalp hematoma Status: Acute (8) UTI (urinary tract infection) Status: Acute (9) Anemia Status: Active (10) Hyperthyroidism Status: Active (11) Head injury Status: Acute (12) Fever and chills Status: Acute Hospital Course - Lab Results Lab Results: Micro Results 10/25/17 22:27 Blood Blood Culture - Final NO GROWTH AFTER 5 DAYS 10/25/17 22:27 Blood Gram Stain - Final TEST NOT PERFORMED 10/29/17 15:55 Urine,Clean Catch Urine Culture - Final Gram Positive Cocci 10/25/17 14:05 Stool Stool Culture - Final NO SALMONELLA, SHIGELLA OR CAMPYLOBACTER ISOLATED. 10/26/17 04:00 Urine Urine Culture - Final Enterococcus Faecalis 10/25/17 14:05 Stool C. difficile Antigen & Toxin A,B (M - Final 10/24/17 16:37 Urine,Catheterized Urine Culture - Final No Growth (<1,000 CFU/ML) 10/24/17 12:20 Stool C. difficile Antigen & Toxin A,B (M - Final Most Recent Lab Values WBC 7.6 10^3/ul (4.5-11.0) 10/27/17 06:30 RBC 2.93 10^6/uL (3.5-6.1) L 10/27/17 06:30 Hgb 8.3 g/dL (12.0-16.0) L 10/27/17 06:30 Hct 25.1 % (36.0-48.0) L 10/27/17 06:30 MCV 85.7 fl (80.0-105.0) 10/27/17 06:30 MCH 28.3 pg (25.0-35.0) 10/27/17 06:30 MCHC 33.1 g/dl (31.0-37.0) 10/27/17 06:30 RDW 14.1 % (11.5-14.5) 10/27/17 06:30 Plt Count 145 10^3/uL (120.0-450.0) 10/27/17 06:30 MPV 9.8 fl (7.0-11.0) 10/27/17 06:30 Gran % 73.7 % (50.0-68.0) H 10/21/17 19:00 Lymph % (Auto) 17.1 % (22.0-35.0) L 10/21/17 19:00 Moffat % (Auto) 7.2 % (1.0-6.0) H 10/21/17 19:00 Eos % (Auto) 1.7 % (1.5-5.0) 10/21/17 19:00 Baso % (Auto) 0.3 % (0.0-3.0) 10/21/17 19:00 Gran # 7.12 (1.4-6.5) H 10/21/17 19:00 Lymph # (Auto) 1.7 (1.2-3.4) 10/21/17 19:00 Moffat # (Auto) 0.7 (0.1-0.6) H 10/21/17 19:00 Eos # (Auto) 0.2 (0.0-0.7) 10/21/17 19:00 Baso # (Auto) 0.03 K/mm3 (0.0-2.0) 10/21/17 19:00 ESR 81 mm/hr (0.0-20.0) H 10/27/17 06:30 PT 23.2 SECONDS (9.4-12.5) H 10/30/17 06:30 INR 1.99 (0.93-1.08) H 10/30/17 06:30 APTT 31.2 Seconds (25.1-36.5) 10/21/17 19:00 Sodium 143 mmol/L (132-148) 10/30/17 06:30 Potassium 4.1 mmol/L (3.6-5.0) 10/30/17 06:30 Chloride 104 mmol/L (98-107) 10/30/17 06:30 Carbon Dioxide 30 mmol/L (21-33) 10/30/17 06:30 Anion Gap 13 (10-20) 10/30/17 06:30 BUN 30 mg/dL (7-21) H 10/30/17 06:30 Creatinine 1.0 mg/dl (0.7-1.2) 10/30/17 06:30 Est GFR ( Amer) > 60 10/30/17 06:30 Est GFR (Non-Af Amer) 56 10/30/17 06:30 POC Glucose (mg/dL) 90 mg/dL (65-110) 10/23/17 06:52 Random Glucose 102 mg/dL (70-110) 10/30/17 06:30 Calcium 8.7 mg/dL (8.4-10.5) 10/30/17 06:30 Phosphorus 2.9 mg/dL (2.5-4.5) 10/26/17 06:00 Magnesium 1.5 mg/dL (1.7-2.2) L 10/26/17 06:00 Total Bilirubin 0.4 mg/dL (0.2-1.3) 10/30/17 06:30 AST 25 U/L (14-36) 10/30/17 06:30 ALT 49 U/L (7-56) 10/30/17 06:30 Alkaline Phosphatase 57 U/L (38-126) 10/30/17 06:30 Troponin I < 0.01 ng/mL 10/22/17 09:50 NT-Pro-B Natriuret Pep 196 pg/mL (0-450) 10/21/17 19:00 Total Protein 6.4 g/dL (5.8-8.3) 10/30/17 06:30 Albumin 3.0 g/dL (3.0-4.8) 10/30/17 06:30 Globulin 3.4 gm/dL 10/30/17 06:30 Albumin/Globulin Ratio 0.9 (1.1-1.8) L 10/30/17 06:30 Free T4 1.74 ng/dL (0.78-2.19) 10/30/17 06:30 Thyroxine (T4) 9.4 ug/dL (5.5-11.0) 10/30/17 06:30 Thyroglobulin, Quant 2072.7 ng/mL (2.8-40.9) H 10/23/17 07:00 TSH 3rd Generation 0.10 mIU/mL (0.46-4.68) L 10/30/17 06:30 Urine Color Yellow (YELLOW) 10/29/17 15:55 Urine Appearance Clear (CLEAR) 10/29/17 15:55 Urine pH 6.0 (4.7-8.0) 10/29/17 15:55 Ur Specific [place] 1.020 (1.005-1.035) 10/29/17 15:55 Urine Protein 100 mg/dL (<30 mg/dL) H 10/29/17 15:55 Urine Glucose (UA) Negative mg/dL (NEGATIVE) 10/29/17 15:55 Urine Ketones Negative mg/dL (NEGATIVE) 10/29/17 15:55 Urine Blood Trace-intact (NEGATIVE) H 10/29/17 15:55 Urine Nitrate Negative (NEGATIVE) 10/29/17 15:55 Urine Bilirubin Negative (NEGATIVE) 10/29/17 15:55 Urine Urobilinogen 0.2 E.U./dL (<1 E.U./dL) 10/29/17 15:55 Ur Leukocyte Esterase Negative Marie/uL (NEGATIVE) 10/29/17 15:55 Urine RBC 1 - 3 /hpf (0-2) 10/29/17 15:55 Urine WBC 0 - 2 /hpf (0-6) 10/29/17 15:55 Ur Epithelial Cells 4 - 5 /hpf (0-5) 10/29/17 15:55 Urine Bacteria Mod (NEG) 10/29/17 15:55 Thyroperoxidase Ab 46 IU/mL (<9) H 10/23/17 07:00 Thyroglobulin Antibody <1 IU/mL (< OR = 1) 10/23/17 07:00 Influenza Typ A,B (EIA) Negative for flu a/b (NEGATIVE) 10/29/17 02:30 - Hospital Course Hospital Course: 62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 diff, Leukemia, Depression, chronic diarrhea, GERD, and Advanced Dementia. Pt admitted to [facility] [place] [place] s/p fall with injury to R posterior head, scalp hematoma, dehydration, UTI and fatigue. Fevers tmax 102.7 and 100.5 on 10/27, pt s/p IVP rochepin and IVF hydration. Urine culture: (+ ) gram positive cocci & (+) enteroccus faecalis. Endocrine evaluated diffuse multinodular goiter as needing treatment w. tapazole 5mg PO BID, will continue to titrate as needed, and determined that thyroid nodules do not require biopsy at this time. Nasal culture: NEGATIVE. Blood culture: NEGATIVE. Stool culture: NEGATIVE. Pt will be discharged with PO coumadin and amoxicillin PO. Pt will return to [facility]. Reviewed: CT head = Senescent changes noted. No acute intracranial abnormality, Lacunar change both basal ganglia and thalami, Cerebral volume loss noted. Scattered areas of decreased attenuation in the deep periventricular white matter consistent with small vessel ischemic change, Right parietal scalp hematoma. There is mild mucoperiosteal thickening in the maxillary and ethmoid sinuses with more moderate right ethmoid and frontal sinus anterior opacification. CT cervical = marked bilateral thyroid lobe enlargement right worse than left. The right lobe measures up to 5 cm AP by 3.3 cm transverse. CXR = WNL Bilateral carotid US = 20-39% proximal ICA stenoses Thyroid US = Cystic nodule midpole region 1.4x1.9x2.1 cm new finding, measures 1.44 cm increased flow to a thickened isthmus, solitary nodule midline 1x1.6x2cm , increased modestly, markeldy enlarged heterogenous hypervascular thyroid land , new suspicious cystic nodule L thyroid lobe. ECHO = LVEF 50% ECG = ABNORMAL, NSR, L ventricular hypertryophy w. repolarization abnormality, cannot rule out septal infarct - Date & Time of H&P Date of H&P: 10/31/17 Time of H&P: 11:45 Discharge Exam - Head Exam Head Exam: ATRAUMATIC, NORMOCEPHALIC - Eye Exam Eye Exam: EOMI, Normal appearance, PERRL Pupil Exam: NORMAL ACCOMODATION, PERRL - ENT Exam ENT Exam: Mucous Membranes Moist - Neck Exam Neck exam: Full Rom - Respiratory Exam Respiratory Exam: Clear to PA & Lateral, NORMAL BREATHING PATTERN - Cardiovascular Exam Cardiovascular Exam: +S1, +S2 - GI/Abdominal Exam GI & Abdominal Exam: Normal Bowel Sounds, Unremarkable - Extremities Exam Extremities exam: normal inspection - Back Exam Back exam: NORMAL INSPECTION - Neurological Exam Neurological exam: Alert, CN II-XII Intact, Normal Gait - Psychiatric Exam Psychiatric exam: Flat Affect, Normal Mood - Skin Skin Exam: Dry, Intact, Normal Color, Warm Discharge Plan - Discharge Medications Prescriptions: Amoxicillin 500 mg PO TID 7 Days #21 tablet - Follow Up Plan Condition: STABLE Disposition: NURSING FACILITY MEDICAID CERT Instructions: Dehydration (DC), Dehydration (GEN), Urinary Tract Infection in Women (DC), Urinary Tract Infection in Men (DC), Renal Failure Diet (DC), Fall Prevention for Older Adults (GEN), Dysuria (GEN), Fall Prevention (DC) Additional Instructions: Take antibiotics as ordered Amoxicillin 500 mg PO TID x7 days. Follow up with PMD within one week Return to the ED if symptoms return Referrals: Sharonda Knight MD [Primary Care Provider] - <Sharonda Knight - Last Filed: 10/31/17 17:29> Provider - Provider Date of Admission: 10/23/17 11:55 Attending physician: Sharonda Knight MD Primary care physician: Sharonda Knight MD Hospital Course - Lab Results Lab Results: Micro Results 10/25/17 22:27 Blood Blood Culture - Final NO GROWTH AFTER 5 DAYS 10/25/17 22:27 Blood Gram Stain - Final TEST NOT PERFORMED 10/29/17 15:55 Urine,Clean Catch Urine Culture - Final Gram Positive Cocci 10/25/17 14:05 Stool Stool Culture - Final NO SALMONELLA, SHIGELLA OR CAMPYLOBACTER ISOLATED. 10/26/17 04:00 Urine Urine Culture - Final Enterococcus Faecalis 10/25/17 14:05 Stool C. difficile Antigen & Toxin A,B (M - Final 10/24/17 16:37 Urine,Catheterized Urine Culture - Final No Growth (<1,000 CFU/ML) 10/24/17 12:20 Stool C. difficile Antigen & Toxin A,B (M - Final Most Recent Lab Values WBC 7.6 10^3/ul (4.5-11.0) 10/27/17 06:30 RBC 2.93 10^6/uL (3.5-6.1) L 10/27/17 06:30 Hgb 8.3 g/dL (12.0-16.0) L 10/27/17 06:30 Hct 25.1 % (36.0-48.0) L 10/27/17 06:30 MCV 85.7 fl (80.0-105.0) 10/27/17 06:30 MCH 28.3 pg (25.0-35.0) 10/27/17 06:30 MCHC 33.1 g/dl (31.0-37.0) 10/27/17 06:30 RDW 14.1 % (11.5-14.5) 10/27/17 06:30 Plt Count 145 10^3/uL (120.0-450.0) 10/27/17 06:30 MPV 9.8 fl (7.0-11.0) 10/27/17 06:30 Gran % 73.7 % (50.0-68.0) H 10/21/17 19:00 Lymph % (Auto) 17.1 % (22.0-35.0) L 10/21/17 19:00 Moffat % (Auto) 7.2 % (1.0-6.0) H 10/21/17 19:00 Eos % (Auto) 1.7 % (1.5-5.0) 10/21/17 19:00 Baso % (Auto) 0.3 % (0.0-3.0) 10/21/17 19:00 Gran # 7.12 (1.4-6.5) H 10/21/17 19:00 Lymph # (Auto) 1.7 (1.2-3.4) 10/21/17 19:00 Moffat # (Auto) 0.7 (0.1-0.6) H 10/21/17 19:00 Eos # (Auto) 0.2 (0.0-0.7) 10/21/17 19:00 Baso # (Auto) 0.03 K/mm3 (0.0-2.0) 10/21/17 19:00 ESR 81 mm/hr (0.0-20.0) H 10/27/17 06:30 PT 23.2 SECONDS (9.4-12.5) H 10/30/17 06:30 INR 1.99 (0.93-1.08) H 10/30/17 06:30 APTT 31.2 Seconds (25.1-36.5) 10/21/17 19:00 Sodium 143 mmol/L (132-148) 10/30/17 06:30 Potassium 4.1 mmol/L (3.6-5.0) 10/30/17 06:30 Chloride 104 mmol/L (98-107) 10/30/17 06:30 Carbon Dioxide 30 mmol/L (21-33) 10/30/17 06:30 Anion Gap 13 (10-20) 10/30/17 06:30 BUN 30 mg/dL (7-21) H 10/30/17 06:30 Creatinine 1.0 mg/dl (0.7-1.2) 10/30/17 06:30 Est GFR ( Amer) > 60 10/30/17 06:30 Est GFR (Non-Af Amer) 56 10/30/17 06:30 POC Glucose (mg/dL) 90 mg/dL (65-110) 10/23/17 06:52 Random Glucose 102 mg/dL (70-110) 10/30/17 06:30 Calcium 8.7 mg/dL (8.4-10.5) 10/30/17 06:30 Phosphorus 2.9 mg/dL (2.5-4.5) 10/26/17 06:00 Magnesium 1.5 mg/dL (1.7-2.2) L 10/26/17 06:00 Total Bilirubin 0.4 mg/dL (0.2-1.3) 10/30/17 06:30 AST 25 U/L (14-36) 10/30/17 06:30 ALT 49 U/L (7-56) 10/30/17 06:30 Alkaline Phosphatase 57 U/L (38-126) 10/30/17 06:30 Troponin I < 0.01 ng/mL 10/22/17 09:50 NT-Pro-B Natriuret Pep 196 pg/mL (0-450) 10/21/17 19:00 Total Protein 6.4 g/dL (5.8-8.3) 10/30/17 06:30 Albumin 3.0 g/dL (3.0-4.8) 10/30/17 06:30 Globulin 3.4 gm/dL 10/30/17 06:30 Albumin/Globulin Ratio 0.9 (1.1-1.8) L 10/30/17 06:30 Free T4 1.74 ng/dL (0.78-2.19) 10/30/17 06:30 Thyroxine (T4) 9.4 ug/dL (5.5-11.0) 10/30/17 06:30 Thyroglobulin, Quant 2072.7 ng/mL (2.8-40.9) H 10/23/17 07:00 TSH 3rd Generation 0.10 mIU/mL (0.46-4.68) L 10/30/17 06:30 Urine Color Yellow (YELLOW) 10/29/17 15:55 Urine Appearance Clear (CLEAR) 10/29/17 15:55 Urine pH 6.0 (4.7-8.0) 10/29/17 15:55 Ur Specific [place] 1.020 (1.005-1.035) 10/29/17 15:55 Urine Protein 100 mg/dL (<30 mg/dL) H 10/29/17 15:55 Urine Glucose (UA) Negative mg/dL (NEGATIVE) 10/29/17 15:55 Urine Ketones Negative mg/dL (NEGATIVE) 10/29/17 15:55 Urine Blood Trace-intact (NEGATIVE) H 10/29/17 15:55 Urine Nitrate Negative (NEGATIVE) 10/29/17 15:55 Urine Bilirubin Negative (NEGATIVE) 10/29/17 15:55 Urine Urobilinogen 0.2 E.U./dL (<1 E.U./dL) 10/29/17 15:55 Ur Leukocyte Esterase Negative Marie/uL (NEGATIVE) 10/29/17 15:55 Urine RBC 1 - 3 /hpf (0-2) 10/29/17 15:55 Urine WBC 0 - 2 /hpf (0-6) 10/29/17 15:55 Ur Epithelial Cells 4 - 5 /hpf (0-5) 10/29/17 15:55 Urine Bacteria Mod (NEG) 10/29/17 15:55 Thyroperoxidase Ab 46 IU/mL (<9) H 10/23/17 07:00 Thyroglobulin Antibody <1 IU/mL (< OR = 1) 10/23/17 07:00 Influenza Typ A,B (EIA) Negative for flu a/b (NEGATIVE) 10/29/17 02:30 - Hospital Course Hospital Course: pt is seen and examined at bed side , agreed all above , 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
--- NOTE | 2017-10-31 16:56 | CP.PCM.PN ---
Subjective - Date & Time of Evaluation Date of Evaluation: 10/31/17 Time of Evaluation: 16:00 - Subjective Subjective: Infectious Disease Follow Up: October 31, 2017 62 yo female with presentation of near syncope. The patient normally ambulates with the aid of a walker and currently is a fpc resident at [facility] (formerly [facility]). She was found on the floor in the lobby with a bump on the head in the right parietal area. The patient had this occurrence on 10/21/2017. Afebrile currently. No leukocytosis. 10/21/2017 urine culture was negative. She appears comfortable at bedside. Afebrile so far today. She is very anxious and restless. No specific new findings on physical exam. Cultures and C. Diff negative so far except for urine culture now showing gram positive cocci. Identified as enterococcus. Was hypokalemic. Given oral potassium. Encouraged patient to eat. Issue of transient hypothyroidism. Has diffuse goiter. Repeat urine culture showing <10,000 CFU/ml gram positive cocci. Objective - Vital Signs/Intake and Output Vital Signs (last 24 hours): Temp Pulse Resp BP Pulse Ox 98.6 F 78 16 149/71 97 10/31/17 07:57 10/31/17 11:08 10/31/17 07:57 10/31/17 11:08 10/31/17 07:57 Intake and Output: 10/31/17 10/31/17 06:59 18:59 Intake Total 1020 360 Balance 1020 360 - Medications Medications: Current Medications Acetaminophen (Tylenol 325mg Tab) 650 mg PO Q4H PRN PRN Reason: Fever >100.5 F Last Admin: 10/26/17 17:15 Dose: 650 mg Albuterol/Ipratropium (Duoneb 3 Mg/0.5 Mg (3 Ml) Ud) 3 ml IH [id number] MORA Last Admin: 10/31/17 13:37 Dose: 3 ml Amoxicillin (Amoxil 500 Mg Cap) 500 mg PO Q8 MORA PRN Reason: Protocol Stop: 11/07/17 14:01 Last Admin: 10/31/17 14:29 Dose: 500 mg Carvedilol (Coreg) 12.5 mg PO BID MORA Last Admin: 10/31/17 11:08 Dose: 12.5 mg Cholecalciferol (Vitamin D) 1,000 intlu PO DAILY [facility] Last Admin: 10/31/17 11:08 Dose: 1,000 intlu Fluoxetine HCl (Prozac) 40 mg PO DAILY [facility] Last Admin: 10/31/17 11:07 Dose: 40 mg Furosemide (Lasix) 20 mg PO DAILY [facility] Last Admin: 10/31/17 11:08 Dose: 20 mg Lactobacillus Acidophilus (Bacid Acidophilus) 1 cap PO DAILY [facility] Last Admin: 10/31/17 11:07 Dose: 1 cap Methimazole (Tapazole) 5 mg PO BID [facility] Last Admin: 10/31/17 11:07 Dose: 5 mg Montelukast Sodium (Singulair) 10 mg PO DAILY [facility] Last Admin: 10/31/17 11:07 Dose: 10 mg Multivitamins (Thera Tab) 1 tab PO DAILY [facility] Last Admin: 10/31/17 11:07 Dose: 1 tab Mometasone Furoate [ Nasonex] 2 [place] ( Home Med) 2 spray IH BID [facility] Last Admin: 10/31/17 11:08 Dose: Not Given Nystatin/Triamcinolone Acetonide (Nystatin/Triamcinolone Ointment) 0 gm TOP BID [facility] Last Admin: 10/31/17 11:09 Dose: 1 applic Pantoprazole Sodium (Protonix Ec Tab) 20 mg PO 0600 [facility] Last Admin: 10/31/17 05:59 Dose: Not Given Risperidone (Risperdal Tab) 0.5 mg PO DAILY [facility] PRN Reason: Protocol Last Admin: 10/31/17 11:07 Dose: 0.5 mg Warfarin Sodium (Coumadin) 2 mg PO 1800 [facility] PRN Reason: Protocol Last Admin: 10/30/17 17:41 Dose: 2 mg - Labs Labs: 10/27/17 06:30 10/30/17 06:30 PT 23.2 SECONDS (9.4-12.5) H 10/30/17 06:30 INR 1.99 (0.93-1.08) H 10/30/17 06:30 APTT 31.2 Seconds (25.1-36.5) 10/21/17 19:00 - Constitutional Appears: Non-toxic, No Acute Distress, Agitated, Chronically Ill - Head Exam Head Exam: ATRAUMATIC, NORMOCEPHALIC - Eye Exam Eye Exam: EOMI, PERRL Pupil Exam: NORMAL ACCOMODATION, PERRL - ENT Exam ENT Exam: Mucous Membranes Moist, Normal External Ear Exam, TM's Normal Bilaterally - Neck Exam Neck Exam: Full ROM, Normal Inspection - Respiratory Exam Respiratory Exam: Clear to Ausculation Bilateral, NORMAL BREATHING PATTERN. absent: Rales, Rhonchi, Wheezes - Cardiovascular Exam Cardiovascular Exam: REGULAR RHYTHM, RRR, +S1, +S2 - GI/Abdominal Exam GI & Abdominal Exam: Soft, Normal Bowel Sounds. absent: Distended, Tenderness - Extremities Exam Extremities Exam: Full ROM, Normal Inspection - Neurological Exam Neurological Exam: Alert, Awake, CN II-XII Intact, Oriented x3 - Psychiatric Exam Psychiatric exam: Agitated, Anxious - Skin Skin Exam: Intact, Normal Color Assessment and Plan - Assessment and Plan (Free Text) Assessment: 62 yo female with near syncopal episode at Nursing facility and brought to [facility] for evaluation. The patient had fevers up to 102.7 F earlier in hospitalization. The patient will need repeat urine and blood cultures. Start on Rocephin for antibiotic coverage at the very least. Noted radiology studies. Supportive care. No leukocytosis. If there is no improvement in the temperatures within the next 24 hours, will have to consider escalating antibiotic therapy. No leukocytosis. Patient giving very few symptoms. She wants to go back to [facility]. Hypokalemia. Check ESR in AM. Afebrile today so far. Blood Cultures to date negative. Cultures negative and C. Diff negative. Urine cultures now showing gram positive cocci. Culture result showing Enterococcus sensitive to ampicillin. Start oral amoxicillin on discharge. Will maintain the patient on Unasyn while in hospital. Repeat urine cultures showing reduction in numbers of UTI. Thank you for allowing me to participate in the care of the patient, we will follow with you.
--- NOTE | 2017-10-31 20:28 | PN ---
DATE: ENDOCRINOLOGY FOLLOWUP NOTE LOCATION: Room 563. SUBJECTIVE: This is a 62-year-old female with known history of toxic multinodular goiter with small bilateral nodules and presenting here with medication-induced hypothyroidism and is now being followed closely for metabolic management. She has remained clinically euthyroid and biochemically has shown subclinical hyperthyroidism at this time after withholding the Tapazole for this inpatient admission. Her latest thyroid study showed a T4 of 9.4 with a TSH of 0.10. So, we have actually resumed the Tapazole at the much lower dose of 5 mg b.i.d. after meals as ordered. We will follow and advise accordingly. Lidia Ya MD
== END 2017-10-31 18:18 | DRG 296 ==
LOC: ED 18:08 → ERH 20:23 → 5RNO 22:36 → OBSVTOIN 10-23 11:55 → 5RNO 10-23 15:28
PROVIDERS: ADMIT Internal Medicine; ATTEND Internal Medicine
DX: E86.0 Dehydration (principal); N39.0 Urinary tract infection, site not specified; I50.9 Heart failure, unspecified; I11.0 Hypertensive heart disease with heart failure; E05.20 Thyrotoxicosis with toxic multinodular goiter without thyrotoxic crisis or storm; F03.90 Unspecified dementia, unspecified severity, without behavioral disturbance, psychotic disturbance, mood disturbance, and anxiety; E87.6 Hypokalemia; E87.8 Other disorders of electrolyte and fluid balance, not elsewhere classified; K21.9 Gastro-esophageal reflux disease without esophagitis; S00.03XA Contusion of scalp, initial encounter; W19.XXXA Unspecified fall, initial encounter; I48.2 Chronic atrial fibrillation; I25.10 Atherosclerotic heart disease of native coronary artery without angina pectoris; N28.9 Disorder of kidney and ureter, unspecified; D50.9 Iron deficiency anemia, unspecified; R80.9 Proteinuria, unspecified; K52.9 Noninfective gastroenteritis and colitis, unspecified; E78.5 Hyperlipidemia, unspecified; E03.2 Hypothyroidism due to medicaments and other exogenous substances; T38.2X5A Adverse effect of antithyroid drugs, initial encounter; F32.9 Major depressive disorder, single episode, unspecified; M19.90 Unspecified osteoarthritis, unspecified site; Z79.01 Long term (current) use of anticoagulants; Z85.6 Personal history of leukemia; Z91.19 Patient's noncompliance with other medical treatment and regimen; Y92.121 Bathroom in nursing home as the place of occurrence of the external cause

== ENCOUNTER 2018-07-18 10:07 | Observation (INO) | payer MEDICAID, OTHER ==
[2018-07-18 10:11] VITALS: BMI 16.7
--- NOTE | 2018-07-18 10:24 | ED PDOC ---
Arrival/HPI - General Chief Complaint: Abdominal Pain Time Seen by Provider: 07/18/18 10:19 Historian: Patient, Retirement - History of Present Illness Narrative History of Present Illness (Text): 07/18/18 10:23 A 63 year old male/female, whose past medical history includes, dementia, depression, CHF, Afib (coumadin), c. diff, NKDA, CAD, HTN, hypothyroidism, and leukemia, presents to the emergency department from [facility] reportedly found lethargic in a wheelchair earlier this morning. Per reports, patient endorsed abdominal pain previously. Patient at bedside is a poor historian and alert and oriented x2. Patient currently shows no acute distress. Patient denies any fever, chills, shortness of breath, chest pain, diarrhea, nausea, vomiting, urinary symptoms, back pain, neck pain, headache, dizziness, or any other complaints. PMD: Dr. Knight Time/Duration: 4-6 hours (earlier today) Symptom Onset: Gradual Symptom Course: Unchanged Activities at Onset: Light Context: Other (fdc) Past Medical History - Provider Review Nursing Documentation Reviewed: Yes - Infectious Disease Hx of Infectious Diseases: None - Tetanus Immunization Tetanus Immunization: Unknown - Reproductive Menopause: Yes - Cardiac Hx Atrial Fibrillation: Yes Hx Congestive Heart Failure: Yes - Pulmonary Hx Respiratory Disorders: No - Neurological Hx Neurological Disorder: No - HEENT Hx HEENT Disorder: No - Renal Hx Renal Disorder: No - Endocrine/Metabolic Hx Hypothyroidism: Yes - Hematological/Oncological Hx Blood Transfusions: (UNSURE) Hx Leukemia: Yes - Integumentary Hx Dermatological Disorder: No - Musculoskeletal/Rheumatological Hx Musculoskeletal Disorders: Yes - Gastrointestinal Hx Gastroesophageal Reflux: Yes - Genitourinary/Gynecological Hx Incontinence: Yes Hx Urinary Tract Infection: Yes - Psychiatric Hx Anxiety: Yes Hx Depression: Yes Hx Schizophrenia: Yes Hx Substance Use: No - Past Surgical History Past Surgical History: Unable to Obtain - Anesthesia Hx Anesthesia Reactions: No - Suicidal Assessment Feels Threatened In Home Enviroment: No Family/Social History - Physician Review Nursing Documentation Reviewed: Yes Family/Social History: No Known Family HX Smoking Status: Never Smoked Hx Alcohol Use: No Hx Substance Use: No Hx Substance Use Treatment: No Allergies/Home Meds Allergies/Adverse Reactions: Allergies No Known Allergies Allergy (Verified 07/18/18 10:19) Home Medications: Home Meds Medication Instructions Recorded Confirmed RX: Pantoprazole Sodium [Protonix] 20 mg PO DAILY 08/24/13 07/18/18 RX: Cholecalciferol (Vitamin D3) 1 tab PO DAILY 01/17/17 07/18/18 [Vitamin D3] RX: Fluoxetine HCl [Prozac] 40 mg PO DAILY 01/17/17 07/18/18 RX: Furosemide [Lasix] 20 mg PO DAILY 01/17/17 07/18/18 RX: Montelukast [Singulair] 10 mg PO DAILY 01/17/17 07/18/18 RX: Risperidone [Risperdal] 0.5 mg PO HS 01/17/17 07/18/18 L.acidoph,Paracasei, B.lactis 1 cap PO DAILY 10/21/17 07/18/18 [Probiotic] RX: Warfarin [Coumadin] 2 mg PO DAILY 10/21/17 07/18/18 RX: methIMAzole [Tapazole] 1 tab PO BID 10/21/17 07/18/18 Methimazole 2.5 tab PO SAT 07/18/18 07/18/18 Multivitamin [One-Daily 1 tab PO DAILY 07/18/18 07/18/18 Multi-Vitamin] Nystatin 1 apful TOP BID 07/18/18 07/18/18 RX: Digoxin [Digitek] 1 tab PO DAILY 07/18/18 07/18/18 RX: Fluticasone/Salmeterol 1 inh LETTY DAILY 07/18/18 07/18/18 [Fluticasone-Salmeterol 55-14] RX: methIMAzole [Tapazole] 2.5 tab PO SUN 07/18/18 07/18/18 Warfarin [Coumadin] 1 mg PO QOTHERDAY 07/18/18 07/18/18 Warfarin [Coumadin] 2 mg PO QOTHERDAY 07/18/18 07/18/18 Review of Systems - Physician Review All systems were reviewed & negative as marked: Yes - Review of Systems Constitutional: absent: Fevers, Night Sweats Respiratory: absent: SOB Cardiovascular: absent: Chest Pain Gastrointestinal: absent: Diarrhea, Nausea, Vomiting Genitourinary Female: absent: Urine Output Changes Musculoskeletal: absent: Back Pain, Neck Pain Neurological: absent: Headache, Dizziness Physical Exam Vital Signs Reviewed: Yes Temperature: Afebrile Blood Pressure: Normal Pulse: Regular Respiratory Rate: Normal Appearance: Positive for: Well-Appearing Mental Status: No: Alert and Oriented X 3 (alert and oriented x 2) - Systems Exam Head: Present: Atraumatic, Normocephalic Pupils: Present: PERRL Extroacular Muscles: Present: EOMI Conjunctiva: Present: Normal Respiratory/Chest: Present: Clear to Auscultation, Good Air Exchange. No: Respiratory Distress, Accessory Muscle Use Cardiovascular: Present: Regular Rate and Rhythm, Normal S1, S2. No: Murmurs Abdomen: Present: Tenderness (minimal suprapubic tenderness) Back: Present: Normal Inspection Upper Extremity: Present: Normal Inspection. No: Cyanosis, Edema Lower Extremity: Present: Normal Inspection. No: Edema Neurological: Present: GCS=15, CN II-XII Intact, Speech Normal Skin: Present: Warm, Dry, Normal Color. No: Rashes Psychiatric: Present: Alert, Oriented x 3, Normal Insight, Normal Concentration Medical Decision Making ED Course and Treatment: 07/18/18 10:23 Impression: 63 year old female presenting to the emergency department for Plan: -- VBG -- Head CT -- Abdomen Pelvis CT -- EKG -- Labs -- CBC -- COAGs -- Chest X-ray -- Urinalysis -- Reassess and disposition Prior Visits: Notes and results from previous visits were reviewed. Progress Notes: 07/18/18 10:45 EKG: Ordered, reviewed, and independently interpreted the EKG. Rate : 83 BPM Rhythm : NSR Interpretation : No ST-T wave changes. 07/18/18 12:15 Procedure: Chest X-ray Time: 07/18/2018 11:49:16 Dictator: Sami Keller MD Impression: No active disease. No significant interval change compared to the prior examination(s). 07/18/18 12:54 Procedure: Head CT without contrast Time: 07/18/2018 12:30:51 Dictator: Sami Keller MD Impression: No acute intracranial abnormalities. No significant findings to account for the clinical presentation. No significant interval change compared to the prior examination(s). Additional benign and/or incidental findings described above. Procedure: CT of abdomen and pelvis with contrast Time: 07/18/2018 12:36:32 Dictator: Sami Keller MD Impression: No significant or acute findings to account for/ related to the clinical presentation.Additional benign and/or incidental findings described above.No significant interval change compared to the prior examination(s). 07/18/18 15:40 labs minimally elevated liopase. ct neg. pt at baseline. seen by pmd bedside. will obs. requests gi consult. - Scribe Statement The provider has reviewed the documentation as recorded by the Jenni Hopkins All medical record entries made by the Jenni were at my direction and personally dictated by me. I have reviewed the chart and agree that the record accurately reflects my personal performance of the history, physical exam, medical decision making, and the department course for this patient. I have also personally directed, reviewed, and agree with the discharge instructions and disposition. Disposition/Present on Arrival - Present on Arrival Any Indicators Present on Arrival: No History of DVT/PE: No History of Uncontrolled Diabetes: No Urinary Catheter: No History of Decub. Ulcer: No History Surgical Site Infection Following: None - Disposition Have Diagnosis and Disposition been Completed?: Yes Diagnosis: Elevated lipase, Altered mental status Disposition: HOSPITALIZED Disposition Time: 14:57 Condition: STABLE
[2018-07-18 11:16] LABS: URINE BILIRUBIN NEGATIVE (NEGATIVE); URINE BLOOD NEGATIVE (NEGATIVE); URINE GLUCOSE (UA) NEGATIVE (NEGATIVE); URINE LEUKOCYTE ESTERASE NEGATIVE Leu/uL (NEGATIVE); URINE PROTEIN NEGATIVE mg/dL (<30 mg/dL); URINE UROBILINOGEN 0.2 E.U./dL (<1 E.U./dL)
[2018-07-18 11:17] LABS: BASO # 0.01 K/mm3 (0.0-2.0); BASO % 0.2 % (0.0-3.0); EOS # 0.3 (0.0-0.7); EOS % 5.8 % (1.5-5.0); GRAN # 3.15 (1.4-6.5); GRAN % 62.6 % (50.0-68.0); HEMOGLOBIN 10.9 g/dL (12.0-16.0); LYMPH % 20.7 % (22.0-35.0); MEAN CELL VOLUME 85.3 fl (80.0-105.0); MEAN CORPUSCULAR HEMOGLOBIN 27.3 pg (25.0-35.0); MEAN PLATELET VOLUME 10.7 fl (7.0-11.0); MONO # 0.5 (0.1-0.6); MONO % 10.7 % (1.0-6.0); RED CELL DISTRIBUTION WIDTH 13.1 % (11.5-14.5); VENOUS BLOOD GAS BASE EXCESS -1.5 mmol/L (0.0-2.0); VENOUS BLOOD GAS PO2 49 mm/Hg (30-55); VENOUS BLOOD PH 7.22 (7.32-7.43)
[2018-07-18 11:18] LABS: URINE APPEARANCE CLEAR (CLEAR); URINE COLOR LIGHT YELLOW (YELLOW)
[2018-07-18] MEDS ORDERED: Iohexol 300 100 ML IJ ONE (11:27)
[2018-07-18 11:28] LABS: ALBUMIN 3.7 g/dL (3.0-4.8); ALT/SGPT 37 U/L (7-56); AST/SGOT 31 U/L (14-36); BLOOD UREA NITROGEN 77 mg/dL (7-21); CALCIUM 9.7 mg/dL (8.4-10.5); GFR NON-AFRICAN AMERICAN 56; INR 3.01; LIPASE 435 U/L (23-300); PARTIAL THROMBOPLASTIN TIME 39.4 Seconds (25.1-36.5); PROTHROMBIN TIME 35.4 SECONDS (9.4-12.5)
[2018-07-18 11:39] LABS: TROPONIN I < 0.01 ng/mL
[2018-07-18 11:41] LABS: ARTERIAL BLOOD GAS HCO3 23.7 mmol/L (21-28); ARTERIAL BLOOD GAS PCO2 43 mm/Hg (35-45); ARTERIAL BLOOD GAS PH 7.35 (7.35-7.45)
--- NOTE | 2018-07-18 11:52 | RAD ---
Date of service: 07/18/2018 HISTORY: Altered mental status COMPARISON: 10/01/2017. FINDINGS: LUNGS: No active pulmonary disease. PLEURA: No significant pleural effusion identified, no pneumothorax apparent. CARDIOVASCULAR: No atherosclerotic calcification present Normal. OSSEOUS STRUCTURES: No significant abnormalities. VISUALIZED UPPER ABDOMEN: Normal. OTHER FINDINGS: None. IMPRESSION: No active disease. No significant interval change compared to the prior examination(s).
--- NOTE | 2018-07-18 12:34 | CT ---
Date of service: 07/18/2018 PROCEDURE: CT HEAD WITHOUT CONTRAST. HISTORY: Altered mental status. COMPARISON: 10/21/2017. TECHNIQUE: Axial computed tomography images were obtained through the head/brain without intravenous contrast. Supplemental Coronal and Sagittal projections created and reviewed. Radiation dose: Total exam DLP = 664.10 mGy-cm. This CT exam was performed using one or more of the following dose reduction techniques: Automated exposure control, adjustment of the mA and/or kV according to patient size, and/or use of iterative reconstruction technique. FINDINGS: HEMORRHAGE: No intracranial hemorrhage. BRAIN: No mass effect or edema. Cortical and cerebellar atrophy, periventricular small vessel disease. Stable infarcts left basal ganglia and thalami bilaterally. VENTRICLES: Unremarkable. No hydrocephalus. CALVARIUM: Unremarkable. PARANASAL SINUSES: Ethmoid and right frontal sinusitis a new finding compared to the prior study. MASTOID AIR CELLS: Unremarkable as visualized. No inflammatory changes. OTHER FINDINGS: None. IMPRESSION: No acute intracranial abnormalities. No significant findings to account for the clinical presentation. No significant interval change compared to the prior examination(s). Additional benign and/or incidental findings described above.
--- NOTE | 2018-07-18 12:39 | CT ---
Date of service: 07/18/2018 PROCEDURE: CT Abdomen and Pelvis with contrast HISTORY: Abdominal pain. COMPARISON: 01/26/2017 abdominal ultrasound 01/20/2017 CT abdomen and pelvis. TECHNIQUE: Intravenous contrast dose: 86 cc Omnipaque 300 Radiation dose: Total exam DLP = 208.67 mGy-cm. This CT exam was performed using one or more of the following dose reduction techniques: Automated exposure control, adjustment of the mA and/or kV according to patient size, and/or use of iterative reconstruction technique. FINDINGS: LOWER THORAX: Unremarkable. LIVER: Unremarkable. No gross lesion or ductal dilatation. GALLBLADDER AND BILE DUCTS: Unremarkable. PANCREAS: Unremarkable. No gross lesion or ductal dilatation. SPLEEN: Unremarkable. ADRENALS: Unremarkable. No mass. KIDNEYS AND URETERS: Unremarkable. No hydronephrosis. No solid mass. Incidental finding(s): Small bilateral cortical renal cysts VASCULATURE: Atherosclerotic calcification and mural plaque present. Findings are seen throughout the aorta, which is non aneurysmal. BOWEL: Unremarkable. No obstruction. No gross mural thickening. APPENDIX: No abnormalities to suggest acute appendicitis. No right lower quadrant inflammatory processes identified. Is PERITONEUM: Unremarkable. No free fluid. No free air. LYMPH NODES: Unremarkable. No enlarged lymph nodes. BLADDER: Unremarkable. REPRODUCTIVE: Unremarkable. BONES: No acute fracture. Hemangioma L2 and L4 vertebral bodies, benign finding unchanged compared to the previous study OTHER FINDINGS: None. IMPRESSION: No significant or acute findings to account for/ related to the clinical presentation. Additional benign and/or incidental findings described above. No significant interval change compared to the prior examination(s).
[2018-07-18] MEDS ORDERED: FLUTICASONE NAS SCH (15:45)
[2018-07-18] MEDS ORDERED: SALMETEROL NAS SCH (15:45)
[2018-07-18 17:51] LABS: HDL CHOLESTEROL 21 mg/dL (29-60)
[2018-07-18 18:00] LABS: INR 3.1; PROTHROMBIN TIME 36.2 SECONDS (9.4-12.5)
[2018-07-18 18:02] LABS: LDL CHOLESTEROL 50 mg/dL (0-129)
[2018-07-18 18:26] LABS: IRON 56 ug/dL (45-180)
[2018-07-18 18:36] LABS: % IRON SATURATION 17 % (20-55); TOTAL IRON BINDING CAPACITY 332 ug/dL (265-497)
--- NOTE | 2018-07-18 18:38 | CARD ---
APPROVED REPORT Date of service: 07/18/2018 EKG Measurement Heart [id number] <Conclusion> Normal sinus rhythm Normal Electrocardiogram
[2018-07-18] MEDS: Arformoterol 15 mcg/2 ml Inh Sol IH SCH (19:35)
[2018-07-18] MEDS: Budesonide 0.25 mg/2 ml Inhal Susp UD IH SCH (19:35)
[2018-07-18] MEDS: Nystatin 100,000 Units/gm Topical Pow(15 gm) TOP SCH (19:51)
[2018-07-19 06:23] LABS: HEMOGLOBIN 10.1 g/dL (12.0-16.0); MEAN CORPUSCULAR HEMOGLOBIN 26.9 pg (25.0-35.0); MEAN PLATELET VOLUME 10.1 fl (7.0-11.0); RBC 3.76 10^6/uL (3.5-6.1); WHITE BLOOD COUNT 5.5 10^3/uL (4.5-11.0)
[2018-07-19 06:50] LABS: BLOOD UREA NITROGEN 70 mg/dL (7-21); CALCIUM 9.6 mg/dL (8.4-10.5); GFR NON-AFRICAN AMERICAN 50
--- NOTE | 2018-07-19 08:48 | HP ---
DATE OF EXAM: 07/18/2018 CHIEF COMPLAINT: Abdominal pain and lethargic. HISTORY OF PRESENT ILLNESS: Ms. Rylie Sabillon is a 63-year-old female with past medical history of dementia; depression; congestive heart failure; atrial fibrillation, on Coumadin; C. difficile toxin colitis; coronary artery disease; hyperthyroidism; history of leukemia; [facility]; and reportedly found to be lethargic in the wheelchair earlier this morning. By reports, the patient endorsed abdominal pain and she is complaining very often diarrhea also. The patient is seen in the emergency room by me, complaining about abdominal pain, feeling fatigue and tired. No fever. No chills. PAST MEDICAL HISTORY: As above. History of dementia, depression, congestive heart failure, atrial fibrillation, C. difficile toxin colitis, coronary artery disease, hypertension, hyperthyroidism, leukemia, gastroesophageal reflux disease, history of depression, and schizophrenia. FAMILY HISTORY: Father and mother, noncontributory. HABITS: No smoking. No drugs. No ethanol. ALLERGIES: THE PATIENT IS NOT ALLERGIC WITH ANY MEDICATIONS. HOME MEDICATIONS: Protonix, vitamin D, Lasix, Singulair, Risperdal, Lactobacillus probiotic, Coumadin, Tapazole, methimazole, and digoxin. REVIEW OF SYSTEMS: The patient was seen and examined at the bedside in the emergency room, looking comfortable. No fever. No chills. No hematuria. No hematochezia. No swelling of the legs. No chest pain. No palpitations. Having abdominal pain and feeling fatigue and tired. PHYSICAL EXAMINATION: VITAL SIGNS: Reviewed by me. Sharonda Knight MD LETY
[2018-07-19] MEDS: Budesonide 0.25 mg/2 ml Inhal Susp UD IH SCH ×2 (09:37→19:30)
[2018-07-19] MEDS: Arformoterol 15 mcg/2 ml Inh Sol IH SCH ×2 (09:37→19:30)
[2018-07-19] MEDS: Nystatin 100,000 Units/gm Topical Pow(15 gm) TOP SCH ×3 (09:51→19:18)
[2018-07-19] MEDS: Pantoprazole 20 mg EC Tab PO SCH (09:56)
[2018-07-19] MEDS: Cholecalciferol 1,000 INTLU TAB PO SCH (09:58)
[2018-07-19 12:35] LABS: FOLATE > 20.0 ng/mL
--- NOTE | 2018-07-19 13:25 | CP.PCM.CON ---
History of Present Illness - History of Present Illness History of Present Illness: PGY6 GI Fellow Consult Note Patient is a 63yo female with PMHx significant for dementia, CHF, CAD, atrial fibrillation on coumadin, hyperthyroidism on methimazole, GERD and HTN who presented to the ED for altered mental status. Patient was more lethargic than usual and sent from [place] to the ED for further evaluation. Our service has been consulted to evaluate for abdominal pain. The patient is unable to provide any history given cognitive disorder. Currently, she does not admit to any abdominal pain or discomfort. When asked, she cannot recall any pain and does not admit to discomfort with eating. Nursing staff has not noted any issues thusfar. 12 system ROS limited given cognitive disorder PMHx: See HPI PSHx: None previously documented FHx: Unable to assess, none documented Social: No known tobacco, EtOH or illicit drug use Endo: EGD/Colon - 01/2017 - hiatal hernia, otherwise unremarkable Past Patient History - Infectious Disease Hx of Infectious Diseases: None - Tetanus Immunizations Tetanus Immunization: Unknown - Past Social History Smoking Status: Never Smoked - CARDIAC Hx Atrial Fibrillation: Yes Hx Congestive Heart Failure: Yes - PULMONARY Hx Respiratory Disorders: No - NEUROLOGICAL Hx Neurological Disorder: No - HEENT Hx HEENT Problems: No - RENAL Hx Chronic Kidney Disease: No - ENDOCRINE/METABOLIC Hx Hypothyroidism: Yes - HEMATOLOGICAL/ONCOLOGICAL Hx Blood Transfusions: (UNSURE) Hx Leukemia: Yes - INTEGUMENTARY Hx Dermatological Problems: No - MUSCULOSKELETAL/RHEUMATOLOGICAL Hx Musculoskeletal Disorders: Yes - GASTROINTESTINAL Hx Gastroesophageal Reflux: Yes - GENITOURINARY/GYNECOLOGICAL Hx Incontinence: Yes Hx Urinary Tract Infection: Yes - PSYCHIATRIC Hx Anxiety: Yes Hx Depression: Yes Hx Schizophrenia: Yes Hx Substance Use: No - SURGICAL HISTORY Hx Surgeries: No (pt denies) - ANESTHESIA Hx Anesthesia Reactions: No Meds Allergies/Adverse Reactions: Allergies Allergy/AdvReac Type Severity Reaction Status Date / Time No Known Allergies Allergy Verified 07/18/18 10:19 - Medications Medications: Current Medications Acetaminophen (Tylenol 325mg Tab) 650 mg PO Q4H PRN PRN Reason: Fever >100.5 F Arformoterol Tartrate (Brovana) 15 mcg IH [id number] [facility] Last Admin: 07/19/18 09:37 Dose: 15 mcg Budesonide (Pulmicort Respules) 0.25 mg IH [id number] [facility] Last Admin: 07/19/18 09:37 Dose: 0.25 mg Carvedilol (Coreg) 12.5 mg PO BID [facility] Last Admin: 07/19/18 09:50 Dose: 12.5 mg Cholecalciferol (Vitamin D) 1,000 intlu PO DAILY [facility] Last Admin: 07/19/18 09:58 Dose: 1,000 intlu Digoxin (Digoxin) 0.125 mg PO 1400 [facility] Fluoxetine HCl (Prozac) 40 mg PO DAILY [facility] Last Admin: 07/19/18 09:56 Dose: 40 mg Furosemide (Lasix) 20 mg PO DAILY [facility] Last Admin: 07/19/18 09:51 Dose: 20 mg Methimazole (Tapazole) 25 mg PO SuSa@1000 [facility] Methimazole (Tapazole) 10 mg PO MoTuWeThFr@1000,1800 [facility] Last Admin: 07/19/18 09:58 Dose: 10 mg Montelukast Sodium (Singulair) 10 mg PO DAILY [facility] Last Admin: 07/19/18 09:58 Dose: 10 mg Nystatin (Nystop Topical Powder) 0 gm TOP BID [facility] Last Admin: 07/19/18 09:51 Dose: 1 applic Pantoprazole Sodium (Protonix Ec Tab) 20 mg PO DAILY [facility] Last Admin: 07/19/18 09:56 Dose: 20 mg Risperidone (Risperdal Tab) 0.5 mg PO HS [facility]; Protocol Last Admin: 07/18/18 22:07 Dose: 0.5 mg Physical Exam - Constitutional Appears: Non-toxic, Confused, Chronically Ill - Eye Exam Eye Exam: EOMI, PERRL - ENT Exam ENT Exam: Mucous Membranes Moist - Neck Exam Additional comments: multinodular goiter present R>L - Respiratory Exam Respiratory Exam: Clear to Auscultation Bilateral. absent: Rales, Rhonchi, Wheezes - Cardiovascular Exam Cardiovascular Exam: Irregular Rhythm, +S1, +S2 - GI/Abdominal Exam GI & Abdominal Exam: Normal Bowel Sounds, Soft. absent: Distended, Firm, Guarding, Organomegaly, Rigid, Tenderness - Extremities Exam Extremities exam: Positive for: normal inspection. Negative for: pedal edema - Neurological Exam Neurological exam: Altered - Psychiatric Exam Psychiatric exam: Flat Affect, Normal Mood - Skin Skin Exam: Dry, Warm Results - Vital Signs Recent Vital Signs: Last Vital Signs Temp 97.4 F L 07/19/18 08:35 Pulse 90 07/19/18 09:50 Resp 20 07/19/18 08:35 BP 117/67 07/19/18 09:51 Pulse Ox 95 07/19/18 08:35 - Labs Result Diagrams: 07/19/18 06:00 07/19/18 06:00 Labs: Laboratory Results - last 24 hr 07/18/18 07/18/18 07/18/18 15:30 15:30 15:30 WBC RBC Hgb Hct MCV MCH MCHC RDW Plt Count MPV PT INR Sodium Potassium Chloride Carbon Dioxide Anion Gap BUN Creatinine Est GFR ( Amer) Est GFR (Non-Af Amer) Random Glucose Hemoglobin A1c 5.5 Calcium Iron 56 TIBC 332 % Saturation 17 L Triglycerides 199 H Cholesterol 116 L LDL Cholesterol Direct 50 HDL Cholesterol 21 L Vitamin B12 729 Folate > 20.0 TSH 3rd Generation 07/18/18 07/19/18 07/19/18 17:35 06:00 06:00 WBC 5.5 RBC 3.76 Hgb 10.1 L Hct 31.6 L MCV 84.0 MCH 26.9 MCHC 32.0 RDW 13.0 Plt Count 159 MPV 10.1 PT 36.2 H INR 3.10 Sodium 139 Potassium 4.6 Chloride 105 Carbon Dioxide 27 Anion Gap 11 BUN 70 H Creatinine 1.1 Est GFR ( Amer) > 60 Est GFR (Non-Af Amer) 50 Random Glucose 91 Hemoglobin A1c Calcium 9.6 Iron TIBC % Saturation Triglycerides Cholesterol LDL Cholesterol Direct HDL Cholesterol Vitamin B12 Folate TSH 3rd Generation 07/19/18 06:00 WBC RBC Hgb Hct MCV MCH MCHC RDW Plt Count MPV PT INR Sodium Potassium Chloride Carbon Dioxide Anion Gap BUN Creatinine Est GFR ( Amer) Est GFR (Non-Af Amer) Random Glucose Hemoglobin A1c Calcium Iron TIBC % Saturation Triglycerides Cholesterol LDL Cholesterol Direct HDL Cholesterol Vitamin B12 Folate TSH 3rd Generation < 0.02 L Assessment & Plan - Assessment and Plan (Free Text) Assessment: Patient is a 63yo female with PMHx significant for dementia, CHF, CAD, atrial fibrillation on coumadin, hyperthyroidism on methimazole, GERD and HTN who presented to the ED for altered mental status -Abdominal pain -Multinodular goiter -Dementia Plan: -No abdominal pain at time of examination, none noted by nursing staff -Recommend PPI therapy, once daily -Change diet to puree diet given poor dentition and large goiter -Recommend further evaluation of goiter given prior imaging studies suggesting follow up, defer to primary team - Date & Time Date: 07/19/18 Time: 12:15
[2018-07-19] MEDS: Digoxin 125 mcg (0.125 mg) Tab PO SCH (14:59)
[2018-07-19 23:50] LABS: INR 2.2; PROTHROMBIN TIME 25.5 SECONDS (9.4-12.5)
[2018-07-20] MEDS: Budesonide 0.25 mg/2 ml Inhal Susp UD IH SCH (09:06)
[2018-07-20] MEDS: Arformoterol 15 mcg/2 ml Inh Sol IH SCH (09:06)
--- NOTE | 2018-07-20 09:20 | CP.PCM.PN ---
<Raul Sparks - Last Filed: 07/20/18 11:41> Subjective - Date & Time of Evaluation Date of Evaluation: 07/20/18 Time of Evaluation: 08:10 - Subjective Subjective: PGY6 GI Fellow Progress Note Patient seen and examined bedside this morning. The patient was sleeping on entering the room. No complaints per patient and denies any abdominal pain. Hungry for breakfast. Per nursing, no events noted overnight and has not complained of abdominal pain. 12 system ROS limited given cognitive impairment Objective - Vital Signs/Intake and Output Vital Signs (last 24 hours): Temp Pulse Resp BP Pulse Ox 97.5 F L 71 20 113/66 96 07/20/18 08:41 07/20/18 08:41 07/20/18 08:41 07/20/18 08:41 07/20/18 08:41 Intake and Output: 07/20/18 07/20/18 06:59 18:59 Output Total 750 Balance -750 - Medications Medications: Current Medications Acetaminophen (Tylenol 325mg Tab) 650 mg PO Q4H PRN PRN Reason: Fever >100.5 F Arformoterol Tartrate (Brovana) 15 mcg IH [id number] [facility] Last Admin: 07/20/18 09:06 Dose: 15 mcg Budesonide (Pulmicort Respules) 0.25 mg IH [id number] [facility] Last Admin: 07/20/18 09:06 Dose: 0.25 mg Carvedilol (Coreg) 12.5 mg PO BID [facility] Last Admin: 07/19/18 18:30 Dose: 12.5 mg Cholecalciferol (Vitamin D) 1,000 intlu PO DAILY [facility] Last Admin: 07/19/18 09:58 Dose: 1,000 intlu Digoxin (Digoxin) 0.125 mg PO 1400 [facility] Last Admin: 07/19/18 14:59 Dose: 0.125 mg Fluoxetine HCl (Prozac) 40 mg PO DAILY [facility] Last Admin: 07/19/18 09:56 Dose: 40 mg Furosemide (Lasix) 20 mg PO DAILY [facility] Last Admin: 07/19/18 09:51 Dose: 20 mg Methimazole (Tapazole) 25 mg PO SuSa@1000 [facility] Methimazole (Tapazole) 10 mg PO MoTuWeThFr@1000,1800 [facility] Last Admin: 12/26/18 18:30 Dose: 10 mg Montelukast Sodium (Singulair) 10 mg PO DAILY [facility] Last Admin: 07/19/18 09:58 Dose: 10 mg Nystatin (Nystop Topical Powder) 0 gm TOP BID [facility] Last Admin: 07/19/18 19:18 Dose: Not Given Pantoprazole Sodium (Protonix Ec Tab) 20 mg PO DAILY [facility] Last Admin: 07/19/18 09:56 Dose: 20 mg Risperidone (Risperdal Tab) 0.5 mg PO HS [facility]; Protocol Last Admin: 07/19/18 21:36 Dose: 0.5 mg - Labs Labs: 07/19/18 06:00 07/19/18 06:00 PT 25.5 SECONDS (9.4-12.5) H 07/19/18 23:35 INR 2.20 07/19/18 23:35 APTT 39.4 Seconds (25.1-36.5) H 07/18/18 10:54 - Constitutional Appears: Confused, Cachectic - Eye Exam Eye Exam: EOMI, PERRL - ENT Exam ENT Exam: Mucous Membranes Moist - Respiratory Exam Respiratory Exam: Clear to Ausculation Bilateral. absent: Rales, Rhonchi, Wheezes - Cardiovascular Exam Cardiovascular Exam: RRR, +S1, +S2 - GI/Abdominal Exam GI & Abdominal Exam: Soft, Normal Bowel Sounds. absent: Distended, Firm, Guarding, Rigid, Tenderness, Organomegaly - Extremities Exam Extremities Exam: Normal Inspection. absent: Pedal Edema - Neurological Exam Neurological Exam: Altered, Awake - Psychiatric Exam Psychiatric exam: Normal Affect, Normal Mood - Skin Skin Exam: Dry, Warm Assessment and Plan - Assessment and Plan (Free Text) Assessment: Patient is a 63yo female with PMHx significant for dementia, CHF, CAD, atrial fibrillation on coumadin, hyperthyroidism on methimazole, GERD and HTN who presented to the ED for altered mental status -Abdominal pain -Multinodular goiter -Dementia Plan: -Still without abdominal pain, none noted by nursing staff overnight -PPI therapy 20mg PO QD -Puree diet given poor dentition and large goiter -Recommend further evaluation of goiter given prior imaging studies suggesting follow up, defer to primary team -No further recommendations at this time -OK for D/C from GI standpoint <Brando Drew V - Last Filed: 07/20/18 22:28> Objective - Vital Signs/Intake and Output Vital Signs (last 24 hours): Temp Pulse Resp BP Pulse Ox 97.8 F 95 H 18 126/80 99 07/20/18 16:56 07/20/18 17:50 07/20/18 16:56 07/20/18 17:50 07/20/18 16:56 Intake and Output: 07/20/18 07/21/18 18:59 06:59 Intake Total 1200 Balance 1200 - Labs Labs: 07/19/18 06:00 07/19/18 06:00 PT 25.5 SECONDS (9.4-12.5) H 07/19/18 23:35 INR 2.20 07/19/18 23:35 APTT 39.4 Seconds (25.1-36.5) H 07/18/18 10:54 Attending/Attestation - Attestation I have personally seen and examined this patient.: Yes I have fully participated in the care of the patient.: Yes I have reviewed all pertinent clinical information, including history, physical exam and plan: Yes Notes (Text): This is an addendum to GI progress report dictated by the GI Fellow. The patient was seen and examined earlier. Medical records, lab studies, imagings were reviewed. Last 24 hours events reviewed. Agreed with the above treatment plan as outlined in GI Fellow 's notes with the addition of the following patient's dentition appears poor This could be contributory factor the patient does not chew well before this could cause bezoar can and could be the etiology for he abdominal pain Patient does have a large tinodular goiter No plan for repeat GI endoscopic evaluation Importance of the dietary recommendons were explained to the patient and also nursing staff Follow-up of goiter as per PCP 07/20/18 22:26
[2018-07-20] MEDS: Pantoprazole 20 mg EC Tab PO SCH (10:03)
[2018-07-20] MEDS: Nystatin 100,000 Units/gm Topical Pow(15 gm) TOP SCH ×2 (10:03→17:50)
[2018-07-20] MEDS: Cholecalciferol 1,000 INTLU TAB PO SCH (10:04)
[2018-07-20] MEDS: Digoxin 125 mcg (0.125 mg) Tab PO SCH (14:58)
[2018-07-20 15:04] VITALS: PULSE 92
[2018-07-20 16:56] VITALS: RESP 18; TEMP 97.8; O2SAT 99
[2018-07-20 17:53] VITALS: BP 126/80; PULSE 95
== END 2018-07-20 20:00 | disposition home or self-care (01) ==
LOC: ED 10:07 → ERH 13:10 → 3RSO 14:11
PROVIDERS: ADMIT Internal Medicine; ATTEND Internal Medicine
DX: F09 Unspecified mental disorder due to known physiological condition (principal); F03.90 Unspecified dementia, unspecified severity, without behavioral disturbance, psychotic disturbance, mood disturbance, and anxiety; F20.9 Schizophrenia, unspecified; E03.9 Hypothyroidism, unspecified; E04.2 Nontoxic multinodular goiter; I11.0 Hypertensive heart disease with heart failure; I50.9 Heart failure, unspecified; I48.91 Unspecified atrial fibrillation; R10.9 Unspecified abdominal pain; I25.10 Atherosclerotic heart disease of native coronary artery without angina pectoris; K21.9 Gastro-esophageal reflux disease without esophagitis; K44.9 Diaphragmatic hernia without obstruction or gangrene; Z79.01 Long term (current) use of anticoagulants; Z85.6 Personal history of leukemia; Z87.440 Personal history of urinary (tract) infections
CPT/HCPCS: 36415; 70450; 71045; 74177; 80048; 80053; 80061; 80162; 81003; 82550; 82607; 82746; 82803; 83036; 83540; 83550; 83615; 83690; 83735; 83880; 84443; 84484; 85025; 85027; 85610; 85730; 93005; 94640; 99285; G0378; Q9967

== ENCOUNTER 2018-08-07 15:30 | Inpatient (IN) | payer OTHER ==
[2018-08-07 16:12] VITALS: BMI 17.6
[2018-08-07] MEDS ORDERED: Sodium Chloride 0.9% 250 ML IV STA (16:16)
[2018-08-07] MEDS ORDERED: Acetaminophen 160 mg/5 ml UD PO STA (16:24)
[2018-08-07 16:26] LABS: VENOUS BLOOD GAS BASE EXCESS 2.2 mmol/L (0.0-2.0); VENOUS BLOOD GAS PO2 115 mm/Hg (30-55); VENOUS BLOOD PH 7.41 (7.32-7.43)
[2018-08-07 16:29] LABS: BASO # 0.01 K/mm3 (0.0-2.0); BASO % 0.1 % (0.0-3.0); EOS % 0.1 % (1.5-5.0); GRAN # 12.24 (1.4-6.5); GRAN % 80.9 % (50.0-68.0); HEMOGLOBIN 9.2 g/dL (12.0-16.0); LYMPH # 1.1 (1.2-3.4); LYMPH % 7.2 % (22.0-35.0); MEAN CELL VOLUME 82.1 fl (80.0-105.0); MEAN CORPUSCULAR HEMOGLOBIN 26.6 pg (25.0-35.0); MEAN CORPUSCULAR HGB CONC 32.4 g/dl (31.0-37.0); MEAN PLATELET VOLUME 10.4 fl (7.0-11.0); MONO # 1.8 (0.1-0.6); MONO % 11.7 % (1.0-6.0); RBC 3.46 10^6/uL (3.5-6.1); RED CELL DISTRIBUTION WIDTH 12.7 % (11.5-14.5); WHITE BLOOD COUNT 15.1 10^3/uL (4.5-11.0)
--- NOTE | 2018-08-07 16:29 | RAD ---
Date of service: 08/07/2018 HISTORY: Sepsis Patient COMPARISON: 07/18/2018 FINDINGS: LUNGS: No active pulmonary disease. PLEURA: No significant pleural effusion identified, no pneumothorax apparent. CARDIOVASCULAR: No atherosclerotic calcification present No radiographic findings to suggest acute or significant cardiovascular disease. OSSEOUS STRUCTURES: No significant abnormalities. VISUALIZED UPPER ABDOMEN: Normal. OTHER FINDINGS: None. IMPRESSION: No active disease. No significant interval change compared to the prior examination(s).
--- NOTE | 2018-08-07 16:30 | ED PDOC ---
Arrival/HPI - General Chief Complaint: Fever Time Seen by Provider: 08/07/18 15:42 Historian: Patient - History of Present Illness Narrative History of Present Illness (Text): 08/07/18 16:21 63yr old female presents today brought in by ambulance from [facility] for fever. Per [facility] patient was complaining of body aches and fever and brought to the emergency room for evaluation of the flu. Patient denies sore throat or ear pain. Denies chest pain or shortness of breath. Denies abdominal pain. Past Medical History - Provider Review Nursing Documentation Reviewed: Yes - Infectious Disease Hx of Infectious Diseases: None - Tetanus Immunization Tetanus Immunization: Unknown - Cardiac Hx Atrial Fibrillation: Yes Hx Congestive Heart Failure: Yes - Pulmonary Hx Respiratory Disorders: No - Neurological Hx Neurological Disorder: No - HEENT Hx HEENT Disorder: No - Renal Hx Renal Disorder: No - Endocrine/Metabolic Hx Hypothyroidism: Yes - Hematological/Oncological Hx Blood Transfusions: (UNSURE) Hx Leukemia: Yes - Integumentary Hx Dermatological Disorder: No - Musculoskeletal/Rheumatological Hx Musculoskeletal Disorders: Yes - Gastrointestinal Hx Gastroesophageal Reflux: Yes - Genitourinary/Gynecological Hx Incontinence: Yes Hx Urinary Tract Infection: Yes - Psychiatric Hx Anxiety: Yes Hx Depression: Yes Hx Schizophrenia: Yes Hx Substance Use: No - Past Surgical History Past Surgical History: Unable to Obtain - Anesthesia Hx Anesthesia Reactions: No - Suicidal Assessment Feels Threatened In Home Enviroment: No Family/Social History - Physician Review Nursing Documentation Reviewed: Yes Family/Social History: Unknown Family HX Smoking Status: Never Smoked Hx Alcohol Use: No Hx Substance Use: No Hx Substance Use Treatment: No Allergies/Home Meds Allergies/Adverse Reactions: Allergies No Known Allergies Allergy (Verified 07/18/18 10:19) Review of Systems - Review of Systems Constitutional: Fevers. absent: Fatigue ENT: absent: Sore Throat, Sinus Congestion Respiratory: absent: SOB, Cough Cardiovascular: absent: Chest Pain, Palpitations Gastrointestinal: absent: Abdominal Pain, Nausea, Vomiting Genitourinary Female: absent: Dysuria Physical Exam Vital Signs Reviewed: Yes Vital Signs Temp Pulse Resp BP Pulse Ox 08/07/18 15:30 100.2 F H 84 18 90/45 L 98 Temperature: Afebrile Blood Pressure: Hypotensive Pulse: Regular Respiratory Rate: Normal Appearance: Positive for: Well-Appearing, Non-Toxic, Comfortable Pain Distress: None Mental Status: Positive for: Alert and Oriented X 3 - Systems Exam Head: Present: Atraumatic Mouth: Present: Moist Mucous Membranes Neck: Present: Normal Range of Motion Respiratory/Chest: Present: Clear to Auscultation, Good Air Exchange. No: Respiratory Distress, Accessory Muscle Use Cardiovascular: Present: Regular Rate and Rhythm, Normal S1, S2. No: Murmurs Abdomen: No: Tenderness, Distention, Rebound, Guarding Back: Present: Normal Inspection Upper Extremity: Present: Normal Inspection Lower Extremity: No: Edema, CALF TENDERNESS Neurological: Present: GCS=15 Skin: Present: Warm, Dry, Normal Color. No: Rashes Psychiatric: Present: Alert Medical Decision Making ED Course and Treatment: 08/07/18 16:30 63yr old female with fever pt with low grade fever in ER. given tylenol at 1pm in [facility]. pt slightly hypotensive with BP of 96/51. CBC:wbc:15.1 CMP: bun; 72, cr:1.2 bnp: 2170 trop: 0.02 lactate: 0.8 UA: + small leukocytes cxr; no infiltrate EKG: Nsr at93b/m. no st-elevations. blood cultures pending NS given 250cc bolus; as patient with hx of CHF. pt started on rocephin IV for UTI. case discussed with dr. stern . accepts admission for fever, leukocytosis, UTI case discussed with dr. Wilburn who saw patient at [facility]. impression: sepsis, UTI admit - RAD Interpretation Radiology Orders: 08/07/18 15:54 CHEST PORTABLE [RAD] Stat - Medication Orders Current Medication Orders: Sodium Chloride (Sodium Chloride 0.9%) 250 mls @ 999 mls/hr IV .Q16M STA Stop: 08/07/18 16:31 Disposition/Present on Arrival - Present on Arrival Any Indicators Present on Arrival: No History of DVT/PE: No History of Uncontrolled Diabetes: No Urinary Catheter: No History of Decub. Ulcer: No History Surgical Site Infection Following: None - Disposition Have Diagnosis and Disposition been Completed?: Yes Diagnosis: UTI (urinary tract infection), Leukocytosis Disposition: HOSPITALIZED Disposition Time: 17:40 Patient Plan: Admission Patient Problems: Current Active Problems Problem Status Onset Leukocytosis Acute UTI (urinary tract infection) Acute Condition: FAIR
[2018-08-07 16:43] LABS: URINE BILIRUBIN NEGATIVE (NEGATIVE); URINE BLOOD TRACE-INTACT (NEGATIVE); URINE GLUCOSE (UA) NEGATIVE (NEGATIVE); URINE LEUKOCYTE ESTERASE SMALL Leu/uL (NEGATIVE); URINE PROTEIN 30 mg/dL (<30 mg/dL); URINE UROBILINOGEN 0.2 E.U./dL (<1 E.U./dL)
[2018-08-07 16:43] LABS: INR 1.35; PARTIAL THROMBOPLASTIN TIME 25.8 Seconds (25.1-36.5); PROTHROMBIN TIME 15.5 SECONDS (9.4-12.5)
[2018-08-07 17:07] LABS: B-TYPE NATRIURETIC PEPTIDE 2170 pg/mL (0-450); TROPONIN I 0.02 ng/mL
[2018-08-07 17:08] LABS: ALB/GLOB RATIO 0.9 (1.1-1.8); ALBUMIN 3.1 g/dL (3.0-4.8); ALT/SGPT 62 U/L (7-56); AST/SGOT 49 U/L (14-36); BLOOD UREA NITROGEN 72 mg/dL (7-21); CALCIUM 8.6 mg/dL (8.4-10.5); GFR NON-AFRICAN AMERICAN 50
[2018-08-07 17:20] LABS: URINE APPEARANCE CLEAR (CLEAR); URINE COLOR LIGHT YELLOW (YELLOW)
[2018-08-07] MEDS ORDERED: cefTRIAXone 1 gm 1 GM/100 ML BAG IVPB STA ×2 (18:09→18:25)
[2018-08-07 18:16] LABS: URINE BACTERIA FEW /hpf; URINE RBC 0 - 2 /hpf (0-2)
--- NOTE | 2018-08-07 20:54 | CP.PCM.CON ---
History of Present Illness - History of Present Illness History of Present Illness: Infectious Disease Consultation: August 07, 2018 63 yo female with [facility]. 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 She was found with fevers up to 103.0 F. Mild to Moderate leukocytosis. Mild transaminitis. Influenza test negative. Possible UTI although urinalysis evidence is rather weak. The patient is making few complaints now. PMHx: CHF, hyperthyroidism, Afib, C. diff, Leukemia, Depression, chronic diarrhea, GERD, and Advanced Dementia PSHx: None given Allergies: NKDA Social Hx: Denied tobacco, EtOH, or illicit drug. Medication Orders 08/07/18 16:16 Sodium Chloride 0.9% 250 ml IV 999 mls/hr 08/07/18 16:24 Acetaminophen [Tylenol 160mg/5ml Oral Soln] 550 mg PO STAT STA 08/07/18 18:25 [id number] 1 gm [Rocephin 1 gram IVPB] 1 gm in 100 ml IVPB STAT Ceftriaxone Indication: Other Other Indication: fever, UTI Family Hx: none given ROS: fevers, body aches. No chest pain, abdominal pain, melena, hematuria, hematemesis, hematochezia, vision loss, hearing loss, loss of consciousness, SOB, cough, nausea, vomiting, diarrhea. Past Patient History - Infectious Disease Hx of Infectious Diseases: None - Tetanus Immunizations Tetanus Immunization: Unknown - Past Social History Smoking Status: Never Smoked - CARDIAC Hx Atrial Fibrillation: Yes Hx Congestive Heart Failure: Yes - PULMONARY Hx Respiratory Disorders: No - NEUROLOGICAL Hx Neurological Disorder: No - HEENT Hx HEENT Problems: No - RENAL Hx Chronic Kidney Disease: No - ENDOCRINE/METABOLIC Hx Hypothyroidism: Yes - HEMATOLOGICAL/ONCOLOGICAL Hx Blood Transfusions: (UNSURE) Hx Leukemia: Yes - INTEGUMENTARY Hx Dermatological Problems: No - MUSCULOSKELETAL/RHEUMATOLOGICAL Hx Musculoskeletal Disorders: Yes - GASTROINTESTINAL Hx Gastroesophageal Reflux: Yes - GENITOURINARY/GYNECOLOGICAL Hx Incontinence: Yes Hx Urinary Tract Infection: Yes - PSYCHIATRIC Hx Anxiety: Yes Hx Depression: Yes Hx Schizophrenia: Yes Hx Substance Use: No - SURGICAL HISTORY Hx Surgeries: No (pt denies) - ANESTHESIA Hx Anesthesia Reactions: No Meds Allergies/Adverse Reactions: Allergies Allergy/AdvReac Type Severity Reaction Status Date / Time No Known Allergies Allergy Verified 07/18/18 10:19 Physical Exam - Constitutional Appears: Non-toxic, No Acute Distress, Chronically Ill - Head Exam Head Exam: ATRAUMATIC, NORMOCEPHALIC - Eye Exam Eye Exam: EOMI, PERRL Pupil Exam: NORMAL ACCOMODATION, PERRL - ENT Exam ENT Exam: Mucous Membranes Moist, Normal External Ear Exam, TM's Normal Bilaterally - Neck Exam Neck exam: Positive for: Full Rom, Normal Inspection - Respiratory Exam Respiratory Exam: Clear to Auscultation Bilateral, NORMAL BREATHING PATTERN. absent: Rales, Rhonchi, Wheezes - Cardiovascular Exam Cardiovascular Exam: REGULAR RHYTHM, RRR, +S1, +S2 - GI/Abdominal Exam GI & Abdominal Exam: Normal Bowel Sounds, Soft. absent: Distended, Tenderness - Extremities Exam Extremities exam: Negative for: joint swelling, pedal edema Additional comments: wheelchair bound. - Neurological Exam Neurological exam: Alert, CN II-XII Intact, Oriented x3 - Psychiatric Exam Psychiatric exam: Normal Affect, Normal Mood - Skin Skin Exam: Intact, Normal Color Results - Vital Signs Recent Vital Signs: Last Vital Signs Temp 99.0 F 08/07/18 18:16 Pulse 68 08/07/18 18:16 Resp 18 08/07/18 18:16 BP 101/52 L 08/07/18 18:52 Pulse Ox 95 08/07/18 18:16 - Labs Result Diagrams: 08/07/18 16:20 08/07/18 16:20 Labs: Laboratory Results - last 24 hr 08/07/18 08/07/18 08/07/18 16:00 16:20 16:20 WBC 15.1 H D RBC 3.46 L Hgb 9.2 L Hct 28.4 L MCV 82.1 MCH 26.6 MCHC 32.4 RDW 12.7 Plt Count 158 MPV 10.4 Gran % 80.9 H Lymph % (Auto) 7.2 L Morgan % (Auto) 11.7 H Eos % (Auto) 0.1 L Baso % (Auto) 0.1 Gran # 12.24 H Lymph # (Auto) 1.1 L Morgan # (Auto) 1.8 H Eos # (Auto) 0.0 Baso # (Auto) 0.01 PT 15.5 H INR 1.35 APTT 25.8 pO2 VBG pH VBG pCO2 VBG HCO3 VBG Total CO2 VBG O2 Sat (Calc) VBG Base Excess VBG Potassium Sodium Chloride Glucose Lactate FiO2 Potassium Carbon Dioxide Anion Gap BUN Creatinine Est GFR ( Amer) Est GFR (Non-Af Amer) Random Glucose Calcium Phosphorus Magnesium Total Bilirubin AST ALT Alkaline Phosphatase Lactate Dehydrogenase Total Creatine Kinase Troponin I NT-Pro-B Natriuret Pep Total Protein Albumin Globulin Albumin/Globulin Ratio Venous Blood Potassium Urine Color Light yellow Urine Appearance Clear Urine pH 6.0 Ur Specific [place] 1.015 Urine Protein 30 H Urine Glucose (UA) Negative Urine Ketones Negative Urine Blood Trace-intact H Urine Nitrate Negative Urine Bilirubin Negative Urine Urobilinogen 0.2 Ur Leukocyte Esterase Small H Urine RBC 0 - 2 Urine WBC 1 - 3 Ur Epithelial Cells None Urine Bacteria Few Influenza Typ A,B (EIA) 08/07/18 08/07/18 08/07/18 16:20 16:20 16:45 WBC RBC Hgb Hct MCV MCH MCHC RDW Plt Count MPV Gran % Lymph % (Auto) Morgan % (Auto) Eos % (Auto) Baso % (Auto) Gran # Lymph # (Auto) Morgan # (Auto) Eos # (Auto) Baso # (Auto) PT INR APTT pO2 115 H VBG pH 7.41 VBG pCO2 43.0 VBG HCO3 27.3 VBG Total CO2 28.6 H VBG O2 Sat (Calc) 98.0 H VBG Base Excess 2.2 H VBG Potassium 4.2 Sodium 131.0 L 133 Chloride 101.0 100 Glucose 124 H Lactate 0.8 FiO2 21.0 Potassium 4.3 Carbon Dioxide 26 Anion Gap 11 BUN 72 H Creatinine 1.1 Est GFR ( Amer) > 60 Est GFR (Non-Af Amer) 50 Random Glucose 127 H Calcium 8.6 Phosphorus 2.8 Magnesium 1.8 Total Bilirubin 0.6 AST 49 H D ALT 62 H Alkaline Phosphatase 85 Lactate Dehydrogenase 415 Total Creatine Kinase 85 Troponin I 0.02 D NT-Pro-B Natriuret Pep 2170 H Total Protein 6.4 Albumin 3.1 Globulin 3.4 Albumin/Globulin Ratio 0.9 L Venous Blood Potassium 4.2 Urine Color Urine Appearance Urine pH Ur Specific [place] Urine Protein Urine Glucose (UA) Urine Ketones Urine Blood Urine Nitrate Urine Bilirubin Urine Urobilinogen Ur Leukocyte Esterase Urine RBC Urine WBC Ur Epithelial Cells Urine Bacteria Influenza Typ A,B (EIA) Negative for flu a/b Assessment & Plan - Assessment and Plan (Free Text) Assessment: 63 yo female with fevers at [facility] and generalized body aches. The patient was started on Rocephin. Low grade fever of 100.2 F in [facility]. La cultures sent. Can give one dose of Gentamicin 100mg IV. Chest X-ray with no active disease. Supportive care. Continue on Rocephin. Clinically the patient appears to be at her baseline. Dehydration? Thank you for allowing me to participate in the care of the patient, we will follow with you.
--- NOTE | 2018-08-08 02:42 | HP ---
DATE OF EXAM: 08/07/2018 The patient was seen and examined at the bedside, 08/07/2018. CHIEF COMPLAINT: Fever of 103. HISTORY OF PRESENT ILLNESS: Ms. Rylie Sabillon is a 63-year-old resident of [facility], my private patient, came to the emergency room via ambulance from longterm for fever. Per longterm, the patient was complaining of body aches, fever, it was 103, then they gave her Tylenol. In the emergency room, the fever was 100.2. No headaches. No dizziness. No chest pain. No palpitations. Fever. The patient denies abdominal pain. No hematuria or hematochezia. I admitted the patient to give antibiotics. Discussion done with Dr. Wilburn. PAST MEDICAL HISTORY: Atrial fibrillation, congestive heart failure, hyperthyroidism, history of leukemia, urine incontinent, anxiety, depression, schizophrenia. FAMILY HISTORY: Father and mother, noncontributory. HABITS: Never smoked. No drugs. No ethanol. ALLERGIES: THE PATIENT IS NOT ALLERGIC WITH ANY MEDICATIONS. REVIEW OF SYSTEMS: The patient was seen and examined at the bedside in the ER, still shivering. No headaches. No dizziness. No chest pain. No palpitations. No nausea, vomiting, or diarrhea. PHYSICAL EXAMINATION: VITAL SIGNS: Temperature 100.2, pulse 84, respiratory rate 18, blood pressure 94/49, pulse oximetry 98%. HEENT: Head is normocephalic and atraumatic. Eyes, PERRLA. Extraocular muscles are intact. Conjunctivae clear. Nose patent. Mucous membranes moist. NECK: Supple. No carotid. No JVD or thyromegaly. CHEST: Bilaterally symmetrical. HEART: S1 and S2 positive. LUNGS: Clear to auscultation. ABDOMEN: Soft. Bowel sounds present. No organomegaly. EXTREMITIES: No edema. No cyanosis. NEUROLOGIC: The patient is awake, alert. Moving all 4 extremities. No focal deficits. LABORATORY DATA: White blood cells 15.1, hemoglobin 9.2, hematocrit 28.4, platelets 158. Sodium 133, potassium 4.3, BUN noted , creatinine 1.1, glucose 127, AST 94, ALT 62. ASSESSMENT AND PLAN: Ms. Rylie Delarosa is a 63-year-old female with leukocytosis, anemia, increased BUN, hyperglycemia, abnormal liver function test, congestive heart failure, proteinuria, hematuria, urinary tract infection, influenza type A and B is negative, history of hyperthyroidism, depression, schizophrenia, history of atrial fibrillation, Clostridium difficile toxin colitis, leukemia, depression, chronic diarrhea, gastroesophageal reflux disease, advanced dementia. Gastrointestinal and deep venous thrombosis prophylaxis. Repeat labs. generalized body aches in the past, better now. The patient was started on Rocephin low dose, fever 100.2 in [facility]. Pancultures sent. Given dose of gentamicin. continue antibiotics. Length of time discussion done with ER, nurse practitioner and ER physician administrative library assistant, and discussion done with Dr. Wilburn, treatment plan discussed. We will follow up. Sharonda Knight MD MTDD
[2018-08-08 07:00] LABS: HEMOGLOBIN 9.9 g/dL (12.0-16.0); MEAN CELL VOLUME 83.2 fl (80.0-105.0); MEAN CORPUSCULAR HEMOGLOBIN 26.4 pg (25.0-35.0); MEAN CORPUSCULAR HGB CONC 31.7 g/dl (31.0-37.0); MEAN PLATELET VOLUME 10.8 fl (7.0-11.0); RBC 3.75 10^6/uL (3.5-6.1); WHITE BLOOD COUNT 9.2 10^3/uL (4.5-11.0)
[2018-08-08 07:20] LABS: HDL CHOLESTEROL 16 mg/dL (29-60)
[2018-08-08] MEDS: Arformoterol 15 mcg/2 ml Inh Sol IH SCH ×2 (07:42→19:32)
[2018-08-08] MEDS: Budesonide 0.25 mg/2 ml Inhal Susp UD IH SCH ×2 (07:42→19:32)
[2018-08-08 07:51] LABS: LDL CHOLESTEROL < 30 mg/dL (0-129)
[2018-08-08] MEDS ORDERED: Arformoterol 15 mcg/2 ml Inh Sol IH SCH (08:00)
[2018-08-08 08:34] LABS: IRON < 10 ug/dL (45-180); TOTAL IRON BINDING CAPACITY 244 ug/dL (265-497)
[2018-08-08] MEDS: Cholecalciferol 1,000 INTLU TAB PO SCH (10:21)
[2018-08-08] MEDS: Pantoprazole 20 mg EC Tab PO SCH (10:22)
--- NOTE | 2018-08-08 10:59 | CARD ---
APPROVED REPORT Date of service: 08/07/2018 EKG Measurement Heart [id number] <Conclusion> NSR Nonspecific ST-T abnormalities
[2018-08-08 13:56] LABS: FOLATE > 20.0 ng/mL
[2018-08-08] MEDS: Digoxin 125 mcg (0.125 mg) Tab PO SCH (17:29)
[2018-08-08] MEDS ORDERED: Gentamicin 80 mg/2mL Inj. IVPB ONE (18:15)
[2018-08-08] MEDS ORDERED: GENTAMICIN IVPB ONE (19:00)
[2018-08-08] MEDS ORDERED: SODIUM CHLORIDE 0.9% IVPB ONE (19:00)
[2018-08-08 21:59] LABS: INR 1.31
[2018-08-09 07:11] LABS: HEMOGLOBIN 9.4 g/dL (12.0-16.0); MEAN CELL VOLUME 82.5 fl (80.0-105.0); MEAN CORPUSCULAR HEMOGLOBIN 26.9 pg (25.0-35.0); MEAN CORPUSCULAR HGB CONC 32.6 g/dl (31.0-37.0); MEAN PLATELET VOLUME 11.6 fl (7.0-11.0); RBC 3.49 10^6/uL (3.5-6.1); WHITE BLOOD COUNT 7.8 10^3/uL (4.5-11.0)
[2018-08-09 07:26] LABS: BLOOD UREA NITROGEN 61 mg/dL (7-21); CALCIUM 8.7 mg/dL (8.4-10.5); GFR NON-AFRICAN AMERICAN 56
[2018-08-09] MEDS: Budesonide 0.25 mg/2 ml Inhal Susp UD IH SCH ×2 (07:57→20:45)
[2018-08-09] MEDS: Arformoterol 15 mcg/2 ml Inh Sol IH SCH ×2 (07:57→20:45)
--- NOTE | 2018-08-09 08:32 | PN ---
DATE: 08/08/2018 SUBJECTIVE: The patient is a 63-year-old female. The patient is seen and examined at the bedside. Looking comfortable. No fever, no chills. No nausea, vomiting. No headache, dizziness. Feeling feverish. The patient is a poor historian. PHYSICAL EXAMINATION: VITAL SIGNS: Temperature 100.7, pulse 87, blood pressure 120/77, respiratory rate 20. HEENT: Head normocephalic and atraumatic. Eyes, PERRLA. Extraocular muscles intact. Conjunctiva clear. Nose patent. Mucous membrane moist. NECK: Supple. No carotid bruit. No JVD. No thyromegaly. CHEST: Bilaterally symmetrical. HEART: S1, S2 positive. LUNGS: Clear to auscultation. ABDOMEN: Soft. Possible organomegaly. EXTREMITIES: No edema. No cyanosis. NEUROLOGICAL: The patient awake, alert, moving all four extremities. No focal deficit. MEDICATIONS: Brovana, Coreg, digoxin, Lasix, Protonix, Prozac, Pulmicort, Risperdal, Singulair, trazodone, Tylenol, vitamin D. LABS: White blood cell 9.2 and on admission it was 15.1, hemoglobin 9.9, hematocrit 31.2, platelets 155. Sodium 133, potassium 4.3, BUN 72, creatinine 1.1, glucose 155. AST 49, ALT 52. ASSESSMENT AND PLAN: a 53-year-old female with leukocytosis, anemia, dehydration, hyperglycemia, iron deficiency, abnormal liver function test, hypertriglyceridemia, proteinuria, urinary tract infection, hematuria, influenza type A and B is negative, history of hyperthyroidism, atrial fibrillation, is on Coumadin, congestive heart failure, history of leukemia, urine incontinence, anxiety, depression, schizophrenia. Infectious Disease on the case getting antibiotics, Tylenol for fever. We will repeat INR. Gastrointestinal, genitourinary prophylaxis. We will follow up. Sharonda Knight MD MTDD
[2018-08-09] MEDS: Cholecalciferol 1,000 INTLU TAB PO SCH (09:54)
[2018-08-09] MEDS: Pantoprazole 20 mg EC Tab PO SCH (09:54)
--- NOTE | 2018-08-09 15:52 | CP.PCM.PN ---
Subjective - Date & Time of Evaluation Date of Evaluation: 08/08/18 Time of Evaluation: 16:30 - Subjective Subjective: Infectious Disease Follow Up: August 08, 2018 63 yo female with presentation of fevers and body aches at [facility] facility. 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 She was found with fevers up to 103.0 F. Mild to Moderate leukocytosis. Mild transaminitis. Influenza test negative. Possible UTI although urinalysis evidence is rather weak. The patient is making few complaints now. She remains highly anxious. Objective - Vital Signs/Intake and Output Vital Signs (last 24 hours): Temp Pulse Resp BP Pulse Ox 98.7 F 86 20 110/68 97 08/08/18 11:59 08/08/18 11:59 08/08/18 11:59 08/08/18 11:59 08/08/18 05:35 - Medications Medications: Current Medications Acetaminophen (Tylenol 325mg Tab) 650 mg PO Q4H PRN PRN Reason: Fever >100.5 F Last Admin: 08/07/18 23:54 Dose: 650 mg Arformoterol Tartrate (Brovana) 15 mcg IH [id number] [facility] Last Admin: 08/08/18 07:42 Dose: 15 mcg Budesonide (Pulmicort Respules) 0.25 mg IH [id number] [facility] Last Admin: 08/08/18 07:42 Dose: 0.25 mg Carvedilol (Coreg) 12.5 mg PO BID [facility] Last Admin: 08/08/18 10:22 Dose: 12.5 mg Cholecalciferol (Vitamin D) 1,000 intlu PO DAILY [facility] Last Admin: 08/08/18 10:21 Dose: 1,000 intlu Digoxin (Digoxin) 0.125 mg PO 1400 [facility] Fluoxetine HCl (Prozac) 40 mg PO DAILY [facility] Last Admin: 08/08/18 10:21 Dose: 40 mg Furosemide (Lasix) 20 mg PO DAILY [facility] Last Admin: 08/08/18 10:21 Dose: 20 mg Methimazole (Tapazole) 10 mg PO MoTuWeThFr@1000,1800 [facility] Last Admin: 08/08/18 10:22 Dose: 10 mg Methimazole (Tapazole) 25 mg PO SuSa@1000 [facility] Montelukast Sodium (Singulair) 10 mg PO DAILY [facility] Last Admin: 08/08/18 10:23 Dose: 10 mg Pantoprazole Sodium (Protonix Ec Tab) 20 mg PO DAILY [facility] Last Admin: 08/08/18 10:22 Dose: 20 mg Risperidone (Risperdal Tab) 0.5 mg PO HS [facility]; Protocol Last Admin: 08/08/18 00:15 Dose: Not Given - Labs Labs: 08/08/18 06:20 08/07/18 16:20 PT 15.5 SECONDS (9.4-12.5) H 08/07/18 16:20 INR 1.35 08/07/18 16:20 APTT 25.8 Seconds (25.1-36.5) 08/07/18 16:20 - Constitutional Appears: Non-toxic, No Acute Distress, Chronically Ill - Head Exam Head Exam: ATRAUMATIC, NORMOCEPHALIC - Eye Exam Eye Exam: EOMI, PERRL Pupil Exam: NORMAL ACCOMODATION, PERRL - ENT Exam ENT Exam: Mucous Membranes Moist, Normal External Ear Exam, TM's Normal Bilaterally - Neck Exam Neck Exam: Full ROM, Normal Inspection - Respiratory Exam Respiratory Exam: Clear to Ausculation Bilateral, NORMAL BREATHING PATTERN. absent: Rales, Rhonchi, Wheezes - Cardiovascular Exam Cardiovascular Exam: REGULAR RHYTHM, RRR, +S1, +S2 - GI/Abdominal Exam GI & Abdominal Exam: Soft, Normal Bowel Sounds. absent: Distended, Tenderness - Extremities Exam Extremities Exam: absent: Joint Swelling, Pedal Edema Additional comments: wheelchair bound. - Neurological Exam Neurological Exam: Alert, Awake, CN II-XII Intact, Oriented x3 - Psychiatric Exam Psychiatric exam: Anxious, Flat Affect - Skin Skin Exam: Intact, Normal Color Assessment and Plan - Assessment and Plan (Free Text) Assessment: 63 yo female with fevers at [facility] and generalized body aches. The patient was started on Rocephin. Low grade fever of 100.2 F in [facility]. La cultures sent. Can give one dose of Gentamicin 100mg IV. Chest X-ray with no active disease. Supportive care. Continue on Rocephin. Tmax of 102.5 F. Clinically the patient appears to be at her baseline. Dehydration? Blood cultures negative at 24 hours. Urine cultures pending. Patient is not giving any complaints at this time. If fevers persist will have to expand coverage of antibiotics from Rocephin. Will give dose of Gentamicin. Thank you for allowing me to participate in the care of the patient, we will follow with you.
--- NOTE | 2018-08-09 15:55 | CP.PCM.PN ---
Subjective - Date & Time of Evaluation Date of Evaluation: 08/09/18 Time of Evaluation: 14:00 - Subjective Subjective: Infectious Disease Follow Up: August 09, 2018 63 yo female with presentation of fevers and body aches at [facility] nursing facility. 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 She was found with fevers up to 103.0 F. Mild to Moderate leukocytosis. Mild transaminitis. Influenza test negative. Possible UTI although urinalysis evidence is rather weak. The patient is making few complaints now. She remains highly anxious. Urine cultures showing ESBL+ E. Coli > 100,000 CFU/ml. Objective - Vital Signs/Intake and Output Vital Signs (last 24 hours): Temp Pulse Resp BP Pulse Ox 98.9 F 78 18 110/64 94 L 08/09/18 05:54 08/09/18 09:53 08/09/18 05:54 08/09/18 09:53 08/09/18 05:54 Intake and Output: 08/09/18 08/09/18 06:59 18:59 Intake Total 240 Balance 240 - Medications Medications: Current Medications Acetaminophen (Tylenol 325mg Tab) 650 mg PO Q4H PRN PRN Reason: Fever >100.5 F Last Admin: 08/07/18 23:54 Dose: 650 mg Arformoterol Tartrate (Brovana) 15 mcg IH [id number] [facility] Last Admin: 08/09/18 07:57 Dose: 15 mcg Budesonide (Pulmicort Respules) 0.25 mg IH [id number] [facility] Last Admin: 08/09/18 07:57 Dose: 0.25 mg Carvedilol (Coreg) 12.5 mg PO BID [facility] Last Admin: 08/09/18 09:53 Dose: 12.5 mg Cholecalciferol (Vitamin D) 1,000 intlu PO DAILY [facility] Last Admin: 08/09/18 09:54 Dose: 1,000 intlu Digoxin (Digoxin) 0.125 mg PO 1400 [facility] Last Admin: 08/08/18 17:29 Dose: 0.125 mg Fluoxetine HCl (Prozac) 40 mg PO DAILY [facility] Last Admin: 08/09/18 09:54 Dose: 40 mg Furosemide (Lasix) 20 mg PO DAILY [facility] Last Admin: 08/09/18 09:53 Dose: 20 mg Methimazole (Tapazole) 10 mg PO MoTuWeThFr@1000,1800 [facility] Last Admin: 08/09/18 09:54 Dose: 10 mg Methimazole (Tapazole) 25 mg PO SuSa@1000 [facility] Montelukast Sodium (Singulair) 10 mg PO DAILY [facility] Last Admin: 08/09/18 09:54 Dose: 10 mg Pantoprazole Sodium (Protonix Ec Tab) 20 mg PO DAILY [facility] Last Admin: 08/09/18 09:54 Dose: 20 mg Risperidone (Risperdal Tab) 0.5 mg PO HS [facility]; Protocol Last Admin: 08/08/18 21:17 Dose: 0.5 mg Warfarin Sodium (Coumadin) 5 mg PO 1800 [facility]; Protocol - Labs Labs: 08/09/18 06:30 08/09/18 06:30 PT 15.0 SECONDS (9.4-12.5) H 08/08/18 21:47 INR 1.31 08/08/18 21:47 APTT 25.8 Seconds (25.1-36.5) 08/07/18 16:20 - Constitutional Appears: Non-toxic, No Acute Distress, Chronically Ill - Head Exam Head Exam: ATRAUMATIC, NORMOCEPHALIC - Eye Exam Eye Exam: EOMI, PERRL Pupil Exam: NORMAL ACCOMODATION, PERRL - ENT Exam ENT Exam: Mucous Membranes Moist, Normal External Ear Exam, TM's Normal Bilaterally - Neck Exam Neck Exam: Full ROM, Normal Inspection - Respiratory Exam Respiratory Exam: Clear to Ausculation Bilateral, NORMAL BREATHING PATTERN. absent: Rales, Rhonchi, Wheezes - Cardiovascular Exam Cardiovascular Exam: REGULAR RHYTHM, RRR, +S1, +S2 - GI/Abdominal Exam GI & Abdominal Exam: Soft, Normal Bowel Sounds. absent: Distended, Tenderness - Extremities Exam Extremities Exam: absent: Joint Swelling, Pedal Edema Additional comments: wheelchair bound. - Neurological Exam Neurological Exam: Alert, Awake, CN II-XII Intact, Oriented x3 - Psychiatric Exam Psychiatric exam: Anxious, Flat Affect - Skin Skin Exam: Intact, Normal Color Assessment and Plan - Assessment and Plan (Free Text) Assessment: 63 yo female with fevers at [facility] and generalized body aches. The patient was started on Rocephin. Low grade fever of 100.2 F in [facility]. La cultures sent. Can give one dose of Gentamicin 100mg IV. Chest X-ray with no active disease. Supportive care. Continue on Rocephin. Tmax of 102.5 F. Clinically the patient appears to be at her baseline. Dehydration? Blood cultures negative at 24 hours. Urine cultures pending. Patient is not giving any complaints at this time. If fevers persist will have to expand coverage of antibiotics from Rocephin. Was given one dose of Gentamicin. Urine culture showing E. coli that is ESBL+. Switch rocephin to Meropenem. Looking for 5 to 7 days of treatment. Thank you for allowing me to participate in the care of the patient, we will follow with you.
[2018-08-09] MEDS: MEROPENEM 500 MG in NS 500 MG/50 ML BAG IVPB SCH ×2 (18:14→23:04)
[2018-08-09] MEDS: Digoxin 125 mcg (0.125 mg) Tab PO SCH (18:14)
[2018-08-10] MEDS: Budesonide 0.25 mg/2 ml Inhal Susp UD IH SCH ×2 (07:28→19:29)
[2018-08-10] MEDS: Arformoterol 15 mcg/2 ml Inh Sol IH SCH ×2 (07:28→19:29)
[2018-08-10] MEDS: MEROPENEM 500 MG in NS 500 MG/50 ML BAG IVPB SCH ×2 (09:45→21:38)
[2018-08-10] MEDS: Cholecalciferol 1,000 INTLU TAB PO SCH (09:52)
[2018-08-10] MEDS: Pantoprazole 20 mg EC Tab PO SCH (09:52)
[2018-08-10 10:55] LABS: INR 1.29; PROTHROMBIN TIME 14.9 SECONDS (9.4-12.5)
--- NOTE | 2018-08-10 11:49 | PN ---
DATE: 08/09/2018 SUBJECTIVE: The patient is a 63-year-old female. The patient was seen and examined at the bedside on 08/09/2018, looking anxious. No headache. No dizziness. No chest pain. No palpitation. Looks like dehydrated, have fever. No hematuria. No hematochezia. T-max 99.7, pulse 81, appetite is poor. The patient is a very poor historian. PHYSICAL EXAMINATION: VITAL SIGNS: Temperature 99.7, pulse 81, blood pressure 110/54, respiratory rate 20. HEENT: Head: Normocephalic and atraumatic. Eyes: PERRLA. Extraocular movements are intact. Conjunctivae clear. Nose patent. Mucous membranes moist. NECK: Supple. No carotid bruit. No JVD or thyromegaly. CHEST: Bilateral symmetrical. HEART: S1 and S2, positive. LUNGS: Clear to auscultation. ABDOMEN: Soft. Bowel sounds are present. No organomegaly. EXTREMITIES: No edema. No cyanosis. NEUROLOGIC: The patient is awake and alert. Moving all 4 extremities. No focal deficits. MEDICATIONS: Brovana, Coreg, Coumadin, digoxin, Lasix, Merrem, Protonix, Prozac, Pulmicort, Risperdal, Singulair, Tapazole, Tylenol, vitamin D. LABORATORY DATA: White blood cell 7.8, hemoglobin 9.4, hematocrit 28.8, platelets 179. Sodium 135, potassium 3.8, BUN 51, creatinine 1. ASSESSMENT AND PLAN: Ms. Ridge Youngblood is a 63-year-old female with anemia, high BUN, improving, hyperglycemia, iron deficiency, proteinuria, hematuria, urinary tract infection, history of hyperthyroidism, came with fever, body aches from the skilled nursing, seen by Infectious Disease. Fever was 103 in skilled nursing, got dose of gentamicin 100 mg intravenous. Urinalysis shows Escherichia coli that is extended-spectrum beta-lactamases positive. Dr. Wilburn changed Rocephin to meropenem, looking forward 5 to 7 days. After that, she do not have fever. Out of bed physical therapy. The patient has multiple comorbidities, leukemia, atrial fibrillation, on Coumadin, congestive heart failure, urinary incontinence, anxiety, depression, schizophrenia, gastrointestinal and deep venous thrombosis prophylaxis, repeat labs, recheck INR. We will follow. Sharonda Knight MD [facility] # [id number]
--- NOTE | 2018-08-10 14:08 | CP.PCM.PN ---
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 She was found with fevers up to 103.0 F. Mild to Moderate leukocytosis. Mild transaminitis. Influenza test negative. Possible UTI although urinalysis evidence is rather weak. The patient is making few complaints now. She remains highly anxious. Urine cultures showing ESBL+ E. Coli > 100,000 CFU/ml. Currently on Meropenem. Afebrile the last 2 days. Difficult to assess as the patient rarely complains of anything. Objective - Vital Signs/Intake and Output Vital Signs (last 24 hours): Temp Pulse Resp BP Pulse Ox 97.1 F L 78 19 109/63 95 08/10/18 12:00 08/10/18 12:00 08/10/18 12:00 08/10/18 12:00 08/10/18 06:00 Intake and Output: 08/10/18 08/10/18 06:59 18:59 Intake Total 550 Balance 550 - Medications Medications: Current Medications Acetaminophen (Tylenol 325mg Tab) 650 mg PO Q4H PRN PRN Reason: Fever >100.5 F Last Admin: 08/07/18 23:54 Dose: 650 mg Arformoterol Tartrate (Brovana) 15 mcg IH [id number] [facility] Last Admin: 08/10/18 07:28 Dose: 15 mcg Budesonide (Pulmicort Respules) 0.25 mg IH [id number] [facility] Last Admin: 08/10/18 07:28 Dose: 0.25 mg Carvedilol (Coreg) 12.5 mg PO BID [facility] Last Admin: 08/10/18 09:52 Dose: 12.5 mg Cholecalciferol (Vitamin D) 1,000 intlu PO DAILY [facility] Last Admin: 08/10/18 09:52 Dose: 1,000 intlu Digoxin (Digoxin) 0.125 mg PO 1400 [facility] Last Admin: 08/09/18 18:14 Dose: 0.125 mg Fluoxetine HCl (Prozac) 40 mg PO DAILY [facility] Last Admin: 08/10/18 09:46 Dose: 40 mg Furosemide (Lasix) 20 mg PO DAILY [facility] Last Admin: 08/10/18 09:48 Dose: 20 mg Meropenem/Sodium Chloride (Merrem Iv 500 Mg/Ns 50 Ml) 500 mg in 50 mls @ 100 mls/hr IVPB Q12 [facility]; Protocol Last Admin: 08/10/18 09:45 Dose: 100 mls/hr Methimazole (Tapazole) 10 mg PO MoTuWeThFr@1000,1800 [facility] Last Admin: 08/10/18 09:52 Dose: 10 mg Methimazole (Tapazole) 25 mg PO SuSa@1000 [facility] Montelukast Sodium (Singulair) 10 mg PO DAILY [facility] Last Admin: 08/10/18 09:46 Dose: 10 mg Pantoprazole Sodium (Protonix Ec Tab) 20 mg PO DAILY [facility] Last Admin: 08/10/18 09:52 Dose: 20 mg Risperidone (Risperdal Tab) 0.5 mg PO HS [facility]; Protocol Last Admin: 08/09/18 21:14 Dose: 0.5 mg Warfarin Sodium (Coumadin) 5 mg PO 1800 [facility]; Protocol Last Admin: 08/09/18 18:15 Dose: 5 mg - Labs Labs: 08/09/18 06:30 08/09/18 06:30 PT 14.9 SECONDS (9.4-12.5) H 08/10/18 10:40 INR 1.29 08/10/18 10:40 APTT 25.8 Seconds (25.1-36.5) 08/07/18 16:20 - Constitutional Appears: Non-toxic, No Acute Distress, Chronically Ill - Head Exam Head Exam: ATRAUMATIC, NORMOCEPHALIC - Eye Exam Eye Exam: EOMI, PERRL Pupil Exam: NORMAL ACCOMODATION, PERRL - ENT Exam ENT Exam: Mucous Membranes Moist, Normal External Ear Exam, TM's Normal Bilaterally - Respiratory Exam Respiratory Exam: Clear to Ausculation Bilateral, NORMAL BREATHING PATTERN. absent: Rales, Rhonchi, Wheezes - Cardiovascular Exam Cardiovascular Exam: REGULAR RHYTHM, RRR, +S1, +S2 - GI/Abdominal Exam GI & Abdominal Exam: Soft, Normal Bowel Sounds. absent: Distended, Tenderness - Extremities Exam Extremities Exam: absent: Joint Swelling, Pedal Edema Additional comments: wheelchair bound - Neurological Exam Neurological Exam: Alert, Awake, CN II-XII Intact, Oriented x3 - Psychiatric Exam Psychiatric exam: Anxious, Flat Affect - Skin Skin Exam: Intact, Normal Color Assessment and Plan - Assessment and Plan (Free Text) Assessment: 63 yo female with fevers at [facility] and generalized body aches. The patient was started on Rocephin. Low grade fever of 100.2 F in [facility]. La cultures sent. Can give one dose of Gentamicin 100mg IV. Chest X-ray with no active disease. Supportive care. Continue on Rocephin. Tmax of 102.5 F. Clinically the patient appears to be at her baseline. Dehydration? Blood cultures negative at 24 hours. Urine cultures pending. Patient is not giving any complaints at this time. If fevers persist will have to expand coverage of antibiotics from Rocephin. Was given one dose of Gentamicin. Urine culture showing E. coli that is ESBL+. On Meropenem. Looking for 5 to 7 days of treatment with Meropenem. Thank you for allowing me to participate in the care of the patient, we will follow with you.
[2018-08-10] MEDS: Digoxin 125 mcg (0.125 mg) Tab PO SCH (14:29)
[2018-08-11 06:41] LABS: HEMOGLOBIN 9.8 g/dL (12.0-16.0); MEAN CELL VOLUME 82.8 fl (80.0-105.0); MEAN CORPUSCULAR HEMOGLOBIN 26.3 pg (25.0-35.0); MEAN CORPUSCULAR HGB CONC 31.8 g/dl (31.0-37.0); MEAN PLATELET VOLUME 10.7 fl (7.0-11.0); RBC 3.72 10^6/uL (3.5-6.1); RED CELL DISTRIBUTION WIDTH 12.8 % (11.5-14.5); WHITE BLOOD COUNT 7.7 10^3/uL (4.5-11.0)
[2018-08-11 06:51] LABS: CALCIUM 8.9 mg/dL (8.4-10.5)
[2018-08-11] MEDS: Budesonide 0.25 mg/2 ml Inhal Susp UD IH SCH ×2 (07:41→19:14)
[2018-08-11] MEDS: Arformoterol 15 mcg/2 ml Inh Sol IH SCH ×2 (07:41→19:14)
[2018-08-11] MEDS: Cholecalciferol 1,000 INTLU TAB PO SCH (10:29)
[2018-08-11] MEDS: Pantoprazole 20 mg EC Tab PO SCH (10:29)
[2018-08-11] MEDS: MEROPENEM 500 MG in NS 500 MG/50 ML BAG IVPB SCH ×2 (10:30→21:35)
[2018-08-11] MEDS: Digoxin 125 mcg (0.125 mg) Tab PO SCH (13:00)
--- NOTE | 2018-08-11 16:36 | CP.PCM.PN ---
Subjective - Date & Time of Evaluation Date of Evaluation: 08/11/18 Time of Evaluation: 14:30 - Subjective Subjective: Infectious Disease Follow Up: August 11, 2018 63 yo female with presentation of fevers and body aches at clinical [facility] facility. The patient normally ambulates with the aid of a walker and currently is a clinical ob resident at [facility] (formerly [facility]). She was found with fevers up to 103.0 F. Mild to Moderate leukocytosis. Mild transaminitis. Influenza test negative. Possible UTI although urinalysis evidence is rather weak. The patient is making few complaints now. She remains highly anxious. Urine cultures showing ESBL+ E. Coli > 100,000 CFU/ml. Currently on Meropenem. Afebrile the last 3 days. Difficult to assess as the patient rarely complains of anything. On exam and interview, she appears to be her normal self. Objective - Vital Signs/Intake and Output Vital Signs (last 24 hours): Temp Pulse Resp BP Pulse Ox 98.5 F 90 18 115/69 98 08/11/18 12:00 08/11/18 12:00 08/11/18 12:00 08/11/18 12:00 08/11/18 06:00 Intake and Output: 08/11/18 08/11/18 06:59 18:59 Intake Total 300 Output Total 200 Balance 100 - Medications Medications: Current Medications Acetaminophen (Tylenol 325mg Tab) 650 mg PO Q4H PRN PRN Reason: Fever >100.5 F Last Admin: 08/07/18 23:54 Dose: 650 mg Arformoterol Tartrate (Brovana) 15 mcg IH [id number] [facility] Last Admin: 08/11/18 07:41 Dose: 15 mcg Budesonide (Pulmicort Respules) 0.25 mg IH [id number] [facility] Last Admin: 08/11/18 07:41 Dose: 0.25 mg Carvedilol (Coreg) 12.5 mg PO BID [facility] Last Admin: 08/11/18 10:29 Dose: 12.5 mg Cholecalciferol (Vitamin D) 1,000 intlu PO DAILY [facility] Last Admin: 08/11/18 10:29 Dose: 1,000 intlu Digoxin (Digoxin) 0.125 mg PO 1400 [facility] Last Admin: 08/11/18 13:00 Dose: 0.125 mg Fluoxetine HCl (Prozac) 40 mg PO DAILY [facility] Last Admin: 08/11/18 10:29 Dose: 40 mg Furosemide (Lasix) 20 mg PO DAILY [facility] Last Admin: 08/11/18 10:28 Dose: 20 mg Meropenem/Sodium Chloride (Merrem Iv 500 Mg/Ns 50 Ml) 500 mg in 50 mls @ 100 mls/hr IVPB Q12 [facility]; Protocol Last Admin: 08/11/18 10:30 Dose: 100 mls/hr Methimazole (Tapazole) 10 mg PO MoTuWeThFr@1000,1800 [facility] Last Admin: 08/11/18 10:29 Dose: 10 mg Methimazole (Tapazole) 25 mg PO SuSa@1000 [facility] Montelukast Sodium (Singulair) 10 mg PO DAILY [facility] Last Admin: 08/11/18 10:29 Dose: 10 mg Pantoprazole Sodium (Protonix Ec Tab) 20 mg PO DAILY [facility] Last Admin: 08/11/18 10:29 Dose: 20 mg Risperidone (Risperdal Tab) 0.5 mg PO HS [facility]; Protocol Last Admin: 08/10/18 21:38 Dose: 0.5 mg Warfarin Sodium (Coumadin) 5 mg PO 1800 [facility]; Protocol Last Admin: 08/10/18 18:29 Dose: 5 mg - Labs Labs: 08/11/18 06:20 08/11/18 06:20 PT 14.9 SECONDS (9.4-12.5) H 08/10/18 10:40 INR 1.29 08/10/18 10:40 APTT 25.8 Seconds (25.1-36.5) 08/07/18 16:20 - Constitutional Appears: Non-toxic, No Acute Distress, Chronically Ill - Head Exam Head Exam: ATRAUMATIC, NORMOCEPHALIC - Eye Exam Eye Exam: EOMI, PERRL Pupil Exam: NORMAL ACCOMODATION, PERRL - ENT Exam ENT Exam: Mucous Membranes Moist, Normal External Ear Exam, TM's Normal Bilaterally - Neck Exam Neck Exam: Full ROM, Normal Inspection - Respiratory Exam Respiratory Exam: Clear to Ausculation Bilateral, NORMAL BREATHING PATTERN. absent: Rales, Rhonchi, Wheezes - Cardiovascular Exam Cardiovascular Exam: REGULAR RHYTHM, RRR, +S1, +S2 - GI/Abdominal Exam GI & Abdominal Exam: Soft, Normal Bowel Sounds. absent: Distended, Tenderness - Extremities Exam Extremities Exam: absent: Joint Swelling, Pedal Edema Additional comments: wheelchair bound - Neurological Exam Neurological Exam: Alert, Awake, CN II-XII Intact, Oriented x3 - Psychiatric Exam Psychiatric exam: Anxious, Flat Affect - Skin Skin Exam: Intact, Normal Color Assessment and Plan - Assessment and Plan (Free Text) Assessment: 63 yo female with fevers at [facility] and generalized body aches. The patient was started on Rocephin. Low grade fever of 100.2 F in [facility]. La cultures sent. Can give one dose of Gentamicin 100mg IV. Chest X-ray with no active disease. Supportive care. Continue on Rocephin. Tmax of 102.5 F. Clinically the patient appears to be at her baseline. Dehydration? Blood cultures negative at 24 hours. Urine cultures pending. Patient is not giving any complaints at this time. If fevers persist will have to expand coverage of antibiotics from Rocephin. Was given one dose of Gentamicin. Urine culture showing E. coli that is ESBL+. On Meropenem. Looking for 5 to 7 days of treatment with Meropenem. nearing completion of therapy. Thank you for allowing me to participate in the care of the patient, we will follow with you.
--- NOTE | 2018-08-11 23:08 | PN ---
DATE: 08/11/2018 SUBJECTIVE: The patient is a 63-year-old female. The patient was seen and examined at bedside on 08/11/2018, looking comfortable. No fever. No chills. No hematuria or hematochezia. No headache. No dizziness. No chest pain. No palpitations. PHYSICAL EXAMINATION: VITAL SIGNS: Temperature 98.5, pulse 90, respiratory rate 18, blood pressure 115/69, and pulse oximetry 98. HEENT: Head is normocephalic and atraumatic. Eyes; PERRLA. Extraocular muscles intact. Conjunctivae clear. Nose patent. Mucous membrane moist. NECK: Supple. No carotid bruit. No JVD or thyromegaly. CHEST: Bilaterally symmetrical. HEART: S1 and S2 positive. LUNGS: Clear to auscultation. ABDOMEN: Soft. Bowel sounds present. No organomegaly. EXTREMITIES: No edema. No cyanosis. NEUROLOGIC: The patient is awake, alert, and moving all 4 extremities. No focal deficits. MEDICATIONS: Tylenol, Brovana, Pulmicort, Coreg, vitamin D, digoxin, Prozac, Lasix, NS, Tapazole, Singulair, Protonix, Risperdal, and Coumadin. LABORATORY DATA: White blood cell 7.7, hemoglobin 9.8, hematocrit 30.8, and platelets 193. Sodium 145, potassium 4.4, BUN 61, and creatinine 1.2. Glucose is 97. ASSESSMENT AND PLAN: Ms. Rylie Sabillon is a 63-year-old lady with anemia, renal insufficiency, hyperthyroidism, urinary tract infection, resident of [facility], came with generalized body aches. The patient was given Rocephin. She came with fever. Panculture was sent. one dose of gentamicin given . Clinically, the patient improved with antibiotics, rule out dehydration, and got better. Urine culture shows Escherichia coli that is extended-spectrum beta-lactamases positive, on Merrem, looking for 5 to 7 days of treatment with meropenem. Nearing her completion of the therapy. The patient has a history of atrial fibrillation, leukemia, dementia, and history of diarrhea. Gastrointestinal and deep venous thrombosis prophylaxes given. Repeat labs. We will follow up. Sharonda Knight MD [facility] # [id number] LETY
[2018-08-12] MEDS: Budesonide 0.25 mg/2 ml Inhal Susp UD IH SCH ×2 (07:35→20:00)
[2018-08-12] MEDS: Arformoterol 15 mcg/2 ml Inh Sol IH SCH ×2 (07:35→20:00)
[2018-08-12] MEDS: Pantoprazole 20 mg EC Tab PO SCH (09:26)
[2018-08-12] MEDS: Cholecalciferol 1,000 INTLU TAB PO SCH (09:26)
[2018-08-12] MEDS: MEROPENEM 500 MG in NS 500 MG/50 ML BAG IVPB SCH ×2 (09:46→21:57)
[2018-08-12] MEDS: Digoxin 125 mcg (0.125 mg) Tab PO SCH (14:02)
--- NOTE | 2018-08-12 14:04 | CP.PCM.PN ---
Subjective - Date & Time of Evaluation Date of Evaluation: 08/12/18 Time of Evaluation: 12:00 - Subjective Subjective: Infectious Disease Follow Up: August 12, 2018 63 yo female with presentation of fevers and body aches at [facility] facility. The patient normally ambulates with the aid of a walker and currently is a fdc resident at [facility] (formerly [facility]). She was found with fevers up to 103.0 F. Mild to Moderate leukocytosis. Mild transaminitis. Influenza test negative. Possible UTI although urinalysis evidence is rather weak. The patient is making few complaints now. She remains highly anxious. Urine cultures showing ESBL+ E. Coli > 100,000 CFU/ml. Currently on Meropenem. Afebrile the last 3 days. Difficult to assess as the patient rarely complains of anything. On exam and interview, she appears to be her normal self. Noted peripheral smear report. Objective - Vital Signs/Intake and Output Vital Signs (last 24 hours): Temp Pulse Resp BP Pulse Ox 97.8 F 70 18 110/57 L 99 08/12/18 06:00 08/12/18 09:25 08/12/18 06:00 08/12/18 09:25 08/12/18 06:00 Intake and Output: 08/12/18 08/12/18 06:59 18:59 Intake Total 2039 Output Total 1999 Balance 40 - Medications Medications: Current Medications Acetaminophen (Tylenol 325mg Tab) 650 mg PO Q4H PRN PRN Reason: Fever >100.5 F Last Admin: 08/07/18 23:54 Dose: 650 mg Arformoterol Tartrate (Brovana) 15 mcg IH [id number] [facility] Last Admin: 08/12/18 07:35 Dose: 15 mcg Budesonide (Pulmicort Respules) 0.25 mg IH [id number] [facility] Last Admin: 08/12/18 07:35 Dose: 0.25 mg Carvedilol (Coreg) 12.5 mg PO BID [facility] Last Admin: 08/12/18 09:25 Dose: 12.5 mg Cholecalciferol (Vitamin D) 1,000 intlu PO DAILY [facility] Last Admin: 08/12/18 09:26 Dose: 1,000 intlu Digoxin (Digoxin) 0.125 mg PO 1400 [facility] Last Admin: 08/11/18 13:00 Dose: 0.125 mg Fluoxetine HCl (Prozac) 40 mg PO DAILY [facility] Last Admin: 08/12/18 09:23 Dose: 40 mg Furosemide (Lasix) 20 mg PO DAILY [facility] Last Admin: 08/12/18 09:23 Dose: 20 mg Meropenem/Sodium Chloride (Merrem Iv 500 Mg/Ns 50 Ml) 500 mg in 50 mls @ 100 mls/hr IVPB Q12 [facility]; Protocol Last Admin: 08/12/18 09:46 Dose: 100 mls/hr Methimazole (Tapazole) 10 mg PO MoTuWeThFr@1000,1800 [facility] Last Admin: 08/11/18 18:30 Dose: 10 mg Methimazole (Tapazole) 25 mg PO SuSa@1000 [facility] Last Admin: 08/12/18 09:23 Dose: 25 mg Montelukast Sodium (Singulair) 10 mg PO DAILY [facility] Last Admin: 08/12/18 09:26 Dose: 10 mg Pantoprazole Sodium (Protonix Ec Tab) 20 mg PO DAILY [facility] Last Admin: 08/12/18 09:26 Dose: 20 mg Risperidone (Risperdal Tab) 0.5 mg PO HS [facility]; Protocol Last Admin: 08/11/18 21:35 Dose: 0.5 mg Warfarin Sodium (Coumadin) 5 mg PO 1800 [facility]; Protocol Last Admin: 08/11/18 18:30 Dose: 5 mg - Labs Labs: 08/11/18 06:20 08/11/18 06:20 PT 14.9 SECONDS (9.4-12.5) H 08/10/18 10:40 INR 1.29 08/10/18 10:40 APTT 25.8 Seconds (25.1-36.5) 08/07/18 16:20 - Constitutional Appears: Non-toxic, No Acute Distress, Chronically Ill - Head Exam Head Exam: ATRAUMATIC, NORMOCEPHALIC - Eye Exam Eye Exam: EOMI, PERRL Pupil Exam: NORMAL ACCOMODATION, PERRL - ENT Exam ENT Exam: Mucous Membranes Moist, Normal External Ear Exam, TM's Normal Bilaterally - Neck Exam Neck Exam: Full ROM, Normal Inspection - Respiratory Exam Respiratory Exam: Clear to Ausculation Bilateral, NORMAL BREATHING PATTERN. absent: Rales, Rhonchi, Wheezes - Cardiovascular Exam Cardiovascular Exam: REGULAR RHYTHM, RRR, +S1, +S2 - GI/Abdominal Exam GI & Abdominal Exam: Soft, Normal Bowel Sounds. absent: Distended, Tenderness - Extremities Exam Extremities Exam: absent: Joint Swelling, Pedal Edema Additional comments: wheelchair bound - Neurological Exam Neurological Exam: Alert, Awake, CN II-XII Intact, Oriented x3 - Psychiatric Exam Psychiatric exam: Anxious, Flat Affect - Skin Skin Exam: Intact, Normal Color Assessment and Plan - Assessment and Plan (Free Text) Assessment: 63 yo female with fevers at [facility] and generalized body aches. The patient was started on Rocephin. Low grade fever of 100.2 F in [facility]. La cultures sent. Can give one dose of Gentamicin 100mg IV. Chest X-ray with no active disease. Supportive care. Continue on Rocephin. Tmax of 102.5 F. Clinically the patient appears to be at her baseline. Dehydration? Blood cultures negative at 24 hours. Urine cultures wijth E. coli that is ESBL+. Patient is not giving any complaints at this time. If fevers persist will have to expand coverage of antibiotics from Rocephin. Was given one dose of Gentamicin. Urine culture showing E. coli that is ESBL+. On Meropenem. Looking for 5 to 7 days of treatment with Meropenem. On day 4 of therapy. Thank you for allowing me to participate in the care of the patient, we will follow with you.
--- NOTE | 2018-08-12 23:13 | PN ---
DATE: 08/12/2018 SUBJECTIVE: The patient is a 63-year-old female. The patient was seen and examined at the bedside on 08/12/2018, looking comfortable. No fever. No chills. No hematuria or hematochezia. No swelling of the legs. No chest pain. No palpitations. No headache. No dizziness. PHYSICAL EXAMINATION: VITAL SIGNS: Temperature 97.8, pulse 70, respiratory rate 18, blood pressure 110/57, and pulse oximetry 99. HEENT: Head; normocephalic and atraumatic. Eyes; PERRLA. Extraocular muscles intact. Conjunctivae clear. Nose patent. Mucous membrane moist. NECK: Supple. No carotid bruit, JVD or thyromegaly. CHEST: Bilaterally symmetrical. HEART: S1 and S2 positive. LUNGS: Clear to auscultation. ABDOMEN: Soft. Bowel sounds present. No organomegaly. EXTREMITIES: No edema. No cyanosis. NEUROLOGIC: The patient is awake and alert. Moving all 4 extremities. No focal deficits. MEDICATIONS: Tylenol, Brovana, Pulmicort, Coreg, vitamin D, digoxin, Prozac, Lasix, meropenem, Tapazole, Singulair, Protonix, Risperdal, and Coumadin. LABORATORY DATA: White blood cell 7.7, hemoglobin 9.8, hematocrit 30.8, and platelets 196. Sodium 141, potassium 4.4, BUN 61, and creatinine 1.2. Glucose is 97. ASSESSMENT AND PLAN: Ms. Rylie Delarosa is a 63-year-old female with anemia, renal insufficiency, resident of [facility], and came with generalized body aches. The patient was started on Rocephin. Has fever. Panculture was sent. Now, the patient is fever free. Got gentamicin and Rocephin. Urine culture shows Escherichia coli that is extended-spectrum beta-lactamases positive, on meropenem, looking 5 to 7 days of treatment with meropenem, today is day 4. Reviewed Dr. Wilburn's notes. The patient has history of hyperthyroidism, diarrhea, history of leukemia, depression, degenerative joint disease, and history of atrial fibrillation, is on Coumadin. Repeat labs. We will follow up. Sharonda Knight MD [facility] # [id number]
[2018-08-13] MEDS: Arformoterol 15 mcg/2 ml Inh Sol IH SCH ×2 (07:11→20:28)
[2018-08-13] MEDS: Budesonide 0.25 mg/2 ml Inhal Susp UD IH SCH ×2 (07:11→20:29)
[2018-08-13 07:53] LABS: INR 3.38; PROTHROMBIN TIME 39.9 SECONDS (9.4-12.5)
[2018-08-13] MEDS: MEROPENEM 500 MG in NS 500 MG/50 ML BAG IVPB SCH ×2 (09:55→21:34)
[2018-08-13] MEDS: Cholecalciferol 1,000 INTLU TAB PO SCH (09:56)
[2018-08-13] MEDS: Pantoprazole 20 mg EC Tab PO SCH (10:20)
[2018-08-13] MEDS: Digoxin 125 mcg (0.125 mg) Tab PO SCH (14:27)
--- NOTE | 2018-08-13 16:48 | CP.PCM.PN ---
Subjective - Date & Time of Evaluation Date of Evaluation: 08/13/18 Time of Evaluation: 14:00 - Subjective Subjective: Infectious Disease Follow Up: August 12, 2018 63 yo female with presentation of fevers [facility] aches at [facility]. The patient normally ambulates with the aid of a walker and currently is a [facility] resident at [facility] (formerly [facility]). She was found with fevers up to 103.0 F. Mild to Moderate leukocytosis. Mild transaminitis. Influenza test negative. Possible UTI although urinalysis evidence is rather weak. The patient is making few complaints now. She remains highly anxious. Urine cultures showing ESBL+ E. Coli > 100,000 CFU/ml. Currently on Meropenem Day 5 Afebrile the last 4 days. Difficult to assess as the patient rarely complains of anything. On exam and interview, she appears to be her normal self. Noted peripheral smear report. Objective - Vital Signs/Intake and Output Vital Signs (last 24 hours): Temp Pulse Resp BP Pulse Ox 99.4 F 82 16 84/50 L 99 08/13/18 12:00 08/13/18 14:00 08/13/18 12:00 08/13/18 12:00 08/12/18 06:00 Intake and Output: 08/13/18 08/13/18 06:59 18:59 Intake Total 80 Output Total 150 Balance -70 - Medications Medications: Current Medications Acetaminophen (Tylenol 325mg Tab) 650 mg PO Q4H PRN PRN Reason: Fever >100.5 F Last Admin: 08/07/18 23:54 Dose: 650 mg Arformoterol Tartrate (Brovana) 15 mcg IH [id number] [facility] Last Admin: 08/13/18 07:11 Dose: 15 mcg Budesonide (Pulmicort Respules) 0.25 mg IH [id number] [facility] Last Admin: 08/13/18 07:11 Dose: 0.25 mg Carvedilol (Coreg) 12.5 mg PO BID [facility] Last Admin: 08/13/18 09:56 Dose: 12.5 mg Cholecalciferol (Vitamin D) 1,000 intlu PO DAILY [facility] Last Admin: 08/13/18 09:56 Dose: 1,000 intlu Digoxin (Digoxin) 0.125 mg PO 1400 [facility] Last Admin: 08/13/18 14:27 Dose: 0.125 mg Fluoxetine HCl (Prozac) 40 mg PO DAILY [facility] Last Admin: 08/13/18 09:57 Dose: 40 mg Furosemide (Lasix) 20 mg PO DAILY [facility] Last Admin: 08/13/18 09:56 Dose: 20 mg Meropenem/Sodium Chloride (Merrem Iv 500 Mg/Ns 50 Ml) 500 mg in 50 mls @ 100 mls/hr IVPB Q12 [facility]; Protocol Last Admin: 08/13/18 09:55 Dose: 100 mls/hr Methimazole (Tapazole) 10 mg PO MoTuWeThFr@1000,1800 [facility] Last Admin: 08/11/18 18:30 Dose: 10 mg Methimazole (Tapazole) 25 mg PO SuSa@1000 [facility] Last Admin: 08/13/18 09:57 Dose: 25 mg Montelukast Sodium (Singulair) 10 mg PO DAILY [facility] Last Admin: 08/13/18 09:56 Dose: 10 mg Pantoprazole Sodium (Protonix Ec Tab) 20 mg PO DAILY [facility] Last Admin: 08/13/18 10:20 Dose: 20 mg Risperidone (Risperdal Tab) 0.5 mg PO HS [facility]; Protocol Last Admin: 08/12/18 21:57 Dose: 0.5 mg Warfarin Sodium (Coumadin) 5 mg PO 1800 [facility]; Protocol Last Admin: 08/12/18 18:03 Dose: 5 mg - Labs Labs: 08/11/18 06:20 08/11/18 06:20 PT 39.9 SECONDS (9.4-12.5) H 08/13/18 05:00 INR 3.38 08/13/18 05:00 APTT 25.8 Seconds (25.1-36.5) 08/07/18 16:20 - Constitutional Appears: Non-toxic, No Acute Distress, Chronically Ill - Head Exam Head Exam: ATRAUMATIC, NORMOCEPHALIC - Eye Exam Eye Exam: EOMI, PERRL Pupil Exam: NORMAL ACCOMODATION, PERRL - ENT Exam ENT Exam: Mucous Membranes Moist, Normal External Ear Exam, TM's Normal Bilaterally - Neck Exam Neck Exam: Full ROM, Normal Inspection - Respiratory Exam Respiratory Exam: Clear to Ausculation Bilateral, NORMAL BREATHING PATTERN. absent: Rales, Rhonchi, Wheezes - Cardiovascular Exam Cardiovascular Exam: REGULAR RHYTHM, RRR, +S1, +S2 - GI/Abdominal Exam GI & Abdominal Exam: Soft, Normal Bowel Sounds. absent: Distended, Tenderness - Extremities Exam Extremities Exam: absent: Joint Swelling, Pedal Edema Additional comments: wheelchair bound - Neurological Exam Neurological Exam: Alert, Awake, CN II-XII Intact, Oriented x3 - Psychiatric Exam Psychiatric exam: Normal Affect, Normal Mood - Skin Skin Exam: Intact, Normal Color Assessment and Plan - Assessment and Plan (Free Text) Assessment: 63 yo female with fevers at [facility] and generalized body aches. The patient was started on Rocephin. Low grade fever of 100.2 F in [facility]. La cultures sent. Can give one dose of Gentamicin 100mg IV. Chest X-ray with no active disease. Supportive care. Continue on Rocephin. Tmax of 102.5 F. Clinically the patient appears to be at her baseline. Dehydration? Blood cultures negative at 24 hours. Urine cultures wijth E. coli that is ESBL+. Patient is not giving any complaints at this time (she rarely complains of problems - which makes her assess slightly more difficult). If fevers persist will have to expand coverage of antibiotics from Rocephin. Was given one dose of Gentamicin. Urine culture showing E. coli that is ESBL+. On Meropenem. Looking for 5 to 7 days of treatment with Meropenem. On day 5 of therapy. Hard stop on day 7 of therapy. Thank you for allowing me to participate in the care of the patient, we will follow with you.
[2018-08-14] MEDS: Budesonide 0.25 mg/2 ml Inhal Susp UD IH SCH ×2 (07:34→21:37)
[2018-08-14] MEDS: Arformoterol 15 mcg/2 ml Inh Sol IH SCH ×2 (07:34→21:37)
--- NOTE | 2018-08-14 09:24 | PN ---
DATE: 08/13/2018 SUBJECTIVE: The patient was seen and examined at the bedside in late evening on 08/13/2018, looking comfortable. No fever. No chills. No hematuria. No hematochezia. No headache. No dizziness. No chest pain. No palpitation. PHYSICAL EXAMINATION: VITAL SIGNS: Temperature 97.4, pulse 82, respiratory rate 16, blood pressure 84/50, pulse oximetry 99. HEENT: Head: Normocephalic, atraumatic. Eyes: PERRLA. Extraocular muscles are intact. Conjunctivae clear. Nose patent. Mucous membranes moist. NECK: Supple. No carotid bruits. No JVD or thyromegaly. CHEST: Bilaterally symmetrical. HEART: S1 and S2 positive. LUNGS: Clear to auscultation. ABDOMEN: Soft. Bowel sounds present. No organomegaly. EXTREMITIES: No edema. No cyanosis. NEUROLOGIC: The patient is awake, alert, moving all four extremities. No focal deficits. MEDICATIONS: Tylenol, Brovana, Pulmicort, Coreg, vitamin D, digoxin, Prozac, meropenem, Tapazole, Singulair, Protonix, Risperdal. LABORATORY DATA: White blood cell 7.7, hemoglobin 9.8, hematocrit 30.8, glucose 196. Sodium 141, potassium 4.4, BUN 61, and creatinine 1.2. Glucose 97. ASSESSMENT AND PLAN: The patient is a 63-year-old lady with anemia, renal insufficiency, hyperthyroidism, history of leukemia, depression, noncompliant, resident of [facility]. The patient was started on Rocephin for urinary tract infection. Has fever. Clinically, the patient is improving. Blood cultures are negative. Urine cultures show Escherichia coli that is extended-spectrum beta-lactamases positive, got a dose of gentamicin also, now on Merrem looking for five to seven days of treatment with meropenem, until , the day 5 of the therapy. Has to stop on day 7. Gastrointestinal and deep vein thrombosis prophylaxis. Repeat labs. We will follow up. Sharonda Knight MD
[2018-08-14] MEDS: Cholecalciferol 1,000 INTLU TAB PO SCH (11:01)
[2018-08-14] MEDS: Pantoprazole 20 mg EC Tab PO SCH (11:01)
[2018-08-14] MEDS: MEROPENEM 500 MG in NS 500 MG/50 ML BAG IVPB SCH ×2 (11:02→21:42)
[2018-08-14] MEDS: Digoxin 125 mcg (0.125 mg) Tab PO SCH (13:12)
--- NOTE | 2018-08-14 18:00 | CP.PCM.PN ---
Subjective - Date & Time of Evaluation Date of Evaluation: 08/14/18 Time of Evaluation: 15:00 - Subjective Subjective: Infectious Disease Follow Up: August 14, 2018 63 yo female with presentation of fevers and body aches at care home nursing facility. The patient normally ambulates with the aid of a walker and currently is a care home resident at [facility] (formerly [facility]). She was found with fevers up to 103.0 F. Mild to Moderate leukocytosis. Mild transaminitis. Influenza test negative. Possible UTI although urinalysis evidence is rather weak. The patient is making few complaints now. She remains highly anxious. Urine cultures showing ESBL+ E. Coli > 100,000 CFU/ml. Currently on Meropenem Day 6 Afebrile the last 4 days. Difficult to assess as the patient rarely complains of anything. On exam and interview, she appears to be her normal self. Noted peripheral smear report. Objective - Vital Signs/Intake and Output Vital Signs (last 24 hours): Temp Pulse Resp BP Pulse Ox 98.4 F 91 H 20 107/57 L 98 08/14/18 12:00 08/14/18 14:00 08/14/18 12:00 08/14/18 12:00 08/14/18 06:00 Intake and Output: 08/14/18 08/14/18 06:59 18:59 Intake Total 870 Balance 870 - Medications Medications: Current Medications Acetaminophen (Tylenol 325mg Tab) 650 mg PO Q4H PRN PRN Reason: Fever >100.5 F Last Admin: 08/07/18 23:54 Dose: 650 mg Arformoterol Tartrate (Brovana) 15 mcg IH [id number] [facility] Last Admin: 08/14/18 07:34 Dose: 15 mcg Budesonide (Pulmicort Respules) 0.25 mg IH [id number] [facility] Last Admin: 08/14/18 07:34 Dose: 0.25 mg Carvedilol (Coreg) 12.5 mg PO BID [facility] Last Admin: 08/14/18 11:01 Dose: 12.5 mg Cholecalciferol (Vitamin D) 1,000 intlu PO DAILY [facility] Last Admin: 08/14/18 11:01 Dose: 1,000 intlu Digoxin (Digoxin) 0.125 mg PO 1400 [facility] Last Admin: 08/14/18 13:12 Dose: 0.125 mg Fluoxetine HCl (Prozac) 40 mg PO DAILY [facility] Last Admin: 08/14/18 11:01 Dose: 40 mg Furosemide (Lasix) 20 mg PO DAILY [facility] Last Admin: 08/14/18 11:01 Dose: 20 mg Meropenem/Sodium Chloride (Merrem Iv 500 Mg/Ns 50 Ml) 500 mg in 50 mls @ 100 mls/hr IVPB Q12 [facility]; Protocol Last Admin: 08/14/18 11:02 Dose: 100 mls/hr Methimazole (Tapazole) 10 mg PO MoTuWeThFr@1000,1800 [facility] Last Admin: 08/14/18 11:01 Dose: 10 mg Methimazole (Tapazole) 25 mg PO SuSa@1000 [facility] Last Admin: 08/13/18 09:57 Dose: 25 mg Montelukast Sodium (Singulair) 10 mg PO DAILY [facility] Last Admin: 08/14/18 11:01 Dose: 10 mg Pantoprazole Sodium (Protonix Ec Tab) 20 mg PO DAILY [facility] Last Admin: 08/14/18 11:01 Dose: 20 mg Risperidone (Risperdal Tab) 0.5 mg PO HS [facility]; Protocol Last Admin: 08/13/18 21:34 Dose: 0.5 mg Warfarin Sodium (Coumadin) 1 mg PO 1800 [facility]; Protocol - Labs Labs: 08/11/18 06:20 08/11/18 06:20 PT 39.9 SECONDS (9.4-12.5) H 08/13/18 05:00 INR 3.38 08/13/18 05:00 APTT 25.8 Seconds (25.1-36.5) 08/07/18 16:20 - Constitutional Appears: Non-toxic, No Acute Distress, Chronically Ill - Head Exam Head Exam: ATRAUMATIC, NORMOCEPHALIC - Eye Exam Eye Exam: EOMI, PERRL Pupil Exam: NORMAL ACCOMODATION, PERRL - ENT Exam ENT Exam: Mucous Membranes Moist, Normal External Ear Exam, TM's Normal Nithin aterally - Neck Exam Neck Exam: Full ROM, Normal Inspection - Respiratory Exam Respiratory Exam: Clear to Ausculation Bilateral, NORMAL BREATHING PATTERN. absent: Rales, Rhonchi, Wheezes - Cardiovascular Exam Cardiovascular Exam: REGULAR RHYTHM, RRR, +S1, +S2 - GI/Abdominal Exam GI & Abdominal Exam: Soft, Normal Bowel Sounds. absent: Distended, Tenderness - Extremities Exam Extremities Exam: absent: Joint Swelling, Pedal Edema Additional comments: wheelchair bound - Neurological Exam Neurological Exam: Alert, Awake, CN II-XII Intact, Oriented x3 - Psychiatric Exam Psychiatric exam: Normal Affect, Normal Mood - Skin Skin Exam: Intact, Normal Color Assessment and Plan - Assessment and Plan (Free Text) Assessment: 63 yo female with fevers at [facility] and generalized body aches. The patient was started on Rocephin. Low grade fever of 100.2 F in [facility]. La cultures sent. Can give one dose of Gentamicin 100mg IV. Chest X-ray with no active disease. Supportive care. Continue on Rocephin. Tmax of 102.5 F. Clinically the patient appears to be at her baseline. Dehydration? Blood cultures negative at 24 hours. Urine cultures wijth E. coli that is ESBL+. Patient is not giving any complaints at this time (she rarely complains of problems - which makes her assess slightly more difficult). If fevers persist will have to expand coverage of antibiotics from Rocephin. Was given one dose of Gentamicin. Urine culture showing E. coli that is ESBL+. On Meropenem. Looking for 5 to 7 days of treatment with Meropenem. On day 6 of therapy. Hard stop on day 7 of therapy. Thank you for allowing me to participate in the care of the patient, we will fol low with you.
[2018-08-14 23:12] LABS: PROTHROMBIN TIME 71.6 SECONDS (9.4-12.5)
[2018-08-14 23:15] LABS: INR 6.05
[2018-08-14] MEDS ORDERED: Phytonadione 10 mg/ml Inj (Adult) SC ONE (23:19)
--- NOTE | 2018-08-15 00:28 | PN ---
DATE: 08/14/2018 SUBJECTIVE: The patient is a 63-year-old female. The patient was seen and examined at the bedside 08/14/2018, looking comfortable. No fevers. No hematuria. No hematochezia. No headache. No dizziness. No chest pain. No palpitations. The patient is a very poor historian. PHYSICAL EXAMINATION: VITAL SIGNS: Temperature 98.4, pulse 91, respiratory rate 20, blood pressure 107/57, and pulse oximetry 98. HEENT: Head; normocephalic and atraumatic. Eyes; PERRLA. Extraocular muscles are intact. Conjunctivae clear. Nose patent. Mucous membranes moist. NECK: Supple. No carotid bruits, JVD, or thyromegaly. CHEST: Bilaterally symmetrical. HEART: S1 and S2 positive. LUNGS: Clear to auscultation. ABDOMEN: Soft. Bowel sounds present. No organomegaly. EXTREMITIES: No edema. No cyanosis. NEUROLOGIC: The patient is awake and alert. Moving all four extremities. No focal deficits. LABORATORY DATA: White blood cells 7.7, hemoglobin 9.8, hematocrit 30.8, and platelets 196. Sodium 141, potassium 4.4, BUN 61, creatinine 1.2, and glucose 97. MEDICATIONS: Tylenol, Brovana, Pulmicort, Coreg, vitamins, digoxin, Prozac, Lasix, NS, Tapazole, Singulair, Protonix, Risperdal, and Coumadin. ASSESSMENT AND PLAN: Ms. Rylie Sabillon is a 63-year-old lady with anemia, renal insufficiency, resident of [facility] came with body aches, was started on Rocephin and dose of gentamicin was given. Clinically, the patient is improving. The patient was dehydrated, improved. Blood cultures are negative 24 hours. Urine culture shows extended-spectrum beta-lactamases positive. The patient is getting now meropenem, today is day 6 and Infectious Disease is looking for seven days of therapy with meropenem, looks like tomorrow will be the last dose. The patient has history of hyperthyroidism; atrial fibrillation, is on Coumadin; and leukemia. We do not have INR today, but we will repeat INR and labs. Degenerative joint disease, out of bed, and physical therapy. We will follow up. Sharonda Knight MD [facility] # [id number]
[2018-08-15 07:08] LABS: HEMOGLOBIN 9.8 g/dL (12.0-16.0); MEAN CELL VOLUME 83.2 fl (80.0-105.0); MEAN CORPUSCULAR HEMOGLOBIN 26.2 pg (25.0-35.0); MEAN CORPUSCULAR HGB CONC 31.5 g/dl (31.0-37.0); MEAN PLATELET VOLUME 10.1 fl (7.0-11.0); RBC 3.74 10^6/uL (3.5-6.1); RED CELL DISTRIBUTION WIDTH 12.8 % (11.5-14.5); WHITE BLOOD COUNT 5.5 10^3/uL (4.5-11.0)
[2018-08-15 07:15] LABS: BLOOD UREA NITROGEN 56 mg/dL (7-21); CALCIUM 9.3 mg/dL (8.4-10.5); GFR NON-AFRICAN AMERICAN 56
[2018-08-15 07:27] LABS: PROTHROMBIN TIME 57.7 SECONDS (9.4-12.5)
[2018-08-15 07:53] LABS: INR 4.86
[2018-08-15] MEDS: Cholecalciferol 1,000 INTLU TAB PO SCH (10:31)
[2018-08-15] MEDS: Pantoprazole 20 mg EC Tab PO SCH (10:31)
[2018-08-15] MEDS: MEROPENEM 500 MG in NS 500 MG/50 ML BAG IVPB SCH (10:32)
[2018-08-15 13:51] VITALS: O2SAT 95
[2018-08-15] MEDS: Digoxin 125 mcg (0.125 mg) Tab PO SCH (14:30)
[2018-08-15 14:32] VITALS: PULSE 87
--- NOTE | 2018-08-15 16:58 | CP.PCM.PN ---
Subjective - Date & Time of Evaluation Date of Evaluation: 08/15/18 Time of Evaluation: 14:00 - Subjective Subjective: Infectious Disease Follow Up: August 15, 2018 63 yo female with presentation of fevers and [facility] aches [facility]. 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 She was found with fevers up to 103.0 F. Mild to Moderate leukocytosis. Mild transaminitis. Influenza test negative. Possible UTI although urinalysis evidence is rather weak. The patient is making few complaints now. She remains highly anxious. Urine cultures showing ESBL+ E. Coli > 100,000 CFU/ml. Currently on Meropenem Day 7 Afebrile the last 4 days. Difficult to assess as the patient rarely complains of anything. On exam and interview, she appears to be her normal self. Noted peripheral smear report. Objective - Vital Signs/Intake and Output Vital Signs (last 24 hours): Temp Pulse Resp BP Pulse Ox 97.7 F 74 20 121/59 L 95 08/15/18 12:00 08/15/18 14:00 08/15/18 12:00 08/15/18 12:00 08/15/18 12:00 Intake and Output: 08/15/18 08/15/18 06:59 18:59 Intake Total 880 Balance 880 - Medications Medications: Current Medications Carvedilol (Coreg) 12.5 mg PO BID [facility] Last Admin: 08/15/18 10:31 Dose: 12.5 mg Cholecalciferol (Vitamin D) 1,000 intlu PO DAILY [facility] Last Admin: 08/15/18 10:31 Dose: 1,000 intlu Digoxin (Digoxin) 0.125 mg PO 1400 [facility] Last Admin: 08/15/18 14:30 Dose: 0.125 mg Fluoxetine HCl (Prozac) 40 mg PO DAILY [facility] Last Admin: 08/15/18 10:32 Dose: 40 mg Furosemide (Lasix) 20 mg PO DAILY [facility] Last Admin: 08/15/18 10:31 Dose: 20 mg Methimazole (Tapazole) 10 mg PO MoTuWeThFr@1000,1800 [facility] Last Admin: 08/15/18 10:32 Dose: 10 mg Methimazole (Tapazole) 25 mg PO SuSa@1000 [facility] Last Admin: 08/13/18 09:57 Dose: 25 mg Pantoprazole Sodium (Protonix Ec Tab) 20 mg PO DAILY [facility] Last Admin: 08/15/18 10:31 Dose: 20 mg Risperidone (Risperdal Tab) 0.5 mg PO HS [facility]; Protocol Last Admin: 08/14/18 21:42 Dose: 0.5 mg Warfarin Sodium (Coumadin) 1 mg PO 1800 [facility]; Protocol Last Admin: 08/14/18 18:42 Dose: 1 mg - Labs Labs: 08/15/18 06:45 08/15/18 06:45 PT 57.7 SECONDS (9.4-12.5) H 08/15/18 06:45 INR 4.86 H* 08/15/18 06:45 APTT 25.8 Seconds (25.1-36.5) 08/07/18 16:20 - Constitutional Appears: Non-toxic, No Acute Distress, Chronically Ill - Head Exam Head Exam: ATRAUMATIC, NORMOCEPHALIC - Eye Exam Eye Exam: EOMI, PERRL Pupil Exam: NORMAL ACCOMODATION, PERRL - ENT Exam ENT Exam: Mucous Membranes Moist, Normal External Ear Exam, TM's Normal Bilaterally - Neck Exam Neck Exam: Full ROM, Normal Inspection - Respiratory Exam Respiratory Exam: Clear to Ausculation Bilateral, NORMAL BREATHING PATTERN. absent: Rales, Rhonchi, Wheezes - Cardiovascular Exam Cardiovascular Exam: REGULAR RHYTHM, RRR, +S1, +S2 - GI/Abdominal Exam GI & Abdominal Exam: Soft, Normal Bowel Sounds. absent: Distended, Tenderness - Extremities Exam Extremities Exam: absent: Joint Swelling, Pedal Edema Additional comments: wheelchair bound - Neurological Exam Neurological Exam: Alert, Awake Neuro motor strength exam: Left Upper Extremity: 2/1 - Psychiatric Exam Psychiatric exam: Normal Affect, Normal Mood - Skin Skin Exam: Intact, Normal Color Assessment and Plan - Assessment and Plan (Free Text) Assessment: 63 yo female with fevers at [facility] and generalized body aches. The patient was started on Rocephin. Low grade fever of 100.2 F in [facility]. La cultures sent. Can give one dose of Gentamicin 100mg IV. Chest X-ray with no active disease. Supportive care. Continue on Rocephin. Tmax of 102.5 F. Clinically the patient appears to be at her baseline. Dehydration? Blood cultures negative at 24 hours. Urine cultures wijth E. coli that is ESBL+. Patient is not giving any complaints at this time (she rarely complains of problems - which makes her assess slightly more difficult). If fevers persist will have to expand coverage of antibiotics from Rocephin. Was given one dose of Gentamicin. Urine culture showing E. coli that is ESBL+. On Meropenem. Looking for 5 to 7 days of treatment with Meropenem. On day 7 of therapy. Hard stop on day 7 of therapy. Thank you for allowing me to participate in the care of the patient, we will follow with you.
[2018-08-15 18:15] VITALS: BP 101/60; PULSE 78
[2018-08-15 19:01] VITALS: RESP 18; TEMP 98
== END 2018-08-15 20:44 | DRG 320 ==
LOC: ED 15:30 → ERH 18:27 → 2RNO 08-08 00:03
PROVIDERS: ADMIT Internal Medicine; ATTEND Internal Medicine
PROC: 3E0F7GC Introduction of Other Therapeutic Substance into Respiratory Tract, Via Natural or Artificial Opening (ICD-10-PCS; principal; 2018-08-08)
DX: N39.0 Urinary tract infection, site not specified (principal); F03.90 Unspecified dementia, unspecified severity, without behavioral disturbance, psychotic disturbance, mood disturbance, and anxiety; E05.90 Thyrotoxicosis, unspecified without thyrotoxic crisis or storm; F20.9 Schizophrenia, unspecified; I50.9 Heart failure, unspecified; E86.0 Dehydration; B96.20 Unspecified Escherichia coli [E. coli] as the cause of diseases classified elsewhere; I48.91 Unspecified atrial fibrillation; D50.9 Iron deficiency anemia, unspecified; K21.9 Gastro-esophageal reflux disease without esophagitis; M19.90 Unspecified osteoarthritis, unspecified site; N28.9 Disorder of kidney and ureter, unspecified; Z85.6 Personal history of leukemia; Z79.01 Long term (current) use of anticoagulants; Z91.19 Patient's noncompliance with other medical treatment and regimen